=== PATIENT | female | born 1980 | race Caucasian/White ===

== ENCOUNTER 2017-05-07 10:21 | Emergency (ER) | payer MEDICAID ==
[~2017-05-07] VITALS: Ht 160 cm; Wt 81.2 kg
[~2017-05-07 10:21] MED LIST: HYDR50CA PO; TRAZ100T15 PO
[2017-05-07] MEDS ORDERED: DIAZEPAM 5 MG TABLET PO ONE (11:30)
[2017-05-07] MEDS ORDERED: SODIUM CHLORIDE 0.9% 1,000ML IVBOLUS ONE (11:30)
[2017-05-07] MEDS ORDERED: KETOROLAC 30 MG/1 ML IVPush ONE (11:30)
[2017-05-07] MEDS ORDERED: ONDANSETRON 2MG/ML, 2ML IVPush ONE (11:30)
[2017-05-07] MEDS ORDERED: SODIUM CHLORIDE FLUSH 10ML SYR IVF ONE (11:30)
[2017-05-07] MEDS ORDERED: MORPHINE SULFATE 4 MG/ML, 1ML IVPush PRN (11:30)
[2017-05-07] MEDS ORDERED: MORPHINE SULFATE 4 MG/ML, 1ML ONE ×2 (11:31→12:40)
[2017-05-07] MEDS ORDERED: ONDANSETRON 2MG/ML, 2ML ONE (11:31)
[2017-05-07] MEDS ORDERED: DIAZEPAM 5 MG TABLET ONE (11:31)
[2017-05-07] MEDS ORDERED: KETOROLAC 30 MG/1 ML ONE (11:31)
[2017-05-07] MEDS ORDERED: BUSP10TA PO (12:00)
[2017-05-07] MEDS ORDERED: MECLIZINE CHEWABLE 25 MG TAB PO ONE (12:30)
[2017-05-07] MEDS ORDERED: MECLIZINE CHEWABLE 25 MG TAB ONE (12:40)
[2017-05-07] MEDS ORDERED: HYDROmorphone 1 MG/ML, 1ML ONE (12:57)
[2017-05-07] MEDS ORDERED: HYDROmorphone 2 MG/ML, 1ML IVPush ONE (13:00)
[2017-05-07 13:25] VITALS: BP 102/75
== END 2017-05-07 13:27 | disposition home or self-care (01) ==
LOC: ED 12:34
DX: G44.209 Tension-type headache, unspecified, not intractable (principal)
CPT/HCPCS: 70450; 93005; 96361; 96374; 96375; 99285; J1170; J1885; J2405; J7030

== ENCOUNTER 2017-06-12 05:36 | Emergency (ER) | payer MEDICAID ==
[~2017-06-12] VITALS: Ht 160 cm; Wt 81.5 kg
[~2017-06-12 05:36] MED LIST changes: +BUSP10TA PO
[2017-06-12] MEDS ORDERED: BACL-19 PO (05:59)
[2017-06-12] MEDS ORDERED: SODIUM CHLORIDE FLUSH 10ML SYR IVF ONE (06:00)
[2017-06-12] MEDS ORDERED: SODIUM CHLORIDE 0.9% 1,000ML IVBOLUS ONE (06:00)
[2017-06-12] MEDS ORDERED: ONDANSETRON 2MG/ML, 2ML IVPush ONE (06:00)
[2017-06-12] MEDS ORDERED: FAMOTIDINE 20 MG/2 ML IVP ONE (06:00)
[2017-06-12] MEDS ORDERED: ONDANSETRON 2MG/ML, 2ML ONE (06:04)
[2017-06-12] MEDS ORDERED: LORazepam 2 MG/ML, 1ML ONE ×2 (06:08→11:07)
[2017-06-12] MEDS ORDERED: FAMOTIDINE 20 MG/2 ML ONE (06:18)
[2017-06-12 06:26] LABS: HEMATOCRIT 35.8 % (34.6-47.8); HEMOGLOBIN 12.1 g/dL (11.7-16.4); WHITE BLOOD COUNT 9.6 x10^3/uL (3.4-10)
[2017-06-12] MEDS ORDERED: LORazepam 2 MG/ML, 1ML IVPush ONE ×2 (06:30→11:00)
[2017-06-12 06:31] LABS: BLOOD UREA NITROGEN 14 mg/dL (7-18)
[2017-06-12 06:36] LABS: ASPARTATE AMINO TRANSFERASE 26 U/L (15-37)
[2017-06-12] MEDS ORDERED: MORPHINE SULFATE 4 MG/ML, 1ML IVPush ONE (07:00)
[2017-06-12] MEDS ORDERED: MORPHINE SULFATE 4 MG/ML, 1ML ONE (07:09)
[2017-06-12] MEDS ORDERED: PROCHLORPERAZINE 5 MG/ML, 2ML ONE (08:16)
[2017-06-12] MEDS ORDERED: DIPHENHYDRAMINE 50 MG/ML, 1ML ONE (08:16)
[2017-06-12] MEDS ORDERED: PROCHLORPERAZINE 5 MG/ML, 2ML IVPush ONE (08:30)
[2017-06-12] MEDS ORDERED: DIPHENHYDRAMINE 50 MG/ML, 1ML IVPush ONE (08:30)
[2017-06-12] MEDS ORDERED: KETOROLAC 30 MG/1 ML ONE (08:42)
[2017-06-12] MEDS ORDERED: KETOROLAC 30 MG/1 ML IVPush ONE (09:00)
[2017-06-12] MEDS ORDERED: OMNIPAQUE 350 MG/ML, 100ML BOTTLE ONE (10:26)
[2017-06-12 11:00] VITALS: BP 110/70
== END 2017-06-12 11:38 | disposition home or self-care (01) ==
LOC: ED 06:20
DX: K29.20 Alcoholic gastritis without bleeding (principal); F10.10 Alcohol abuse, uncomplicated; F41.9 Anxiety disorder, unspecified
CPT/HCPCS: 36415; 74020; 74177; 80053; 81001; 83690; 84703; 85025; 87086; 96361; 96374; 96375; 96376; 99285; J0780; J1200; J1885; J2060; J2405; J7030; Q9967; S0028

== ENCOUNTER 2017-08-27 11:34 | Inpatient (IN) | payer MEDICAID ==
[~2017-08-27] VITALS: Ht 162.6 cm; Wt 77.6 kg
[~2017-08-27 11:34] MED LIST changes: +BACL-19 PO
[2017-08-27] MEDS ORDERED: SODIUM CHLORIDE 0.9% 1,000 ML IV ONE (12:23)
[2017-08-27] MEDS ORDERED: SODIUM CHLORIDE 0.9% 1,000ML IVBOLUS ONE (12:30)
[2017-08-27] MEDS ORDERED: SODIUM CHLORIDE FLUSH 10ML SYR IVF ONE (12:30)
[2017-08-27] MEDS ORDERED: ONDANSETRON 2MG/ML, 2ML IVPush ONE ×2 (12:30→15:00)
[2017-08-27] MEDS ORDERED: ONDANSETRON 2MG/ML, 2ML ONE ×2 (12:33→15:13)
[2017-08-27] MEDS ORDERED: HYDROmorphone 2 MG/ML, 1ML ONE ×2 (12:33→13:19)
[2017-08-27] MEDS: HYDROmorphone 1 MG/ML, 1ML IVPush PRN ×2 (12:34→13:30)
[2017-08-27 13:04] LABS: BASOPHILS # (AUTO) 0.08 x10^3/uL (0-0.1); BASOPHILS % (AUTO) 1 % (0-1); EOSINOPHILS # (AUTO) 0.02 x10^3/uL (0-0.4); EOSINOPHILS % (AUTO) 0 % (1-7); LYMPHOCYTES # (AUTO) 1.39 x10^3/uL (1-3.4); LYMPHOCYTES % (AUTO) 14 % (22-44); MD NO; MEAN CORPUSCULAR HEMOGLOBIN 27.5 pg (27.0-34.8); MEAN CORPUSCULAR HGB CONC 32.1 g/dL (32.4-35.8); MEAN CORPUSCULAR VOLUME 85.5 fL (80-100); MEAN PLATELET VOLUME 9.7 fL (7.4-10.4); MONOCYTES # (AUTO) 0.79 x10^3/uL (0.2-0.8); MONOCYTES % (AUTO) 8 % (2-9); NEUTROPHILS # (AUTO) 7.64 x10^3/uL (1.8-6.8); NEUTROPHILS % (AUTO) 77 % (42-75); PLATELET COUNT 261 x10^3/uL (130-400); RED CELL DISTRIBUTION WIDTH 18.1 % (9.6-15.2)
[2017-08-27 13:16] LABS: CHLORIDE 106 mmol/L (98-107)
[2017-08-27 13:35] LABS: ALANINE AMINOTRANSFERASE 58 U/L (12-78); ALBUMIN 4.4 g/dL (3.4-5.0); ALKALINE PHOSPHATASE 104 U/L (45-117); ANION GAP 19 mmol/L (5-15); BILIRUBIN,TOTAL 0.5 mg/dL (0.2-1.0); CREATININE 0.78 mg/dL (0.55-1.02); TOTAL PROTEIN 8.9 g/dL (6.4-8.2)
[2017-08-27] MEDS ORDERED: HYDROmorphone 1 MG/ML, 1ML IVPush PRN (15:00)
[2017-08-27] MEDS ORDERED: PROMETHAZINE 25 MG/ML, 1ML ONE (16:27)
[2017-08-27] MEDS ORDERED: PROMETHAZINE 25 MG/ML, 1ML IM ONE (16:30)
[2017-08-27] MEDS ORDERED: LORazepam 1MG TABLET ONE (16:49)
[2017-08-27] MEDS ORDERED: LORazepam 1MG TABLET PO ONE (17:00)
[2017-08-27] MEDS ORDERED: LORazepam 2 MG/ML, 1ML IVPush ONE (19:00)
[2017-08-27] MEDS ORDERED: METOCLOPRAMIDE 5 MG/ML, 2ML ONE (19:00)
[2017-08-27] MEDS ORDERED: LORazepam 2 MG/ML, 1ML ONE (19:00)
[2017-08-27] MEDS ORDERED: METOCLOPRAMIDE 5 MG/ML, 2ML IVPush ONE (19:00)
[2017-08-27] MEDS ORDERED: BISACODYL 10 MG SUPP PR PRN (20:00)
[2017-08-27] MEDS ORDERED: ACETAMINOPHEN 325 MG TABLET PO PRN (20:00)
[2017-08-27] MEDS: HEPARIN 5,000 UNITS/ML, 1ML SQ SCH (20:00)
[2017-08-27] MEDS ORDERED: POLYETHYLENE GLYCOL 17 GM PACKET PO PRN (20:00)
[2017-08-27] MEDS ORDERED: ONDANSETRON 2MG/ML, 2ML IVPush PRN (20:00)
[2017-08-27 20:10] VITALS: BP 155/91
[2017-08-27] MEDS: PROMETHAZINE 25 MG/ML, 1ML IM PRN (20:22)
[2017-08-27] MEDS ORDERED: ENALAPRILAT 1.25 MG/ML, 2ML IV PRN (20:30)
[2017-08-27] MEDS: TRAZODONE 50MG TABLET PO SCH (21:00)
[2017-08-27] MEDS: BUSPIRONE 10 MG TABLET PO SCH (21:00)
[2017-08-27] MEDS: BACLOFEN 10 MG TABLET PO SCH (21:00)
[2017-08-27] MEDS: NICOTINE 14MG/24 HR PATCH.TD24 TD SCH (21:36)
[2017-08-27] MEDS: LORazepam 2 MG/ML, 1ML IVPush PRN (21:36)
[2017-08-27] MEDS: POTASSIUM CHLORIDE 20 MEQ, MAGNESIUM SULFATE 2 GM, THIAMINE 100 MG, MVI ADULT 10 ML, FO... IV SCH (21:37)
[2017-08-28 01:50] VITALS: BP 134/87
[2017-08-28] MEDS: LORazepam 2 MG/ML, 1ML IVPush PRN ×2 (02:00→17:31)
[2017-08-28] MEDS: PROMETHAZINE 25 MG/ML, 1ML IM PRN (02:00)
[2017-08-28] MEDS: HEPARIN 5,000 UNITS/ML, 1ML SQ SCH ×3 (05:00→20:48)
[2017-08-28 06:08] LABS: BASOPHILS # (AUTO) 0.04 x10^3/uL (0-0.1); BASOPHILS % (AUTO) 1 % (0-1); EOSINOPHILS # (AUTO) 0.03 x10^3/uL (0-0.4); EOSINOPHILS % (AUTO) 0 % (1-7); LYMPHOCYTES # (AUTO) 1.76 x10^3/uL (1-3.4); LYMPHOCYTES % (AUTO) 23 % (22-44); MD NO; MEAN CORPUSCULAR HEMOGLOBIN 27.4 pg (27.0-34.8); MEAN CORPUSCULAR VOLUME 85.5 fL (80-100); MONOCYTES # (AUTO) 0.88 x10^3/uL (0.2-0.8); MONOCYTES % (AUTO) 12 % (2-9); NEUTROPHILS # (AUTO) 4.84 x10^3/uL (1.8-6.8); NEUTROPHILS % (AUTO) 64 % (42-75); PLATELET COUNT 214 x10^3/uL (130-400); RED BLOOD COUNT 4.47 x10^6/uL (3.82-5.3); RED CELL DISTRIBUTION WIDTH 17.7 % (9.6-15.2)
[2017-08-28 06:15] LABS: CHLORIDE 115 mmol/L (98-107)
[2017-08-28 06:28] LABS: ALANINE AMINOTRANSFERASE 50 U/L (12-78); ALBUMIN 3.5 g/dL (3.4-5.0); ALKALINE PHOSPHATASE 90 U/L (45-117); ANION GAP 11 mmol/L (5-15); BILIRUBIN,TOTAL 0.8 mg/dL (0.2-1.0); CALCIUM 8.2 mg/dL (8.5-10.1); CREATININE 0.57 mg/dL (0.55-1.02); TOTAL PROTEIN 7.4 g/dL (6.4-8.2)
[2017-08-28 07:54] VITALS: BP 117/79
[2017-08-28] MEDS: BUSPIRONE 10 MG TABLET PO SCH ×2 (07:56→20:48)
[2017-08-28] MEDS: BACLOFEN 10 MG TABLET PO SCH ×2 (07:56→20:49)
[2017-08-28] MEDS: SENNA/DOCUSATE TABLET PO SCH (08:24)
[2017-08-28 13:55] VITALS: BP 128/74
[2017-08-28 19:19] VITALS: BP 125/85
[2017-08-28] MEDS: NICOTINE 14MG/24 HR PATCH.TD24 TD SCH (20:46)
[2017-08-28] MEDS: SODIUM CHLORIDE 0.9% 1,000 ML IV SCH (20:46)
[2017-08-28] MEDS: TRAZODONE 50MG TABLET PO SCH (20:48)
[2017-08-28] MEDS: POTASSIUM CHLORIDE 20 MEQ, MAGNESIUM SULFATE 2 GM, THIAMINE 100 MG, MVI ADULT 10 ML, FO... IV SCH (23:22)
[2017-08-29 02:14] VITALS: BP 99/65
[2017-08-29] MEDS: HEPARIN 5,000 UNITS/ML, 1ML SQ SCH (04:56)
[2017-08-29] MEDS: LORazepam 2 MG/ML, 1ML IVPush PRN ×2 (05:02→09:17)
[2017-08-29 07:59] VITALS: BP 107/74
[2017-08-29] MEDS: SENNA/DOCUSATE TABLET PO SCH (09:00)
[2017-08-29] MEDS: BACLOFEN 10 MG TABLET PO SCH (09:08)
[2017-08-29] MEDS: BUSPIRONE 10 MG TABLET PO SCH (09:08)
[2017-08-29] MEDS: SODIUM CHLORIDE 0.9% 1,000 ML IV SCH (09:17)
[2017-08-29] MEDS ORDERED: NICO-486 TD (10:19)
[2017-08-29] MEDS ORDERED: ONDA4TAB13 SL (10:19)
[2017-08-29] MEDS ORDERED: FOLIC ACID 1 MG TABLET PO SCH (10:30)
[2017-08-29] MEDS ORDERED: THIAMINE 100MG TABLET PO SCH (10:30)
[2017-08-29] MEDS ORDERED: MAGNESIUM OXIDE 400 MG TABLET PO SCH (10:30)
[2017-08-29] MEDS ORDERED: CHLORDIAZEPOXIDE 25 MG CAPSULE PO PRN (10:30)
[2017-08-29] MEDS ORDERED: MULTIVITAMIN 1 TABLET PO SCH (10:30)
[2017-08-29] MEDS ORDERED: THIA100T6 PO (10:42)
[2017-08-29] MEDS ORDERED: MULT1TAB60 PO (10:42)
[2017-08-29] MEDS ORDERED: FOLI-17 PO (10:42)
[2017-08-29] MEDS ORDERED: MAGN400T26 PO (10:42)
[2017-08-29] MEDS ORDERED: CHLO25CA9 PO (10:42)
[2017-08-29] MEDS ORDERED: OMEP-110 PO (10:51)
== END 2017-08-29 12:15 | disposition home or self-care (01) | DRG 897 ==
LOC: ED 12:43 → EDIP 18:41 → 3NE 20:03 → DCLOUNGE 08-29 12:04
PROVIDERS: ADMIT Surgery; ATTEND Internal Medicine
DX: F10.239 Alcohol dependence with withdrawal, unspecified (principal); E86.0 Dehydration; K29.70 Gastritis, unspecified, without bleeding; F17.210 Nicotine dependence, cigarettes, uncomplicated; R73.9 Hyperglycemia, unspecified
CPT/HCPCS: 36415; 70450; 80053; 83690; 83735; 85025; 96361; 96372; 96374; 96375; 96376; J1170; J2405; J2550; J3411; J3475; J3480; J7042; J2060; J2765; J7030

== ENCOUNTER 2017-09-16 18:42 | Emergency (ER) | payer MEDICAID ==
[~2017-09-16] VITALS: Ht 167.6 cm; Wt 75.0 kg
[~2017-09-16 18:42] MED LIST changes: +CHLO25CA9 PO; +FOLI-17 PO; +MAGN400T26 PO; +MULT1TAB60 PO; +NICO-486 TD; +OMEP-110 PO; +ONDA4TAB13 SL; +THIA100T6 PO
[2017-09-16] MEDS ORDERED: ZIPRASIDONE 20 MG INJ IM ONE (18:56)
[2017-09-16] MEDS ORDERED: LORazepam 1MG TABLET PO ONE (19:00)
[2017-09-16] MEDS ORDERED: ZIPRASIDONE 20 MG INJ IM PRN (19:00)
[2017-09-16] MEDS ORDERED: THIAMINE 100MG TABLET PO ONE (19:30)
[2017-09-16] MEDS ORDERED: SODIUM CHLORIDE FLUSH 10ML SYR IVF ONE (19:30)
[2017-09-16] MEDS ORDERED: SODIUM CHLORIDE 0.9% 1,000ML IVBOLUS ONE (19:30)
[2017-09-16] MEDS ORDERED: PLEASE ENTER HEIGHT AND WEIGHT MC SCH (19:30)
[2017-09-16 19:43] LABS: BASOPHILS # (AUTO) 0.11 x10^3/uL (0-0.1); BASOPHILS % (AUTO) 1 % (0-1); EOSINOPHILS # (AUTO) 0.07 x10^3/uL (0-0.4); EOSINOPHILS % (AUTO) 1 % (1-7); LYMPHOCYTES # (AUTO) 3.48 x10^3/uL (1-3.4); LYMPHOCYTES % (AUTO) 39 % (22-44); MD NO; MEAN CORPUSCULAR HEMOGLOBIN 27.2 pg (27.0-34.8); MEAN CORPUSCULAR HGB CONC 32.5 g/dL (32.4-35.8); MEAN CORPUSCULAR VOLUME 83.8 fL (80-100); MEAN PLATELET VOLUME 9.1 fL (7.4-10.4); MONOCYTES # (AUTO) 0.51 x10^3/uL (0.2-0.8); MONOCYTES % (AUTO) 6 % (2-9); NEUTROPHILS # (AUTO) 4.76 x10^3/uL (1.8-6.8); NEUTROPHILS % (AUTO) 53 % (42-75); PLATELET COUNT 318 x10^3/uL (130-400); RED BLOOD COUNT 4.74 x10^6/uL (3.82-5.3); RED CELL DISTRIBUTION WIDTH 18.6 % (9.6-15.2)
[2017-09-16 19:54] LABS: ANION GAP 13 mmol/L (5-15); CALCIUM 8.6 mg/dL (8.5-10.1); CHLORIDE 108 mmol/L (98-107); SALICYLATE LEVEL 2.3 mg/dL (2.8-20.0)
[2017-09-16 20:01] LABS: AMPHETAMINE SCREEN, URINE Negative (Negative); BARBITURATE SCREEN, URINE Negative (Negative); BENZODIAZEPINE SCREEN, URINE Negative (Negative); CANNABINOID SCREEN, URINE Negative (Negative); COCAINE SCREEN, URINE Negative (Negative); METHADONE SCREEN, URINE Negative (Negative); OPIATE SCREEN, URINE Negative (Negative)
[2017-09-16 20:03] LABS: ALANINE AMINOTRANSFERASE 48 U/L (12-78); ALKALINE PHOSPHATASE 101 U/L (45-117); BILIRUBIN,TOTAL 0.2 mg/dL (0.2-1.0); CREATININE 0.66 mg/dL (0.55-1.02); TOTAL PROTEIN 8.2 g/dL (6.4-8.2)
[2017-09-16 20:05] LABS: ACETAMINOPHEN < 2 mcg/mL (10-30)
[2017-09-17] MEDS ORDERED: LORazepam 1MG TABLET ONE (01:44)
[2017-09-17] MEDS ORDERED: LORazepam 1MG TABLET PO ONE (02:00)
[2017-09-17 02:31] VITALS: BP 119/74
== END 2017-09-17 02:32 | disposition home or self-care (01) ==
LOC: ED 19:44
DX: F10.20 Alcohol dependence, uncomplicated (principal); E87.6 Hypokalemia
CPT/HCPCS: 36415; 80053; 80307; 80329; 85025; 93005; 96372; 99285; J3486; G0480

== ENCOUNTER 2017-10-07 18:52 | Inpatient (IN) | payer MEDICAID ==
[~2017-10-07] VITALS: Ht 162.6 cm; Wt 76.8 kg
[2017-10-07] MEDS ORDERED: SODIUM CHLORIDE 0.9% 1,000ML IVBOLUS ONE ×3 (19:30→22:00)
[2017-10-07] MEDS ORDERED: SODIUM CHLORIDE FLUSH 10ML SYR IVF ONE (19:30)
[2017-10-07] MEDS ORDERED: ONDANSETRON 2MG/ML, 2ML IVPush ONE (19:30)
[2017-10-07] MEDS ORDERED: ONDANSETRON 2MG/ML, 2ML ONE ×2 (19:36→22:09)
[2017-10-07] MEDS ORDERED: LORazepam 2 MG/ML, 1ML ONE ×4 (19:36→22:50)
[2017-10-07] MEDS: LORazepam 2 MG/ML, 1ML IVPush PRN ×4 (19:39→20:56)
[2017-10-07 19:59] LABS: MEAN CORPUSCULAR HEMOGLOBIN 26.6 pg (27.0-34.8); MEAN CORPUSCULAR HGB CONC 30.7 g/dL (32.4-35.8); MEAN CORPUSCULAR VOLUME 86.8 fL (80-100); MEAN PLATELET VOLUME 9.1 fL (7.4-10.4); PLATELET COUNT 374 x10^3/uL (130-400); RED BLOOD COUNT 4.99 x10^6/uL (3.82-5.3); RED CELL DISTRIBUTION WIDTH 18.6 % (9.6-15.2)
[2017-10-07 20:09] LABS: ALANINE AMINOTRANSFERASE 169 U/L (12-78); ALBUMIN 4.6 g/dL (3.4-5.0); ANION GAP 23 mmol/L (5-15); CALCIUM 8.9 mg/dL (8.5-10.1); CHLORIDE 102 mmol/L (98-107); CREATININE 0.94 mg/dL (0.55-1.02)
[2017-10-07 20:14] LABS: ALKALINE PHOSPHATASE 155 U/L (45-117); BILIRUBIN,TOTAL 0.9 mg/dL (0.2-1.0); TOTAL PROTEIN 9.6 g/dL (6.4-8.2)
[2017-10-07 20:27] LABS: BASOPHILS # (AUTO) 0.06 x10^3/uL (0-0.1); BASOPHILS % (AUTO) 0 % (0-1); EOSINOPHILS % (AUTO) 0 % (1-7); LYMPHOCYTES # (AUTO) 0.85 x10^3/uL (1-3.4); LYMPHOCYTES % (AUTO) 5 % (22-44); MONOCYTES # (AUTO) 0.48 x10^3/uL (0.2-0.8); MONOCYTES % (AUTO) 3 % (2-9); NEUTROPHILS # (AUTO) 17.04 x10^3/uL (1.8-6.8); NEUTROPHILS % (AUTO) 93 % (42-75)
[2017-10-07 20:29] LABS: MD SCAN
[2017-10-07] MEDS ORDERED: METOCLOPRAMIDE 5 MG/ML, 2ML ONE (20:47)
[2017-10-07] MEDS ORDERED: OMNIPAQUE 350 MG/ML, 100ML BOTTLE ONE (21:00)
[2017-10-07] MEDS ORDERED: METOCLOPRAMIDE 5 MG/ML, 2ML IVPush ONE (21:00)
[2017-10-07 21:07] LABS: CULTURE INDICATED? NO; MICROSCOPIC AUTO
[2017-10-07] MEDS ORDERED: ONDANSETRON 2MG/ML, 2ML IVPush PRN ×2 (22:00→22:30)
[2017-10-07] MEDS ORDERED: POTASSIUM CHLORIDE 20 MEQ, MAGNESIUM SULFATE 2 GM, THIAMINE 100 MG, MVI ADULT 10 ML, FO... IV SCH (22:28)
[2017-10-07] MEDS ORDERED: DIPHENHYDRAMINE 50 MG/ML, 1ML IV PRN (22:30)
[2017-10-07] MEDS ORDERED: LABETALOL 5MG/ML, 20ML IVPush PRN (22:30)
[2017-10-07] MEDS ORDERED: LORazepam 2 MG/ML, 1ML IV PRN ×5 (22:30)
[2017-10-07] MEDS: D5%-0.9% NACL 1,000 ML IV SCH (22:30)
[2017-10-07] MEDS: ENOXAPARIN 40 MG/0.4 ML SQ SCH (22:30)
[2017-10-07] MEDS ORDERED: morphine SULFATE 10 MG/ML, 1ML IVPush PRN (22:30)
[2017-10-07] MEDS: D5%-0.45% NACL 1,000 ML IV SCH (22:43)
[2017-10-07] MEDS ORDERED: HALOPERIDOL 5 MG/ML IV PRN (23:00)
[2017-10-08 01:02] LABS: FIO2 RA %
[2017-10-08] MEDS: ENOXAPARIN 40 MG/0.4 ML SQ SCH ×2 (01:08→22:30)
[2017-10-08] MEDS: FAMOTIDINE 20 MG/2 ML IVPush SCH ×3 (01:08→19:58)
[2017-10-08] MEDS: D5%-0.45% NACL 1,000 ML IV SCH (03:00)
[2017-10-08] MEDS: D5%-0.9% NACL 1,000 ML IV SCH (03:30)
[2017-10-08 05:37] LABS: BASOPHILS # (AUTO) 0.02 x10^3/uL (0-0.1); BASOPHILS % (AUTO) 0 % (0-1); EOSINOPHILS % (AUTO) 0 % (1-7); LYMPHOCYTES # (AUTO) 1.76 x10^3/uL (1-3.4); LYMPHOCYTES % (AUTO) 16 % (22-44); MD NO; MEAN CORPUSCULAR HEMOGLOBIN 27.3 pg (27.0-34.8); MEAN CORPUSCULAR VOLUME 85.2 fL (80-100); MEAN PLATELET VOLUME 8.9 fL (7.4-10.4); MONOCYTES # (AUTO) 0.81 x10^3/uL (0.2-0.8); MONOCYTES % (AUTO) 7 % (2-9); NEUTROPHILS # (AUTO) 8.53 x10^3/uL (1.8-6.8); NEUTROPHILS % (AUTO) 77 % (42-75); PLATELET COUNT 226 x10^3/uL (130-400); RED BLOOD COUNT 3.87 x10^6/uL (3.82-5.3); RED CELL DISTRIBUTION WIDTH 18.8 % (9.6-15.2)
[2017-10-08 05:45] LABS: ALANINE AMINOTRANSFERASE 116 U/L (12-78); ALBUMIN 3.4 g/dL (3.4-5.0); ANION GAP 11 mmol/L (5-15); CALCIUM 7.4 mg/dL (8.5-10.1); CHLORIDE 110 mmol/L (98-107); CREATININE 0.68 mg/dL (0.55-1.02)
[2017-10-08 05:47] LABS: ALKALINE PHOSPHATASE 108 U/L (45-117); BILIRUBIN,TOTAL 0.9 mg/dL (0.2-1.0); TOTAL PROTEIN 7.1 g/dL (6.4-8.2)
[2017-10-08] MEDS ORDERED: SODIUM PHOSPHATE 20 MMOL in SODIUM CHLORIDE 0.9% 500 ML IV ONE ×2 (06:30→07:30)
[2017-10-08 08:58] LABS: O2 FLOW ROOM AIR L/min
[2017-10-08] MEDS: CHLORDIAZEPOXIDE 25 MG CAPSULE PO SCH ×3 (09:25→19:58)
[2017-10-08] MEDS: ACETAMINOPHEN 325 MG TABLET PO PRN (09:25)
[2017-10-08] MEDS: LORazepam 2 MG/ML, 1ML IVPush PRN ×4 (12:55→19:58)
[2017-10-08] MEDS: POTASSIUM CHLORIDE 20 MEQ, MAGNESIUM SULFATE 2 GM, MVI ADULT 10 ML, FOLIC ACID 1 MG in ... IV SCH (20:25)
[2017-10-08 20:27] VITALS: BP 132/87
[2017-10-08] MEDS ORDERED: POTASSIUM CHLORIDE 20 MEQ, MAGNESIUM SULFATE 2 GM, THIAMINE 200 MG, MVI ADULT 10 ML, FO... IV SCH (22:28)
[2017-10-09 00:29] VITALS: BP 126/89
[2017-10-09] MEDS: LORazepam 2 MG/ML, 1ML IVPush PRN ×6 (00:35→23:57)
[2017-10-09 01:03] VITALS: BP 115/27
[2017-10-09 05:52] LABS: CHLORIDE 108 mmol/L (98-107)
[2017-10-09 06:12] LABS: ANION GAP 12 mmol/L (5-15); CALCIUM 8.5 mg/dL (8.5-10.1); CREATININE 0.47 mg/dL (0.55-1.02)
[2017-10-09] MEDS ORDERED: POTASSIUM PHOSPHATE 44 MEQ in SODIUM CHLORIDE 0.9% 500 ML IV ONE (07:30)
[2017-10-09 07:57] VITALS: BP 118/79
[2017-10-09] MEDS: THIAMINE 100MG TABLET PO SCH (08:20)
[2017-10-09] MEDS: CHLORDIAZEPOXIDE 25 MG CAPSULE PO SCH ×3 (08:20→20:47)
[2017-10-09] MEDS: MUPIROCIN OINT 2%, 22GM TP SCH ×3 (08:20→20:48)
[2017-10-09] MEDS: FAMOTIDINE 20 MG/2 ML IVPush SCH ×2 (08:21→20:47)
[2017-10-09 13:22] VITALS: BP 122/72
[2017-10-09] MEDS: ACETAMINOPHEN 325 MG TABLET PO PRN (16:45)
[2017-10-09 19:22] VITALS: BP 128/88
[2017-10-09] MEDS: POTASSIUM CHLORIDE 20 MEQ, MAGNESIUM SULFATE 2 GM, MVI ADULT 10 ML, FOLIC ACID 1 MG in ... IV SCH (20:47)
[2017-10-09] MEDS: ENOXAPARIN 40 MG/0.4 ML SQ SCH (22:30)
[2017-10-10 01:56] VITALS: BP 111/76
[2017-10-10 07:01] VITALS: BP 118/82
[2017-10-10] MEDS: FAMOTIDINE 20 MG/2 ML IVPush SCH (08:25)
[2017-10-10] MEDS: THIAMINE 100MG TABLET PO SCH (08:25)
[2017-10-10] MEDS: CHLORDIAZEPOXIDE 25 MG CAPSULE PO SCH (08:25)
[2017-10-10] MEDS: LORazepam 2 MG/ML, 1ML IVPush PRN (08:25)
[2017-10-10] MEDS: MUPIROCIN OINT 2%, 22GM TP SCH (08:26)
[2017-10-10 13:02] VITALS: BP 103/70
== END 2017-10-10 13:45 | disposition home or self-care (01) | DRG 897 ==
LOC: ED 19:30 → EDIP 22:01 → CCU 23:13 → 3NE 10-08 11:34
PROVIDERS: ADMIT Hospitalist; ATTEND Hospitalist
DX: F10.239 Alcohol dependence with withdrawal, unspecified (principal); E87.2 Acidosis; K70.10 Alcoholic hepatitis without ascites; K76.0 Fatty (change of) liver, not elsewhere classified; R65.10 Systemic inflammatory response syndrome (SIRS) of non-infectious origin without acute organ dysfunction; D72.829 Elevated white blood cell count, unspecified; E86.0 Dehydration; F12.90 Cannabis use, unspecified, uncomplicated; F17.210 Nicotine dependence, cigarettes, uncomplicated; F41.1 Generalized anxiety disorder; K43.9 Ventral hernia without obstruction or gangrene; Z71.41 Alcohol abuse counseling and surveillance of alcoholic
CPT/HCPCS: 36415; 36600; 71045; 74177; 80048; 80053; 80307; 81001; 82803; 83605; 83690; 83735; 84100; 84703; 85025; 87081; 93005; 96374; 96375; 96376; J1650; J2405; J3411; J3475; J3480; J7042; Q9967; J2060; J2765; J7030; J7040; S0028

== ENCOUNTER 2018-01-29 13:47 | Emergency (ER) | payer MEDICAID ==
[~2018-01-29] VITALS: Ht 162.6 cm; Wt 74.3 kg
[2018-01-29 14:40] LABS: MICROSCOPIC NOT IND
[2018-01-29 14:55] LABS: CULTURE INDICATED? NO
[2018-01-29] MEDS ORDERED: SODIUM CHLORIDE 0.9% 1,000ML IVBOLUS ONE (15:00)
[2018-01-29] MEDS ORDERED: KETOROLAC 30 MG/1 ML IVPush ONE (15:00)
[2018-01-29] MEDS ORDERED: SODIUM CHLORIDE FLUSH 10ML SYR IVF ONE (15:00)
[2018-01-29] MEDS ORDERED: KETOROLAC 30 MG/1 ML ONE (15:08)
[2018-01-29 15:11] LABS: BASOPHILS # (AUTO) 0.06 x10^3/uL (0-0.1); BASOPHILS % (AUTO) 1 % (0-1); EOSINOPHILS # (AUTO) 0.09 x10^3/uL (0-0.4); EOSINOPHILS % (AUTO) 1 % (1-7); LYMPHOCYTES % (AUTO) 51 % (22-44); MD NO; MEAN CORPUSCULAR HEMOGLOBIN 27.2 pg (27.0-34.8); MEAN CORPUSCULAR HGB CONC 32.5 g/dL (32.4-35.8); MEAN CORPUSCULAR VOLUME 83.5 fL (80-100); MEAN PLATELET VOLUME 8.8 fL (7.4-10.4); MONOCYTES # (AUTO) 0.47 x10^3/uL (0.2-0.8); MONOCYTES % (AUTO) 7 % (2-9); NEUTROPHILS # (AUTO) 2.85 x10^3/uL (1.8-6.8); NEUTROPHILS % (AUTO) 40 % (42-75); PLATELET COUNT 314 x10^3/uL (130-400); RED BLOOD COUNT 4.21 x10^6/uL (3.82-5.3); RED CELL DISTRIBUTION WIDTH 19.1 % (9.6-15.2)
[2018-01-29 15:22] LABS: ALANINE AMINOTRANSFERASE 72 U/L (12-78); ALBUMIN 3.5 g/dL (3.4-5.0); ANION GAP 12 mmol/L (5-15); CALCIUM 8.4 mg/dL (8.5-10.1); CHLORIDE 113 mmol/L (98-107); CREATININE 0.71 mg/dL (0.55-1.02)
[2018-01-29 15:27] LABS: ALKALINE PHOSPHATASE 96 U/L (45-117); BILIRUBIN,TOTAL 0.2 mg/dL (0.2-1.0); TOTAL PROTEIN 7.2 g/dL (6.4-8.2)
[2018-01-29] MEDS ORDERED: hydrOXYzine 25 MG/ML IM ONE (16:00)
[2018-01-29] MEDS ORDERED: hydrOXYzine 50 MG/ML IM ONE (16:00)
[2018-01-29] MEDS ORDERED: OMNIPAQUE 350 MG/ML, 100ML BOTTLE ONE (16:07)
[2018-01-29 16:13] VITALS: BP 142/97
== END 2018-01-29 16:42 | disposition home or self-care (01) ==
LOC: ED 16:36
DX: K52.89 Other specified noninfective gastroenteritis and colitis (principal)
CPT/HCPCS: 36415; 74177; 80053; 81003; 83690; 84703; 85025; 96361; 96372; 96374; 99285; J1885; J3410; J7030; Q9967

== ENCOUNTER 2018-02-20 19:34 | Inpatient (IN) | payer MEDICAID ==
[~2018-02-20] VITALS: Ht 162.6 cm; Wt 79.4 kg
[2018-02-20] MEDS ORDERED: ONDANSETRON 2MG/ML, 2ML IVPush ONE (20:00)
[2018-02-20] MEDS ORDERED: SODIUM CHLORIDE 0.9% 1,000ML IVBOLUS ONE (20:00)
[2018-02-20] MEDS ORDERED: SODIUM CHLORIDE FLUSH 10ML SYR IVF ONE (20:00)
[2018-02-20] MEDS ORDERED: MORPHINE SULFATE 4 MG/ML, 1ML ONE ×2 (20:33→21:26)
[2018-02-20] MEDS ORDERED: ONDANSETRON ODT 4 MG ONE (20:33)
[2018-02-20 20:36] LABS: ALBUMIN 4.3 g/dL (3.4-5.0); CALCIUM 8.9 mg/dL (8.5-10.1); CHLORIDE 105 mmol/L (98-107)
[2018-02-20 20:38] LABS: ALANINE AMINOTRANSFERASE 94 U/L (12-78); ALKALINE PHOSPHATASE 111 U/L (45-117); BILIRUBIN,TOTAL 1.1 mg/dL (0.2-1.0); CREATININE 0.76 mg/dL (0.55-1.02); TOTAL PROTEIN 8.5 g/dL (6.4-8.2)
[2018-02-20 20:44] LABS: ANION GAP 20 mmol/L (5-15)
[2018-02-20] MEDS: MORPHINE SULFATE 4 MG/ML, 1ML IVPush PRN ×2 (20:44→21:29)
[2018-02-20] MEDS ORDERED: D5%-0.9% NACL 1,000 ML IV SCH (21:00)
[2018-02-20 21:35] LABS: BASOPHILS # (AUTO) 0.05 x10^3/uL (0-0.1); BASOPHILS % (AUTO) 1 % (0-1); EOSINOPHILS # (AUTO) 0.04 x10^3/uL (0-0.4); EOSINOPHILS % (AUTO) 1 % (1-7); LYMPHOCYTES # (AUTO) 1.52 x10^3/uL (1-3.4); LYMPHOCYTES % (AUTO) 20 % (22-44); MD NO; MEAN CORPUSCULAR HEMOGLOBIN 28.1 pg (27.0-34.8); MEAN CORPUSCULAR VOLUME 87.9 fL (80-100); MEAN PLATELET VOLUME 9.5 fL (7.4-10.4); MONOCYTES # (AUTO) 0.68 x10^3/uL (0.2-0.8); MONOCYTES % (AUTO) 9 % (2-9); NEUTROPHILS # (AUTO) 5.46 x10^3/uL (1.8-6.8); NEUTROPHILS % (AUTO) 70 % (42-75); PLATELET COUNT 218 x10^3/uL (130-400); RED BLOOD COUNT 4.18 x10^6/uL (3.82-5.3); RED CELL DISTRIBUTION WIDTH 19.2 % (9.6-15.2)
[2018-02-20 21:54] LABS: PH, VENOUS 7.243 pH (7.320-7.420)
[2018-02-20] MEDS ORDERED: LORazepam 2 MG/ML, 1ML IVPush ONE (22:00)
[2018-02-20 22:08] LABS: ACETONE, SERUM Large (80mg/dL) mg/dL (Negative)
[2018-02-20 22:48] LABS: ANION GAP 17 mmol/L (5-15); CALCIUM 7.6 mg/dL (8.5-10.1); CHLORIDE 110 mmol/L (98-107); CREATININE 0.59 mg/dL (0.55-1.02)
[2018-02-20] MEDS ORDERED: LORazepam 2 MG/ML, 1ML ONE (22:57)
[2018-02-20] MEDS ORDERED: LORazepam 2 MG/ML, 1ML IV PRN ×5 (23:00)
[2018-02-20] MEDS ORDERED: BISACODYL 10 MG SUPP PR PRN (23:00)
[2018-02-20] MEDS ORDERED: ONDANSETRON ODT 4 MG PO PRN (23:00)
[2018-02-20] MEDS ORDERED: hydrALAzine 20 MG/ML, 1ML IVPush PRN (23:00)
[2018-02-20] MEDS ORDERED: LORazepam 0.5MG TABLET PO PRN (23:00)
[2018-02-20] MEDS ORDERED: POLYETHYLENE GLYCOL 17 GM PACKET PO PRN (23:00)
[2018-02-20] MEDS ORDERED: LORazepam 1MG TABLET PO PRN ×4 (23:00)
[2018-02-20] MEDS ORDERED: PROMETHAZINE 25 MG/ML, 1ML IM PRN (23:00)
[2018-02-20] MEDS ORDERED: DOCUSATE 100 MG CAPSULE PO PRN (23:00)
[2018-02-20] MEDS ORDERED: ONDANSETRON 2MG/ML, 2ML IVPush PRN (23:00)
[2018-02-20 23:21] LABS: HEMOGLOBIN A1C 3.9 % (4.2-6.3)
[2018-02-20 23:23] LABS: FREE T4 (FREE THYROXINE) 0.78 ng/dL (0.76-1.46); THYROID STIMULATING HORMONE 3.85 mIU/L (0.358-3.740)
[2018-02-21 00:15] VITALS: BP 126/87
[2018-02-21] MEDS: CHLORDIAZEPOXIDE 25 MG CAPSULE PO SCH ×4 (01:29→20:55)
[2018-02-21] MEDS: POTASSIUM CHLORIDE 20 MEQ, MAGNESIUM SULFATE 2 GM, THIAMINE 100 MG, MVI ADULT 10 ML, FO... IV SCH ×2 (01:29→09:13)
[2018-02-21] MEDS: HEPARIN 5,000 UNITS/ML, 1ML SQ SCH ×3 (01:29→17:14)
[2018-02-21] MEDS: OXYcodone IR 5MG TABLET PO PRN ×5 (01:39→17:54)
[2018-02-21 03:22] VITALS: BP 121/80
[2018-02-21 04:32] LABS: MICROSCOPIC AUTO
[2018-02-21 04:41] LABS: CULTURE INDICATED? NO
[2018-02-21 05:53] LABS: BASOPHILS # (AUTO) 0.07 x10^3/uL (0-0.1); BASOPHILS % (AUTO) 1 % (0-1); EOSINOPHILS # (AUTO) 0.14 x10^3/uL (0-0.4); EOSINOPHILS % (AUTO) 2 % (1-7); LYMPHOCYTES # (AUTO) 2.78 x10^3/uL (1-3.4); LYMPHOCYTES % (AUTO) 41 % (22-44); MD NO; MEAN CORPUSCULAR HEMOGLOBIN 28.3 pg (27.0-34.8); MEAN CORPUSCULAR HGB CONC 32.2 g/dL (32.4-35.8); MEAN CORPUSCULAR VOLUME 87.9 fL (80-100); MEAN PLATELET VOLUME 9.7 fL (7.4-10.4); MONOCYTES # (AUTO) 0.75 x10^3/uL (0.2-0.8); MONOCYTES % (AUTO) 11 % (2-9); NEUTROPHILS # (AUTO) 3.01 x10^3/uL (1.8-6.8); NEUTROPHILS % (AUTO) 45 % (42-75); PLATELET COUNT 150 x10^3/uL (130-400); RED BLOOD COUNT 3.67 x10^6/uL (3.82-5.3); RED CELL DISTRIBUTION WIDTH 19.1 % (9.6-15.2)
[2018-02-21 06:01] LABS: ALBUMIN 3.1 g/dL (3.4-5.0); ANION GAP 8 mmol/L (5-15); CHLORIDE 113 mmol/L (98-107)
[2018-02-21 06:03] LABS: TOTAL PROTEIN 6.2 g/dL (6.4-8.2)
[2018-02-21 06:08] LABS: ALANINE AMINOTRANSFERASE 61 U/L (12-78); CALCIUM 7.8 mg/dL (8.5-10.1); CREATININE 0.56 mg/dL (0.55-1.02)
[2018-02-21 06:11] LABS: BILIRUBIN,TOTAL 0.7 mg/dL (0.2-1.0); CHOLESTEROL, TOTAL 163 mg/dL (140-239); TRIGLYCERIDES 56 mg/dL (50-200); VLDL CHOLESTEROL 11 mg/dL (0-25)
[2018-02-21 06:13] LABS: ALKALINE PHOSPHATASE 79 U/L (45-117); HDL CHOL % 51 % (28-40); HDL CHOLESTEROL (DIRECT) 83 mg/dL (40-60); LDL CHOLESTEROL,CALCULATED 69 mg/dL (54-169); LDL/HDL RATIO 0.8 (0.5-3.0)
[2018-02-21 07:09] VITALS: BP 122/82
[2018-02-21] MEDS: morphine SULFATE 10 MG/ML, 1ML IVPush PRN ×2 (08:53→15:40)
[2018-02-21] MEDS ORDERED: SODIUM PHOSPHATE 10 MMOL in SODIUM CHLORIDE 0.9% 500 ML IV ONE (09:30)
[2018-02-21] MEDS ORDERED: OXYcodone 5 MG/5 ML ORAL.SOL UDC ONE (11:37)
[2018-02-21 13:21] VITALS: BP 128/79
[2018-02-21] MEDS ORDERED: KETOROLAC 30 MG/1 ML IM PRN (13:30)
[2018-02-21] MEDS: NICOTINE 7 MG/24 HR PATCH.TD24 TD SCH (14:11)
[2018-02-21] MEDS ORDERED: KETOROLAC 30 MG/1 ML IV PRN (19:30)
[2018-02-21 20:09] VITALS: BP 115/78
[2018-02-22] MEDS: OXYcodone IR 5MG TABLET PO PRN ×3 (00:03→20:05)
[2018-02-22] MEDS: POTASSIUM CHLORIDE 20 MEQ, MAGNESIUM SULFATE 2 GM, THIAMINE 100 MG, MVI ADULT 10 ML, FO... IV SCH (00:03)
[2018-02-22] MEDS: HEPARIN 5,000 UNITS/ML, 1ML SQ SCH ×3 (00:07→16:22)
[2018-02-22 01:03] VITALS: BP 122/82
[2018-02-22 06:28] LABS: ANION GAP 6 mmol/L (5-15); CALCIUM 7.7 mg/dL (8.5-10.1); CHLORIDE 115 mmol/L (98-107); CREATININE 0.45 mg/dL (0.55-1.02)
[2018-02-22 07:47] VITALS: BP 127/79
[2018-02-22] MEDS: CHLORDIAZEPOXIDE 25 MG CAPSULE PO SCH ×3 (08:16→20:05)
[2018-02-22] MEDS: morphine SULFATE 10 MG/ML, 1ML IVPush PRN ×3 (09:26→16:32)
[2018-02-22] MEDS: NICOTINE 7 MG/24 HR PATCH.TD24 TD SCH (12:53)
[2018-02-22 13:04] VITALS: BP 132/84
[2018-02-22 20:12] VITALS: BP 109/73
[2018-02-23] MEDS: OXYcodone IR 5MG TABLET PO PRN ×2 (00:10→10:52)
[2018-02-23 00:11] VITALS: BP 121/82
[2018-02-23] MEDS: POTASSIUM CHLORIDE 20 MEQ, MAGNESIUM SULFATE 2 GM, THIAMINE 100 MG, MVI ADULT 10 ML, FO... IV SCH (00:11)
[2018-02-23] MEDS: HEPARIN 5,000 UNITS/ML, 1ML SQ SCH ×2 (01:00→08:40)
[2018-02-23 06:38] VITALS: BP 119/82
[2018-02-23] MEDS ORDERED: CHLORDIAZEPOXIDE 10 MG CAPSULE PO PRN (08:30)
[2018-02-23] MEDS ORDERED: OMNIPAQUE 350 MG/ML, 100ML BOTTLE ONE (10:20)
[2018-02-23] MEDS ORDERED: MULT1TAB60 PO (12:12)
[2018-02-23] MEDS ORDERED: IBUP-1484 PO (12:12)
[2018-02-23] MEDS ORDERED: SENN1TAB7 PO (12:12)
[2018-02-23] MEDS ORDERED: MAGNESIUM CITRATE 300ML ORAL SOL PO ONE (12:30)
== END 2018-02-23 13:48 | disposition home or self-care (01) | DRG 433 ==
LOC: ED 20:21 → EDIP 22:48 → 4EST 02-21 00:09
PROVIDERS: ADMIT Internal Medicine; ATTEND Internal Medicine
DX: K70.9 Alcoholic liver disease, unspecified (principal); E87.1 Hypo-osmolality and hyponatremia; E87.2 Acidosis; F10.239 Alcohol dependence with withdrawal, unspecified; K51.90 Ulcerative colitis, unspecified, without complications; E16.2 Hypoglycemia, unspecified; F12.90 Cannabis use, unspecified, uncomplicated; F17.210 Nicotine dependence, cigarettes, uncomplicated; F41.1 Generalized anxiety disorder; G89.29 Other chronic pain; K43.9 Ventral hernia without obstruction or gangrene; K76.0 Fatty (change of) liver, not elsewhere classified; N83.202 Unspecified ovarian cyst, left side; T73.0XXA Starvation, initial encounter
CPT/HCPCS: 36415; 36600; 74177; 76830; 76857; 80048; 80053; 80061; 80307; 81001; 82010; 82803; 82962; 83036; 83690; 83735; 84100; 84439; 84443; 84703; 85025; 93005; 96361; 96374; 96375; 96376; J2405; J3411; J3475; J3480; J7042; Q9967; J2060; J2270; J7030; J7040

== ENCOUNTER 2018-03-09 22:52 | Emergency (ER) | payer MEDICAID ==
[~2018-03-09] VITALS: Ht 162.6 cm; Wt 77.5 kg
[~2018-03-09 22:52] MED LIST changes: +IBUP-1484 PO; +SENN1TAB7 PO
[2018-03-09 22:58] VITALS: BP 124/81
[2018-03-09] MEDS ORDERED: TRAMADOL PO (23:06)
[2018-03-09] MEDS ORDERED: BUSP10TA PO (23:06)
[2018-03-09 23:28] LABS: BASOPHILS # (AUTO) 0.08 x10^3/uL (0-0.1); BASOPHILS % (AUTO) 1 % (0-1); EOSINOPHILS # (AUTO) 0.05 x10^3/uL (0-0.4); EOSINOPHILS % (AUTO) 1 % (1-7); LYMPHOCYTES # (AUTO) 3.01 x10^3/uL (1-3.4); LYMPHOCYTES % (AUTO) 37 % (22-44); MD NO; MEAN CORPUSCULAR HEMOGLOBIN 26.8 pg (27.0-34.8); MEAN CORPUSCULAR VOLUME 83.7 fL (80-100); MEAN PLATELET VOLUME 8.7 fL (7.4-10.4); MONOCYTES # (AUTO) 0.43 x10^3/uL (0.2-0.8); MONOCYTES % (AUTO) 5 % (2-9); NEUTROPHILS # (AUTO) 4.69 x10^3/uL (1.8-6.8); NEUTROPHILS % (AUTO) 57 % (42-75); PLATELET COUNT 421 x10^3/uL (130-400); RED BLOOD COUNT 4.19 x10^6/uL (3.82-5.3); RED CELL DISTRIBUTION WIDTH 19.9 % (9.6-15.2)
[2018-03-09] MEDS ORDERED: SODIUM CHLORIDE 0.9% 1,000ML IVBOLUS ONE (23:30)
[2018-03-09] MEDS ORDERED: THIAMINE 100MG TABLET PO ONE (23:30)
[2018-03-09] MEDS ORDERED: SODIUM CHLORIDE FLUSH 10ML SYR IVF ONE (23:30)
[2018-03-09] MEDS ORDERED: ONDANSETRON 2MG/ML, 2ML IVPush ONE (23:30)
[2018-03-09] MEDS ORDERED: LORazepam 1MG TABLET PO ONE (23:30)
[2018-03-09 23:38] LABS: ALBUMIN 3.9 g/dL (3.4-5.0); ANION GAP 10 mmol/L (5-15); CHLORIDE 113 mmol/L (98-107); CREATININE 0.82 mg/dL (0.55-1.02)
== END 2018-03-10 00:10 | disposition left against medical advice (07) ==
LOC: ED 23:59
DX: F41.1 Generalized anxiety disorder (principal); F10.220 Alcohol dependence with intoxication, uncomplicated; F17.200 Nicotine dependence, unspecified, uncomplicated
CPT/HCPCS: 36415; 80048; 80307; 82040; 84703; 85025; 99284

== ENCOUNTER 2018-03-27 16:10 | Emergency (ER) | payer MEDICAID ==
[~2018-03-27] VITALS: Ht 162.6 cm; Wt 70.9 kg
[~2018-03-27 16:10] MED LIST changes: -THIA100T6 PO; +THIA100T67 PO; +TRAMADOL PO; +TRAZ-137 PO; -TRAZ100T15 PO
[2018-03-27] MEDS ORDERED: SODIUM CHLORIDE 0.9% 1,000 ML IV ONE (16:41)
[2018-03-27] MEDS ORDERED: LORazepam 1MG TABLET PO ONE (17:00)
[2018-03-27] MEDS ORDERED: ONDANSETRON ODT 4 MG PO ONE (17:00)
[2018-03-27] MEDS ORDERED: SODIUM CHLORIDE 0.9% 1,000ML IVBOLUS ONE (17:00)
[2018-03-27] MEDS ORDERED: LORazepam 2 MG/ML, 1ML IVPush PRN (17:00)
[2018-03-27] MEDS ORDERED: ONDANSETRON 2MG/ML, 2ML IVPush ONE (17:00)
[2018-03-27] MEDS ORDERED: SODIUM CHLORIDE FLUSH 10ML SYR IVF ONE (17:00)
[2018-03-27] MEDS ORDERED: THIAMINE 100 MG in SODIUM CHLORIDE 0.9% 50 ML IVPB ONE (17:00)
[2018-03-27] MEDS ORDERED: ONDANSETRON 2MG/ML, 2ML ONE (17:31)
[2018-03-27] MEDS ORDERED: LORazepam 2 MG/ML, 1ML ONE (17:31)
[2018-03-27 17:44] LABS: MEAN CORPUSCULAR HEMOGLOBIN 27.9 pg (27.0-34.8); MEAN CORPUSCULAR HGB CONC 32.5 g/dL (32.4-35.8); MEAN CORPUSCULAR VOLUME 85.9 fL (80-100); MEAN PLATELET VOLUME 8.4 fL (7.4-10.4); PLATELET COUNT 218 x10^3/uL (130-400); RED CELL DISTRIBUTION WIDTH 20.1 % (9.6-15.2)
[2018-03-27 17:52] LABS: CHLORIDE 108 mmol/L (98-107)
[2018-03-27 18:08] LABS: MD SCAN
[2018-03-27 18:10] LABS: ALANINE AMINOTRANSFERASE 142 U/L (12-78); ALBUMIN 4.3 g/dL (3.4-5.0); ANION GAP 23 mmol/L (5-15); BASOPHILS # (AUTO) 0.18 x10^3/uL (0-0.1); BASOPHILS % (AUTO) 3 % (0-1); CALCIUM 8.2 mg/dL (8.5-10.1); EOSINOPHILS % (AUTO) 0 % (1-7); LYMPHOCYTES # (AUTO) 1.33 x10^3/uL (1-3.4); LYMPHOCYTES % (AUTO) 20 % (22-44); MONOCYTES # (AUTO) 0.28 x10^3/uL (0.2-0.8); MONOCYTES % (AUTO) 4 % (2-9); NEUTROPHILS % (AUTO) 74 % (42-75)
[2018-03-27 18:30] LABS: BILIRUBIN,TOTAL 0.5 mg/dL (0.2-1.0)
[2018-03-27 18:31] LABS: ALKALINE PHOSPHATASE 83 U/L (45-117); TOTAL PROTEIN 8.4 g/dL (6.4-8.2)
[2018-03-27] MEDS ORDERED: PROMETHAZINE 25 MG/ML, 1ML ONE (18:52)
[2018-03-27 18:59] VITALS: BP 123/69
[2018-03-27] MEDS ORDERED: PROMETHAZINE 25 MG/ML, 1ML IM ONE (19:00)
== END 2018-03-27 19:25 | disposition home or self-care (01) ==
LOC: ED 17:04
DX: F10.229 Alcohol dependence with intoxication, unspecified (principal); F17.210 Nicotine dependence, cigarettes, uncomplicated; Z79.899 Other long term (current) drug therapy
CPT/HCPCS: 36415; 80053; 80307; 83690; 85025; 96365; 96372; 96375; 99284; J2060; J2405; J2550; J3411; J7030; 99285

== ENCOUNTER 2018-04-21 15:24 | Emergency (ER) | payer MEDICAID ==
[~2018-04-21] VITALS: Ht 162.6 cm; Wt 72.2 kg
[2018-04-21 15:26] VITALS: BP 121/81
[2018-04-21 15:52] LABS: PH, VENOUS 7.512 pH (7.320-7.420)
[2018-04-21 15:54] LABS: BASOPHILS # (AUTO) 0.12 x10^3/uL (0-0.1); BASOPHILS % (AUTO) 2 % (0-1); EOSINOPHILS # (AUTO) 0.16 x10^3/uL (0-0.4); EOSINOPHILS % (AUTO) 2 % (1-7); LYMPHOCYTES # (AUTO) 3.77 x10^3/uL (1-3.4); LYMPHOCYTES % (AUTO) 45 % (22-44); MD NO; MEAN CORPUSCULAR HEMOGLOBIN 26.5 pg (27.0-34.8); MEAN CORPUSCULAR VOLUME 82.9 fL (80-100); MEAN PLATELET VOLUME 8.6 fL (7.4-10.4); MONOCYTES # (AUTO) 0.48 x10^3/uL (0.2-0.8); MONOCYTES % (AUTO) 6 % (2-9); NEUTROPHILS % (AUTO) 46 % (42-75); PLATELET COUNT 308 x10^3/uL (130-400); RED BLOOD COUNT 4.32 x10^6/uL (3.82-5.3); RED CELL DISTRIBUTION WIDTH 19.2 % (9.6-15.2)
[2018-04-21] MEDS ORDERED: ZIPRASIDONE 20MG CAPSULE ONE (15:58)
[2018-04-21] MEDS ORDERED: ZIPRASIDONE 20MG CAPSULE PO ONE (16:00)
[2018-04-21 16:06] LABS: ALBUMIN 3.8 g/dL (3.4-5.0); ANION GAP 11 mmol/L (5-15); CALCIUM 8.9 mg/dL (8.5-10.1); CHLORIDE 116 mmol/L (98-107)
[2018-04-21 16:11] LABS: ALANINE AMINOTRANSFERASE 63 U/L (12-78); ALKALINE PHOSPHATASE 86 U/L (45-117); BILIRUBIN,TOTAL 0.2 mg/dL (0.2-1.0); TOTAL PROTEIN 7.6 g/dL (6.4-8.2)
[2018-04-21 16:14] LABS: SALICYLATE LEVEL < 1.7 mg/dL (2.8-20.0)
[2018-04-21 16:16] LABS: ACETAMINOPHEN < 2 mcg/mL (10-30)
[2018-04-21 16:33] LABS: ACETONE, SERUM Negative (Negative)
== END 2018-04-21 16:52 | disposition left against medical advice (07) ==
LOC: ED 16:46
DX: F10.120 Alcohol abuse with intoxication, uncomplicated (principal); F17.200 Nicotine dependence, unspecified, uncomplicated
CPT/HCPCS: 36415; 80053; 80307; 80329; 82010; 82803; 84703; 85025; 99284; 99406; G0480

== ENCOUNTER 2018-05-09 20:04 | Emergency (ER) | payer MEDICAID ==
[~2018-05-09] VITALS: Ht 162.6 cm; Wt 72.2 kg
[~2018-05-09 20:04] MED LIST changes: -SENN1TAB7 PO; +SENN1TAB8 PO
[2018-05-09] MEDS ORDERED: CHLO10CA6 PO (20:19)
[2018-05-09] MEDS ORDERED: TRAZ-136 PO (20:19)
[2018-05-09 21:20] LABS: BASOPHILS # (AUTO) 0.07 x10^3/uL (0-0.1); BASOPHILS % (AUTO) 1 % (0-1); EOSINOPHILS # (AUTO) 0.32 x10^3/uL (0-0.4); EOSINOPHILS % (AUTO) 4 % (1-7); LYMPHOCYTES # (AUTO) 3.31 x10^3/uL (1-3.4); LYMPHOCYTES % (AUTO) 44 % (22-44); MD NO; MEAN CORPUSCULAR HEMOGLOBIN 26.6 pg (27.0-34.8); MEAN CORPUSCULAR HGB CONC 31.9 g/dL (32.4-35.8); MEAN CORPUSCULAR VOLUME 83.4 fL (80-100); MEAN PLATELET VOLUME 9.7 fL (7.4-10.4); MONOCYTES # (AUTO) 0.71 x10^3/uL (0.2-0.8); MONOCYTES % (AUTO) 9 % (2-9); NEUTROPHILS # (AUTO) 3.19 x10^3/uL (1.8-6.8); NEUTROPHILS % (AUTO) 42 % (42-75); PLATELET COUNT 245 x10^3/uL (130-400); RED BLOOD COUNT 4.96 x10^6/uL (3.82-5.3); RED CELL DISTRIBUTION WIDTH 19.7 % (9.6-15.2)
[2018-05-09 21:24] LABS: ALANINE AMINOTRANSFERASE 170 U/L (12-78); ANION GAP 10 mmol/L (5-15); CALCIUM 9.4 mg/dL (8.5-10.1); CHLORIDE 107 mmol/L (98-107); CREATININE 0.68 mg/dL (0.55-1.02)
[2018-05-09 21:29] LABS: ALKALINE PHOSPHATASE 110 U/L (45-117); BILIRUBIN,TOTAL 0.4 mg/dL (0.2-1.0); TOTAL PROTEIN 8.3 g/dL (6.4-8.2)
[2018-05-09 22:19] VITALS: BP 108/18
[2018-05-09] MEDS ORDERED: ONDANSETRON ODT 4 MG PO ONE (22:30)
[2018-05-09 23:01] LABS: CULTURE INDICATED? NO; MICROSCOPIC NOT IND
== END 2018-05-09 23:21 | disposition home or self-care (01) ==
LOC: ED 22:21
DX: F10.229 Alcohol dependence with intoxication, unspecified (principal); R10.33 Periumbilical pain; R10.30 Lower abdominal pain, unspecified; F17.200 Nicotine dependence, unspecified, uncomplicated
CPT/HCPCS: 36415; 80053; 80307; 81003; 83690; 84703; 85025; 99284

== ENCOUNTER 2018-06-12 12:03 | Emergency (ER) | payer MEDICAID ==
[~2018-06-12] VITALS: Ht 162.6 cm; Wt 71.2 kg
[~2018-06-12 12:03] MED LIST changes: +CHLO10CA6 PO; +TRAZ-136 PO
[2018-06-12] MEDS ORDERED: FAMOTIDINE 20 MG/2 ML ONE (12:52)
[2018-06-12] MEDS ORDERED: PROMETHAZINE 25 MG/ML, 1ML ONE (12:52)
[2018-06-12] MEDS ORDERED: PROMETHAZINE 25 MG/ML, 1ML IM ONE (13:00)
[2018-06-12] MEDS ORDERED: SODIUM CHLORIDE FLUSH 10ML SYR IVF ONE (13:00)
[2018-06-12] MEDS ORDERED: SODIUM CHLORIDE 0.9% 1,000ML IVBOLUS ONE (13:00)
[2018-06-12] MEDS ORDERED: FAMOTIDINE 20 MG/2 ML IVP ONE (13:00)
[2018-06-12] MEDS ORDERED: MAGNESIUM SULFATE 1 GM, THIAMINE 100 MG, FOLIC ACID 1 MG, MVI ADULT 10 ML in SODIUM CHL... IV ONE (13:00)
[2018-06-12 13:10] LABS: HCG UR SG 1.026 (1.003-1.030)
[2018-06-12 13:13] LABS: MICROSCOPIC INDICATED
[2018-06-12 13:19] LABS: CULTURE INDICATED? NO
[2018-06-12 13:32] LABS: INTERNATIONAL NORMALIZED RATIO 0.97 (0.93-1.1)
[2018-06-12 13:39] LABS: ALANINE AMINOTRANSFERASE 112 U/L (12-78); ALBUMIN 3.9 g/dL (3.4-5.0); ANION GAP 17 mmol/L (5-15); CALCIUM 8.7 mg/dL (8.5-10.1); CHLORIDE 107 mmol/L (98-107)
[2018-06-12 13:42] LABS: ALKALINE PHOSPHATASE 91 U/L (45-117); BILIRUBIN,TOTAL 0.5 mg/dL (0.2-1.0); CREATININE 0.61 mg/dL (0.55-1.02); TOTAL PROTEIN 7.7 g/dL (6.4-8.2)
[2018-06-12 13:54] LABS: MEAN CORPUSCULAR HEMOGLOBIN 27.4 pg (27.0-34.8); MEAN CORPUSCULAR HGB CONC 31.9 g/dL (32.4-35.8); MEAN CORPUSCULAR VOLUME 85.9 fL (80-100); MEAN PLATELET VOLUME 8.9 fL (7.4-10.4); PLATELET COUNT 205 x10^3/uL (130-400); RED BLOOD COUNT 4.38 x10^6/uL (3.82-5.3); RED CELL DISTRIBUTION WIDTH 20.3 % (9.6-15.2)
[2018-06-12 14:13] LABS: BASOPHILS # (AUTO) 0.05 x10^3/uL (0-0.1); BASOPHILS % (AUTO) 1 % (0-1); EOSINOPHILS # (AUTO) 0.02 x10^3/uL (0-0.4); EOSINOPHILS % (AUTO) 1 % (1-7); LYMPHOCYTES # (AUTO) 0.86 x10^3/uL (1-3.4); LYMPHOCYTES % (AUTO) 19 % (22-44); MONOCYTES # (AUTO) 0.17 x10^3/uL (0.2-0.8); MONOCYTES % (AUTO) 4 % (2-9); NEUTROPHILS # (AUTO) 3.33 x10^3/uL (1.8-6.8); NEUTROPHILS % (AUTO) 75 % (42-75)
[2018-06-12 14:14] LABS: MD SCAN
[2018-06-12 15:36] VITALS: BP 123/78
== END 2018-06-12 16:03 | disposition home or self-care (01) ==
LOC: ED 12:50
DX: R10.11 Right upper quadrant pain (principal); R10.33 Periumbilical pain; R10.31 Right lower quadrant pain; F10.20 Alcohol dependence, uncomplicated; F41.1 Generalized anxiety disorder
CPT/HCPCS: 36415; 76700; 80053; 81001; 81025; 83690; 85025; 85610; 85730; 96365; 96366; 96372; 96375; 99285; J2550; J3411; J3475; J7030; S0028

== ENCOUNTER 2018-07-04 12:15 | Inpatient (IN) | payer MEDICAID ==
[~2018-07-04] VITALS: Ht 162.6 cm; Wt 73.9 kg
[2018-07-04] MEDS ORDERED: SODIUM CHLORIDE 0.9% 1,000 ML IV ONE ×2 (13:06→14:08)
[2018-07-04] MEDS ORDERED: PROMETHAZINE 25 MG/ML, 1ML IM ONE (13:30)
[2018-07-04] MEDS ORDERED: SODIUM CHLORIDE 0.9% 1,000ML IVBOLUS ONE ×2 (13:30→14:30)
[2018-07-04] MEDS ORDERED: SODIUM CHLORIDE FLUSH 10ML SYR IVF ONE (13:30)
[2018-07-04] MEDS ORDERED: THIAMINE 100 MG/ML, 2ML ONE (13:32)
[2018-07-04] MEDS ORDERED: PROMETHAZINE 25 MG/ML, 1ML ONE (13:32)
[2018-07-04 13:39] LABS: BASOPHILS # (AUTO) 0.01 x10^3/uL (0-0.1); BASOPHILS % (AUTO) 0 % (0-1); EOSINOPHILS % (AUTO) 0 % (1-7); LYMPHOCYTES # (AUTO) 0.95 x10^3/uL (1-3.4); LYMPHOCYTES % (AUTO) 23 % (22-44); MD NO; MEAN CORPUSCULAR HEMOGLOBIN 28.5 pg (27.0-34.8); MEAN CORPUSCULAR HGB CONC 31.7 g/dL (32.4-35.8); MEAN CORPUSCULAR VOLUME 89.7 fL (80-100); MEAN PLATELET VOLUME 8.8 fL (7.4-10.4); MONOCYTES # (AUTO) 0.23 x10^3/uL (0.2-0.8); MONOCYTES % (AUTO) 6 % (2-9); NEUTROPHILS # (AUTO) 2.96 x10^3/uL (1.8-6.8); NEUTROPHILS % (AUTO) 71 % (42-75); PLATELET COUNT 139 x10^3/uL (130-400); RED BLOOD COUNT 3.87 x10^6/uL (3.82-5.3)
[2018-07-04 13:51] LABS: ALANINE AMINOTRANSFERASE 127 U/L (12-78); ALBUMIN 3.6 g/dL (3.4-5.0); CALCIUM 7.5 mg/dL (8.5-10.1); CREATININE 0.62 mg/dL (0.55-1.02)
[2018-07-04 13:57] LABS: ALKALINE PHOSPHATASE 85 U/L (45-117); BILIRUBIN,TOTAL 0.5 mg/dL (0.2-1.0); TOTAL PROTEIN 7.2 g/dL (6.4-8.2)
[2018-07-04 14:02] LABS: ANION GAP 26 mmol/L (5-15); CHLORIDE 108 mmol/L (98-107)
[2018-07-04] MEDS ORDERED: DEXTROSE 50%, 50ML SYRINGE ONE (14:06)
[2018-07-04] MEDS ORDERED: DEXTROSE 50%, 50ML SYRINGE IVPush ONE (14:30)
[2018-07-04 15:19] LABS: ACETONE, SERUM Large (80mg/dL) mg/dL (Negative)
[2018-07-04 16:12] LABS: FIO2 ROOM AIR %; PH, VENOUS 7.149 pH (7.320-7.420)
[2018-07-04] MEDS ORDERED: KETOROLAC 30 MG/1 ML ONE (17:28)
[2018-07-04] MEDS ORDERED: KETOROLAC 30 MG/1 ML IVPush ONE (17:30)
[2018-07-04] MEDS ORDERED: DEXTROSE 50%, 50ML SYRINGE IVPush PRN (18:00)
[2018-07-04] MEDS ORDERED: THIAMINE 200 MG in SODIUM CHLORIDE 0.9% 50 ML IV ONE (18:00)
[2018-07-04] MEDS ORDERED: GLUCAGON 1 MG IM PRN (18:00)
[2018-07-04] MEDS ORDERED: DEXTROSE 4 GM TAB.CHEW PO PRN (18:00)
[2018-07-04] MEDS ORDERED: LORazepam 2 MG/ML, 1ML IV PRN ×3 (18:30)
[2018-07-04] MEDS ORDERED: PROMETHAZINE 25 MG/ML, 1ML IM PRN (18:30)
[2018-07-04] MEDS ORDERED: LORazepam 0.5MG TABLET PO PRN (18:30)
[2018-07-04] MEDS ORDERED: LORazepam 1MG TABLET PO PRN ×2 (18:30)
[2018-07-04] MEDS ORDERED: FOLIC ACID 5 MG/ML IM ONE (18:30)
[2018-07-04 20:08] VITALS: BP 125/80
[2018-07-04] MEDS: ENOXAPARIN 40 MG/0.4 ML SQ SCH (20:33)
[2018-07-04] MEDS: SODIUM CHLORIDE FLUSH 10ML SYR IVF SCH (20:37)
[2018-07-04] MEDS: SODIUM BICARBONATE 8.4% 150 MEQ in DEXTROSE 5% 1,000 ML IV SCH (21:43)
[2018-07-04 23:48] LABS: ANION GAP 14 mmol/L (5-15); CALCIUM 6.3 mg/dL (8.5-10.1); CHLORIDE 109 mmol/L (98-107); CREATININE 0.45 mg/dL (0.55-1.02)
[2018-07-05 00:38] VITALS: BP 109/66
[2018-07-05 02:12] VITALS: BP 107/64
[2018-07-05] MEDS: LORazepam 1MG TABLET PO PRN (04:07)
[2018-07-05] MEDS ORDERED: POTASSIUM CHLORIDE 20 MEQ, MAGNESIUM SULFATE 1 GM, FOLIC ACID 1 MG, THIAMINE 200 MG, MV... IV SCH (06:00)
[2018-07-05] MEDS: SODIUM BICARBONATE 8.4% 150 MEQ in DEXTROSE 5% 1,000 ML IV SCH (06:38)
[2018-07-05 07:10] VITALS: BP 104/61
[2018-07-05] MEDS ORDERED: THIAMINE 100 MG/ML, 2ML IM SCH (09:00)
[2018-07-05] MEDS: SODIUM CHLORIDE FLUSH 10ML SYR IVF SCH ×2 (10:16→19:42)
[2018-07-05] MEDS: KETOROLAC 30 MG/1 ML IV PRN ×2 (10:16→18:06)
[2018-07-05] MEDS: LORazepam 2 MG/ML, 1ML IV PRN (11:10)
[2018-07-05] MEDS: HYDROcodone/APAP 5/325 TABLET PO PRN ×2 (12:33→19:42)
[2018-07-05 13:27] VITALS: BP 121/82
[2018-07-05] MEDS ORDERED: NICOTINE 14MG/24 HR PATCH.TD24 ONE (13:46)
[2018-07-05] MEDS: NICOTINE 14MG/24 HR PATCH.TD24 TD SCH (14:01)
[2018-07-05] MEDS ORDERED: MAGNESIUM SULFATE PMX 2GM/50ML 50 ML IV ONE (14:30)
[2018-07-05] MEDS: NS + 20MEQ KCL 1,000 ML IV SCH (17:21)
[2018-07-05] MEDS: ENOXAPARIN 40 MG/0.4 ML SQ SCH (18:00)
[2018-07-05 19:00] VITALS: BP 125/77
[2018-07-06] MEDS: NS + 20MEQ KCL 1,000 ML IV SCH (01:31)
[2018-07-06 02:07] VITALS: BP 118/68
[2018-07-06] MEDS: LORazepam 2 MG/ML, 1ML IV PRN (04:27)
[2018-07-06] MEDS: HYDROcodone/APAP 5/325 TABLET PO PRN ×2 (04:27→10:25)
[2018-07-06 06:06] LABS: ANION GAP 9 mmol/L (5-15); CALCIUM 7.1 mg/dL (8.5-10.1); CHLORIDE 106 mmol/L (98-107); CREATININE 0.43 mg/dL (0.55-1.02)
[2018-07-06 07:35] VITALS: BP 117/82
[2018-07-06] MEDS: LORazepam 1MG TABLET PO PRN (08:06)
[2018-07-06] MEDS: SODIUM CHLORIDE FLUSH 10ML SYR IVF SCH (08:07)
[2018-07-06] MEDS: NICOTINE 14MG/24 HR PATCH.TD24 TD SCH (08:08)
[2018-07-06] MEDS ORDERED: POTASSIUM PHOS 4.4 MEQ/ML IV ONE (08:30)
[2018-07-06] MEDS ORDERED: MULTIVITAMIN 1 TABLET PO SCH (09:00)
[2018-07-06] MEDS ORDERED: FOLIC ACID 1 MG TABLET PO SCH (09:00)
[2018-07-06] MEDS ORDERED: THIAMINE 100MG TABLET PO SCH (09:00)
[2018-07-06] MEDS ORDERED: POTASSIUM PHOSPHATE 22 MEQ in SODIUM CHLORIDE 0.9% 500 ML IV ONE (09:30)
[2018-07-06] MEDS ORDERED: POTASSIUM PHOSPHATE 44 MEQ in SODIUM CHLORIDE 0.9% 500 ML IV ONE (09:30)
[2018-07-06] MEDS ORDERED: MULT1TAB60 PO (10:28)
[2018-07-06] MEDS ORDERED: FOLI-17 PO (10:28)
[2018-07-06] MEDS ORDERED: THIA100T67 PO (10:28)
== END 2018-07-06 11:48 | disposition home or self-care (01) | DRG 432 ==
LOC: ED 14:33 → EDIP 17:33 → 4WST 18:28
PROVIDERS: ADMIT Hospitalist; ATTEND Family Medicine
DX: K70.10 Alcoholic hepatitis without ascites (principal); R65.11 Systemic inflammatory response syndrome (SIRS) of non-infectious origin with acute organ dysfunction; E87.2 Acidosis; F10.239 Alcohol dependence with withdrawal, unspecified; E16.2 Hypoglycemia, unspecified; E86.0 Dehydration; R11.2 Nausea with vomiting, unspecified; R00.0 Tachycardia, unspecified; F10.229 Alcohol dependence with intoxication, unspecified; F12.90 Cannabis use, unspecified, uncomplicated; F17.210 Nicotine dependence, cigarettes, uncomplicated; G44.209 Tension-type headache, unspecified, not intractable; F41.9 Anxiety disorder, unspecified; E86.9 Volume depletion, unspecified; T73.0XXA Starvation, initial encounter; X58.XXXA Exposure to other specified factors, initial encounter
CPT/HCPCS: 36415; 36600; 99291; J7042; 70450; 80048; 80053; 82010; 82800; 82803; 82962; 83605; 83690; 83735; 84100; 84702; 85025; 93005; 96361; 96372; 96374; 96375; G0378; J1885; J2550; J3411; J3475; J3480; J7070; J2060; J7030

== ENCOUNTER 2018-07-28 05:13 | Inpatient (IN) | payer MEDICAID ==
[~2018-07-28] VITALS: Ht 162.6 cm; Wt 74.1 kg
[~2018-07-28 05:13] MED LIST changes: -TRAZ-136 PO; +TRAZ50TA66 PO
[2018-07-28] MEDS ORDERED: LORazepam 2 MG/ML, 1ML ONE (05:39)
[2018-07-28] MEDS ORDERED: ALBUTEROL/IPRATROPIUM 2.5MG/0.5MG, 3 ML ONE (05:45)
[2018-07-28 05:58] LABS: MEAN CORPUSCULAR HEMOGLOBIN 27.8 pg (27.0-34.8); MEAN CORPUSCULAR HGB CONC 32.2 g/dL (32.4-35.8); MEAN CORPUSCULAR VOLUME 86.4 fL (80-100); MEAN PLATELET VOLUME 9.8 fL (7.4-10.4); PLATELET COUNT 100 x10^3/uL (130-400); RED BLOOD COUNT 3.68 x10^6/uL (3.82-5.3); RED CELL DISTRIBUTION WIDTH 19.5 % (9.6-15.2)
[2018-07-28] MEDS ORDERED: ALBUTEROL/IPRATROPIUM 2.5MG/0.5MG, 3 ML NPPB ONE (06:00)
[2018-07-28] MEDS ORDERED: LORazepam 2 MG/ML, 1ML IVPush ONE (06:00)
[2018-07-28 06:05] LABS: RAPID INFLUENZA A POSITIVE (Negative); RAPID INFLUENZA B Negative (Negative)
[2018-07-28 06:08] LABS: ALANINE AMINOTRANSFERASE 162 U/L (12-78); ALBUMIN 3.4 g/dL (3.4-5.0); ANION GAP 17 mmol/L (5-15); CALCIUM 7.9 mg/dL (8.5-10.1); CHLORIDE 105 mmol/L (98-107); CREATININE 0.64 mg/dL (0.55-1.02)
[2018-07-28 06:13] LABS: ALKALINE PHOSPHATASE 101 U/L (45-117); BILIRUBIN,TOTAL 0.3 mg/dL (0.2-1.0); TOTAL PROTEIN 6.7 g/dL (6.4-8.2); TROPONIN I < 0.015 ng/mL (0.000-0.045)
[2018-07-28 06:25] LABS: BASOPHILS # (AUTO) 0.05 x10^3/uL (0-0.1); BASOPHILS % (AUTO) 2 % (0-1); EOSINOPHILS # (AUTO) 0.01 x10^3/uL (0-0.4); EOSINOPHILS % (AUTO) 0 % (1-7); LYMPHOCYTES # (AUTO) 0.74 x10^3/uL (1-3.4); LYMPHOCYTES % (AUTO) 33 % (22-44); MD SCAN; MONOCYTES # (AUTO) 0.33 x10^3/uL (0.2-0.8); MONOCYTES % (AUTO) 15 % (2-9); NEUTROPHILS # (AUTO) 1.11 x10^3/uL (1.8-6.8); NEUTROPHILS % (AUTO) 49 % (42-75)
[2018-07-28] MEDS ORDERED: POTASSIUM CHLORIDE 20 MEQ TAB.ER.PRT ONE (06:26)
[2018-07-28] MEDS ORDERED: NS + 40MEQ KCL 1,000 ML IV ONE ×2 (06:26→06:30)
[2018-07-28] MEDS ORDERED: KETOROLAC 30 MG/1 ML ONE (06:28)
[2018-07-28] MEDS ORDERED: KETOROLAC 30 MG/1 ML IVPush ONE (06:30)
[2018-07-28] MEDS ORDERED: POTASSIUM CHLORIDE 20 MEQ TAB.ER.PRT PO ONE (06:30)
[2018-07-28] MEDS ORDERED: NS + 20MEQ KCL 1,000 ML IV ONE (07:18)
[2018-07-28] MEDS ORDERED: SODIUM CHLORIDE FLUSH 10ML SYR IVF PRN (07:30)
[2018-07-28] MEDS ORDERED: POTASSIUM CHLORIDE 40 MEQ in SODIUM CHLORIDE 0.9% 1,000 ML IV SCH (07:47)
[2018-07-28] MEDS: POTASSIUM CHLORIDE 20 MEQ, MAGNESIUM SULFATE 2 GM, THIAMINE 200 MG, MVI ADULT 10 ML, FO... IV SCH ×2 (07:47→22:10)
[2018-07-28] MEDS ORDERED: IBUPROFEN 600 MG TABLET PO PRN (08:00)
[2018-07-28] MEDS: HEPARIN 5,000 UNITS/ML, 1ML SQ SCH ×2 (08:00→14:52)
[2018-07-28] MEDS ORDERED: hydrALAzine 20 MG/ML, 1ML IVPush PRN (08:00)
[2018-07-28] MEDS ORDERED: ACETAMINOPHEN 325 MG TABLET PO PRN (08:00)
[2018-07-28] MEDS ORDERED: CHLORDIAZEPOXIDE 25 MG CAPSULE PO PRN (08:00)
[2018-07-28] MEDS ORDERED: KETOROLAC 30 MG/1 ML IV PRN (08:00)
[2018-07-28] MEDS ORDERED: ASA/APAP/ CAFFEINE TABLET PO PRN (08:00)
[2018-07-28] MEDS ORDERED: LABETALOL 5MG/ML, 20ML IVPush PRN (08:00)
[2018-07-28] MEDS ORDERED: BUTALB/APAP/CAFFEINE 50MG/325MG/40MG PO PRN (08:00)
[2018-07-28] MEDS ORDERED: ONDANSETRON ODT 4 MG PO PRN (08:00)
[2018-07-28] MEDS ORDERED: D5%-0.45NACL+KCL 40MEQ 1,000 ML IV SCH (08:30)
[2018-07-28] MEDS: OSELTAMIVIR 75 MG CAPSULE PO SCH ×2 (09:00→22:11)
[2018-07-28] MEDS ORDERED: POTASSIUM PHOSPHATE 44 MEQ in SODIUM CHLORIDE 0.9% 500 ML IV ONE (09:30)
[2018-07-28] MEDS ORDERED: MAGNESIUM SULFATE 4 GM in SODIUM CHLORIDE 0.9% 100 ML IV ONE (09:30)
[2018-07-28] MEDS: NICOTINE 14MG/24 HR PATCH.TD24 TD SCH (10:02)
[2018-07-28] MEDS: GUAIFENESIN ER 600 MG TABLET PO SCH ×2 (10:04→22:11)
[2018-07-28] MEDS: POTASSIUM CHLORIDE 20 MEQ TAB.ER.PRT PO SCH ×2 (10:05→16:57)
[2018-07-28 12:25] LABS: ANION GAP 16 mmol/L (5-15); CALCIUM 7.3 mg/dL (8.5-10.1); CHLORIDE 108 mmol/L (98-107)
[2018-07-28 12:28] LABS: CREATININE 0.59 mg/dL (0.55-1.02)
[2018-07-28 14:04] VITALS: BP 105/68
[2018-07-28] MEDS: LORazepam 2 MG/ML, 1ML IVPush PRN ×3 (15:34→22:19)
[2018-07-28] MEDS: ONDANSETRON 2MG/ML, 2ML IVPush PRN (17:46)
[2018-07-28 19:40] VITALS: BP 124/84
[2018-07-29 01:23] VITALS: BP 115/78
[2018-07-29 05:48] LABS: ANION GAP 9 mmol/L (5-15); CALCIUM 7.2 mg/dL (8.5-10.1); CHLORIDE 111 mmol/L (98-107); CREATININE 0.43 mg/dL (0.55-1.02)
[2018-07-29 05:50] LABS: MEAN CORPUSCULAR HEMOGLOBIN 29.2 pg (27.0-34.8); MEAN CORPUSCULAR VOLUME 88.4 fL (80-100); RED BLOOD COUNT 3.72 x10^6/uL (3.82-5.3); RED CELL DISTRIBUTION WIDTH 19.1 % (9.6-15.2)
[2018-07-29 06:44] LABS: BASOPHILS # (AUTO) 0.04 x10^3/uL (0-0.1); BASOPHILS % (AUTO) 2 % (0-1); EOSINOPHILS # (AUTO) 0.04 x10^3/uL (0-0.4); EOSINOPHILS % (AUTO) 2 % (1-7); LYMPHOCYTES % (AUTO) 49 % (22-44); MD SCAN; MONOCYTES # (AUTO) 0.27 x10^3/uL (0.2-0.8); MONOCYTES % (AUTO) 12 % (2-9); NEUTROPHILS % (AUTO) 36 % (42-75); PLATELET COUNT 86 x10^3/uL (130-400)
[2018-07-29 07:02] VITALS: BP 117/83
[2018-07-29] MEDS: HEPARIN 5,000 UNITS/ML, 1ML SQ SCH ×3 (08:00→16:00)
[2018-07-29] MEDS: SODIUM CHLORIDE 0.9% 1,000 ML IV SCH (08:00)
[2018-07-29] MEDS ORDERED: ACETAMINOPHEN 325 MG TABLET PO PRN (08:30)
[2018-07-29] MEDS: NICOTINE 14MG/24 HR PATCH.TD24 TD SCH (08:51)
[2018-07-29] MEDS: GUAIFENESIN ER 600 MG TABLET PO SCH ×2 (08:51→21:46)
[2018-07-29] MEDS: OSELTAMIVIR 75 MG CAPSULE PO SCH ×2 (08:51→21:46)
[2018-07-29] MEDS: ONDANSETRON 2MG/ML, 2ML IVPush PRN (09:40)
[2018-07-29] MEDS: LORazepam 2 MG/ML, 1ML IVPush PRN ×3 (09:40→21:46)
[2018-07-29 12:28] VITALS: BP 128/89
[2018-07-29] MEDS ORDERED: MAGNESIUM SULFATE 3 GM in SODIUM CHLORIDE 0.9% 100 ML IV ONE (13:30)
[2018-07-29 20:56] VITALS: BP 133/105
[2018-07-29 21:45] VITALS: BP 140/100
[2018-07-30] MEDS: SODIUM CHLORIDE 0.9% 1,000 ML IV SCH ×2 (00:59→13:42)
[2018-07-30] MEDS: LORazepam 2 MG/ML, 1ML IVPush PRN ×2 (01:11→08:56)
[2018-07-30 03:43] VITALS: BP 124/83
[2018-07-30 05:47] LABS: CHLORIDE 109 mmol/L (98-107)
[2018-07-30 06:20] LABS: % IRON SATURATION 24 % (20-55); ANION GAP 10 mmol/L (5-15); CALCIUM 7.5 mg/dL (8.5-10.1); CREATININE 0.46 mg/dL (0.55-1.02); IRON LEVEL 72 mcg/dL (50-170); TOTAL IRON BINDING CAPACITY 299 mcg/dL (250-450)
[2018-07-30 06:52] VITALS: BP 131/92
[2018-07-30] MEDS: HEPARIN 5,000 UNITS/ML, 1ML SQ SCH ×3 (07:07→15:50)
[2018-07-30] MEDS: NICOTINE 14MG/24 HR PATCH.TD24 TD SCH (08:55)
[2018-07-30] MEDS: GUAIFENESIN ER 600 MG TABLET PO SCH ×2 (08:56→21:49)
[2018-07-30] MEDS: OSELTAMIVIR 75 MG CAPSULE PO SCH ×2 (08:56→21:49)
[2018-07-30 12:32] VITALS: BP 134/96
[2018-07-30 19:55] VITALS: BP 122/82
[2018-07-30] MEDS ORDERED: DIPHENHYDRAMINE 12.5MG/5ML, 10ML UDC PO ONE (21:00)
[2018-07-30] MEDS ORDERED: DIPHENHYDRAMINE 50 MG CAPSULE PO ONE (22:00)
[2018-07-31 02:00] VITALS: BP 112/74
[2018-07-31] MEDS: SODIUM CHLORIDE 0.9% 1,000 ML IV SCH (04:36)
[2018-07-31 07:24] VITALS: BP 114/77
[2018-07-31] MEDS: GUAIFENESIN ER 600 MG TABLET PO SCH (08:47)
[2018-07-31] MEDS: HEPARIN 5,000 UNITS/ML, 1ML SQ SCH ×2 (08:47)
[2018-07-31] MEDS: OSELTAMIVIR 75 MG CAPSULE PO SCH (08:47)
[2018-07-31] MEDS: NICOTINE 14MG/24 HR PATCH.TD24 TD SCH (08:48)
[2018-07-31] MEDS ORDERED: OSEL75CA PO (09:54)
[2018-07-31] MEDS ORDERED: FLU VAC QS18-19(4YR UP)CEL/PF 0.5ML IM-VACC ONE (11:00)
== END 2018-07-31 10:58 | disposition home or self-care (01) | DRG 194 ==
LOC: ED 05:48 → EDIP 07:18 → 4WST 09:02
PROVIDERS: ADMIT Internal Medicine; ATTEND Internal Medicine
DX: J10.1 Influenza due to other identified influenza virus with other respiratory manifestations (principal); D61.818 Other pancytopenia; F10.239 Alcohol dependence with withdrawal, unspecified; E16.2 Hypoglycemia, unspecified; E83.42 Hypomagnesemia; E87.6 Hypokalemia; F10.220 Alcohol dependence with intoxication, uncomplicated; F12.10 Cannabis abuse, uncomplicated; F41.1 Generalized anxiety disorder; G47.00 Insomnia, unspecified; K70.10 Alcoholic hepatitis without ascites; R00.0 Tachycardia, unspecified
CPT/HCPCS: 36415; 87400; 99285; J7042; J7620; 71045; 80048; 80053; 80307; 82607; 82746; 82962; 83540; 83550; 83735; 83880; 84100; 84443; 84484; 84702; 85025; 85379; 90674; 93005; 94640; 96361; 96365; 96368; 96375; G0378; J1644; J1885; J2405; J3411; J3475; J3480; J2060; J7030; J7040

== ENCOUNTER 2018-08-18 02:16 | Inpatient (IN) | payer MEDICAID ==
[~2018-08-18] VITALS: Ht 162.6 cm; Wt 64.8 kg
[~2018-08-18 02:16] MED LIST changes: +OSEL75CA PO
[2018-08-18 02:53] LABS: BASOPHILS # (AUTO) 0.07 x10^3/uL (0-0.1); BASOPHILS % (AUTO) 1 % (0-1); EOSINOPHILS # (AUTO) 0.03 x10^3/uL (0-0.4); EOSINOPHILS % (AUTO) 1 % (1-7); LYMPHOCYTES # (AUTO) 0.98 x10^3/uL (1-3.4); LYMPHOCYTES % (AUTO) 19 % (22-44); MD NO; MEAN CORPUSCULAR HEMOGLOBIN 28.5 pg (27.0-34.8); MEAN CORPUSCULAR VOLUME 89.1 fL (80-100); MONOCYTES # (AUTO) 0.21 x10^3/uL (0.2-0.8); MONOCYTES % (AUTO) 4 % (2-9); NEUTROPHILS # (AUTO) 4.03 x10^3/uL (1.8-6.8); NEUTROPHILS % (AUTO) 76 % (42-75); PLATELET COUNT 213 x10^3/uL (130-400); RED BLOOD COUNT 4.22 x10^6/uL (3.82-5.3); RED CELL DISTRIBUTION WIDTH 18.6 % (9.6-15.2)
[2018-08-18 03:00] LABS: ALANINE AMINOTRANSFERASE 181 U/L (12-78); ALBUMIN 4.2 g/dL (3.4-5.0); ANION GAP 27 mmol/L (5-15); CALCIUM 8.4 mg/dL (8.5-10.1); CHLORIDE 103 mmol/L (98-107); CREATININE 0.85 mg/dL (0.55-1.02)
[2018-08-18 03:02] LABS: ALKALINE PHOSPHATASE 116 U/L (45-117); BILIRUBIN,TOTAL 0.5 mg/dL (0.2-1.0); TOTAL PROTEIN 7.9 g/dL (6.4-8.2)
[2018-08-18] MEDS ORDERED: D5%-0.9% NACL 1,000 ML IV ONE (03:19)
[2018-08-18] MEDS ORDERED: ONDANSETRON 2MG/ML, 2ML IVPush ONE (03:30)
[2018-08-18] MEDS ORDERED: ONDANSETRON 2MG/ML, 2ML ONE (03:33)
[2018-08-18] MEDS ORDERED: SODIUM CHLORIDE 0.9% 1,000 ML IV ONE (03:53)
[2018-08-18] MEDS ORDERED: PROMETHAZINE 25 MG/ML, 1ML IM PRN (04:00)
[2018-08-18] MEDS ORDERED: ONDANSETRON 2MG/ML, 2ML IVPush PRN ×2 (04:00→05:30)
[2018-08-18 04:35] VITALS: BP 119/77
[2018-08-18] MEDS ORDERED: MORPHINE SULFATE 4 MG/ML, 1ML ONE (05:08)
[2018-08-18] MEDS ORDERED: LORazepam 2 MG/ML, 1ML ONE (05:08)
[2018-08-18] MEDS ORDERED: MORPHINE SULFATE 4 MG/ML, 1ML IVPush ONE (05:30)
[2018-08-18] MEDS ORDERED: LORazepam 2 MG/ML, 1ML IVPush ONE (05:30)
[2018-08-18] MEDS ORDERED: hydrALAzine 20 MG/ML, 1ML IVPush PRN (05:30)
[2018-08-18] MEDS ORDERED: GABAPENTIN 300 MG CAPSULE PO PRN (05:30)
[2018-08-18] MEDS ORDERED: POTASSIUM CHLORIDE 20 MEQ, MAGNESIUM SULFATE 1 GM, FOLIC ACID 1 MG, THIAMINE 200 MG, MV... IV SCH (05:30)
[2018-08-18] MEDS: ENOXAPARIN 40 MG/0.4 ML SQ SCH (05:30)
[2018-08-18 07:38] VITALS: BP 134/82
[2018-08-18] MEDS ORDERED: FAMOTIDINE 20 MG TABLET ONE (08:59)
[2018-08-18] MEDS ORDERED: FAMOTIDINE 20 MG/2 ML IVPush SCH (09:00)
[2018-08-18] MEDS: FAMOTIDINE 20 MG TABLET PO SCH ×2 (09:08→21:35)
[2018-08-18] MEDS: CHLORDIAZEPOXIDE 10 MG CAPSULE PO SCH ×3 (09:09→21:35)
[2018-08-18] MEDS: LORazepam 2 MG/ML, 1ML IVPush PRN ×2 (09:21→16:48)
[2018-08-18] MEDS: morphine SULFATE 10 MG/ML, 1ML IVPush PRN ×4 (09:22→21:36)
[2018-08-18 14:00] VITALS: BP 138/76
[2018-08-18 18:42] VITALS: BP 130/87
[2018-08-18 21:28] VITALS: BP 118/76
[2018-08-19 00:21] VITALS: BP 117/81
[2018-08-19] MEDS: LORazepam 2 MG/ML, 1ML IVPush PRN (00:25)
[2018-08-19] MEDS: ACETAMINOPHEN 325 MG TABLET PO PRN ×2 (00:25→10:29)
[2018-08-19] MEDS ORDERED: NICOTINE 14MG/24 HR PATCH.TD24 TD SCH (01:00)
[2018-08-19] MEDS ORDERED: IBUPROFEN 200 MG TABLET PO ONE ×2 (01:00→09:00)
[2018-08-19 05:58] LABS: ALBUMIN 3.3 g/dL (3.4-5.0); ANION GAP 9 mmol/L (5-15); CALCIUM 7.5 mg/dL (8.5-10.1); CHLORIDE 104 mmol/L (98-107)
[2018-08-19 06:03] LABS: ALANINE AMINOTRANSFERASE 112 U/L (12-78); ALKALINE PHOSPHATASE 97 U/L (45-117); CREATININE 0.46 mg/dL (0.55-1.02); TOTAL PROTEIN 6.3 g/dL (6.4-8.2)
[2018-08-19] MEDS: ENOXAPARIN 40 MG/0.4 ML SQ SCH (06:08)
[2018-08-19 06:17] LABS: MEAN CORPUSCULAR HEMOGLOBIN 28.9 pg (27.0-34.8); MEAN CORPUSCULAR HGB CONC 32.5 g/dL (32.4-35.8); MEAN CORPUSCULAR VOLUME 88.8 fL (80-100); RED BLOOD COUNT 3.62 x10^6/uL (3.82-5.3); RED CELL DISTRIBUTION WIDTH 17.7 % (9.6-15.2)
[2018-08-19 06:53] LABS: BASOPHILS # (AUTO) 0.02 x10^3/uL (0-0.1); BASOPHILS % (AUTO) 1 % (0-1); EOSINOPHILS # (AUTO) 0.17 x10^3/uL (0-0.4); EOSINOPHILS % (AUTO) 4 % (1-7); LYMPHOCYTES # (AUTO) 1.45 x10^3/uL (1-3.4); LYMPHOCYTES % (AUTO) 37 % (22-44); MD SCAN; MEAN PLATELET VOLUME 9.1 fL (7.4-10.4); MONOCYTES # (AUTO) 0.39 x10^3/uL (0.2-0.8); MONOCYTES % (AUTO) 10 % (2-9); NEUTROPHILS # (AUTO) 1.93 x10^3/uL (1.8-6.8); NEUTROPHILS % (AUTO) 49 % (42-75); PLATELET COUNT 102 x10^3/uL (130-400)
[2018-08-19] MEDS ORDERED: FAMO20TA7 PO (07:24)
[2018-08-19 07:46] VITALS: BP 122/83
[2018-08-19] MEDS: CHLORDIAZEPOXIDE 10 MG CAPSULE PO SCH (08:20)
[2018-08-19] MEDS: FAMOTIDINE 20 MG TABLET PO SCH (08:21)
[2018-08-19] MEDS ORDERED: IBUPROFEN 200 MG TABLET ONE (08:43)
== END 2018-08-19 11:32 | disposition home or self-care (01) | DRG 433 ==
LOC: ED 02:41 → EDIP 03:53 → 5SO 04:28
PROVIDERS: ADMIT Internal Medicine; ATTEND Internal Medicine
DX: K70.10 Alcoholic hepatitis without ascites (principal); F10.239 Alcohol dependence with withdrawal, unspecified; K51.90 Ulcerative colitis, unspecified, without complications; E87.2 Acidosis; E86.0 Dehydration; F10.220 Alcohol dependence with intoxication, uncomplicated; F41.1 Generalized anxiety disorder; Y90.6 Blood alcohol level of 120-199 mg/100 ml; E16.2 Hypoglycemia, unspecified; R00.0 Tachycardia, unspecified; R11.2 Nausea with vomiting, unspecified
CPT/HCPCS: 36415; 99291; J7042; 80053; 80307; 82962; 83690; 85025; 93005; 96374; 96375; G0378; J2405; J3411; J3475; J3480; J2060; J2270

== ENCOUNTER 2018-08-24 14:38 | Inpatient (IN) | payer MEDICAID ==
[~2018-08-24] VITALS: Ht 162.6 cm; Wt 66.5 kg
[~2018-08-24 14:38] MED LIST changes: +FAMO20TA7 PO
[2018-08-24] MEDS ORDERED: DEXTROSE 50%, 50ML SYRINGE IVPush ONE (15:00)
[2018-08-24] MEDS ORDERED: SODIUM CHLORIDE 0.9% 1,000ML IVBOLUS ONE (15:00)
[2018-08-24] MEDS ORDERED: LORazepam 2 MG/ML, 1ML IVPush ONE (15:00)
[2018-08-24] MEDS ORDERED: ONDANSETRON 2MG/ML, 2ML IVPush ONE (15:00)
--- NOTE | 2018-08-24 15:09 | NUR ---
PT BIB P/V WITH N/V, FRIAS SINCE YESTERDAY WITH RECENT ADMITS FOR ALCOHOLIC KETOACIDOSIS. PT REPORTS NOT BEING ABLE TO FILL HER LIBRIUM RX DUE TO BEING "TOO BUSY WITH THE HOLIDAYS." PT REPORTS DRINKING ALCOHOL SINCE BEING DISCHARGED FROM THE HOSPTIAL FOR HER MOST RECENT ADMISSION.
[2018-08-24] MEDS ORDERED: ONDANSETRON ODT 4 MG ONE (15:12)
[2018-08-24 15:21] LABS: BASOPHILS # (AUTO) 0.03 x10^3/uL (0-0.1); BASOPHILS % (AUTO) 0 % (0-1); EOSINOPHILS # (AUTO) 0.02 x10^3/uL (0-0.4); EOSINOPHILS % (AUTO) 0 % (1-7); LYMPHOCYTES # (AUTO) 1.28 x10^3/uL (1-3.4); LYMPHOCYTES % (AUTO) 15 % (22-44); MD NO; MEAN CORPUSCULAR HEMOGLOBIN 28.9 pg (27.0-34.8); MEAN CORPUSCULAR HGB CONC 31.4 g/dL (32.4-35.8); MEAN CORPUSCULAR VOLUME 91.8 fL (80-100); MEAN PLATELET VOLUME 10.2 fL (7.4-10.4); MONOCYTES # (AUTO) 0.74 x10^3/uL (0.2-0.8); MONOCYTES % (AUTO) 9 % (2-9); NEUTROPHILS # (AUTO) 6.35 x10^3/uL (1.8-6.8); NEUTROPHILS % (AUTO) 75 % (42-75); PLATELET COUNT 160 x10^3/uL (130-400); RED CELL DISTRIBUTION WIDTH 18.8 % (9.6-15.2)
[2018-08-24] MEDS ORDERED: ONDANSETRON 2MG/ML, 2ML ONE (15:23)
[2018-08-24] MEDS ORDERED: DEXTROSE 50%, 50ML SYRINGE ONE (15:23)
[2018-08-24] MEDS ORDERED: LORazepam 2 MG/ML, 1ML ONE (15:24)
[2018-08-24 15:27] LABS: ALANINE AMINOTRANSFERASE 123 U/L (12-78); ALBUMIN 4.6 g/dL (3.4-5.0); ANION GAP 25 mmol/L (5-15); CALCIUM 9.1 mg/dL (8.5-10.1); CHLORIDE 101 mmol/L (98-107); CREATININE 0.72 mg/dL (0.55-1.02)
[2018-08-24 15:29] LABS: ALKALINE PHOSPHATASE 136 U/L (45-117); BILIRUBIN,TOTAL 1.1 mg/dL (0.2-1.0); TOTAL PROTEIN 9.5 g/dL (6.4-8.2)
[2018-08-24] MEDS ORDERED: ONDANSETRON ODT 4 MG PO ONE (15:30)
[2018-08-24] MEDS ORDERED: KETOROLAC 30 MG/1 ML ONE (15:56)
[2018-08-24] MEDS ORDERED: KETOROLAC 30 MG/1 ML IVPush ONE (16:00)
[2018-08-24] MEDS ORDERED: SODIUM CHLORIDE FLUSH 10ML SYR IVF PRN (16:30)
[2018-08-24] MEDS ORDERED: SODIUM BICARBONATE 8.4% 100 MEQ in DEXTROSE 5% 1,000 ML IV SCH (16:30)
--- NOTE | 2018-08-24 16:34 | NUR ---
PT SLEEPING IN NAD. VSS. BICARB DRIP STARTED PER MD ORDER.
[2018-08-24] MEDS ORDERED: CHLORDIAZEPOXIDE 25 MG CAPSULE PO PRN (17:00)
[2018-08-24] MEDS ORDERED: cloniDINE 0.1MG PATCH TD SCH (17:00)
[2018-08-24] MEDS ORDERED: ONDANSETRON 2MG/ML, 2ML IVPush PRN (17:00)
[2018-08-24] MEDS ORDERED: LORazepam 1MG TABLET PO PRN ×4 (17:00)
[2018-08-24] MEDS: ENOXAPARIN 40 MG/0.4 ML SQ SCH (17:00)
[2018-08-24] MEDS ORDERED: ONDANSETRON ODT 4 MG PO PRN (17:00)
[2018-08-24] MEDS ORDERED: LORazepam 2 MG/ML, 1ML IV PRN ×5 (17:00)
[2018-08-24] MEDS ORDERED: LORazepam 0.5MG TABLET PO PRN (17:00)
[2018-08-24] MEDS ORDERED: POLYETHYLENE GLYCOL 17 GM PACKET PO PRN (17:00)
[2018-08-24] MEDS ORDERED: LABETALOL 5MG/ML, 20ML IVPush PRN (17:00)
[2018-08-24 17:20] LABS: ACETONE, SERUM Moderate(40mg/dL) mg/dL (Negative)
--- NOTE | 2018-08-24 17:29 | NUR ---
break coverage: assumed care of pt on behalf of primary RN for lunch break only. pt to be admitted and report has been called by Israel MONTERO. awaiting transport to floor. FSBS completed. nausea bag given per request
--- NOTE | 2018-08-24 17:33 | NUR ---
break coverage: pt to floor with transport. IV infusing on admit
[2018-08-24 17:46] LABS: FREE T4 (FREE THYROXINE) 1.02 ng/dL (0.76-1.46)
[2018-08-24 17:56] VITALS: BP 124/66
[2018-08-24] MEDS: PANTOPRAZOLE 40 MG IV IVPush SCH ×2 (18:42→21:52)
[2018-08-24] MEDS: GABAPENTIN 100 MG CAPSULE PO SCH ×2 (18:42→21:52)
[2018-08-24 19:43] VITALS: BP 116/66
[2018-08-24] MEDS: POTASSIUM CHLORIDE 20 MEQ, MAGNESIUM SULFATE 1 GM, FOLIC ACID 1 MG, THIAMINE 200 MG, MV... IV SCH (21:36)
[2018-08-24 22:14] LABS: ANION GAP 11 mmol/L (5-15); CALCIUM 7.8 mg/dL (8.5-10.1); CHLORIDE 103 mmol/L (98-107); CREATININE 0.65 mg/dL (0.55-1.02)
[2018-08-25 01:48] VITALS: BP 129/68
[2018-08-25 06:02] LABS: BASOPHILS # (AUTO) 0.03 x10^3/uL (0-0.1); BASOPHILS % (AUTO) 0 % (0-1); EOSINOPHILS # (AUTO) 0.15 x10^3/uL (0-0.4); EOSINOPHILS % (AUTO) 3 % (1-7); LYMPHOCYTES # (AUTO) 1.46 x10^3/uL (1-3.4); LYMPHOCYTES % (AUTO) 26 % (22-44); MEAN CORPUSCULAR HEMOGLOBIN 29.3 pg (27.0-34.8); MEAN CORPUSCULAR HGB CONC 32.7 g/dL (32.4-35.8); MEAN CORPUSCULAR VOLUME 89.5 fL (80-100); MEAN PLATELET VOLUME 9.5 fL (7.4-10.4); MONOCYTES # (AUTO) 0.71 x10^3/uL (0.2-0.8); MONOCYTES % (AUTO) 12 % (2-9); NEUTROPHILS # (AUTO) 3.37 x10^3/uL (1.8-6.8); NEUTROPHILS % (AUTO) 59 % (42-75); PLATELET COUNT 122 x10^3/uL (130-400); RED BLOOD COUNT 3.32 x10^6/uL (3.82-5.3); RED CELL DISTRIBUTION WIDTH 18.4 % (9.6-15.2)
[2018-08-25 06:08] LABS: CHLORIDE 106 mmol/L (98-107)
[2018-08-25 06:32] LABS: ALANINE AMINOTRANSFERASE 71 U/L (12-78); ALBUMIN 2.8 g/dL (3.4-5.0); ALKALINE PHOSPHATASE 83 U/L (45-117); ANION GAP 9 mmol/L (5-15); BILIRUBIN,TOTAL 0.6 mg/dL (0.2-1.0); CALCIUM 7.6 mg/dL (8.5-10.1); CREATININE 0.48 mg/dL (0.55-1.02); TOTAL PROTEIN 6.2 g/dL (6.4-8.2)
[2018-08-25 06:35] LABS: MD SCAN
[2018-08-25] MEDS ORDERED: MAGNESIUM SULFATE PMX 2GM/50ML 50 ML IV ONE (08:00)
[2018-08-25] MEDS ORDERED: SODIUM CHLORIDE 0.45% 1,000 ML IV SCH (08:30)
[2018-08-25] MEDS ORDERED: POTASSIUM CHLORIDE 20 MEQ TAB.ER.PRT PO ONE ×2 (08:30→11:30)
[2018-08-25] MEDS: SENNA/DOCUSATE TABLET PO SCH (08:52)
[2018-08-25] MEDS: GABAPENTIN 100 MG CAPSULE PO SCH ×3 (08:52→20:10)
[2018-08-25] MEDS: PANTOPRAZOLE 40 MG IV IVPush SCH ×2 (08:52→20:10)
[2018-08-25] MEDS: D5%-0.45% NACL 1,000 ML IV SCH ×2 (08:53→17:36)
[2018-08-25 09:09] LABS: MICROSCOPIC INDICATED
[2018-08-25 09:19] LABS: CULTURE INDICATED? YES
[2018-08-25 09:50] VITALS: BP 109/73
[2018-08-25] MEDS ORDERED: ACETAMINOPHEN 500 MG TABLET PO PRN (11:00)
[2018-08-25 12:50] VITALS: BP 116/79
[2018-08-25] MEDS ORDERED: NICOTINE 7 MG/24 HR PATCH.TD24 ONE (16:18)
[2018-08-25] MEDS: NICOTINE 7 MG/24 HR PATCH.TD24 TD SCH (16:20)
[2018-08-25] MEDS: ENOXAPARIN 40 MG/0.4 ML SQ SCH (17:00)
[2018-08-25 18:45] VITALS: BP 114/71
[2018-08-25] MEDS: CHLORDIAZEPOXIDE 25 MG CAPSULE PO PRN (20:57)
[2018-08-25] MEDS: POTASSIUM CHLORIDE 20 MEQ, MAGNESIUM SULFATE 1 GM, FOLIC ACID 1 MG, THIAMINE 200 MG, MV... IV SCH (22:48)
[2018-08-26] MEDS: D5%-0.45% NACL 1,000 ML IV SCH (00:30)
[2018-08-26 02:00] VITALS: BP 107/72
[2018-08-26 06:16] LABS: BASOPHILS # (AUTO) 0.03 x10^3/uL (0-0.1); BASOPHILS % (AUTO) 1 % (0-1); EOSINOPHILS # (AUTO) 0.18 x10^3/uL (0-0.4); EOSINOPHILS % (AUTO) 4 % (1-7); LYMPHOCYTES # (AUTO) 1.16 x10^3/uL (1-3.4); LYMPHOCYTES % (AUTO) 29 % (22-44); MD NO; MEAN CORPUSCULAR HEMOGLOBIN 29.2 pg (27.0-34.8); MEAN CORPUSCULAR HGB CONC 32.5 g/dL (32.4-35.8); MEAN CORPUSCULAR VOLUME 89.9 fL (80-100); MEAN PLATELET VOLUME 9.5 fL (7.4-10.4); MONOCYTES # (AUTO) 0.34 x10^3/uL (0.2-0.8); MONOCYTES % (AUTO) 8 % (2-9); NEUTROPHILS # (AUTO) 2.33 x10^3/uL (1.8-6.8); NEUTROPHILS % (AUTO) 58 % (42-75); PLATELET COUNT 114 x10^3/uL (130-400); RED BLOOD COUNT 3.08 x10^6/uL (3.82-5.3); RED CELL DISTRIBUTION WIDTH 18.2 % (9.6-15.2)
[2018-08-26 06:22] LABS: ALBUMIN 2.6 g/dL (3.4-5.0); ANION GAP 7 mmol/L (5-15); CALCIUM 7.7 mg/dL (8.5-10.1); CHLORIDE 114 mmol/L (98-107)
[2018-08-26 06:26] LABS: ALANINE AMINOTRANSFERASE 84 U/L (12-78); ALKALINE PHOSPHATASE 88 U/L (45-117); BILIRUBIN,TOTAL 0.4 mg/dL (0.2-1.0); CREATININE 0.45 mg/dL (0.55-1.02); TOTAL PROTEIN 5.5 g/dL (6.4-8.2)
[2018-08-26 07:24] VITALS: BP 114/77
[2018-08-26] MEDS ORDERED: POTASSIUM PHOSPHATE 44 MEQ in SODIUM CHLORIDE 0.9% 500 ML IV ONE (07:30)
[2018-08-26] MEDS: PANTOPRAZOLE 40 MG IV IVPush SCH (09:31)
[2018-08-26] MEDS: GABAPENTIN 100 MG CAPSULE PO SCH ×2 (09:32→16:46)
[2018-08-26] MEDS: SENNA/DOCUSATE TABLET PO SCH (09:32)
[2018-08-26] MEDS: CHLORDIAZEPOXIDE 25 MG CAPSULE PO PRN (10:56)
[2018-08-26 12:34] VITALS: BP 107/75
[2018-08-26] MEDS: NICOTINE 7 MG/24 HR PATCH.TD24 TD SCH (16:46)
[2018-08-26] MEDS ORDERED: NEUTRA PHOS K 250 MG TABLET PO SCH (21:00)
== END 2018-08-26 18:14 | disposition home or self-care (01) | DRG 433 ==
LOC: ED 16:17 → EDIP 16:18 → ED 16:42 → 4EST 17:36
PROVIDERS: ADMIT Internal Medicine; ATTEND Internal Medicine
DX: K70.10 Alcoholic hepatitis without ascites (principal); E87.2 Acidosis; F10.239 Alcohol dependence with withdrawal, unspecified; E83.39 Other disorders of phosphorus metabolism; E16.2 Hypoglycemia, unspecified; F17.210 Nicotine dependence, cigarettes, uncomplicated; F41.1 Generalized anxiety disorder; F12.90 Cannabis use, unspecified, uncomplicated; Z91.14 Patient's other noncompliance with medication regimen; Z71.41 Alcohol abuse counseling and surveillance of alcoholic
CPT/HCPCS: 36415; 99291; J7042; 80048; 80053; 81001; 82010; 82800; 82962; 83690; 83735; 84100; 84439; 84443; 85025; 87086; 93005; 96361; 96374; 96375; G0378; J1885; J2405; J3411; J3475; J3480; J7070; Q0162; C9113; J2060; J7030; J7040

== ENCOUNTER 2018-09-08 23:32 | Inpatient (IN) | payer MEDICAID ==
[~2018-09-08] VITALS: Ht 162.6 cm; Wt 71.0 kg
[2018-09-09] MEDS ORDERED: ONDANSETRON ODT 4 MG PO ONE
[2018-09-09] MEDS ORDERED: ONDANSETRON ODT 4 MG ONE (00:04)
[2018-09-09 00:05] LABS: BASOPHILS # (AUTO) 0.13 x10^3/uL (0-0.1); BASOPHILS % (AUTO) 1 % (0-1); EOSINOPHILS # (AUTO) 0.08 x10^3/uL (0-0.4); EOSINOPHILS % (AUTO) 1 % (1-7); LYMPHOCYTES # (AUTO) 2.76 x10^3/uL (1-3.4); LYMPHOCYTES % (AUTO) 18 % (22-44); MD NO; MEAN CORPUSCULAR HEMOGLOBIN 28.4 pg (27.0-34.8); MEAN CORPUSCULAR HGB CONC 31.9 g/dL (32.4-35.8); MONOCYTES # (AUTO) 0.66 x10^3/uL (0.2-0.8); MONOCYTES % (AUTO) 4 % (2-9); NEUTROPHILS # (AUTO) 11.85 x10^3/uL (1.8-6.8); NEUTROPHILS % (AUTO) 77 % (42-75); PLATELET COUNT 572 x10^3/uL (130-400); RED BLOOD COUNT 4.39 x10^6/uL (3.82-5.3); RED CELL DISTRIBUTION WIDTH 18.3 % (9.6-15.2)
--- NOTE | 2018-09-09 00:07 | NUR ---
pt presented with c/o vomiting non stop since this morning. Hx of etoh. last drink this morning. monitors applied, siderails up x2, call light within reach. pt medicated per oct
[2018-09-09 00:11] LABS: ALANINE AMINOTRANSFERASE 92 U/L (12-78); ALBUMIN 4.4 g/dL (3.4-5.0); ANION GAP 25 mmol/L (5-15); CALCIUM 9.3 mg/dL (8.5-10.1); CHLORIDE 103 mmol/L (98-107); CREATININE 0.74 mg/dL (0.55-1.02)
[2018-09-09] MEDS ORDERED: LORazepam 2 MG/ML, 1ML ONE ×3 (00:12→01:18)
[2018-09-09 00:13] LABS: ALKALINE PHOSPHATASE 120 U/L (45-117); BILIRUBIN,TOTAL 0.7 mg/dL (0.2-1.0)
[2018-09-09] MEDS: LORazepam 2 MG/ML, 1ML IVPush PRN ×3 (00:20→01:25)
[2018-09-09] MEDS ORDERED: SODIUM CHLORIDE FLUSH 10ML SYR IVF ONE (00:30)
[2018-09-09] MEDS ORDERED: ONDANSETRON 2MG/ML, 2ML IVPush ONE (00:30)
[2018-09-09] MEDS ORDERED: THIAMINE 100 MG in SODIUM CHLORIDE 0.9% 50 ML IVPB ONE (00:30)
[2018-09-09] MEDS ORDERED: SODIUM CHLORIDE 0.9% 1,000ML IVBOLUS ONE ×2 (00:30→02:00)
[2018-09-09] MEDS ORDERED: ONDANSETRON 2MG/ML, 2ML ONE (00:34)
[2018-09-09 00:52] LABS: PH, VENOUS 7.109 pH (7.320-7.420)
--- NOTE | 2018-09-09 00:58 | NUR ---
haris from lab called with critical results hco3-7.1, tco2-7.8, erp updated on critical results.
--- NOTE | 2018-09-09 00:59 | NUR ---
late entry 0014- estefania from lab called with critical result co2-6, erp md apryl to place orders.
[2018-09-09 01:15] LABS: ACETONE, SERUM Large (80mg/dL) mg/dL (Negative)
[2018-09-09] MEDS ORDERED: LORazepam 2 MG/ML, 1ML IVPush ONE (03:00)
[2018-09-09 03:04] VITALS: BP 133/78
[2018-09-09 03:23] LABS: HCG UR SG 1.019 (1.003-1.030); MICROSCOPIC AUTO
[2018-09-09 03:24] LABS: CULTURE INDICATED? YES
[2018-09-09] MEDS ORDERED: LORazepam 2 MG/ML, 1ML IV PRN ×5 (04:30)
[2018-09-09] MEDS ORDERED: LORazepam 1MG TABLET PO PRN ×3 (04:30)
[2018-09-09] MEDS ORDERED: HEPARIN 5,000 UNITS/ML, 1ML SQ SCH (04:30)
[2018-09-09] MEDS ORDERED: SODIUM BICARB 8.4%, 50ML SYRINGE IVPush ONE (04:30)
[2018-09-09] MEDS: ENOXAPARIN 40 MG/0.4 ML SQ SCH ×2 (04:30→05:08)
[2018-09-09] MEDS ORDERED: ACETAMINOPHEN 650 MG SUPP PR PRN (04:30)
[2018-09-09] MEDS ORDERED: DIAZEPAM 5 MG/ML, 2ML IV ONE (04:30)
[2018-09-09] MEDS: KETOROLAC 30 MG/1 ML IVPush PRN ×3 (05:01→20:36)
[2018-09-09] MEDS: CEFTRIAXONE PMX 1GM/50ML 50 ML IV SCH (05:07)
[2018-09-09] MEDS: POTASSIUM CHLORIDE 20 MEQ, MAGNESIUM SULFATE 2 GM, THIAMINE 200 MG, MVI ADULT 10 ML, FO... IV SCH (05:07)
[2018-09-09] MEDS: D5%-0.9% NACL 1,000 ML IV SCH ×3 (05:08→17:19)
[2018-09-09] MEDS: ACETAMINOPHEN 325 MG TABLET PO PRN ×3 (05:28→20:34)
[2018-09-09 05:54] LABS: BASOPHILS # (AUTO) 0.09 x10^3/uL (0-0.1); BASOPHILS % (AUTO) 1 % (0-1); EOSINOPHILS # (AUTO) 0.09 x10^3/uL (0-0.4); EOSINOPHILS % (AUTO) 1 % (1-7); LYMPHOCYTES # (AUTO) 0.91 x10^3/uL (1-3.4); LYMPHOCYTES % (AUTO) 7 % (22-44); MD NO; MEAN CORPUSCULAR HEMOGLOBIN 28.8 pg (27.0-34.8); MEAN CORPUSCULAR HGB CONC 32.3 g/dL (32.4-35.8); MEAN CORPUSCULAR VOLUME 89.2 fL (80-100); MEAN PLATELET VOLUME 9.2 fL (7.4-10.4); MONOCYTES # (AUTO) 0.46 x10^3/uL (0.2-0.8); MONOCYTES % (AUTO) 3 % (2-9); NEUTROPHILS # (AUTO) 11.75 x10^3/uL (1.8-6.8); NEUTROPHILS % (AUTO) 88 % (42-75); PLATELET COUNT 449 x10^3/uL (130-400); RED BLOOD COUNT 3.98 x10^6/uL (3.82-5.3); RED CELL DISTRIBUTION WIDTH 18.4 % (9.6-15.2)
[2018-09-09 06:02] LABS: ALANINE AMINOTRANSFERASE 80 U/L (12-78); ALBUMIN 4.2 g/dL (3.4-5.0); ANION GAP 23 mmol/L (5-15); CHLORIDE 106 mmol/L (98-107)
[2018-09-09 06:05] LABS: ALKALINE PHOSPHATASE 113 U/L (45-117); BILIRUBIN,TOTAL 0.7 mg/dL (0.2-1.0); CREATININE 0.61 mg/dL (0.55-1.02); TOTAL PROTEIN 8.3 g/dL (6.4-8.2)
[2018-09-09 07:05] VITALS: BP 122/79
[2018-09-09] MEDS ORDERED: FAMOTIDINE 20 MG/2 ML IVPush SCH (09:00)
[2018-09-09] MEDS: LORazepam 1MG TABLET PO PRN ×2 (09:21→12:39)
[2018-09-09 13:35] VITALS: BP 106/66
[2018-09-09] MEDS: LORazepam 0.5MG TABLET PO PRN (17:19)
[2018-09-09 19:22] LABS: ALANINE AMINOTRANSFERASE 52 U/L (12-78); ANION GAP 6 mmol/L (5-15); CHLORIDE 111 mmol/L (98-107); CREATININE 0.55 mg/dL (0.55-1.02)
[2018-09-09 19:24] LABS: ALKALINE PHOSPHATASE 82 U/L (45-117); BILIRUBIN,TOTAL 0.4 mg/dL (0.2-1.0); TOTAL PROTEIN 6.1 g/dL (6.4-8.2)
[2018-09-09] MEDS ORDERED: SODIUM PHOSPHATE 20 MMOL in SODIUM CHLORIDE 0.9% 500 ML IV ONE (19:30)
[2018-09-09 19:57] LABS: MICROSCOPIC NOT IND
[2018-09-09 20:00] LABS: CULTURE INDICATED? NO
[2018-09-09 20:32] VITALS: BP 110/82
[2018-09-09] MEDS: FAMOTIDINE 20 MG TABLET PO SCH (20:34)
[2018-09-09] MEDS: SODIUM BICARBONATE 8.4% 100 MEQ in DEXTROSE 5% 1,000 ML IV SCH (23:20)
[2018-09-10 01:35] VITALS: BP 109/74
[2018-09-10] MEDS: POTASSIUM CHLORIDE 20 MEQ, MAGNESIUM SULFATE 2 GM, THIAMINE 200 MG, MVI ADULT 10 ML, FO... IV SCH (04:10)
[2018-09-10] MEDS: CEFTRIAXONE PMX 1GM/50ML 50 ML IV SCH (04:13)
[2018-09-10] MEDS: ENOXAPARIN 40 MG/0.4 ML SQ SCH (04:16)
[2018-09-10 06:23] LABS: ALANINE AMINOTRANSFERASE 45 U/L (12-78); ALBUMIN 2.7 g/dL (3.4-5.0); ANION GAP 7 mmol/L (5-15); CALCIUM 7.4 mg/dL (8.5-10.1); CHLORIDE 110 mmol/L (98-107)
[2018-09-10 06:25] LABS: ALKALINE PHOSPHATASE 72 U/L (45-117); BILIRUBIN,TOTAL 0.4 mg/dL (0.2-1.0); CREATININE 0.46 mg/dL (0.55-1.02); TOTAL PROTEIN 5.6 g/dL (6.4-8.2)
[2018-09-10 06:27] VITALS: BP 104/69
[2018-09-10 06:33] LABS: BASOPHILS # (AUTO) 0.07 x10^3/uL (0-0.1); BASOPHILS % (AUTO) 2 % (0-1); EOSINOPHILS # (AUTO) 0.18 x10^3/uL (0-0.4); EOSINOPHILS % (AUTO) 4 % (1-7); LYMPHOCYTES # (AUTO) 1.83 x10^3/uL (1-3.4); LYMPHOCYTES % (AUTO) 45 % (22-44); MD NO; MEAN CORPUSCULAR HEMOGLOBIN 27.7 pg (27.0-34.8); MEAN CORPUSCULAR HGB CONC 31.3 g/dL (32.4-35.8); MEAN CORPUSCULAR VOLUME 88.5 fL (80-100); MONOCYTES # (AUTO) 0.25 x10^3/uL (0.2-0.8); MONOCYTES % (AUTO) 6 % (2-9); NEUTROPHILS # (AUTO) 1.78 x10^3/uL (1.8-6.8); NEUTROPHILS % (AUTO) 43 % (42-75); PLATELET COUNT 259 x10^3/uL (130-400); RED CELL DISTRIBUTION WIDTH 18.1 % (9.6-15.2)
[2018-09-10] MEDS: SODIUM BICARBONATE 8.4% 100 MEQ in DEXTROSE 5% 1,000 ML IV SCH (06:49)
[2018-09-10] MEDS: LORazepam 0.5MG TABLET PO PRN (08:58)
[2018-09-10] MEDS: KETOROLAC 30 MG/1 ML IVPush PRN (08:58)
[2018-09-10] MEDS: FAMOTIDINE 20 MG TABLET PO SCH (08:58)
[2018-09-10] MEDS ORDERED: POTASSIUM CHLORIDE 20 MEQ TAB.ER.PRT PO ONE (11:30)
== END 2018-09-10 13:04 | disposition home or self-care (01) | DRG 433 ==
LOC: ED 09-09 00:05 → EDIP 09-09 01:33 → 4WST 09-09 02:22 → DCLOUNGE 09-10 12:50
PROVIDERS: ADMIT Hospitalist; ATTEND Hospitalist
DX: K70.10 Alcoholic hepatitis without ascites (principal); E87.2 Acidosis; F10.239 Alcohol dependence with withdrawal, unspecified; F17.210 Nicotine dependence, cigarettes, uncomplicated; F41.1 Generalized anxiety disorder; D64.9 Anemia, unspecified; E86.9 Volume depletion, unspecified; D72.829 Elevated white blood cell count, unspecified; Z79.899 Other long term (current) drug therapy; Z79.1 Long term (current) use of non-steroidal anti-inflammatories (NSAID); Z79.2 Long term (current) use of antibiotics
CPT/HCPCS: 36415; 99291; J3490; J7042; 80053; 81001; 81003; 81025; 82010; 82330; 82803; 82962; 83690; 83735; 84100; 85025; 87086; 93005; 96365; 96375; G0378; J0696; J1650; J1885; J2405; J3411; J3475; J3480; J7070; Q0162; J2060; J7030; J7040

== ENCOUNTER 2018-09-20 15:18 | Inpatient (IN) | payer MEDICAID ==
[~2018-09-20] VITALS: Ht 165.1 cm; Wt 66.2 kg
--- NOTE | 2018-09-20 15:45 | NUR ---
PT STATED THAT SHE IS AN ALCOHOLIC AND HAS BEEN VOMITING, HAS LEFT SIDE PAIN, AND FRIAS THAT STARTED TODAY. PT REPORTS LAST DRINK AT 2 AM. STATED THAT SHE DRANK 3 5THS YESTERDAY. PT IS ALERT, ORIENTED, WITH NAD. PT IS CONNECTED TO THE MONITOR. CALL LIGHT WITHIN REACH.
[2018-09-20 16:00] LABS: ALANINE AMINOTRANSFERASE 96 U/L (12-78); ALBUMIN 4.2 g/dL (3.4-5.0); ANION GAP 21 mmol/L (5-15); CHLORIDE 104 mmol/L (98-107); CREATININE 0.61 mg/dL (0.55-1.02)
[2018-09-20] MEDS ORDERED: SODIUM CHLORIDE FLUSH 10ML SYR IVF ONE (16:00)
[2018-09-20] MEDS ORDERED: ONDANSETRON 2MG/ML, 2ML IVPush ONE (16:00)
[2018-09-20] MEDS ORDERED: LORazepam 2 MG/ML, 1ML IVPush ONE (16:00)
[2018-09-20] MEDS ORDERED: SODIUM CHLORIDE 0.9% 1,000ML IVBOLUS ONE (16:00)
[2018-09-20 16:02] LABS: ALKALINE PHOSPHATASE 117 U/L (45-117); BILIRUBIN,TOTAL 0.5 mg/dL (0.2-1.0); TOTAL PROTEIN 8.5 g/dL (6.4-8.2)
[2018-09-20 16:07] LABS: HCG UR SG 1.022 (1.003-1.030); MICROSCOPIC AUTO
[2018-09-20] MEDS ORDERED: DEXTROSE 5% 500 ML IV ONE (16:12)
[2018-09-20 16:17] LABS: CULTURE INDICATED? NO
[2018-09-20 16:20] LABS: BASOPHILS # (AUTO) 0.07 x10^3/uL (0-0.1); BASOPHILS % (AUTO) 1 % (0-1); EOSINOPHILS % (AUTO) 0 % (1-7); LYMPHOCYTES # (AUTO) 2.13 x10^3/uL (1-3.4); LYMPHOCYTES % (AUTO) 29 % (22-44); MD NO; MEAN CORPUSCULAR HEMOGLOBIN 27.2 pg (27.0-34.8); MEAN CORPUSCULAR HGB CONC 30.8 g/dL (32.4-35.8); MEAN CORPUSCULAR VOLUME 88.1 fL (80-100); MEAN PLATELET VOLUME 9.1 fL (7.4-10.4); MONOCYTES # (AUTO) 0.32 x10^3/uL (0.2-0.8); MONOCYTES % (AUTO) 4 % (2-9); NEUTROPHILS # (AUTO) 4.85 x10^3/uL (1.8-6.8); NEUTROPHILS % (AUTO) 66 % (42-75); PLATELET COUNT 339 x10^3/uL (130-400); RED BLOOD COUNT 4.57 x10^6/uL (3.82-5.3); RED CELL DISTRIBUTION WIDTH 18.2 % (9.6-15.2)
--- NOTE | 2018-09-20 16:20 | NUR ---
2 ATTEMPTS AT IV. UNABLE TO GET IV ESTABLISHED. CHARGE NURSE INFORMED. INFORMED MD OF PTS GLUCOSE AT 47. ADVISED PT DRINK JUICE AND EAT CRACKER. PT DRANK 1 APPLE JUICE.
[2018-09-20 16:23] LABS: ACETONE, SERUM Moderate(40mg/dL) mg/dL (Negative)
[2018-09-20] MEDS ORDERED: ONDANSETRON 2MG/ML, 2ML ONE (16:25)
[2018-09-20] MEDS ORDERED: LORazepam 2 MG/ML, 1ML ONE (16:26)
[2018-09-20 16:45] LABS: PH, VENOUS 7.273 pH (7.320-7.420)
--- NOTE | 2018-09-20 16:45 | NUR ---
PT MEDICATED PER ORDER. PT DRANK ANOTHER APPLE JUICE.
[2018-09-20 16:46] LABS: O2 FLOW ROOM AIR L/min
--- NOTE | 2018-09-20 17:02 | NUR ---
PT IS RESTING IN BED, EATING CRACKERS AND DRINKING JUICE. PT IS ALERT, ORIENTED, WITH NAD. PT IS CONNECTED TO THE MONITOR. CALL LIGHT WITHIN REACH.
--- NOTE | 2018-09-20 17:28 | NUR ---
PT ASKED FOR SOMETHING FOR HER FRIAS. INFORMED.
[2018-09-20] MEDS ORDERED: THIAMINE 100 MG in SODIUM CHLORIDE 0.9% 50 ML IVPB ONE (17:30)
[2018-09-20] MEDS ORDERED: MAGNESIUM SULFATE PMX 2GM/50ML 50 ML IV ONE (17:30)
--- NOTE | 2018-09-20 17:54 | NUR ---
CALLED PHARMACY FOR COMPATABILITY QUESTIONS AND TO REQUEST THEY SEND PTS MEDS.
[2018-09-20] MEDS ORDERED: BISACODYL 10 MG SUPP PR PRN (18:00)
[2018-09-20] MEDS ORDERED: POLYETHYLENE GLYCOL 17 GM PACKET PO PRN (18:00)
[2018-09-20] MEDS ORDERED: ONDANSETRON 2MG/ML, 2ML IVPush PRN (18:00)
[2018-09-20] MEDS ORDERED: ACETAMINOPHEN 325 MG TABLET ONE (18:26)
[2018-09-20] MEDS: ACETAMINOPHEN 325 MG TABLET PO PRN (18:28)
--- NOTE | 2018-09-20 18:55 | NUR ---
REPORT RECEIVED FROM WINSTON HOPE. ASSUMED CARE OF PT.
--- NOTE | 2018-09-20 18:55 | NUR ---
REPORT TO ZHANE MONTERO.
[2018-09-20] MEDS ORDERED: NICOTINE 14MG/24 HR PATCH.TD24 ONE (19:02)
[2018-09-20] MEDS ORDERED: HEPARIN 5,000 UNITS/ML, 1ML ONE (19:02)
--- NOTE | 2018-09-20 19:04 | NUR ---
MEDS REQUESTED FROM PHARMACY
--- NOTE | 2018-09-20 19:18 | NUR ---
REPORT TO OLGA MONTERO
[2018-09-20] MEDS: NICOTINE 14MG/24 HR PATCH.TD24 TD SCH (19:25)
[2018-09-20] MEDS: HEPARIN 5,000 UNITS/ML, 1ML SQ SCH (19:30)
--- NOTE | 2018-09-20 19:30 | NUR ---
PT MEDICATED PER EMAR. 5 RIGHTS ADDRESSED. PT REFUSED HEPARIN STATING "I DONT WANT THAT". SHE WAS ADVISED OF RISKS OF REFUSING AND STILL REFUSED, STATING "I KNOW"
[2018-09-20 19:50] VITALS: BP 106/72
[2018-09-20] MEDS: FAMOTIDINE 20 MG/2 ML IVPush SCH (20:20)
[2018-09-20] MEDS: LORazepam 2 MG/ML, 1ML IVPush PRN (20:20)
[2018-09-20] MEDS: THIAMINE 100MG TABLET PO SCH (20:21)
[2018-09-20] MEDS: SODIUM BICARB 8.4%,50ML SYR. 100 MEQ in DEXTROSE 5% 1,000 ML IV SCH (20:22)
[2018-09-21] MEDS: LORazepam 2 MG/ML, 1ML IVPush PRN ×4 (00:35→17:47)
[2018-09-21 01:04] LABS: ANION GAP 10 mmol/L (5-15); CALCIUM 7.9 mg/dL (8.5-10.1); CHLORIDE 104 mmol/L (98-107); CREATININE 0.49 mg/dL (0.55-1.02)
[2018-09-21 02:20] VITALS: BP 120/82
[2018-09-21] MEDS: ACETAMINOPHEN 325 MG TABLET PO PRN (04:32)
[2018-09-21] MEDS: SODIUM BICARB 8.4%,50ML SYR. 100 MEQ in DEXTROSE 5% 1,000 ML IV SCH (04:32)
[2018-09-21 05:13] LABS: ALBUMIN 3.2 g/dL (3.4-5.0); ANION GAP 9 mmol/L (5-15); CALCIUM 8.4 mg/dL (8.5-10.1); CHLORIDE 101 mmol/L (98-107)
[2018-09-21 05:14] LABS: BASOPHILS # (AUTO) 0.04 x10^3/uL (0-0.1); BASOPHILS % (AUTO) 1 % (0-1); EOSINOPHILS # (AUTO) 0.09 x10^3/uL (0-0.4); EOSINOPHILS % (AUTO) 2 % (1-7); LYMPHOCYTES # (AUTO) 2.07 x10^3/uL (1-3.4); LYMPHOCYTES % (AUTO) 40 % (22-44); MD NO; MEAN CORPUSCULAR HEMOGLOBIN 27.6 pg (27.0-34.8); MEAN CORPUSCULAR HGB CONC 32.2 g/dL (32.4-35.8); MEAN CORPUSCULAR VOLUME 85.7 fL (80-100); MEAN PLATELET VOLUME 8.7 fL (7.4-10.4); MONOCYTES # (AUTO) 0.58 x10^3/uL (0.2-0.8); MONOCYTES % (AUTO) 11 % (2-9); NEUTROPHILS # (AUTO) 2.38 x10^3/uL (1.8-6.8); NEUTROPHILS % (AUTO) 46 % (42-75); PLATELET COUNT 255 x10^3/uL (130-400); RED BLOOD COUNT 3.61 x10^6/uL (3.82-5.3); RED CELL DISTRIBUTION WIDTH 18.3 % (9.6-15.2)
[2018-09-21] MEDS: HEPARIN 5,000 UNITS/ML, 1ML SQ SCH ×3 (05:14→21:17)
[2018-09-21 05:17] LABS: ALANINE AMINOTRANSFERASE 63 U/L (12-78); ALKALINE PHOSPHATASE 88 U/L (45-117); BILIRUBIN,TOTAL 0.7 mg/dL (0.2-1.0); CREATININE 0.49 mg/dL (0.55-1.02); TOTAL PROTEIN 6.6 g/dL (6.4-8.2)
[2018-09-21] MEDS: MULTIVITAMIN 1 TABLET PO SCH (08:57)
[2018-09-21] MEDS: FAMOTIDINE 20 MG/2 ML IVPush SCH ×2 (08:57→21:17)
[2018-09-21] MEDS: FOLIC ACID 1 MG TABLET PO SCH (08:57)
[2018-09-21] MEDS: THIAMINE 100MG TABLET PO SCH ×2 (08:57→21:17)
[2018-09-21] MEDS: SENNA/DOCUSATE TABLET PO SCH (08:58)
[2018-09-21 09:01] VITALS: BP 125/83
[2018-09-21] MEDS ORDERED: MAGNESIUM SULFATE PMX 2GM/50ML 50 ML IV ONE (09:30)
[2018-09-21] MEDS ORDERED: POTASSIUM CHLORIDE 20 MEQ TAB.ER.PRT PO ONE (09:30)
[2018-09-21] MEDS: BUTALB/APAP/CAFFEINE 50MG/325MG/40MG PO PRN ×2 (10:00→17:47)
[2018-09-21 13:50] VITALS: BP 135/90
[2018-09-21] MEDS: CHLORDIAZEPOXIDE 25 MG CAPSULE PO SCH ×2 (15:13→21:17)
[2018-09-21] MEDS: NICOTINE 14MG/24 HR PATCH.TD24 TD SCH (17:47)
[2018-09-21 21:30] VITALS: BP 110/73
[2018-09-22 00:59] VITALS: BP 130/92
[2018-09-22 05:19] LABS: BASOPHILS # (AUTO) 0.05 x10^3/uL (0-0.1); BASOPHILS % (AUTO) 1 % (0-1); EOSINOPHILS # (AUTO) 0.27 x10^3/uL (0-0.4); EOSINOPHILS % (AUTO) 6 % (1-7); LYMPHOCYTES # (AUTO) 1.57 x10^3/uL (1-3.4); LYMPHOCYTES % (AUTO) 37 % (22-44); MD NO; MEAN CORPUSCULAR HEMOGLOBIN 28.4 pg (27.0-34.8); MEAN CORPUSCULAR HGB CONC 32.8 g/dL (32.4-35.8); MEAN CORPUSCULAR VOLUME 86.6 fL (80-100); MEAN PLATELET VOLUME 8.9 fL (7.4-10.4); MONOCYTES # (AUTO) 0.38 x10^3/uL (0.2-0.8); MONOCYTES % (AUTO) 9 % (2-9); NEUTROPHILS # (AUTO) 2.01 x10^3/uL (1.8-6.8); NEUTROPHILS % (AUTO) 47 % (42-75); PLATELET COUNT 221 x10^3/uL (130-400); RED BLOOD COUNT 3.55 x10^6/uL (3.82-5.3); RED CELL DISTRIBUTION WIDTH 17.8 % (9.6-15.2)
[2018-09-22] MEDS: HEPARIN 5,000 UNITS/ML, 1ML SQ SCH (05:27)
[2018-09-22 05:28] LABS: ANION GAP 9 mmol/L (5-15); CALCIUM 8.5 mg/dL (8.5-10.1); CHLORIDE 106 mmol/L (98-107); CREATININE 0.47 mg/dL (0.55-1.02)
[2018-09-22 08:17] VITALS: BP 119/80
[2018-09-22] MEDS: SENNA/DOCUSATE TABLET PO SCH (09:00)
[2018-09-22] MEDS: THIAMINE 100MG TABLET PO SCH (09:00)
[2018-09-22] MEDS: BUTALB/APAP/CAFFEINE 50MG/325MG/40MG PO PRN (09:45)
[2018-09-22] MEDS: MULTIVITAMIN 1 TABLET PO SCH (09:45)
[2018-09-22] MEDS: FAMOTIDINE 20 MG/2 ML IVPush SCH (09:45)
[2018-09-22] MEDS: FOLIC ACID 1 MG TABLET PO SCH (09:45)
[2018-09-22] MEDS: CHLORDIAZEPOXIDE 25 MG CAPSULE PO SCH (09:45)
[2018-09-22] MEDS ORDERED: CHLO25CA9 PO (10:11)
== END 2018-09-22 11:33 | disposition home or self-care (01) | DRG 392 ==
LOC: ED 17:00 → EDIP 17:03 → 4WST 19:40
PROVIDERS: ADMIT Hospitalist; ATTEND Hospitalist
DX: K29.20 Alcoholic gastritis without bleeding (principal); E87.2 Acidosis; F10.239 Alcohol dependence with withdrawal, unspecified; K51.90 Ulcerative colitis, unspecified, without complications; Z99.11 Dependence on respirator [ventilator] status; E16.2 Hypoglycemia, unspecified; K70.30 Alcoholic cirrhosis of liver without ascites; E86.0 Dehydration; F10.220 Alcohol dependence with intoxication, uncomplicated; F12.10 Cannabis abuse, uncomplicated; F17.210 Nicotine dependence, cigarettes, uncomplicated; Y90.7 Blood alcohol level of 200-239 mg/100 ml; Z89.619 Acquired absence of unspecified leg above knee; Z91.19 Patient's noncompliance with other medical treatment and regimen
CPT/HCPCS: 36415; 99291; J3490; 80048; 80053; 80307; 81001; 81025; 82010; 82803; 82962; 83690; 83735; 85025; 96374; 96375; G0378; J1644; J2405; J3411; J7070; J2060; J3475; J7030; J7060

== ENCOUNTER 2018-09-29 18:32 | Inpatient (IN) | payer MEDICAID ==
[~2018-09-29] VITALS: Ht 162.6 cm; Wt 69.5 kg
[2018-09-29] MEDS ORDERED: ONDANSETRON 2MG/ML, 2ML IVPush ONE (19:30)
--- NOTE | 2018-09-29 19:45 | NUR ---
PT BACK TO ROOM FROM XRAY.
--- NOTE | 2018-09-29 19:45 | NUR ---
PRECEPTOR NOTE: VERBAL ORDER RECEIVED FROM KOBE KRAMER FOR ZOFRAN ODT 4 MG INSTEAD OF ZOFRAN 4 MG IV PUSH.
[2018-09-29 19:52] LABS: BASOPHILS # (AUTO) 0.06 x10^3/uL (0-0.1); BASOPHILS % (AUTO) 1 % (0-1); EOSINOPHILS % (AUTO) 0 % (1-7); LYMPHOCYTES % (AUTO) 16 % (22-44); MD NO; MEAN CORPUSCULAR HEMOGLOBIN 27.5 pg (27.0-34.8); MEAN CORPUSCULAR HGB CONC 31.2 g/dL (32.4-35.8); MEAN CORPUSCULAR VOLUME 87.9 fL (80-100); MEAN PLATELET VOLUME 8.8 fL (7.4-10.4); MONOCYTES # (AUTO) 0.29 x10^3/uL (0.2-0.8); MONOCYTES % (AUTO) 4 % (2-9); NEUTROPHILS # (AUTO) 5.38 x10^3/uL (1.8-6.8); NEUTROPHILS % (AUTO) 79 % (42-75); PLATELET COUNT 274 x10^3/uL (130-400); RED BLOOD COUNT 4.37 x10^6/uL (3.82-5.3); RED CELL DISTRIBUTION WIDTH 18.8 % (9.6-15.2)
[2018-09-29 19:55] LABS: ALBUMIN 4.5 g/dL (3.4-5.0); ANION GAP 24 mmol/L (5-15); CALCIUM 9.4 mg/dL (8.5-10.1); CHLORIDE 106 mmol/L (98-107)
[2018-09-29] MEDS ORDERED: ONDANSETRON ODT 4 MG ONE (19:57)
[2018-09-29 20:00] LABS: ALANINE AMINOTRANSFERASE 107 U/L (12-78); ALKALINE PHOSPHATASE 129 U/L (45-117); BILIRUBIN,TOTAL 0.5 mg/dL (0.2-1.0); CREATININE 0.68 mg/dL (0.55-1.02); TOTAL PROTEIN 8.6 g/dL (6.4-8.2)
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
--- NOTE | 2018-09-29 20:11 | NUR ---
PT PROVIDED BEDSIDE COMMODE FOR UA. UA SENT.
[2018-09-29] MEDS ORDERED: ONDANSETRON ODT 4 MG PO ONE (20:15)
[2018-09-29 20:16] LABS: MICROSCOPIC AUTO
[2018-09-29 20:17] LABS: CULTURE INDICATED? YES
[2018-09-29] MEDS ORDERED: DEXTROSE 50%, 50ML SYRINGE ONE (20:25)
--- NOTE | 2018-09-29 20:25 | NUR ---
PT'S BG IS 49, EDMD BLOSSOM AND EDPA WILLIAMS AWARE. PT GIVEN JUICE WITH EDMD OK. ORDER RECEIVED FOR DEXTROSE IV PUSH. PIV ATTEMPTED X 1 BY THIS RN WITHOUT SUCCESS, WINSTON KHANNA AT BEDSIDE TO ATTEMPT PIV.
--- NOTE | 2018-09-29 20:31 | NUR ---
PT PROVIDED APPLE JUICE AND WATER AT THIS TIME.
--- NOTE | 2018-09-29 20:32 | NUR ---
LATE ENTRY D/T PATIENT CARE: KOBE KRAMER NOTIFIED CRITICAL HCO3 LEVEL 9.2.
[2018-09-29 20:39] LABS: PH, VENOUS 7.153 pH (7.320-7.420)
--- NOTE | 2018-09-29 20:42 | NUR ---
PT VOMITTED CLEAR MIDIUM AMOUT X2 AT THIS TIME. PT C/O N/V. EDMD NOTIFIED.
[2018-09-29] MEDS ORDERED: PROMETHAZINE 25 MG/ML, 1ML ONE (20:46)
--- NOTE | 2018-09-29 20:48 | NUR ---
WINSTON KHANNA UNSUCCESSFUL WITH PIV START. PT NOT TOLERATING PO JUICE. EDMD BLOSSOM AWARE. WINSTON ESTEBAN AT BEDSIDE TO START PIV.
[2018-09-29] MEDS: DEXTROSE 50%, 50ML SYRINGE IVPush ONE ×2 (20:50→20:55)
--- NOTE | 2018-09-29 20:51 | NUR ---
PT MEDICATED PER EMAR FOR NAUSEA. PT TOLERATED WELL. PT AOX4. RESPSP EVEN AND UNLABORED.
[2018-09-29] MEDS ORDERED: POTASSIUM CHLORIDE 20 MEQ, MAGNESIUM SULFATE 1 GM, MVI ADULT 10 ML, THIAMINE 200 MG, FO... IV SCH (21:00)
[2018-09-29] MEDS ORDERED: PROMETHAZINE 25 MG/ML, 1ML IM ONE (21:00)
--- NOTE | 2018-09-29 21:22 | NUR ---
PT BG 231 AT THIS TIME. PT AOX4. RESPSP EVEN AND UNLABORED. PT PROVIDED WATER.
--- NOTE | 2018-09-29 21:24 | NUR ---
PT REQUESTING PAIN MED AT THIS TIME. EDMD NOTIFIED.
--- NOTE | 2018-09-29 21:47 | NUR ---
ERPA WILLIAMS NOTIFIED HR 120-130, SINUS TACH. VERBAL ORDER RECEIVED FOR 1L NS IV BOLUS.
[2018-09-29] MEDS ORDERED: LIDODERM 5% PATCH TD PRN (22:00)
[2018-09-29] MEDS ORDERED: ALUMINUM/MAG/SIMETHICONE 30 ML UDC PO PRN (22:00)
[2018-09-29] MEDS ORDERED: GLUCAGON 1 MG IM PRN (22:00)
[2018-09-29] MEDS ORDERED: DEXTROSE 4 GM TAB.CHEW PO PRN (22:00)
[2018-09-29] MEDS ORDERED: SODIUM CHLORIDE 0.9% 1,000ML IVBOLUS ONE (22:00)
[2018-09-29] MEDS ORDERED: DEXTROSE 50%, 50ML SYRINGE IVPush PRN (22:00)
[2018-09-29] MEDS ORDERED: DOCUSATE 100 MG CAPSULE PO PRN (22:00)
[2018-09-29] MEDS ORDERED: LORazepam 2 MG/ML, 1ML IV PRN ×3 (22:00)
[2018-09-29] MEDS ORDERED: ONDANSETRON 2MG/ML, 2ML IV PRN (22:00)
--- NOTE | 2018-09-29 22:01 | NUR ---
PT ASSISTED TO BSC, VOIDED APPROX 500ML. PT BACK TO BED, ALL MONITORS REPLACED. PT A&O, RESPS EVEN AND UNLABORED. SINUS TACH RATE 110'S WITH NO ECTOPY ON MONITOR. CALL LIGHT IN REACH. REPEAT BG 231. AND EDPA AWARE. AWAITING ADMIT ORDERS AT THIS TIME.
--- NOTE | 2018-09-29 22:22 | NUR ---
REPORT GIVEN TO JOSÉ MIGUEL SELLING MANAGER. ALL QUESTIONS ANSWERED.
[2018-09-29 22:42] VITALS: BP 135/86
[2018-09-29] MEDS: SODIUM BICARBONATE 8.4% 100 MEQ in DEXTROSE 5% 1,000 ML IV SCH (23:08)
[2018-09-29] MEDS: FAMOTIDINE 20 MG/2 ML IVPush SCH (23:09)
[2018-09-29] MEDS: LORazepam 2 MG/ML, 1ML IV PRN (23:09)
[2018-09-29] MEDS: SODIUM CHLORIDE FLUSH 10ML SYR IVF SCH (23:09)
[2018-09-30] MEDS ORDERED: CEFTRIAXONE PMX 1GM/50ML 50 ML IV SCH (01:00)
[2018-09-30] MEDS: LORazepam 2 MG/ML, 1ML IV PRN ×6 (01:07→22:47)
[2018-09-30 01:34] LABS: ALANINE AMINOTRANSFERASE 95 U/L (12-78); ALBUMIN 3.7 g/dL (3.4-5.0); ANION GAP 17 mmol/L (5-15); CALCIUM 7.9 mg/dL (8.5-10.1); CHLORIDE 108 mmol/L (98-107); CREATININE 0.48 mg/dL (0.55-1.02)
[2018-09-30 01:36] LABS: ALKALINE PHOSPHATASE 105 U/L (45-117); BILIRUBIN,TOTAL 0.4 mg/dL (0.2-1.0); TOTAL PROTEIN 7.4 g/dL (6.4-8.2)
[2018-09-30 03:30] VITALS: BP 106/68
[2018-09-30 04:49] LABS: BASOPHILS # (AUTO) 0.04 x10^3/uL (0-0.1); BASOPHILS % (AUTO) 1 % (0-1); EOSINOPHILS # (AUTO) 0.01 x10^3/uL (0-0.4); EOSINOPHILS % (AUTO) 0 % (1-7); LYMPHOCYTES # (AUTO) 1.89 x10^3/uL (1-3.4); LYMPHOCYTES % (AUTO) 28 % (22-44); MD NO; MEAN CORPUSCULAR HEMOGLOBIN 27.1 pg (27.0-34.8); MEAN CORPUSCULAR HGB CONC 31.5 g/dL (32.4-35.8); MEAN CORPUSCULAR VOLUME 85.9 fL (80-100); MEAN PLATELET VOLUME 8.9 fL (7.4-10.4); MONOCYTES # (AUTO) 0.75 x10^3/uL (0.2-0.8); MONOCYTES % (AUTO) 11 % (2-9); NEUTROPHILS # (AUTO) 4.13 x10^3/uL (1.8-6.8); NEUTROPHILS % (AUTO) 61 % (42-75); PLATELET COUNT 252 x10^3/uL (130-400); RED BLOOD COUNT 3.62 x10^6/uL (3.82-5.3); RED CELL DISTRIBUTION WIDTH 18.2 % (9.6-15.2)
[2018-09-30] MEDS: SODIUM BICARBONATE 8.4% 100 MEQ in DEXTROSE 5% 1,000 ML IV SCH (06:43)
[2018-09-30] MEDS: ENOXAPARIN 40 MG/0.4 ML SQ SCH ×2 (08:00→08:25)
[2018-09-30 08:23] VITALS: BP 126/81
[2018-09-30] MEDS: FAMOTIDINE 20 MG/2 ML IVPush SCH ×2 (08:25→21:13)
[2018-09-30] MEDS: LACTOBACILLUS CHEW TABLET PO SCH ×3 (08:25→21:13)
[2018-09-30] MEDS: SODIUM CHLORIDE FLUSH 10ML SYR IVF SCH ×2 (08:26→21:14)
[2018-09-30] MEDS: ACETAMINOPHEN 325 MG TABLET PO PRN ×3 (09:52→22:37)
[2018-09-30 09:57] LABS: ALBUMIN 3.4 g/dL (3.4-5.0); ANION GAP 9 mmol/L (5-15); CALCIUM 8.4 mg/dL (8.5-10.1); CHLORIDE 102 mmol/L (98-107)
[2018-09-30 10:00] LABS: ALANINE AMINOTRANSFERASE 75 U/L (12-78); ALKALINE PHOSPHATASE 98 U/L (45-117); BILIRUBIN,TOTAL 0.9 mg/dL (0.2-1.0); CREATININE 0.59 mg/dL (0.55-1.02); TOTAL PROTEIN 6.7 g/dL (6.4-8.2)
[2018-09-30 14:14] VITALS: BP 114/78
[2018-09-30 19:02] VITALS: BP 125/87
[2018-09-30] MEDS ORDERED: POTASSIUM CHLORIDE 20 MEQ, MAGNESIUM SULFATE 1 GM, MVI ADULT 10 ML, THIAMINE 200 MG, FO... IV SCH (22:30)
[2018-10-01 00:49] VITALS: BP 118/82
[2018-10-01] MEDS: ACETAMINOPHEN 325 MG TABLET PO PRN (04:56)
[2018-10-01 06:31] LABS: BASOPHILS # (AUTO) 0.05 x10^3/uL (0-0.1); BASOPHILS % (AUTO) 1 % (0-1); EOSINOPHILS # (AUTO) 0.24 x10^3/uL (0-0.4); EOSINOPHILS % (AUTO) 6 % (1-7); LYMPHOCYTES # (AUTO) 1.55 x10^3/uL (1-3.4); LYMPHOCYTES % (AUTO) 38 % (22-44); MD NO; MEAN CORPUSCULAR VOLUME 84.7 fL (80-100); MONOCYTES # (AUTO) 0.36 x10^3/uL (0.2-0.8); MONOCYTES % (AUTO) 9 % (2-9); NEUTROPHILS # (AUTO) 1.92 x10^3/uL (1.8-6.8); NEUTROPHILS % (AUTO) 47 % (42-75); PLATELET COUNT 182 x10^3/uL (130-400); RED CELL DISTRIBUTION WIDTH 18.6 % (9.6-15.2)
[2018-10-01 06:40] LABS: CHLORIDE 105 mmol/L (98-107)
[2018-10-01 06:50] LABS: % IRON SATURATION 20 % (20-55); ALANINE AMINOTRANSFERASE 60 U/L (12-78); ALBUMIN 3.2 g/dL (3.4-5.0); ALKALINE PHOSPHATASE 90 U/L (45-117); ANION GAP 9 mmol/L (5-15); BILIRUBIN,TOTAL 0.4 mg/dL (0.2-1.0); CALCIUM 8.6 mg/dL (8.5-10.1); CREATININE 0.46 mg/dL (0.55-1.02); IRON LEVEL 66 mcg/dL (50-170); TOTAL IRON BINDING CAPACITY 323 mcg/dL (250-450); TOTAL PROTEIN 6.4 g/dL (6.4-8.2)
[2018-10-01 07:43] VITALS: BP 127/88
[2018-10-01] MEDS: ENOXAPARIN 40 MG/0.4 ML SQ SCH (08:00)
[2018-10-01] MEDS ORDERED: SODIUM CHLORIDE 0.9% 1,000 ML IV SCH (08:00)
[2018-10-01] MEDS: LACTOBACILLUS CHEW TABLET PO SCH ×2 (08:59→16:11)
[2018-10-01] MEDS: SODIUM CHLORIDE FLUSH 10ML SYR IVF SCH (08:59)
[2018-10-01] MEDS: FAMOTIDINE 20 MG/2 ML IVPush SCH (08:59)
[2018-10-01] MEDS ORDERED: ACID1TAB7 PO (14:21)
== END 2018-10-01 18:50 | disposition home or self-care (01) | DRG 392 ==
LOC: ED 19:09 → EDIP 22:05 → 4WST 22:37
PROVIDERS: ADMIT Internal Medicine; ATTEND Internal Medicine
DX: K29.20 Alcoholic gastritis without bleeding (principal); F10.239 Alcohol dependence with withdrawal, unspecified; E87.2 Acidosis; D63.8 Anemia in other chronic diseases classified elsewhere; E16.2 Hypoglycemia, unspecified; Z71.6 Tobacco abuse counseling; G47.00 Insomnia, unspecified; F17.210 Nicotine dependence, cigarettes, uncomplicated; F12.10 Cannabis abuse, uncomplicated; Z71.51 Drug abuse counseling and surveillance of drug abuser; Z91.14 Patient's other noncompliance with medication regimen; K70.9 Alcoholic liver disease, unspecified
CPT/HCPCS: 36415; 71101; 99285; J3490; 80053; 81001; 82803; 82962; 83540; 83550; 83690; 84703; 85025; 87086; 96372; 96374; G0378; J0696; J1650; J2405; J2550; J3411; J3475; J3480; J7070; Q0162; J2060; J7030

== ENCOUNTER 2018-11-03 14:18 | Emergency (ER) | payer MEDICAID ==
[~2018-11-03] VITALS: Ht 162.6 cm; Wt 82.0 kg
[~2018-11-03 14:18] MED LIST changes: +ACID1TAB7 PO; +SENN-177 PO; -SENN1TAB8 PO
--- NOTE | 2018-11-03 14:28 | NUR ---
BIB [facility] W CO DIZZINESS AND N/V. FSBS ON SCENE 45, GIVEN 15G ORAL GLUCOSE W/ LITTLE IMPROVEMENT IN BG. 150 ML D10 IV GIVEN ENROUTE. FSBS 101 UPON ARRIVAL. PT REPORTS RUQ PAIN, TENDER TO PALPATION AND NAUSEA. PT REPORTS DIZZINESS RESOLVED WITH GLUCOSE. PT ARRIVES A&O X4. SPEECH CLEAR, +STRENGTH X4. PWD; NON-TREMULOUS, INTERMITTENT DRY HEAVES. HX OF HEAVY ETOH AND ALCOHOLIC KETOACIDOSIS. LAST ETOH 0300 TODAY BP/SPO2/ECG MONITORING IN PLACE. SINUS TACH ON MONITOR.
[2018-11-03] MEDS ORDERED: SODIUM CHLORIDE 0.9% 1,000ML IVBOLUS ONE (14:30)
[2018-11-03] MEDS ORDERED: ONDANSETRON 2MG/ML, 2ML IVPush ONE (14:30)
[2018-11-03] MEDS ORDERED: ONDANSETRON 2MG/ML, 2ML ONE (14:41)
--- NOTE | 2018-11-03 14:50 | NUR ---
PT MEDICATED PER EMAR FOR NAUSEA. UA COLLECTED AND SENT TO LAB.
--- NOTE | 2018-11-03 14:58 | NUR ---
DISCUSSED IVF WITH ERP AND CONCERN FOR INCREASED HYPOGLYCEMIA. PO INTAKE OKAY PER ERP AT THIS TIME. HOLD IVF. Addendum: 11/03/18 at 1501 by JAIMIE PT PROVIDED JUICE/CRACKERS/CHEESE
[2018-11-03 15:00] LABS: MICROSCOPIC AUTO
[2018-11-03 15:02] LABS: CULTURE INDICATED? NO
[2018-11-03 15:10] LABS: AMPHETAMINE SCREEN, URINE Positive (Negative); BARBITURATE SCREEN, URINE Negative (Negative); BENZODIAZEPINE SCREEN, URINE Negative (Negative); CANNABINOID SCREEN, URINE Positive (Negative); COCAINE SCREEN, URINE Negative (Negative); METHADONE SCREEN, URINE Negative (Negative); OPIATE SCREEN, URINE Negative (Negative)
[2018-11-03 15:22] LABS: BASOPHILS # (AUTO) 0.07 x10^3/uL (0-0.1); BASOPHILS % (AUTO) 1 % (0-1); EOSINOPHILS # (AUTO) 0.01 x10^3/uL (0-0.4); EOSINOPHILS % (AUTO) 0 % (1-7); LYMPHOCYTES # (AUTO) 1.04 x10^3/uL (1-3.4); LYMPHOCYTES % (AUTO) 9 % (22-44); MD NO; MEAN CORPUSCULAR HEMOGLOBIN 25.5 pg (27.0-34.8); MEAN CORPUSCULAR HGB CONC 30.9 g/dL (32.4-35.8); MEAN CORPUSCULAR VOLUME 82.7 fL (80-100); MEAN PLATELET VOLUME 8.2 fL (7.4-10.4); MONOCYTES # (AUTO) 0.51 x10^3/uL (0.2-0.8); MONOCYTES % (AUTO) 4 % (2-9); NEUTROPHILS # (AUTO) 10.09 x10^3/uL (1.8-6.8); NEUTROPHILS % (AUTO) 86 % (42-75); PLATELET COUNT 338 x10^3/uL (130-400); RED BLOOD COUNT 4.22 x10^6/uL (3.82-5.3)
[2018-11-03 15:29] LABS: ALANINE AMINOTRANSFERASE 46 U/L (12-78); ALBUMIN 3.9 g/dL (3.4-5.0); ANION GAP 17 mmol/L (5-15); CALCIUM 8.3 mg/dL (8.5-10.1); CHLORIDE 110 mmol/L (98-107); CREATININE 0.66 mg/dL (0.55-1.02)
[2018-11-03 15:32] LABS: ALKALINE PHOSPHATASE 117 U/L (45-117); BILIRUBIN,TOTAL 0.3 mg/dL (0.2-1.0); TOTAL PROTEIN 7.8 g/dL (6.4-8.2)
[2018-11-03 15:46] LABS: HCG UR SG 1.021 (1.003-1.030)
--- NOTE | 2018-11-03 15:48 | NUR ---
PT TOLERATING PO FLUIDS.
[2018-11-03 16:14] LABS: ACETONE, SERUM Large (80mg/dL) mg/dL (Negative)
[2018-11-03] MEDS ORDERED: ACETAMINOPHEN 500 MG TABLET ONE (16:22)
[2018-11-03] MEDS ORDERED: ACETAMINOPHEN 500 MG TABLET PO ONE (16:30)
--- NOTE | 2018-11-03 16:35 | NUR ---
FSBS RECHECKED. PT MEDICATED PER EMAR FOR FRIAS. AWAITING DISPO
--- NOTE | 2018-11-03 16:45 | NUR ---
PT MAINTAINING BG AND TOLERATING PO FLUIDS. PT REMAINS TACHYCARDIC, 110-120. ERP AWARE. PER ERP, GIVE 1L BOLUS AT THIS TIME.
--- NOTE | 2018-11-03 17:20 | NUR ---
PT AMBULATED STEADILY TO BATHROOM WITH EULALIA MONTERO
[2018-11-03 17:32] VITALS: BP 116/80
--- NOTE | 2018-11-03 17:33 | NUR ---
PT REPORTS SIGNIFICANT IMPROVEMENT IN PAIN. PT CONTINUES TO TAKE PO FOOD/FLUIDS WO DIFFICULTY.
--- NOTE | 2018-11-03 17:55 | NUR ---
DC EDUCATION PROVIDED, PT DEMONSTRATES UNDERSTANDING. PT CONTINUES TO DENY N/V/DIZZINESS. IV DC'D. PT UP TO DRESS SELF.
== END 2018-11-03 17:58 | disposition home or self-care (01) ==
LOC: ED 16:02
DX: F10.229 Alcohol dependence with intoxication, unspecified (principal); F15.229 Other stimulant dependence with intoxication, unspecified; E16.2 Hypoglycemia, unspecified; F17.200 Nicotine dependence, unspecified, uncomplicated; Z72.9 Problem related to lifestyle, unspecified
CPT/HCPCS: 36415; 80053; 80307; 81001; 81025; 82010; 82962; 83690; 83735; 85025; 93005; 96374; 99284; J2405; J7030

== ENCOUNTER 2018-11-14 12:25 | Emergency (ER) | payer MEDICAID ==
[~2018-11-14] VITALS: Ht 162.6 cm; Wt 63.0 kg
[2018-11-14] MEDS ORDERED: PROMETHAZINE 25 MG/ML, 1ML IM ONE ×2 (13:00→13:30)
[2018-11-14] MEDS ORDERED: LORazepam 2 MG/ML, 1ML IVPush PRN (13:00)
[2018-11-14] MEDS ORDERED: SODIUM CHLORIDE 0.9% 1,000ML IVBOLUS ONE (13:00)
[2018-11-14] MEDS ORDERED: THIAMINE 100 MG in SODIUM CHLORIDE 0.9% 50 ML IVPB ONE (13:00)
[2018-11-14 13:16] LABS: MEAN CORPUSCULAR HEMOGLOBIN 26.2 pg (27.0-34.8); MEAN CORPUSCULAR HGB CONC 31.4 g/dL (32.4-35.8); MEAN CORPUSCULAR VOLUME 83.5 fL (80-100); MEAN PLATELET VOLUME 9.3 fL (7.4-10.4); PLATELET COUNT 200 x10^3/uL (130-400); RED BLOOD COUNT 4.33 x10^6/uL (3.82-5.3); RED CELL DISTRIBUTION WIDTH 22.4 % (9.6-15.2)
[2018-11-14 13:20] LABS: ALANINE AMINOTRANSFERASE 74 U/L (12-78); ALBUMIN 4.3 g/dL (3.4-5.0); CALCIUM 8.9 mg/dL (8.5-10.1); CHLORIDE 103 mmol/L (98-107); CREATININE 0.77 mg/dL (0.55-1.02)
[2018-11-14 13:23] LABS: ALKALINE PHOSPHATASE 117 U/L (45-117); BILIRUBIN,TOTAL 0.8 mg/dL (0.2-1.0); TOTAL PROTEIN 8.7 g/dL (6.4-8.2)
[2018-11-14] MEDS ORDERED: PROMETHAZINE 25 MG/ML, 1ML ONE (13:29)
[2018-11-14] MEDS ORDERED: LORazepam 2 MG/ML, 1ML ONE ×2 (13:29→15:43)
[2018-11-14 13:32] LABS: BASOPHILS % (AUTO) 0 % (0-1); EOSINOPHILS % (AUTO) 0 % (1-7); LYMPHOCYTES # (AUTO) 0.89 x10^3/uL (1-3.4); LYMPHOCYTES % (AUTO) 11 % (22-44); MD SCAN; MONOCYTES # (AUTO) 0.27 x10^3/uL (0.2-0.8); MONOCYTES % (AUTO) 3 % (2-9); NEUTROPHILS # (AUTO) 7.27 x10^3/uL (1.8-6.8); NEUTROPHILS % (AUTO) 86 % (42-75)
[2018-11-14 13:35] LABS: ANION GAP 23 mmol/L (5-15)
[2018-11-14] MEDS ORDERED: MAGNESIUM SULFATE 1 GM, THIAMINE 100 MG, FOLIC ACID 1 MG, MVI ADULT 10 ML in SODIUM CHL... IV ONE (14:00)
[2018-11-14] MEDS ORDERED: ONDANSETRON 2MG/ML, 2ML IVPush ONE (14:00)
[2018-11-14] MEDS ORDERED: DEXTROSE 50%, 50ML SYRINGE IVPush ONE (14:00)
[2018-11-14] MEDS: LORazepam 2 MG/ML, 1ML IVPush PRN ×2 (14:04→15:46)
[2018-11-14] MEDS ORDERED: ONDANSETRON 2MG/ML, 2ML ONE (14:09)
[2018-11-14] MEDS ORDERED: DEXTROSE 50%, 50ML SYRINGE ONE (14:09)
--- NOTE | 2018-11-14 14:55 | NUR ---
PIV fluids and medications infusing per EMAR. SHIELDS. Pt sleeping on gurralali. Pt states, "I am hungry and thirsty. Can I get crackers?"
[2018-11-14 15:49] VITALS: BP 116/79
--- NOTE | 2018-11-14 15:53 | NUR ---
Provided PIV medications per EMAR. Pt appreciative. NADN. Pt connected to NIBP, continous pulse ox, and media monitor. No needs expressed. Call light within reach.
--- NOTE | 2018-11-14 16:02 | NUR ---
PAGED UROLOGY AT THE REQUEST OF DR. SUH TO NOTIFY UROLOGY THAT PATIENT KARSTEN A HYDRONEPHROSIS. UROLOGY UNIVERSITY LIBRARIAN WILL LET PATTI BALDERAS FOR DR. SHINE THAT PATIENT HAS A HYDRONEPHROSIS.
--- NOTE | 2018-11-14 16:25 | NUR ---
Pt sleeping on juan. CORNELIUS. Pt connected to all monitors. No needs expressed at this time. All safety measures in place. Call light within reach. PIV fluids infusing per EMAR.
--- NOTE | 2018-11-14 17:07 | NUR ---
Pt ambulated with tech. Per traffic engineering technician, "Pt states nausea and dizziness, pt unsteady on feet." ED MD notified.
--- NOTE | 2018-11-14 17:50 | NUR ---
Pt resting on gurney sleeping. NADN. No needs expressed. Pt connected to all monitors. All safety measures in place.
--- NOTE | 2018-11-14 18:06 | NUR ---
BOB SAWYER STATES HE WILL CONTACT FOR CONSULT.
--- NOTE | 2018-11-14 18:31 | NUR ---
Called JUAN. Spoke to JUAN Marc. Per JUAN Marc, "Pt has insurance, she just may need a taxi voucher. There is not a reason she shouldn't be able to get her medications."
== END 2018-11-14 19:04 | disposition home or self-care (01) ==
LOC: ED 16:00
DX: F10.239 Alcohol dependence with withdrawal, unspecified (principal); Z72.9 Problem related to lifestyle, unspecified
CPT/HCPCS: 36415; 80053; 80307; 83690; 85025; 96361; 96365; 96366; 96372; 96375; 96376; 99283; J2060; J2550; J3411; J3475; J7030

== ENCOUNTER 2018-12-20 20:23 | Emergency (ER) | payer MEDICAID ==
[~2018-12-20] VITALS: Ht 162.6 cm; Wt 65.9 kg
--- NOTE | 2018-12-20 21:08 | NUR ---
ORI RN: PT AMBULATORY TO RESTROOM WITH A STEADY GAIT. URINE SAMPLE PROVIDED, SENT TO LAB.
[2018-12-20 21:25] LABS: MICROSCOPIC NOT IND
[2018-12-20 21:31] LABS: CULTURE INDICATED? NO
[2018-12-20 21:32] LABS: ALBUMIN 3.8 g/dL (3.4-5.0); ANION GAP 13 mmol/L (5-15); CALCIUM 8.8 mg/dL (8.5-10.1); CHLORIDE 115 mmol/L (98-107); CREATININE 0.66 mg/dL (0.55-1.02)
[2018-12-20 21:40] LABS: MEAN CORPUSCULAR HEMOGLOBIN 26.6 pg (27.0-34.8); MEAN CORPUSCULAR HGB CONC 32.5 g/dL (32.4-35.8); MEAN CORPUSCULAR VOLUME 81.7 fL (80-100); MEAN PLATELET VOLUME 8.9 fL (7.4-10.4); PLATELET COUNT 209 x10^3/uL (130-400); RED BLOOD COUNT 3.85 x10^6/uL (3.82-5.3); RED CELL DISTRIBUTION WIDTH 23.6 % (9.6-15.2)
[2018-12-20 22:16] LABS: BASOPHILS # (AUTO) 0.26 x10^3/uL (0-0.1); BASOPHILS % (AUTO) 4 % (0-1); EOSINOPHILS # (AUTO) 0.15 x10^3/uL (0-0.4); EOSINOPHILS % (AUTO) 3 % (1-7); LYMPHOCYTES # (AUTO) 2.91 x10^3/uL (1-3.4); LYMPHOCYTES % (AUTO) 48 % (22-44); MD SCAN; MONOCYTES # (AUTO) 0.26 x10^3/uL (0.2-0.8); MONOCYTES % (AUTO) 4 % (2-9); NEUTROPHILS # (AUTO) 2.44 x10^3/uL (1.8-6.8); NEUTROPHILS % (AUTO) 41 % (42-75)
[2018-12-20] MEDS ORDERED: KETOROLAC 30 MG/1 ML ONE (22:24)
[2018-12-20] MEDS ORDERED: KETOROLAC 30 MG/1 ML IM ONE (22:30)
[2018-12-20] MEDS ORDERED: OMNIPAQUE 350 MG/ML, 100ML BOTTLE ONE (23:25)
[2018-12-21] MEDS ORDERED: ONDANSETRON ODT 8 MG PO ONE (00:30)
[2018-12-21 00:43] VITALS: BP 138/92
== END 2018-12-21 00:47 | disposition home or self-care (01) ==
LOC: ED 22:08
DX: N83.12 Corpus luteum cyst of left ovary (principal); N83.11 Corpus luteum cyst of right ovary
CPT/HCPCS: 36415; 74177; 76830; 80048; 80307; 81003; 82040; 84703; 85025; 96372; 99284; J1885; Q9967

== ENCOUNTER 2018-12-30 06:15 | Inpatient (IN) | payer MEDICAID ==
[~2018-12-30] VITALS: Ht 162.6 cm; Wt 66.7 kg
--- NOTE | 2018-12-30 06:28 | NUR ---
CHARLES. REPORT RECEIVED FROM EMS. PT C/O N/V/RIGHT SIDED ABD PAIN SINCE 8PM LAST NIGHT. +ETOH. PT'S AOX4. RESPS EVEN AND UNLABORED. ALL MONITORS IN PLACE. SINUS TACHY ON CUSTOMER SALES DISTRIBUTOR WITHOUT ECTOPY RATE 110'S AT THIS TIME. EDMD AT BEDSIDE TO ASSESS. CALL LIGHT WITHIN REACH.
[2018-12-30] MEDS ORDERED: FAMOTIDINE 20 MG/2 ML IVP ONE (06:30)
[2018-12-30] MEDS ORDERED: METOCLOPRAMIDE 5 MG/ML, 2ML IVPush ONE (06:30)
[2018-12-30] MEDS ORDERED: KETOROLAC 30 MG/1 ML IVPush ONE (06:30)
[2018-12-30] MEDS ORDERED: SODIUM CHLORIDE 0.9% 1,000ML IVBOLUS ONE (06:30)
[2018-12-30] MEDS ORDERED: THIAMINE 100MG TABLET PO ONE (06:30)
[2018-12-30] MEDS ORDERED: CEPH125S PO (06:30)
[2018-12-30] MEDS ORDERED: HYDR-3237 PO (06:31)
[2018-12-30] MEDS ORDERED: ONDA4TAB7 PO (06:31)
[2018-12-30] MEDS ORDERED: THIAMINE 100MG TABLET ONE (06:34)
[2018-12-30] MEDS ORDERED: FAMOTIDINE 20 MG/2 ML ONE (06:34)
[2018-12-30] MEDS ORDERED: METOCLOPRAMIDE 5 MG/ML, 2ML ONE (06:34)
[2018-12-30] MEDS ORDERED: KETOROLAC 30 MG/1 ML ONE (06:34)
--- NOTE | 2018-12-30 06:52 | NUR ---
REPORT GIVEN TO RED MONTERO.
--- NOTE | 2018-12-30 07:03 | NUR ---
Recieved bedside report from WINSTON Nieves. All questions answered. Assuming care of pt. Pt has had two episodes of emesis of moderate amounts of yellow bile. Pt is tachycardic between 120-130's, and tachypenic with RR in 20-30's. Pt denies seizures when discontinuing ETOH consumption. Pt connected to athletic monitor, NIBP, and continous pulse ox. PIV via ultrasound to be established at bedside. Bedrails up for safety measures, call light within reach.
[2018-12-30 07:05] LABS: ALANINE AMINOTRANSFERASE 136 U/L (12-78); ALBUMIN 4.4 g/dL (3.4-5.0); ANION GAP 23 mmol/L (5-15); CALCIUM 9.1 mg/dL (8.5-10.1); CHLORIDE 102 mmol/L (98-107); CREATININE 0.66 mg/dL (0.55-1.02)
[2018-12-30 07:08] LABS: BILIRUBIN,TOTAL 0.8 mg/dL (0.2-1.0)
[2018-12-30 07:09] LABS: ALKALINE PHOSPHATASE 107 U/L (45-117); TOTAL PROTEIN 8.4 g/dL (6.4-8.2)
--- NOTE | 2018-12-30 07:19 | NUR ---
Pt aware of need or UA.
[2018-12-30] MEDS ORDERED: LORazepam 2 MG/ML, 1ML ONE (07:23)
[2018-12-30] MEDS ORDERED: DEXTROSE 50%, 50ML SYRINGE IVPush ONE (07:30)
[2018-12-30] MEDS ORDERED: D5%-0.45% NACL 1,000 ML IV SCH (07:30)
[2018-12-30] MEDS ORDERED: LORazepam 2 MG/ML, 1ML IVPush ONE (07:30)
--- NOTE | 2018-12-30 07:30 | NUR ---
Sent yellow pharmacy slip requesting meds to pharmacy.
--- NOTE | 2018-12-30 07:31 | NUR ---
Provided medicaiton per EMAR.
[2018-12-30 07:37] LABS: BASOPHILS # (AUTO) 0.07 x10^3/uL (0-0.1); BASOPHILS % (AUTO) 1 % (0-1); EOSINOPHILS # (AUTO) 0.01 x10^3/uL (0-0.4); EOSINOPHILS % (AUTO) 0 % (1-7); LYMPHOCYTES # (AUTO) 1.14 x10^3/uL (1-3.4); LYMPHOCYTES % (AUTO) 15 % (22-44); MEAN CORPUSCULAR HEMOGLOBIN 26.2 pg (27.0-34.8); MEAN CORPUSCULAR HGB CONC 31.1 g/dL (32.4-35.8); MEAN CORPUSCULAR VOLUME 84.3 fL (80-100); MEAN PLATELET VOLUME 9.4 fL (7.4-10.4); MONOCYTES # (AUTO) 0.53 x10^3/uL (0.2-0.8); MONOCYTES % (AUTO) 7 % (2-9); NEUTROPHILS % (AUTO) 78 % (42-75); PLATELET COUNT 172 x10^3/uL (130-400); RED BLOOD COUNT 4.54 x10^6/uL (3.82-5.3)
[2018-12-30 07:38] LABS: MD SCAN
--- NOTE | 2018-12-30 07:48 | NUR ---
PIV fluids infusing per EMAR. Provided medicaitons per EMAR. Pt resting on gurney with both bedrails up for safety measures. Pt has surveillance monitor, NIBP, and continous pulse ox. Lab at bedside. Call light within reach. NADN. No needs expressed. Pt no longer having episodes of emesis at this time.
--- NOTE | 2018-12-30 08:32 | NUR ---
In pt room for hourly rounding. PIV fluids infusing per EMAR. Pt remains tachycardic in 120-130 bpm range, ED MD aware. NADN. No needs requested. Pt states, "I feel a little better after getting some rest". Call light within reach. Bedrails up for safety measures.
[2018-12-30 08:45] LABS: O2 FLOW RA L/min
--- NOTE | 2018-12-30 08:48 | NUR ---
Assisted pt with bedpan. Pt provided urine sample. UA sent to lab. Pt appreciative. Provided report to WINSTON Marquez. All questions answered. WINSTON Marquez to assume care of pt.
--- NOTE | 2018-12-30 08:59 | NUR ---
PT MOVED TO T3 REC REPORT ASSUMED CARE AT THIS TIME PT A04 CONTINUING TO MONITOR
[2018-12-30] MEDS ORDERED: SODIUM CHLORIDE FLUSH 10ML SYR IVF PRN (09:00)
[2018-12-30] MEDS ORDERED: SODIUM BICARBONATE 8.4% 100 MEQ in DEXTROSE 5% 1,000 ML IV SCH (09:00)
[2018-12-30 09:09] LABS: MICROSCOPIC AUTO
[2018-12-30 09:19] LABS: CULTURE INDICATED? YES
[2018-12-30] MEDS: SODIUM BICARBONATE 8.4% 100 MEQ in DEXTROSE 5% 1,000 ML IV SCH ×2 (10:00→20:42)
[2018-12-30] MEDS ORDERED: ONDANSETRON 2MG/ML, 2ML IVPush PRN (10:00)
[2018-12-30] MEDS ORDERED: hydrALAzine 20 MG/ML, 1ML IVPush PRN (10:00)
[2018-12-30] MEDS ORDERED: POTASSIUM CHLORIDE 20 MEQ, MAGNESIUM SULFATE 1 GM, MVI ADULT 10 ML, THIAMINE 200 MG, FO... IV SCH (10:00)
[2018-12-30] MEDS: morphine SULFATE 10 MG/ML, 1ML IVPush PRN ×4 (10:21→20:43)
[2018-12-30] MEDS: NICOTINE 14MG/24 HR PATCH.TD24 TD SCH (11:27)
[2018-12-30] MEDS: PANTOPRAZOLE 40 MG IV IVPush SCH ×2 (11:27→20:42)
[2018-12-30 12:57] LABS: AMPHETAMINE SCREEN, URINE Positive (Negative); BARBITURATE SCREEN, URINE Negative (Negative); BENZODIAZEPINE SCREEN, URINE Negative (Negative); CANNABINOID SCREEN, URINE Negative (Negative); COCAINE SCREEN, URINE Negative (Negative); METHADONE SCREEN, URINE Negative (Negative); OPIATE SCREEN, URINE Positive (Negative)
[2018-12-30 13:11] VITALS: BP 121/81
[2018-12-30] MEDS: LORazepam 2 MG/ML, 1ML IVPush PRN (19:15)
[2018-12-30 19:44] VITALS: BP 122/77
[2018-12-31 01:58] VITALS: BP 119/81
[2018-12-31] MEDS: SODIUM BICARBONATE 8.4% 100 MEQ in DEXTROSE 5% 1,000 ML IV SCH (05:40)
[2018-12-31 05:50] VITALS: BP 121/78
[2018-12-31] MEDS: LORazepam 2 MG/ML, 1ML IVPush PRN ×3 (05:51→16:34)
[2018-12-31] MEDS: morphine SULFATE 10 MG/ML, 1ML IVPush PRN ×2 (05:51→10:40)
[2018-12-31 07:26] LABS: ALBUMIN 3.2 g/dL (3.4-5.0); CHLORIDE 102 mmol/L (98-107)
[2018-12-31 07:31] LABS: ALKALINE PHOSPHATASE 82 U/L (45-117); BILIRUBIN,TOTAL 0.8 mg/dL (0.2-1.0); CREATININE 0.46 mg/dL (0.55-1.02)
[2018-12-31 07:49] LABS: ALANINE AMINOTRANSFERASE 72 U/L (12-78); ANION GAP 9 mmol/L (5-15)
[2018-12-31 08:08] LABS: CALCIUM 8.3 mg/dL (8.5-10.1)
[2018-12-31 08:09] LABS: TOTAL PROTEIN 5.9 g/dL (6.4-8.2)
[2018-12-31] MEDS ORDERED: MAGNESIUM SULFATE PMX 2GM/50ML 50 ML IV ONE (08:30)
[2018-12-31 08:35] VITALS: BP 122/90
[2018-12-31] MEDS: POTASSIUM PHOSPHATE 44 MEQ in SODIUM CHLORIDE 0.9% 500 ML IV SCH ×2 (09:10→17:28)
[2018-12-31] MEDS: POTASSIUM CHLORIDE 20 MEQ TAB.ER.PRT PO SCH ×2 (09:11→10:40)
[2018-12-31] MEDS: NICOTINE 14MG/24 HR PATCH.TD24 TD SCH (10:40)
[2018-12-31 15:28] VITALS: BP 98/70
[2018-12-31] MEDS ORDERED: ACETAMINOPHEN 500 MG TABLET PO PRN (15:30)
[2018-12-31] MEDS: PANTOPRAZOLE 20MG TABLET PO SCH (15:40)
[2018-12-31 18:44] VITALS: BP 106/71
[2018-12-31] MEDS: MAGNESIUM OXIDE 400 MG TABLET PO SCH (20:01)
[2019-01-01 00:29] VITALS: BP 117/79
[2019-01-01] MEDS: PANTOPRAZOLE 20MG TABLET PO SCH (05:06)
[2019-01-01 05:58] LABS: CHLORIDE 110 mmol/L (98-107)
[2019-01-01] MEDS: LORazepam 2 MG/ML, 1ML IVPush PRN (05:59)
[2019-01-01 06:07] LABS: ALANINE AMINOTRANSFERASE 88 U/L (12-78); ALBUMIN 3.1 g/dL (3.4-5.0); ALKALINE PHOSPHATASE 95 U/L (45-117); ANION GAP 8 mmol/L (5-15); BILIRUBIN,TOTAL 0.5 mg/dL (0.2-1.0); CALCIUM 8.9 mg/dL (8.5-10.1); TOTAL PROTEIN 6.2 g/dL (6.4-8.2)
[2019-01-01 08:22] VITALS: BP 108/74
[2019-01-01] MEDS: MAGNESIUM OXIDE 400 MG TABLET PO SCH (08:39)
[2019-01-01] MEDS: NICOTINE 14MG/24 HR PATCH.TD24 TD SCH (08:40)
[2019-01-01] MEDS ORDERED: FOLIC ACID 1 MG TABLET PO SCH (09:00)
[2019-01-01] MEDS ORDERED: THIAMINE 100MG TABLET PO SCH (09:00)
[2019-01-01] MEDS ORDERED: MULTIVITAMIN 1 TABLET PO SCH (09:00)
[2019-01-01] MEDS ORDERED: FOLI-17 PO (09:36)
[2019-01-01] MEDS ORDERED: MAGN400T50 PO (09:36)
[2019-01-01] MEDS ORDERED: PANT20TA3 PO (09:36)
[2019-01-01] MEDS ORDERED: MULT1TAB60 PO (09:36)
[2019-01-01] MEDS ORDERED: NICO-486 TD (09:36)
[2019-01-01] MEDS ORDERED: THIA100T67 PO (09:36)
[2019-01-01] MEDS ORDERED: POLY17PO5 PO (09:52)
== END 2019-01-01 13:48 | disposition home or self-care (01) | DRG 433 ==
LOC: ED 06:49 → SUATTDRO 09:07 → 4EST 09:55
PROVIDERS: ADMIT Internal Medicine; ATTEND Internal Medicine
DX: K70.10 Alcoholic hepatitis without ascites (principal); E87.2 Acidosis; F10.239 Alcohol dependence with withdrawal, unspecified; R65.10 Systemic inflammatory response syndrome (SIRS) of non-infectious origin without acute organ dysfunction; E16.2 Hypoglycemia, unspecified; E83.39 Other disorders of phosphorus metabolism; E86.0 Dehydration; E87.6 Hypokalemia; F12.90 Cannabis use, unspecified, uncomplicated; F17.210 Nicotine dependence, cigarettes, uncomplicated; K29.20 Alcoholic gastritis without bleeding; Z91.14 Patient's other noncompliance with medication regimen
CPT/HCPCS: 36415; 99291; J3490; 80053; 80074; 80307; 81001; 82803; 82962; 83690; 83735; 84100; 84703; 85025; 87086; 96374; 96375; G0378; J1885; J3411; J3475; J3480; J7070; C9113; J2060; J2270; J2765; J7030; J7040

== ENCOUNTER 2019-02-18 16:59 | Emergency (ER) | payer MEDICAID ==
[~2019-02-18] VITALS: Ht 157.5 cm; Wt 80.0 kg
[~2019-02-18 16:59] MED LIST changes: +CEPH125S PO; +HYDR-3237 PO; +MAGN400T50 PO; +ONDA4TAB7 PO; -OSEL75CA PO; +OSEL75CA26 PO; +PANT20TA3 PO; +POLY17PO5 PO
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
--- NOTE | 2019-02-18 17:26 | NUR ---
PT MOVED TO ROOM 38 FOR SITTER. PT TRYING TO CRAWL OUT OF BED. PT IS [place] RISK WITH HEAVY ETOH. PT NOT STAYING IN BED. REPORT GIVEN TO STELLA MONTERO.
--- NOTE | 2019-02-18 17:47 | NUR ---
ASSUMED CARE. PT SITTING IN CHAIR DRY HEAVING. PT WANTS TO KNOW WHY SHE IS HERE. DISCUSSED HOW SHE CALLED 911 BECAUSE SHE WAS CONCERNED ABOUT HER BLOOD SUGAR. PT STATES SINCE IT IS FINE SHE WANTS TO LEAVE. PER TECH PT WAS ABLE TO AMBULATE WITHOUT ASSISTANCE
[2019-02-18 18:08] VITALS: BP 118/73
[2019-02-18] MEDS ORDERED: ONDANSETRON ODT 4 MG ONE (18:12)
--- NOTE | 2019-02-18 18:23 | NUR ---
PT STATED SHE WANTS TO GO HOME BUT WHEN GOING TO GIVE DISCHARGE, PT STATES SHE WANTS TO BE CHECKED OUT BECAUSE SOMETIMES HER LEVELS CAN GET REAL LOW. MD AT BEDSIDE AND LABS TO BE ORDERED
[2019-02-18] MEDS ORDERED: ONDANSETRON ODT 4 MG PO ONE (18:30)
[2019-02-18 18:46] LABS: BASOPHILS # (AUTO) 0.04 x10^3/uL (0-0.1); BASOPHILS % (AUTO) 1 % (0-1); EOSINOPHILS # (AUTO) 0.03 x10^3/uL (0-0.4); EOSINOPHILS % (AUTO) 1 % (1-7); LYMPHOCYTES # (AUTO) 1.46 x10^3/uL (1-3.4); LYMPHOCYTES % (AUTO) 31 % (22-44); MD NO; MEAN CORPUSCULAR HEMOGLOBIN 27.4 pg (27.0-34.8); MEAN CORPUSCULAR HGB CONC 31.6 g/dL (32.4-35.8); MEAN CORPUSCULAR VOLUME 86.7 fL (80-100); MEAN PLATELET VOLUME 8.7 fL (7.4-10.4); MONOCYTES # (AUTO) 0.21 x10^3/uL (0.2-0.8); MONOCYTES % (AUTO) 5 % (2-9); NEUTROPHILS # (AUTO) 2.93 x10^3/uL (1.8-6.8); NEUTROPHILS % (AUTO) 63 % (42-75); PLATELET COUNT 195 x10^3/uL (130-400); RED BLOOD COUNT 4.14 x10^6/uL (3.82-5.3); RED CELL DISTRIBUTION WIDTH 19.3 % (9.6-15.2)
[2019-02-18 18:51] LABS: ALANINE AMINOTRANSFERASE 107 U/L (12-78); ALBUMIN 4.3 g/dL (3.4-5.0); ANION GAP 17 mmol/L (5-15); CALCIUM 8.7 mg/dL (8.5-10.1); CHLORIDE 105 mmol/L (98-107); CREATININE 0.67 mg/dL (0.55-1.02)
[2019-02-18 18:53] LABS: ALKALINE PHOSPHATASE 94 U/L (45-117); BILIRUBIN,TOTAL 0.3 mg/dL (0.2-1.0); TOTAL PROTEIN 8.3 g/dL (6.4-8.2)
--- NOTE | 2019-02-18 19:26 | NUR ---
AFTER LABS RESULTED, DISCHARGE PAPERS GIVEN TO PT. PT AMBULATED TO WINDOW STEADY GAIT AND WITHOUT ASSISTANCE. PT GIVEN TAXI VOUCHER
== END 2019-02-18 19:29 | disposition home or self-care (01) ==
LOC: ED 19:05
DX: F10.10 Alcohol abuse, uncomplicated (principal); R10.30 Lower abdominal pain, unspecified; F17.200 Nicotine dependence, unspecified, uncomplicated; Z72.9 Problem related to lifestyle, unspecified
CPT/HCPCS: 36415; 80053; 83690; 85025; 99283; Q0162

== ENCOUNTER 2019-03-26 14:41 | Inpatient (IN) | payer MEDICAID ==
[~2019-03-26] VITALS: Ht 152.4 cm; Wt 66.9 kg
[~2019-03-26 14:41] MED LIST changes: -IBUP-1484 PO; +IBUP-1902 PO; +METO25TA35 PO
--- NOTE | 2019-03-26 14:55 | NUR ---
LATE NOTE ENTRY FOR 1441: Pt presents to ED by EMS with c/o n/v and headache beginning approximately at 0400 today after "drinking all day at [facility]." Pt has history of ETOH withdrawl, alcoholic hepatitis, alcoholic ketoacidosis, and pancreatitis related to alcohol. Pt FSBG with EMS initially was 50, 4-5 minutes later was 45, re-check at bedside is 43. Pt provided 15 g oral glucose gel by EMS, but vomitted one time with EMS. Pt recieved 12.5 mg IM phenergen and 100g Thiamine by EMS. Pt requesting juice. Pt provided orange juice. PIV to be established at bedside. Provided bedside report to WINSTON Bailey. All questions answered. WINSTON Bailey to assume care of pt at this time. Bedrails up x 2, call light within reach. Pt connected to NIBP cuff and continous pulse ox and alarm security or surveillance monitor.
[2019-03-26] MEDS ORDERED: ONDANSETRON 2MG/ML, 2ML ONE (15:25)
--- NOTE | 2019-03-26 15:31 | NUR ---
MD AWARE OF BLOOD SUGAR. VERBAL ORDER FOR ZOFRAN. PT NAUSEATED BUT SLOWLY SIPPING APPLE JUICE, EATING GLUCOSE GEL FROM EMS.
[2019-03-26] MEDS ORDERED: FAMOTIDINE 20 MG/2 ML ONE (15:45)
[2019-03-26] MEDS ORDERED: ONDANSETRON 2MG/ML, 2ML IVPush ONE (16:00)
[2019-03-26] MEDS ORDERED: MAGNESIUM SULFATE 1 GM, THIAMINE 100 MG, FOLIC ACID 1 MG, MVI ADULT 10 ML in SODIUM CHL... IV ONE (16:00)
[2019-03-26] MEDS ORDERED: DEXTROSE 50%, 50ML SYRINGE IVPush ONE (16:00)
[2019-03-26] MEDS ORDERED: FAMOTIDINE 20 MG/2 ML IVP ONE (16:00)
[2019-03-26] MEDS ORDERED: SODIUM CHLORIDE FLUSH 10ML SYR IVF ONE (16:00)
--- NOTE | 2019-03-26 16:00 | NUR ---
PT ASKING FOR PAIN MEDS FOR FRIAS. WILL NOTIFY
[2019-03-26 16:24] LABS: PH, VENOUS 7.066 pH (7.320-7.420)
[2019-03-26 16:57] LABS: ALANINE AMINOTRANSFERASE 118 U/L (12-78); ALKALINE PHOSPHATASE 122 U/L (45-117); BILIRUBIN,TOTAL 0.4 mg/dL (0.2-1.0); CREATININE 0.54 mg/dL (0.55-1.02); TOTAL PROTEIN 7.6 g/dL (6.4-8.2)
[2019-03-26 17:09] LABS: MEAN CORPUSCULAR HEMOGLOBIN 25.7 pg (27.0-34.8); MEAN CORPUSCULAR VOLUME 88.5 fL (80-100); MEAN PLATELET VOLUME 9.4 fL (7.4-10.4); PLATELET COUNT 233 x10^3/uL (130-400); RED BLOOD COUNT 4.11 x10^6/uL (3.82-5.3); RED CELL DISTRIBUTION WIDTH 19.9 % (9.6-15.2)
[2019-03-26 17:11] LABS: MEAN CORPUSCULAR HGB CONC 29.7 g/dL (32.4-35.8)
[2019-03-26 17:12] LABS: BASOPHILS # (AUTO) 0.01 x10^3/uL (0-0.1); BASOPHILS % (AUTO) 0 % (0-1); EOSINOPHILS % (AUTO) 0 % (1-7); LYMPHOCYTES # (AUTO) 0.55 x10^3/uL (1-3.4); LYMPHOCYTES % (AUTO) 7 % (22-44); MD SCAN; MONOCYTES # (AUTO) 0.51 x10^3/uL (0.2-0.8); MONOCYTES % (AUTO) 6 % (2-9); NEUTROPHILS # (AUTO) 7.31 x10^3/uL (1.8-6.8); NEUTROPHILS % (AUTO) 87 % (42-75)
[2019-03-26 17:22] LABS: ANION GAP 26 mmol/L (5-15); CHLORIDE 109 mmol/L (98-107)
[2019-03-26 17:23] LABS: ALBUMIN 3.8 g/dL (3.4-5.0); CALCIUM 8.3 mg/dL (8.5-10.1)
[2019-03-26] MEDS ORDERED: SODIUM CHLORIDE 0.9% 1,000ML IVBOLUS ONE (18:00)
[2019-03-26] MEDS ORDERED: SODIUM CHLORIDE 0.9% 1,000 ML IV ONE (18:22)
[2019-03-26] MEDS ORDERED: SODIUM CHLORIDE FLUSH 10ML SYR IVF PRN (18:30)
[2019-03-26] MEDS ORDERED: MORPHINE SULFATE 4 MG/ML, 1ML ONE (19:21)
[2019-03-26] MEDS ORDERED: LACTATED RINGERS 500 ML IVBOLUS ONE (19:30)
[2019-03-26] MEDS ORDERED: morphine SULFATE 10 MG/ML, 1ML IVPush PRN (19:30)
[2019-03-26] MEDS: HEPARIN 5,000 UNITS/ML, 1ML SQ SCH (19:30)
[2019-03-26] MEDS ORDERED: LORazepam 0.5MG TABLET PO PRN (19:30)
[2019-03-26] MEDS ORDERED: hydrALAzine 20 MG/ML, 1ML IVPush PRN (19:30)
[2019-03-26] MEDS ORDERED: LORazepam 2 MG/ML, 1ML IV PRN ×5 (19:30)
[2019-03-26] MEDS ORDERED: ONDANSETRON 2MG/ML, 2ML IVPush PRN (19:30)
[2019-03-26] MEDS ORDERED: PROMETHAZINE 25 MG/ML, 1ML IM PRN (19:30)
[2019-03-26] MEDS ORDERED: POLYETHYLENE GLYCOL 17 GM PACKET PO PRN (19:30)
[2019-03-26] MEDS ORDERED: BISACODYL 10 MG SUPP PR PRN (19:30)
[2019-03-26] MEDS ORDERED: ONDANSETRON ODT 4 MG PO PRN (19:30)
[2019-03-26] MEDS ORDERED: LORazepam 1MG TABLET PO PRN (19:30)
[2019-03-26] MEDS ORDERED: DOCUSATE 100 MG CAPSULE PO PRN (19:30)
[2019-03-26] MEDS ORDERED: LABETALOL 5MG/ML, 20ML IVPush PRN (19:30)
[2019-03-26] MEDS ORDERED: OXYcodone IR 5MG TABLET PO PRN (19:30)
[2019-03-26 20:10] LABS: FREE T4 (FREE THYROXINE) 0.59 ng/dL (0.76-1.46)
[2019-03-26 20:14] LABS: HEMOGLOBIN A1C 4.2 % (4.2-6.3)
[2019-03-26 20:15] VITALS: BP 110/69
[2019-03-26 20:30] VITALS: BP 110/64
[2019-03-26] MEDS: PANTOPRAZOLE 40 MG IV IVPush SCH (20:51)
[2019-03-26] MEDS: LACTATED RINGERS 1,000 ML IV SCH (23:27)
[2019-03-26] MEDS: LORazepam 1MG TABLET PO PRN (23:29)
[2019-03-26 23:41] LABS: ANION GAP 17 mmol/L (5-15); CALCIUM 7.2 mg/dL (8.5-10.1); CHLORIDE 113 mmol/L (98-107); CREATININE 0.51 mg/dL (0.55-1.02)
[2019-03-26 23:43] LABS: MICROSCOPIC AUTO
[2019-03-26 23:47] LABS: CULTURE INDICATED? NO
[2019-03-27 03:18] VITALS: BP 116/68
[2019-03-27] MEDS: HEPARIN 5,000 UNITS/ML, 1ML SQ SCH ×3 (03:30→19:30)
[2019-03-27] MEDS: LORazepam 1MG TABLET PO PRN ×5 (04:40→20:15)
[2019-03-27] MEDS: LACTATED RINGERS 1,000 ML IV SCH ×3 (04:40→12:07)
[2019-03-27 04:53] LABS: BASOPHILS # (AUTO) 0.01 x10^3/uL (0-0.1); BASOPHILS % (AUTO) 0 % (0-1); EOSINOPHILS # (AUTO) 0.01 x10^3/uL (0-0.4); EOSINOPHILS % (AUTO) 0 % (1-7); LYMPHOCYTES % (AUTO) 21 % (22-44); MD NO; MEAN CORPUSCULAR HEMOGLOBIN 26.7 pg (27.0-34.8); MEAN CORPUSCULAR HGB CONC 30.5 g/dL (32.4-35.8); MEAN CORPUSCULAR VOLUME 87.6 fL (80-100); MONOCYTES # (AUTO) 0.87 x10^3/uL (0.2-0.8); MONOCYTES % (AUTO) 13 % (2-9); NEUTROPHILS # (AUTO) 4.35 x10^3/uL (1.8-6.8); NEUTROPHILS % (AUTO) 66 % (42-75); PLATELET COUNT 207 x10^3/uL (130-400); RED BLOOD COUNT 3.38 x10^6/uL (3.82-5.3); RED CELL DISTRIBUTION WIDTH 19.8 % (9.6-15.2)
[2019-03-27 04:56] LABS: CHLORIDE 111 mmol/L (98-107)
[2019-03-27 05:06] LABS: ALANINE AMINOTRANSFERASE 83 U/L (12-78); ALBUMIN 3.2 g/dL (3.4-5.0); ALKALINE PHOSPHATASE 92 U/L (45-117); ANION GAP 16 mmol/L (5-15); BILIRUBIN,TOTAL 0.5 mg/dL (0.2-1.0); CALCIUM 7.2 mg/dL (8.5-10.1); CHOL/HDL RATIO 1.9; CHOLESTEROL, TOTAL 167 mg/dL (140-239); CREATININE 0.46 mg/dL (0.55-1.02); HDL CHOL % 53 % (28-40); HDL CHOLESTEROL (DIRECT) 89 mg/dL (40-60); LDL CHOLESTEROL,CALCULATED 60 mg/dL (54-169); LDL/HDL RATIO 0.7 (0.5-3.0); TOTAL PROTEIN 6.5 g/dL (6.4-8.2); TRIGLYCERIDES 89 mg/dL (50-200); VLDL CHOLESTEROL 18 mg/dL (0-25)
[2019-03-27] MEDS ORDERED: POTASSIUM CHLORIDE 20 MEQ, MAGNESIUM SULFATE 1 GM, FOLIC ACID 1 MG, THIAMINE 200 MG, MV... IV SCH (06:00)
[2019-03-27] MEDS ORDERED: DEXTROSE 4 GM TAB.CHEW PO PRN (06:30)
[2019-03-27] MEDS ORDERED: GLUCAGON 1 MG IM PRN (06:30)
[2019-03-27] MEDS ORDERED: DEXTROSE 50%, 50ML SYRINGE IVPush PRN (06:30)
[2019-03-27] MEDS: PANTOPRAZOLE 40 MG IV IVPush SCH (07:23)
[2019-03-27] MEDS: SODIUM CHLORIDE FLUSH 10ML SYR IVF SCH ×2 (07:23→20:15)
[2019-03-27 07:27] VITALS: BP 117/80
[2019-03-27] MEDS: ACETAMINOPHEN 325 MG TABLET PO PRN ×2 (08:47→20:15)
[2019-03-27] MEDS: LACTOBACILLUS CHEW TABLET PO SCH ×3 (08:47→20:14)
[2019-03-27 13:42] VITALS: BP 124/85
[2019-03-27] MEDS: OMEPRAZOLE 20 MG CAPSULE.DR PO SCH (15:20)
[2019-03-27] MEDS ORDERED: THIAMINE 200 MG, MVI ADULT 10 ML, FOLIC ACID 1 MG in D5%-0.9% NACL 1,000 ML IV SCH (17:00)
[2019-03-27] MEDS: SODIUM CHLORIDE 0.9% 1,000 ML IV SCH (17:32)
[2019-03-27 19:35] VITALS: BP 126/86
[2019-03-28 02:53] VITALS: BP 107/69
[2019-03-28] MEDS: LORazepam 1MG TABLET PO PRN ×2 (03:07→08:39)
[2019-03-28] MEDS: HEPARIN 5,000 UNITS/ML, 1ML SQ SCH ×2 (03:30→11:16)
[2019-03-28 05:26] LABS: MEAN CORPUSCULAR HGB CONC 30.6 g/dL (32.4-35.8); MEAN CORPUSCULAR VOLUME 85.1 fL (80-100); MEAN PLATELET VOLUME 9.1 fL (7.4-10.4); PLATELET COUNT 183 x10^3/uL (130-400); RED BLOOD COUNT 3.57 x10^6/uL (3.82-5.3); RED CELL DISTRIBUTION WIDTH 19.2 % (9.6-15.2)
[2019-03-28 05:55] LABS: MD YES
[2019-03-28 05:57] LABS: EOS#(MANUAL) 0.18 x10^3/uL (0.0-0.4); EOS% (MANUAL) 5 % (1-7); LYMPHS% (MANUAL) 37 % (22-44); MONOS#(MANUAL) 0.35 x10^3/uL (0.3-2.7); MONOS% (MANUAL) 10 % (2-9); SEG#(MANUAL) 1.68 x10^3/uL (1.8-6.8); SEGS% (MANUAL) 48 % (42-75)
[2019-03-28 05:58] LABS: ANISOCYTOSIS 1+; HYPOCHROMIA 1+
[2019-03-28 05:59] LABS: <PLATELET ESTIMATE> ADEQUATE; <PLT MORPHOLOGY> NORMAL PLT MORPH; POLYCHROMASIA 1+
[2019-03-28] MEDS: OMEPRAZOLE 20 MG CAPSULE.DR PO SCH (06:02)
[2019-03-28 07:26] VITALS: BP 121/82
[2019-03-28 08:21] LABS: ALANINE AMINOTRANSFERASE 66 U/L (12-78); ALBUMIN 3.1 g/dL (3.4-5.0); ANION GAP 11 mmol/L (5-15); CALCIUM 7.8 mg/dL (8.5-10.1); CHLORIDE 108 mmol/L (98-107); CREATININE 0.39 mg/dL (0.55-1.02)
[2019-03-28 08:23] LABS: ALKALINE PHOSPHATASE 89 U/L (45-117); BILIRUBIN,TOTAL 0.5 mg/dL (0.2-1.0); TOTAL PROTEIN 6.2 g/dL (6.4-8.2)
[2019-03-28] MEDS: LACTOBACILLUS CHEW TABLET PO SCH (08:39)
[2019-03-28] MEDS: SODIUM CHLORIDE 0.9% 1,000 ML IV SCH (08:40)
[2019-03-28] MEDS: SODIUM CHLORIDE FLUSH 10ML SYR IVF SCH (08:43)
[2019-03-28] MEDS: ACETAMINOPHEN 325 MG TABLET PO PRN (08:56)
[2019-03-28] MEDS ORDERED: NICOTINE 14MG/24 HR PATCH.TD24 TD SCH (09:00)
[2019-03-28] MEDS ORDERED: POTASSIUM CHLORIDE 20 MEQ in SODIUM CHLORIDE 0.9% 250 ML IV ONE (11:00)
[2019-03-28] MEDS ORDERED: POTASSIUM CHLORIDE 20 MEQ TAB.ER.PRT ONE (11:52)
[2019-03-28] MEDS ORDERED: POTASSIUM CHLORIDE 20 MEQ TAB.ER.PRT PO ONE (12:00)
[2019-04-12] MEDS ORDERED: THIA100T67 PO (08:40)
[2019-04-12] MEDS ORDERED: FOLI-17 PO (08:40)
[2019-05-10] MEDS ORDERED: FOLI-17 PO (15:47)
[2019-05-10] MEDS ORDERED: THIA100T67 PO (15:47)
[2019-06-04] MEDS ORDERED: PHOS250T3 PO (15:09)
== END 2019-03-28 12:36 | disposition home or self-care (01) | DRG 424 ==
LOC: ED 19:01 → EDIP 19:10 → 4WST 20:00
PROVIDERS: ADMIT Internal Medicine; ATTEND Internal Medicine
DX: E16.2 Hypoglycemia, unspecified (principal); E87.2 Acidosis; K70.10 Alcoholic hepatitis without ascites; E87.6 Hypokalemia; D64.9 Anemia, unspecified; J02.9 Acute pharyngitis, unspecified; F10.20 Alcohol dependence, uncomplicated; F12.10 Cannabis abuse, uncomplicated; F17.210 Nicotine dependence, cigarettes, uncomplicated; K29.70 Gastritis, unspecified, without bleeding; Y90.6 Blood alcohol level of 120-199 mg/100 ml; Z76.5 Malingerer [conscious simulation]; Z91.19 Patient's noncompliance with other medical treatment and regimen
CPT/HCPCS: 36415; 99291; J3490; 70450; 80048; 80053; 80061; 80307; 81001; 82803; 82962; 83036; 83690; 83735; 84100; 84439; 84443; 85025; 93005; 96365; 96366; 96375; G0378; J2405; J3411; J3475; J3480; J7070; J7120; Q0162; C9113; J2060; J2270; J7030; J7050

== ENCOUNTER 2019-04-08 10:54 | Inpatient (IN) | payer MEDICAID ==
[~2019-04-08] VITALS: Ht 162.6 cm; Wt 64.7 kg
[2019-04-12 07:10] VITALS: BP 110/74
== END 2019-04-12 11:17 | disposition home or self-care (01) | DRG 641 ==
LOC: ED 11:57 → EDIP 12:25 → 4WST 14:18
PROVIDERS: ADMIT Hospitalist; ATTEND Hospitalist
DX: E83.42 Hypomagnesemia (principal); F10.239 Alcohol dependence with withdrawal, unspecified; E87.2 Acidosis; K86.1 Other chronic pancreatitis; F17.210 Nicotine dependence, cigarettes, uncomplicated; D64.9 Anemia, unspecified; F41.1 Generalized anxiety disorder; F12.10 Cannabis abuse, uncomplicated
CPT/HCPCS: 36415; 96372; 99285; J7121; 80048; 80053; 80307; 82040; 83690; 83735; 84100; 84439; 84443; 84702; 85025; 93005; G0378; J2405; J2550; J3411; J3475; J3480; J2060; J7030; J7040

== ENCOUNTER 2019-07-10 12:13 | Inpatient (IN) | payer MEDICAID ==
[~2019-07-10] VITALS: Ht 162.6 cm; Wt 63.4 kg
[~2019-07-10 12:13] MED LIST changes: +PHOS250T3 PO
--- NOTE | 2019-07-10 12:20 | NUR ---
PT BIB EMS FROM HOME. PT REPORTS ETOH WITHDRAWL LAST DRINK WAS VODKA AT 0300. PT NORMALLY DRINKS A 5TH A DAY. PER EMS FSBS WAS 50. HR 120'S, PT ACTIVELY VOMITING BILE UPON ARIVAL. EMS GAVE ODT ZOFRAN BUT WERE UNABLE TO GET A LINE. PT CONNECTED TO ALL MONITORING. CALL LIGHT IN REACH
[2019-07-10] MEDS ORDERED: SODIUM CHLORIDE 0.9% 1,000ML IVBOLUS ONE (12:30)
[2019-07-10] MEDS ORDERED: LORazepam 2 MG/ML, 1ML IVPush ONE ×2 (12:30→15:30)
[2019-07-10] MEDS ORDERED: SODIUM CHLORIDE FLUSH 10ML SYR IVF ONE (12:30)
[2019-07-10] MEDS ORDERED: ONDANSETRON ODT 4 MG ONE (12:47)
[2019-07-10] MEDS ORDERED: LORazepam 2 MG/ML, 1ML ONE ×2 (13:22→15:11)
[2019-07-10 13:30] LABS: ALBUMIN 4.8 g/dL (3.4-5.0); CALCIUM 8.5 mg/dL (8.5-10.1)
[2019-07-10] MEDS ORDERED: ONDANSETRON ODT 4 MG PO ONE (13:30)
--- NOTE | 2019-07-10 13:30 | NUR ---
UPDATED ON CRITICAL VALUE CO2 4. AWAITING FURTHER ORDERS AT THIS TIME
[2019-07-10 13:33] LABS: ALANINE AMINOTRANSFERASE 123 U/L (12-78); ALKALINE PHOSPHATASE 104 U/L (45-117); BILIRUBIN,TOTAL 0.4 mg/dL (0.2-1.0); CREATININE 0.75 mg/dL (0.55-1.02); TOTAL PROTEIN 9.5 g/dL (6.4-8.2)
[2019-07-10 13:41] LABS: ANION GAP 25 mmol/L (5-15); CHLORIDE 107 mmol/L (98-107)
--- NOTE | 2019-07-10 13:50 | NUR ---
AT BEDSIDE TO REASSESS PT
--- NOTE | 2019-07-10 14:10 | NUR ---
PHARMACY REQUEST SENT FOR MEDS. PT ASSISTED TO ROSE, UNABLE TO GET A URINE SAMPLE DUE TO CONTAMINATION.
--- NOTE | 2019-07-10 14:14 | NUR ---
LAB AT BEDSIDE FOR REDRAW
[2019-07-10] MEDS ORDERED: D5%-0.45% NACL 1,000 ML IV SCH (14:30)
[2019-07-10] MEDS ORDERED: THIAMINE 100 MG in SODIUM CHLORIDE 0.9% 50 ML IV SCH (14:30)
[2019-07-10 14:33] LABS: O2 FLOW ROOM AIR L/min
[2019-07-10 14:36] LABS: PH, VENOUS 6.974 pH (7.320-7.420)
--- NOTE | 2019-07-10 14:47 | NUR ---
PHARMACY CALLED TO FOLLOW UP ON THIAMINE
[2019-07-10 14:50] LABS: ACETONE, SERUM Large (80mg/dL) mg/dL (Negative)
[2019-07-10 14:58] LABS: MEAN CORPUSCULAR HEMOGLOBIN 24.4 pg (27.0-34.8); MEAN CORPUSCULAR VOLUME 83.8 fL (80-100); MEAN PLATELET VOLUME 8.9 fL (7.4-10.4); PLATELET COUNT 292 x10^3/uL (130-400); RED BLOOD COUNT 4.67 x10^6/uL (3.82-5.3); RED CELL DISTRIBUTION WIDTH 22.8 % (9.6-15.2)
[2019-07-10 15:00] LABS: MD YES
[2019-07-10 15:02] LABS: ANISOCYTOSIS 1+; BAND#(MANUAL) 1.68 x10^3/uL; BANDS%(MANUAL) 9 % (0-7); LYMPH#(MANUAL) 0.94 x10^3/uL (1-3.4); LYMPHS% (MANUAL) 5 % (22-44); MONOS#(MANUAL) 0.56 x10^3/uL (0.3-2.7); MONOS% (MANUAL) 3 % (2-9); SEG#(MANUAL) 15.52 x10^3/uL (1.8-6.8); SEGS% (MANUAL) 83 % (42-75)
[2019-07-10 15:03] LABS: <PLATELET ESTIMATE> ADEQUATE; <PLT MORPHOLOGY> NORMAL PLT MORPH; HYPOCHROMIA 1+; MEAN CORPUSCULAR HGB CONC 29.2 g/dL (32.4-35.8); POLYCHROMASIA 1+; TEAR DROPS 1+
--- NOTE | 2019-07-10 15:17 | NUR ---
PT HR STILL IN 120'S-130'S AFTER 1ST BOLUS GIVEN, PT REPORTING FEELING "WORSE" AND TERRIBLE, PT REQUESTING SOMETHING TO MAKE HER FEEL ANY BETTER. UPDATED ADDITIONAL ORDERS RECEIVED.
--- NOTE | 2019-07-10 15:19 | NUR ---
PT MEDICATED PER OCT. PT RESTING ON [facility]. CALL LIGHT WITHIN REACH
[2019-07-10] MEDS ORDERED: LACTATED RINGERS 1,000 ML IVBOLUS ONE (15:30)
--- NOTE | 2019-07-10 15:48 | NUR ---
HOSPITALIST AT BEDSIDE TO ADMIT PT
--- NOTE | 2019-07-10 15:51 | NUR ---
XRAY AT BEDSIDE
[2019-07-10] MEDS ORDERED: hydrALAzine 20 MG/ML, 1ML IVPush PRN (16:00)
[2019-07-10] MEDS ORDERED: LORazepam 1MG TABLET PO PRN ×3 (16:00)
[2019-07-10] MEDS ORDERED: LORazepam 2 MG/ML, 1ML IV PRN ×4 (16:00)
[2019-07-10] MEDS ORDERED: PROMETHAZINE 25 MG/ML, 1ML IM PRN (16:00)
[2019-07-10] MEDS ORDERED: BACLOFEN 10 MG TABLET PO PRN (16:00)
[2019-07-10] MEDS ORDERED: FOLIC ACID 5 MG/ML IM ONE (16:00)
[2019-07-10] MEDS ORDERED: ONDANSETRON 2MG/ML, 2ML IVPush PRN (16:00)
[2019-07-10] MEDS ORDERED: ONDANSETRON ODT 4 MG PO PRN (16:00)
[2019-07-10] MEDS ORDERED: SODIUM BICARBONATE 8.4% 100 MEQ in DEXTROSE 5% 1,000 ML IV SCH (16:00)
--- NOTE | 2019-07-10 16:13 | NUR ---
REPORT CALLED TO HI MONTERO ALL QUESTIONS ADDRESSED
[2019-07-10] MEDS: SODIUM BICARBONATE 8.4% 100 MEQ in DEXTROSE 5% 1,000 ML IV SCH (17:22)
[2019-07-10] MEDS: morphine SULFATE 10 MG/ML, 1ML IVPush PRN ×2 (18:01→21:20)
[2019-07-10 18:19] LABS: CULTURE INDICATED? NO; MICROSCOPIC AUTO
[2019-07-10 18:37] LABS: AMPHETAMINE SCREEN, URINE Negative (Negative); BARBITURATE SCREEN, URINE Negative (Negative); BENZODIAZEPINE SCREEN, URINE Negative (Negative); CANNABINOID SCREEN, URINE Negative (Negative); METHADONE SCREEN, URINE Negative (Negative); OPIATE SCREEN, URINE Negative (Negative)
[2019-07-10 18:40] LABS: COCAINE SCREEN, URINE Negative (Negative)
[2019-07-10 19:38] LABS: ANION GAP 16 mmol/L (5-15); CALCIUM 7.8 mg/dL (8.5-10.1); CHLORIDE 108 mmol/L (98-107)
[2019-07-10 19:49] VITALS: BP 123/85
[2019-07-10 20:03] LABS: O2 FLOW ROOM AIR L/min
[2019-07-10] MEDS ORDERED: OMNIPAQUE 350 MG/ML, 100ML BOTTLE ONE (22:02)
[2019-07-11 00:34] VITALS: BP 130/81
[2019-07-11] MEDS: SODIUM BICARBONATE 8.4% 100 MEQ in DEXTROSE 5% 1,000 ML IV SCH (00:54)
[2019-07-11] MEDS: LORazepam 2 MG/ML, 1ML IV PRN ×2 (00:54→10:26)
[2019-07-11] MEDS: morphine SULFATE 10 MG/ML, 1ML IVPush PRN ×4 (02:21→22:16)
[2019-07-11 06:16] LABS: PROTHROMBIN TIME 10.5 Seconds (9.6-11.5)
[2019-07-11 06:23] LABS: CHLORIDE 101 mmol/L (98-107)
[2019-07-11 06:31] LABS: ALANINE AMINOTRANSFERASE 65 U/L (12-78); ALBUMIN 3.5 g/dL (3.4-5.0); ALKALINE PHOSPHATASE 69 U/L (45-117); ANION GAP 7 mmol/L (5-15); BILIRUBIN,TOTAL 0.6 mg/dL (0.2-1.0); CALCIUM 7.8 mg/dL (8.5-10.1); CREATININE 0.53 mg/dL (0.55-1.02); TOTAL PROTEIN 6.7 g/dL (6.4-8.2)
[2019-07-11 06:41] LABS: MEAN CORPUSCULAR HEMOGLOBIN 23.8 pg (27.0-34.8); MEAN CORPUSCULAR HGB CONC 30.3 g/dL (32.4-35.8); MEAN CORPUSCULAR VOLUME 78.5 fL (80-100); MEAN PLATELET VOLUME 9.3 fL (7.4-10.4); PLATELET COUNT 142 x10^3/uL (130-400); RED BLOOD COUNT 3.67 x10^6/uL (3.82-5.3); RED CELL DISTRIBUTION WIDTH 22.9 % (9.6-15.2)
[2019-07-11 06:42] LABS: MD YES
[2019-07-11 06:45] LABS: ANISOCYTOSIS 1+; BANDS%(MANUAL) 3 % (0-7); BASOS#(MANUAL) 0.07 x10^3/uL (0-0.1); BASOS% (MANUAL) 1 % (0-1); HYPOCHROMIA 2+; LYMPH#(MANUAL) 0.99 x10^3/uL (1-3.4); LYMPHS% (MANUAL) 15 % (22-44); MONOS#(MANUAL) 0.53 x10^3/uL (0.3-2.7); MONOS% (MANUAL) 8 % (2-9); SEG#(MANUAL) 4.82 x10^3/uL (1.8-6.8); SEGS% (MANUAL) 73 % (42-75); STOMATOCYTES 1+
[2019-07-11 06:46] LABS: <PLATELET ESTIMATE> ADEQUATE; <PLT MORPHOLOGY> NORMAL PLT MORPH; MICROCYTOSIS 1+
[2019-07-11 07:15] VITALS: BP 103/61
[2019-07-11] MEDS ORDERED: MAGNESIUM SULFATE PMX 2GM/50ML 50 ML IV ONE (08:30)
[2019-07-11] MEDS ORDERED: POTASSIUM PHOSPHATE 44 MEQ in SODIUM CHLORIDE 0.9% 500 ML IV ONE (08:30)
[2019-07-11] MEDS: NICOTINE 14MG/24 HR PATCH.TD24 TD SCH (09:54)
[2019-07-11] MEDS: MULTIVITAMINS/MINERALS TABLET PO SCH (09:54)
[2019-07-11] MEDS: LACTATED RINGERS 1,000 ML IV SCH ×2 (09:55→19:29)
[2019-07-11] MEDS: THIAMINE 100MG TABLET PO SCH (10:25)
[2019-07-11 12:53] VITALS: BP 88/51
[2019-07-11 13:02] VITALS: BP 88/51
[2019-07-11 13:40] VITALS: BP 101/67
[2019-07-11 19:36] VITALS: BP 130/92
[2019-07-11] MEDS: LORazepam 0.5MG TABLET PO PRN (23:57)
[2019-07-12 01:02] VITALS: BP 130/92
[2019-07-12] MEDS: LACTATED RINGERS 1,000 ML IV SCH ×3 (02:20→20:05)
[2019-07-12] MEDS: LORazepam 0.5MG TABLET PO PRN ×2 (02:20→21:59)
[2019-07-12 06:28] LABS: MEAN CORPUSCULAR HEMOGLOBIN 23.9 pg (27.0-34.8); MEAN CORPUSCULAR HGB CONC 30.7 g/dL (32.4-35.8); MEAN CORPUSCULAR VOLUME 77.8 fL (80-100); MEAN PLATELET VOLUME 9.3 fL (7.4-10.4); PLATELET COUNT 102 x10^3/uL (130-400); RED BLOOD COUNT 3.44 x10^6/uL (3.82-5.3); RED CELL DISTRIBUTION WIDTH 22.7 % (9.6-15.2)
[2019-07-12 06:29] LABS: ALBUMIN 3.1 g/dL (3.4-5.0); CHLORIDE 103 mmol/L (98-107)
[2019-07-12 06:35] LABS: ALANINE AMINOTRANSFERASE 53 U/L (12-78); ALKALINE PHOSPHATASE 67 U/L (45-117); ANION GAP 8 mmol/L (5-15); BILIRUBIN,TOTAL 0.6 mg/dL (0.2-1.0); CREATININE 0.29 mg/dL (0.55-1.02); TOTAL PROTEIN 6.3 g/dL (6.4-8.2)
[2019-07-12 07:01] LABS: MD YES
[2019-07-12 07:03] LABS: ANISOCYTOSIS 1+; BASOS#(MANUAL) 0.04 x10^3/uL (0-0.1); BASOS% (MANUAL) 1 % (0-1); EOS#(MANUAL) 0.11 x10^3/uL (0.0-0.4); EOS% (MANUAL) 3 % (1-7); LYMPH#(MANUAL) 1.41 x10^3/uL (1-3.4); LYMPHS% (MANUAL) 38 % (22-44); MICROCYTOSIS 1+; MONOS#(MANUAL) 0.22 x10^3/uL (0.3-2.7); MONOS% (MANUAL) 6 % (2-9); SEG#(MANUAL) 1.92 x10^3/uL (1.8-6.8); SEGS% (MANUAL) 52 % (42-75)
[2019-07-12 07:04] LABS: <PLATELET ESTIMATE> DECREASED; <PLT MORPHOLOGY> NORMAL PLT MORPH; HYPOCHROMIA 2+
[2019-07-12] MEDS ORDERED: POTASSIUM PHOSPHATE 44 MEQ in SODIUM CHLORIDE 0.9% 500 ML IV ONE (07:30)
[2019-07-12] MEDS ORDERED: POTASSIUM CHLORIDE 20 MEQ TAB.ER.PRT PO ONE ×2 (07:30→11:30)
[2019-07-12 08:20] VITALS: BP 116/81
[2019-07-12] MEDS ORDERED: THIAMINE 100 MG in DEXTROSE 5% 50 ML IVPB SCH (09:00)
[2019-07-12] MEDS: MULTIVITAMINS/MINERALS TABLET PO SCH (09:06)
[2019-07-12] MEDS: NICOTINE 14MG/24 HR PATCH.TD24 TD SCH (09:06)
[2019-07-12] MEDS: THIAMINE 100MG TABLET PO SCH (09:06)
[2019-07-12] MEDS: morphine SULFATE 10 MG/ML, 1ML IVPush PRN ×2 (10:01→20:05)
[2019-07-12] MEDS: LORazepam 1MG TABLET PO PRN ×2 (12:17→18:18)
[2019-07-12 13:40] VITALS: BP 125/95
[2019-07-12 19:47] VITALS: BP 120/84
[2019-07-13 02:10] VITALS: BP 112/77
[2019-07-13] MEDS: LACTATED RINGERS 1,000 ML IV SCH ×2 (04:49→12:42)
[2019-07-13 05:40] LABS: ALBUMIN 3.3 g/dL (3.4-5.0); ANION GAP 5 mmol/L (5-15); CALCIUM 8.9 mg/dL (8.5-10.1); CHLORIDE 104 mmol/L (98-107)
[2019-07-13 05:44] LABS: ALANINE AMINOTRANSFERASE 57 U/L (12-78); ALKALINE PHOSPHATASE 80 U/L (45-117); BILIRUBIN,TOTAL 0.4 mg/dL (0.2-1.0); CREATININE 0.39 mg/dL (0.55-1.02); TOTAL PROTEIN 6.8 g/dL (6.4-8.2)
[2019-07-13] MEDS ORDERED: IRON SUCROSE COMPLEX 100MG/5ML IV ONE (07:30)
[2019-07-13 07:50] VITALS: BP 116/83
[2019-07-13] MEDS: MULTIVITAMINS/MINERALS TABLET PO SCH (09:12)
[2019-07-13] MEDS: THIAMINE 100MG TABLET PO SCH (09:12)
[2019-07-13] MEDS: NICOTINE 14MG/24 HR PATCH.TD24 TD SCH (09:12)
[2019-07-13 13:25] VITALS: BP 129/88
[2019-07-13] MEDS: OMEPRAZOLE 20 MG CAPSULE.DR PO SCH (15:33)
[2019-07-13 18:49] VITALS: BP 103/72
[2019-07-14 00:44] VITALS: BP 104/71
[2019-07-14] MEDS: OMEPRAZOLE 20 MG CAPSULE.DR PO SCH (05:54)
[2019-07-14 06:22] LABS: ANION GAP 7 mmol/L (5-15); CALCIUM 9.3 mg/dL (8.5-10.1); CHLORIDE 103 mmol/L (98-107)
[2019-07-14 07:05] VITALS: BP 110/77
[2019-07-14] MEDS ORDERED: IRON SUCROSE COMPLEX 100MG/5ML IV SCH (09:00)
[2019-07-14] MEDS: NICOTINE 14MG/24 HR PATCH.TD24 TD SCH (09:49)
[2019-07-14] MEDS: THIAMINE 100MG TABLET PO SCH (09:49)
[2019-07-14] MEDS: MULTIVITAMINS/MINERALS TABLET PO SCH (09:49)
[2019-07-14 12:24] VITALS: BP 127/81
[2019-07-14] MEDS ORDERED: MULT-484 PO (14:14)
[2019-07-14] MEDS ORDERED: FERR324T18 PO (14:14)
[2019-07-14] MEDS ORDERED: OMEP-110 PO (14:14)
[2019-07-14] MEDS ORDERED: THIA100T67 PO (14:14)
== END 2019-07-14 15:51 | disposition home or self-care (01) | DRG 439 ==
LOC: ED 12:59 → EDIP 15:39 → 4EST 16:42
PROVIDERS: ADMIT Hospitalist; ATTEND Internal Medicine
DX: K85.90 Acute pancreatitis without necrosis or infection, unspecified (principal); R65.10 Systemic inflammatory response syndrome (SIRS) of non-infectious origin without acute organ dysfunction; K51.90 Ulcerative colitis, unspecified, without complications; E87.1 Hypo-osmolality and hyponatremia; E87.2 Acidosis; F10.239 Alcohol dependence with withdrawal, unspecified; D50.9 Iron deficiency anemia, unspecified; E83.39 Other disorders of phosphorus metabolism; E83.42 Hypomagnesemia; E86.0 Dehydration; Y90.9 Presence of alcohol in blood, level not specified; F17.210 Nicotine dependence, cigarettes, uncomplicated; F41.1 Generalized anxiety disorder; K29.20 Alcoholic gastritis without bleeding; K43.9 Ventral hernia without obstruction or gangrene; K70.10 Alcoholic hepatitis without ascites; K76.0 Fatty (change of) liver, not elsewhere classified; Z82.49 Family history of ischemic heart disease and other diseases of the circulatory system; E87.5 Hyperkalemia; E87.6 Hypokalemia
CPT/HCPCS: 36415; 36600; 71045; 74177; 80048; 80053; 80307; 81001; 82010; 82728; 82803; 82962; 83540; 83550; 83690; 83735; 84100; 84703; 85025; 85610; 87040; 93005; 96365; 96375; G0378; J1756; J2405; J3411; J7070; Q0162; Q9967; J2060; J2270; J3475; J7030; J7040; J7120

== ENCOUNTER 2019-09-15 19:11 | Inpatient (IN) | payer MEDICAID ==
[~2019-09-15] VITALS: Ht 162.6 cm; Wt 58.9 kg
[~2019-09-15 19:11] MED LIST changes: +FERR324T18 PO; +MULT-484 PO
--- NOTE | 2019-09-15 19:20 | NUR ---
THIS IS A 39 YO FEMALE BIB [facility] FOR WEAKNESS, DIZZINESS, LETHARGY. HX OF LOW BLOOD SUGAR. PER [facility], ON SCENE BGL WAS 44. [facility] GAVE PT 15MG PO DEXTROSE, 4MG PO ZOFRAN. BGL UP TO 70. PT VOMITING WITH [facility]. PT HAS HX OF CHRONIC ETOH ABUSE, LAST DRINK TODAY AT 230PM. PT HAS HX OF GOING THROUGH ETOH WITHDRAWLS AND DT'S. PT INGESTED METH YESTERDAY. AT [facility] BGL 52. VSS, PT NAUSEAOUS BUT NO VOMIT AT THIS TIME. ALL MONITORING IN PLACE, CALL LIGHT IN REACH, WILL CONTINUE TO MONITOR
--- NOTE | 2019-09-15 19:59 | NUR ---
BGL 43. MD MARISOL NOTIFIED. CALL TO PHARMACY PLACE FOR D50
[2019-09-15] MEDS ORDERED: DEXTROSE 50%, 50ML SYRINGE IVPush ONE ×2 (20:00→23:00)
[2019-09-15 20:14] LABS: BASOPHILS # (AUTO) 0.04 x10^3/uL (0-0.1); BASOPHILS % (AUTO) 1 % (0-1); EOSINOPHILS # (AUTO) 0.09 x10^3/uL (0-0.4); EOSINOPHILS % (AUTO) 1 % (1-7); LYMPHOCYTES # (AUTO) 1.37 x10^3/uL (1-3.4); LYMPHOCYTES % (AUTO) 19 % (22-44); MD NO; MEAN CORPUSCULAR HEMOGLOBIN 28.4 pg (27.0-34.8); MEAN CORPUSCULAR VOLUME 91.7 fL (80-100); MEAN PLATELET VOLUME 8.6 fL (7.4-10.4); MONOCYTES # (AUTO) 0.35 x10^3/uL (0.2-0.8); MONOCYTES % (AUTO) 5 % (2-9); NEUTROPHILS % (AUTO) 75 % (42-75); PLATELET COUNT 310 x10^3/uL (130-400); RED BLOOD COUNT 4.61 x10^6/uL (3.82-5.3); RED CELL DISTRIBUTION WIDTH 19.8 % (9.6-15.2)
--- NOTE | 2019-09-15 20:21 | NUR ---
PT GIVEN MULTIPLE CANS OF JUICE AND SODA, PIV PLACED AND GIVEN IV DEXTROSE PER MD ORDERS
--- NOTE | 2019-09-15 20:22 | NUR ---
BGL NOW 196
[2019-09-15] MEDS ORDERED: TRAM50TA2 PO (20:23)
[2019-09-15 20:27] LABS: ALANINE AMINOTRANSFERASE 123 U/L (12-78); ALBUMIN 4.4 g/dL (3.4-5.0); ANION GAP 22 mmol/L (5-15); CALCIUM 9.5 mg/dL (8.5-10.1); CHLORIDE 107 mmol/L (98-107); CREATININE 0.57 mg/dL (0.55-1.02)
[2019-09-15 20:29] LABS: ALKALINE PHOSPHATASE 137 U/L (45-117); BILIRUBIN,TOTAL 0.7 mg/dL (0.2-1.0); TOTAL PROTEIN 8.7 g/dL (6.4-8.2)
[2019-09-15] MEDS ORDERED: LORazepam 2 MG/ML, 1ML ONE ×2 (20:55→22:02)
[2019-09-15] MEDS ORDERED: LORazepam 2 MG/ML, 1ML IVPush ONE ×2 (21:00→22:00)
--- NOTE | 2019-09-15 21:00 | NUR ---
BGL 168
[2019-09-15] MEDS ORDERED: PROMETHAZINE 25 MG/ML, 1ML ONE (21:03)
--- NOTE | 2019-09-15 21:13 | NUR ---
PATIENT MEDICATED PER EMAR, TOLERATED WELL. EKG DONE
[2019-09-15] MEDS ORDERED: PROMETHAZINE 25 MG/ML, 1ML IM ONE (21:30)
--- NOTE | 2019-09-15 21:49 | NUR ---
CT DELAY, PT NEED TO USE RESTROOM.
[2019-09-15] MEDS ORDERED: MORPHINE SULFATE 4 MG/ML, 1ML IVPush ONE (22:00)
[2019-09-15] MEDS ORDERED: POTASSIUM CHLORIDE 10 MEQ in LACTATED RINGERS 1,000 ML IV SCH (22:00)
[2019-09-15] MEDS ORDERED: MORPHINE SULFATE 4 MG/ML, 1ML ONE (22:02)
[2019-09-15 22:12] LABS: FIO2 RA %
[2019-09-15 22:12] LABS: CULTURE INDICATED? YES; HCG UR SG 1.021 (1.003-1.030); MICROSCOPIC AUTO
--- NOTE | 2019-09-15 22:13 | NUR ---
PATIENT MEDICATED PER EMAR, TOLERATED WELL. PT TO CT AT THIS TIME
--- NOTE | 2019-09-15 22:24 | NUR ---
REPORT GIVEN TO WINSTON RODRIGUEZ. PLAN OF CARE DISCUSSED. PT TO GO UP AFTER BACK FROM CT
[2019-09-15] MEDS ORDERED: SODIUM BICARBONATE 8.4% 150 MEQ in DEXTROSE 5% 1,000 ML IV SCH (22:30)
--- NOTE | 2019-09-15 22:57 | NUR ---
PT VOMITED AND BACAME PALE. FSBS 67. DEXTROSE GIVEN PER PATTI LANG (HOSPITALIST) VS STABLE.
[2019-09-15] MEDS ORDERED: THIAMINE 200 MG in DEXTROSE 5% 50 ML IVPB ONE (23:00)
[2019-09-15] MEDS ORDERED: PROMETHAZINE 25 MG/ML, 1ML IM PRN (23:00)
[2019-09-15] MEDS ORDERED: ALUMINUM/MAG/SIMETHICONE 30 ML UDC PO PRN (23:00)
[2019-09-15] MEDS ORDERED: DEXTROSE 10% 1,000 ML IV SCH (23:00)
[2019-09-15] MEDS: NICOTINE 7 MG/24 HR PATCH.TD24 TD SCH (23:00)
[2019-09-15] MEDS ORDERED: POTASSIUM CHLORIDE 20 MEQ in LACTATED RINGERS 1,000 ML IV SCH (23:00)
[2019-09-15] MEDS ORDERED: LORazepam 2 MG/ML, 1ML IV PRN ×3 (23:00)
[2019-09-15] MEDS ORDERED: FOLIC ACID 1 MG TABLET PO ONE (23:00)
[2019-09-15] MEDS ORDERED: LABETALOL 5MG/ML, 20ML IV PRN (23:00)
--- NOTE | 2019-09-15 23:24 | NUR ---
D10 IVF DRIP STARTED ON PUMP. WINSTON ESTRADA TO ROOM TO START ULTRASOUND PIV PLACEMENT
--- NOTE | 2019-09-15 23:33 | NUR ---
REPORT GIVEN TO WINSTON DUMONT. PLAN OF CARE DISCUSSED. Addendum: 09/15/19 at 2333 by KALINA WINSTON DUMONT AWARE D10 RUNNING ON PUMP AT TIME OF TRANSFER
[2019-09-16] MEDS: ENOXAPARIN 40 MG/0.4 ML SQ SCH ×3 (00:14→20:44)
[2019-09-16 01:16] LABS: AMPHETAMINE SCREEN, URINE Positive (Negative); BARBITURATE SCREEN, URINE Negative (Negative); BENZODIAZEPINE SCREEN, URINE Positive (Negative); CANNABINOID SCREEN, URINE Positive (Negative); COCAINE SCREEN, URINE Negative (Negative); METHADONE SCREEN, URINE Negative (Negative); OPIATE SCREEN, URINE Negative (Negative)
[2019-09-16 01:25] LABS: ANION GAP 17 mmol/L (5-15); CALCIUM 8.8 mg/dL (8.5-10.1); CHLORIDE 104 mmol/L (98-107)
[2019-09-16 01:53] LABS: ACETONE, SERUM Moderate(40mg/dL) mg/dL (Negative)
[2019-09-16] MEDS: LORazepam 2 MG/ML, 1ML IV PRN ×6 (02:01→20:44)
[2019-09-16] MEDS: D5%-0.9% NACL 1,000 ML IV SCH ×3 (03:21→20:18)
[2019-09-16 04:00] VITALS: BP 118/74
[2019-09-16 04:46] LABS: MD NO; MEAN PLATELET VOLUME 8.7 fL (7.4-10.4); MONOCYTES # (AUTO) 0.56 x10^3/uL (0.2-0.8)
[2019-09-16 04:54] LABS: BASOPHILS # (AUTO) 0.06 x10^3/uL (0-0.1); BASOPHILS % (AUTO) 1 % (0-1); EOSINOPHILS # (AUTO) 0.04 x10^3/uL (0-0.4); EOSINOPHILS % (AUTO) 1 % (1-7); LYMPHOCYTES # (AUTO) 1.96 x10^3/uL (1-3.4); LYMPHOCYTES % (AUTO) 26 % (22-44); MEAN CORPUSCULAR HEMOGLOBIN 28.1 pg (27.0-34.8); MEAN CORPUSCULAR HGB CONC 31.5 g/dL (32.4-35.8); MEAN CORPUSCULAR VOLUME 89.3 fL (80-100); MONOCYTES % (AUTO) 8 % (2-9); NEUTROPHILS # (AUTO) 4.81 x10^3/uL (1.8-6.8); NEUTROPHILS % (AUTO) 65 % (42-75); PLATELET COUNT 279 x10^3/uL (130-400); RED BLOOD COUNT 3.88 x10^6/uL (3.82-5.3); RED CELL DISTRIBUTION WIDTH 19.4 % (9.6-15.2)
[2019-09-16 04:57] LABS: ALBUMIN 3.9 g/dL (3.4-5.0); CALCIUM 8.9 mg/dL (8.5-10.1); CHLORIDE 104 mmol/L (98-107)
[2019-09-16 05:02] LABS: ALANINE AMINOTRANSFERASE 101 U/L (12-78); ALKALINE PHOSPHATASE 114 U/L (45-117); ANION GAP 10 mmol/L (5-15); BILIRUBIN, DIRECT 0.1 mg/dL (0.1-0.2); BILIRUBIN,INDIRECT 0.5 mg/dL (0.0-2.0); BILIRUBIN,TOTAL 0.6 mg/dL (0.2-1.0); CREATININE 0.61 mg/dL (0.55-1.02); TOTAL PROTEIN 7.7 g/dL (6.4-8.2)
[2019-09-16] MEDS: morphine SULFATE 10 MG/ML, 1ML IVPush PRN ×3 (09:14→16:59)
[2019-09-16] MEDS ORDERED: MAGNESIUM SULFATE PMX 4GM/100M 100 ML IV ONE (10:00)
[2019-09-16] MEDS ORDERED: MAGNESIUM SULFATE PMX 4GM/100M 100 ML ONE (10:20)
[2019-09-16] MEDS: THIAMINE 100MG TABLET PO SCH (10:28)
[2019-09-16] MEDS: MULTIVITAMIN 1 TABLET PO SCH (10:28)
[2019-09-16] MEDS: FOLIC ACID 1 MG TABLET PO SCH (10:28)
[2019-09-16 20:00] VITALS: BP 129/87
[2019-09-16] MEDS: NICOTINE 7 MG/24 HR PATCH.TD24 TD SCH (20:44)
[2019-09-16] MEDS: OXYcodone IR 5MG TABLET PO PRN (20:45)
[2019-09-16 21:16] VITALS: BP 124/88
[2019-09-16] MEDS: CHLORDIAZEPOXIDE 25 MG CAPSULE PO SCH (21:22)
[2019-09-17 00:40] VITALS: BP 122/82
[2019-09-17] MEDS: OXYcodone IR 5MG TABLET PO PRN ×4 (03:47→21:28)
[2019-09-17] MEDS: D5%-0.9% NACL 1,000 ML IV SCH (05:00)
[2019-09-17 05:49] LABS: BASOPHILS # (AUTO) 0.03 x10^3/uL (0-0.1); BASOPHILS % (AUTO) 1 % (0-1); EOSINOPHILS % (AUTO) 5 % (1-7); LYMPHOCYTES # (AUTO) 1.45 x10^3/uL (1-3.4); LYMPHOCYTES % (AUTO) 32 % (22-44); MD NO; MEAN CORPUSCULAR HEMOGLOBIN 28.9 pg (27.0-34.8); MEAN CORPUSCULAR HGB CONC 31.6 g/dL (32.4-35.8); MEAN CORPUSCULAR VOLUME 91.4 fL (80-100); MEAN PLATELET VOLUME 8.8 fL (7.4-10.4); MONOCYTES # (AUTO) 0.34 x10^3/uL (0.2-0.8); MONOCYTES % (AUTO) 8 % (2-9); NEUTROPHILS # (AUTO) 2.46 x10^3/uL (1.8-6.8); NEUTROPHILS % (AUTO) 55 % (42-75); PLATELET COUNT 169 x10^3/uL (130-400); RED BLOOD COUNT 3.35 x10^6/uL (3.82-5.3); RED CELL DISTRIBUTION WIDTH 18.4 % (9.6-15.2)
[2019-09-17 05:58] LABS: ALBUMIN 3.1 g/dL (3.4-5.0); ANION GAP 7 mmol/L (5-15); CALCIUM 8.2 mg/dL (8.5-10.1); CHLORIDE 111 mmol/L (98-107)
[2019-09-17 06:03] LABS: ALANINE AMINOTRANSFERASE 60 U/L (12-78); ALKALINE PHOSPHATASE 91 U/L (45-117); BILIRUBIN,TOTAL 0.6 mg/dL (0.2-1.0); CREATININE 0.41 mg/dL (0.55-1.02); TOTAL PROTEIN 6.2 g/dL (6.4-8.2)
[2019-09-17 06:41] VITALS: BP 107/77
[2019-09-17] MEDS: LIDODERM 5% PATCH TD PRN (10:27)
[2019-09-17] MEDS: CHLORDIAZEPOXIDE 25 MG CAPSULE PO SCH ×2 (10:28→14:49)
[2019-09-17] MEDS: THIAMINE 100MG TABLET PO SCH (10:28)
[2019-09-17] MEDS: FOLIC ACID 1 MG TABLET PO SCH (10:29)
[2019-09-17] MEDS: MULTIVITAMIN 1 TABLET PO SCH (10:29)
[2019-09-17] MEDS: NICOTINE 7 MG/24 HR PATCH.TD24 TD SCH (10:52)
[2019-09-17] MEDS ORDERED: CEFTRIAXONE PMX 1GM/50ML 50 ML IV SCH (12:00)
[2019-09-17 14:19] VITALS: BP 117/79
[2019-09-17] MEDS: LORazepam 2 MG/ML, 1ML IV PRN ×2 (14:49→23:36)
[2019-09-17 19:27] VITALS: BP 127/89
[2019-09-17] MEDS: ENOXAPARIN 40 MG/0.4 ML SQ SCH (21:00)
[2019-09-18 01:20] VITALS: BP 122/84
[2019-09-18 05:57] LABS: BASOPHILS # (AUTO) 0.05 x10^3/uL (0-0.1); BASOPHILS % (AUTO) 1 % (0-1); EOSINOPHILS # (AUTO) 0.28 x10^3/uL (0-0.4); EOSINOPHILS % (AUTO) 5 % (1-7); LYMPHOCYTES # (AUTO) 1.62 x10^3/uL (1-3.4); LYMPHOCYTES % (AUTO) 30 % (22-44); MD NO; MEAN CORPUSCULAR HEMOGLOBIN 28.7 pg (27.0-34.8); MEAN CORPUSCULAR HGB CONC 31.7 g/dL (32.4-35.8); MEAN CORPUSCULAR VOLUME 90.6 fL (80-100); MEAN PLATELET VOLUME 9.2 fL (7.4-10.4); MONOCYTES # (AUTO) 0.37 x10^3/uL (0.2-0.8); MONOCYTES % (AUTO) 7 % (2-9); NEUTROPHILS # (AUTO) 3.03 x10^3/uL (1.8-6.8); NEUTROPHILS % (AUTO) 57 % (42-75); PLATELET COUNT 167 x10^3/uL (130-400); RED CELL DISTRIBUTION WIDTH 18.2 % (9.6-15.2)
[2019-09-18 05:59] LABS: ALBUMIN 3.2 g/dL (3.4-5.0); ANION GAP 9 mmol/L (5-15); CALCIUM 8.8 mg/dL (8.5-10.1); CHLORIDE 109 mmol/L (98-107)
[2019-09-18 06:03] LABS: ALANINE AMINOTRANSFERASE 65 U/L (12-78); ALKALINE PHOSPHATASE 104 U/L (45-117); BILIRUBIN,TOTAL 0.3 mg/dL (0.2-1.0); CREATININE 0.45 mg/dL (0.55-1.02); TOTAL PROTEIN 6.7 g/dL (6.4-8.2)
[2019-09-18 06:16] VITALS: BP 105/73
[2019-09-18] MEDS ORDERED: FOLI-17 PO (08:34)
[2019-09-18] MEDS ORDERED: CEPH-368 PO (08:34)
[2019-09-18] MEDS ORDERED: THIA100T67 PO (08:34)
[2019-09-18] MEDS: NICOTINE 7 MG/24 HR PATCH.TD24 TD SCH ×2 (09:00→10:23)
[2019-09-18] MEDS: MULTIVITAMIN 1 TABLET PO SCH (10:12)
[2019-09-18] MEDS: THIAMINE 100MG TABLET PO SCH (10:12)
[2019-09-18] MEDS: FOLIC ACID 1 MG TABLET PO SCH (10:12)
[2019-09-18] MEDS: OXYcodone IR 5MG TABLET PO PRN (10:23)
[2019-09-18] MEDS: LIDODERM 5% PATCH TD PRN (11:13)
== END 2019-09-18 13:00 | disposition home or self-care (01) | DRG 92 ==
LOC: ED 21:19 → EDIP 21:46 → CCU 23:43 → 4EST 09-16 21:19
PROVIDERS: ADMIT Family Medicine; ATTEND Family Medicine
DX: G92 Toxic encephalopathy (principal); E87.2 Acidosis; F10.239 Alcohol dependence with withdrawal, unspecified; N39.0 Urinary tract infection, site not specified; K70.10 Alcoholic hepatitis without ascites; B96.20 Unspecified Escherichia coli [E. coli] as the cause of diseases classified elsewhere; B96.89 Other specified bacterial agents as the cause of diseases classified elsewhere; E16.2 Hypoglycemia, unspecified; E83.42 Hypomagnesemia; E86.0 Dehydration; E87.6 Hypokalemia; F15.10 Other stimulant abuse, uncomplicated; F17.210 Nicotine dependence, cigarettes, uncomplicated; Z80.0 Family history of malignant neoplasm of digestive organs; Z82.49 Family history of ischemic heart disease and other diseases of the circulatory system
CPT/HCPCS: 36600; 96372; 96374; 96375; 96376; 99285; J7042; 70450; 80048; 80053; 80074; 80076; 80307; 81001; 81025; 82010; 82140; 82803; 82962; 83605; 83690; 83735; 84100; 85025; 87077; 87081; 87086; 87186; 93005; G0378; J0696; J1650; J2550; J3411; J3480; J2060; J2270; J3475; J7120

== ENCOUNTER 2019-10-01 22:59 | Inpatient (IN) | payer MEDICAID ==
[~2019-10-01] VITALS: Ht 162.6 cm; Wt 65.0 kg
[~2019-10-01 22:59] MED LIST changes: +CEPH-368 PO; +TRAM50TA2 PO; -TRAZ-137 PO; +TRAZ-175 PO
[2019-10-01] MEDS ORDERED: PROMETHAZINE 25 MG/ML, 1ML IM ONE (23:30)
[2019-10-01] MEDS ORDERED: SODIUM CHLORIDE 0.9% 1,000ML IVBOLUS ONE (23:30)
[2019-10-01] MEDS ORDERED: LORazepam 2 MG/ML, 1ML IVPush PRN (23:30)
[2019-10-01 23:37] LABS: PH, VENOUS 7.157 pH (7.320-7.420)
[2019-10-01 23:38] LABS: O2 FLOW ROOM AIR L/min
[2019-10-01 23:41] LABS: BASOPHILS # (AUTO) 0.12 x10^3/uL (0-0.1); BASOPHILS % (AUTO) 2 % (0-1); EOSINOPHILS # (AUTO) 0.01 x10^3/uL (0-0.4); EOSINOPHILS % (AUTO) 0 % (1-7); LYMPHOCYTES # (AUTO) 1.39 x10^3/uL (1-3.4); LYMPHOCYTES % (AUTO) 18 % (22-44); MD NO; MEAN CORPUSCULAR HEMOGLOBIN 28.6 pg (27.0-34.8); MEAN CORPUSCULAR HGB CONC 31.1 g/dL (32.4-35.8); MEAN CORPUSCULAR VOLUME 91.9 fL (80-100); MEAN PLATELET VOLUME 8.9 fL (7.4-10.4); MONOCYTES # (AUTO) 0.29 x10^3/uL (0.2-0.8); MONOCYTES % (AUTO) 4 % (2-9); NEUTROPHILS # (AUTO) 5.99 x10^3/uL (1.8-6.8); NEUTROPHILS % (AUTO) 77 % (42-75); PLATELET COUNT 368 x10^3/uL (130-400); RED BLOOD COUNT 4.38 x10^6/uL (3.82-5.3); RED CELL DISTRIBUTION WIDTH 17.8 % (9.6-15.2)
[2019-10-01] MEDS ORDERED: LORazepam 2 MG/ML, 1ML ONE (23:45)
[2019-10-01 23:49] LABS: ACETONE, SERUM Moderate(40mg/dL) mg/dL (Negative)
[2019-10-01 23:52] LABS: ALANINE AMINOTRANSFERASE 167 U/L (12-78); ALBUMIN 4.8 g/dL (3.4-5.0); ANION GAP 26 mmol/L (5-15); CHLORIDE 102 mmol/L (98-107); CREATININE 0.73 mg/dL (0.55-1.02)
[2019-10-01 23:54] LABS: ALKALINE PHOSPHATASE 123 U/L (45-117); BILIRUBIN,TOTAL 0.4 mg/dL (0.2-1.0); TOTAL PROTEIN 9.5 g/dL (6.4-8.2)
[2019-10-02] MEDS ORDERED: D5%-0.45% NACL 1,000 ML IV SCH
[2019-10-02] MEDS ORDERED: THIAMINE 100 MG/ML, 2ML IM ONE
--- NOTE | 2019-10-02 00:02 | NUR ---
PT. REMOVED ALL MONITORS AND GOT A URINAL OUT OF THE CUPBOARD, FILLED IT WITH WATER AND ATTEMPTED TO START CHUGGING THE WATER. PT. EDUCATED ON IMPORTANCE OF KEEPING MONITORS IN PLACE AND NPO STATUS UNTIL CLEARED FOR PO INTAKE BE ERMD. PT. UPSET WITH RN'S OVER THIS. IVF ARE INFUSING PER ORDER. MONITORS REPLACED. CALL LIGHT IN REACH.
--- NOTE | 2019-10-02 00:17 | NUR ---
MED REQUEST SENT TO PHARMACY.
[2019-10-02] MEDS ORDERED: DEXTROSE 50%, 50ML SYRINGE IVPush ONE (00:30)
[2019-10-02] MEDS ORDERED: PROMETHAZINE 25 MG/ML, 1ML ONE (00:32)
[2019-10-02] MEDS ORDERED: THIAMINE 100 MG/ML, 2ML ONE (00:32)
[2019-10-02] MEDS ORDERED: ONDANSETRON 2MG/ML, 2ML IVPush PRN (01:00)
[2019-10-02] MEDS ORDERED: BISACODYL 10 MG SUPP PR PRN (01:00)
[2019-10-02] MEDS ORDERED: SODIUM BICARB 8.4%,50ML SYR. 150 MEQ in DEXTROSE 5% 1,000 ML IV SCH (01:00)
[2019-10-02] MEDS ORDERED: POLYETHYLENE GLYCOL 17 GM PACKET PO PRN (01:00)
--- NOTE | 2019-10-02 01:01 | NUR ---
Report called to Renita MONTERO.
[2019-10-02 01:06] LABS: AMPHETAMINE SCREEN, URINE Positive (Negative); BARBITURATE SCREEN, URINE Negative (Negative); BENZODIAZEPINE SCREEN, URINE Positive (Negative); CANNABINOID SCREEN, URINE Positive (Negative); COCAINE SCREEN, URINE Negative (Negative); METHADONE SCREEN, URINE Negative (Negative); OPIATE SCREEN, URINE Negative (Negative)
[2019-10-02 01:48] VITALS: BP 143/101
[2019-10-02] MEDS: LORazepam 2 MG/ML, 1ML IVPush PRN ×4 (02:32→16:34)
[2019-10-02] MEDS: SODIUM BICARB 8.4%,50ML SYR. 150 MEQ in D5%-0.45% NACL 1,000 ML IV SCH ×4 (03:43→23:03)
[2019-10-02] MEDS: HEPARIN 5,000 UNITS/ML, 1ML SQ SCH ×4 (03:44→17:00)
[2019-10-02 03:55] VITALS: BP 122/85
[2019-10-02 05:58] LABS: ALBUMIN 3.9 g/dL (3.4-5.0); ANION GAP 18 mmol/L (5-15); CALCIUM 7.7 mg/dL (8.5-10.1); CHLORIDE 107 mmol/L (98-107)
[2019-10-02 05:59] LABS: BASOPHILS # (AUTO) 0.01 x10^3/uL (0-0.1); BASOPHILS % (AUTO) 0 % (0-1); EOSINOPHILS % (AUTO) 0 % (1-7); LYMPHOCYTES # (AUTO) 0.85 x10^3/uL (1-3.4); LYMPHOCYTES % (AUTO) 15 % (22-44); MD NO; MEAN CORPUSCULAR HEMOGLOBIN 28.7 pg (27.0-34.8); MEAN CORPUSCULAR HGB CONC 31.5 g/dL (32.4-35.8); MEAN CORPUSCULAR VOLUME 91.2 fL (80-100); MEAN PLATELET VOLUME 8.7 fL (7.4-10.4); MONOCYTES % (AUTO) 5 % (2-9); NEUTROPHILS # (AUTO) 4.57 x10^3/uL (1.8-6.8); NEUTROPHILS % (AUTO) 80 % (42-75); PLATELET COUNT 279 x10^3/uL (130-400); RED BLOOD COUNT 3.74 x10^6/uL (3.82-5.3); RED CELL DISTRIBUTION WIDTH 17.7 % (9.6-15.2)
[2019-10-02 06:01] LABS: ALANINE AMINOTRANSFERASE 125 U/L (12-78); ALKALINE PHOSPHATASE 98 U/L (45-117); BILIRUBIN,TOTAL 0.4 mg/dL (0.2-1.0); CREATININE 0.64 mg/dL (0.55-1.02); TOTAL PROTEIN 7.6 g/dL (6.4-8.2)
[2019-10-02 08:34] VITALS: BP 106/72
[2019-10-02] MEDS: SENNA/DOCUSATE TABLET PO SCH (09:00)
[2019-10-02] MEDS: MULTIVITAMINS/MINERALS TABLET PO SCH (09:51)
[2019-10-02] MEDS: THIAMINE 100MG TABLET PO SCH (09:51)
[2019-10-02] MEDS: FOLIC ACID 1 MG TABLET PO SCH (09:51)
[2019-10-02] MEDS: NICOTINE 7 MG/24 HR PATCH.TD24 TD SCH (09:51)
[2019-10-02] MEDS: CHLORDIAZEPOXIDE 25 MG CAPSULE PO PRN ×2 (11:09→20:07)
[2019-10-02 13:28] VITALS: BP 119/77
[2019-10-02 18:59] VITALS: BP 118/79
[2019-10-02] MEDS: MAGNESIUM OXIDE 400 MG TABLET PO SCH (20:07)
[2019-10-03] MEDS: HEPARIN 5,000 UNITS/ML, 1ML SQ SCH ×3 (01:23→17:21)
[2019-10-03 02:09] VITALS: BP 114/78
[2019-10-03] MEDS: LORazepam 2 MG/ML, 1ML IVPush PRN ×5 (03:30→17:20)
[2019-10-03] MEDS: SODIUM BICARB 8.4%,50ML SYR. 150 MEQ in D5%-0.45% NACL 1,000 ML IV SCH (04:58)
[2019-10-03 05:05] LABS: CHLORIDE 103 mmol/L (98-107)
[2019-10-03 05:12] LABS: ALANINE AMINOTRANSFERASE 68 U/L (12-78); ALBUMIN 2.8 g/dL (3.4-5.0); ALKALINE PHOSPHATASE 68 U/L (45-117); ANION GAP 6 mmol/L (5-15); BILIRUBIN,TOTAL 0.4 mg/dL (0.2-1.0); CALCIUM 7.5 mg/dL (8.5-10.1); CREATININE 0.44 mg/dL (0.55-1.02); TOTAL PROTEIN 5.3 g/dL (6.4-8.2)
[2019-10-03 08:49] VITALS: BP 106/74
[2019-10-03] MEDS: MAGNESIUM OXIDE 400 MG TABLET PO SCH ×2 (09:18→20:07)
[2019-10-03] MEDS: POTASSIUM CHLORIDE 20 MEQ TAB.ER.PRT PO SCH ×3 (09:18→14:22)
[2019-10-03] MEDS: FOLIC ACID 1 MG TABLET PO SCH (09:18)
[2019-10-03] MEDS: THIAMINE 100MG TABLET PO SCH (09:18)
[2019-10-03] MEDS: MULTIVITAMINS/MINERALS TABLET PO SCH (09:18)
[2019-10-03] MEDS: NICOTINE 7 MG/24 HR PATCH.TD24 TD SCH (09:19)
[2019-10-03] MEDS: SENNA/DOCUSATE TABLET PO SCH (09:19)
[2019-10-03] MEDS ORDERED: MAGNESIUM SULFATE PMX 2GM/50ML 50 ML IV ONE (10:00)
[2019-10-03] MEDS: POTASSIUM PHOSPHATE 44 MEQ in SODIUM CHLORIDE 0.9% 500 ML IV SCH ×3 (10:05→20:08)
[2019-10-03] MEDS: CHLORDIAZEPOXIDE 25 MG CAPSULE PO PRN (14:22)
[2019-10-03 14:34] VITALS: BP 116/82
[2019-10-03 20:06] VITALS: BP 114/81
[2019-10-04 01:16] VITALS: BP 106/75
[2019-10-04] MEDS: HEPARIN 5,000 UNITS/ML, 1ML SQ SCH ×2 (01:17→08:01)
[2019-10-04] MEDS: LORazepam 2 MG/ML, 1ML IVPush PRN ×2 (03:31→08:01)
[2019-10-04 06:55] VITALS: BP 94/63
[2019-10-04] MEDS: CHLORDIAZEPOXIDE 25 MG CAPSULE PO PRN (08:01)
[2019-10-04] MEDS: SENNA/DOCUSATE TABLET PO SCH (08:01)
[2019-10-04] MEDS: MAGNESIUM OXIDE 400 MG TABLET PO SCH (08:01)
[2019-10-04] MEDS: NICOTINE 7 MG/24 HR PATCH.TD24 TD SCH (08:01)
[2019-10-04] MEDS: MULTIVITAMINS/MINERALS TABLET PO SCH (08:01)
[2019-10-04] MEDS: FOLIC ACID 1 MG TABLET PO SCH (08:01)
[2019-10-04] MEDS: THIAMINE 100MG TABLET PO SCH (08:02)
[2019-10-04 08:12] LABS: ALANINE AMINOTRANSFERASE 76 U/L (12-78); ALBUMIN 3.2 g/dL (3.4-5.0); ANION GAP 7 mmol/L (5-15); CALCIUM 8.5 mg/dL (8.5-10.1); CHLORIDE 108 mmol/L (98-107); CREATININE 0.49 mg/dL (0.55-1.02)
[2019-10-04 08:15] LABS: ALKALINE PHOSPHATASE 85 U/L (45-117); BILIRUBIN,TOTAL 0.4 mg/dL (0.2-1.0); TOTAL PROTEIN 6.5 g/dL (6.4-8.2)
[2019-10-04] MEDS ORDERED: MAGN400T50 PO (10:56)
[2019-10-04] MEDS ORDERED: CHLO25CA9 PO (10:56)
[2019-10-04] MEDS ORDERED: NICO-485 TD (10:56)
== END 2019-10-04 12:22 | disposition home or self-care (01) | DRG 432 ==
LOC: ED 10-02 00:18 → EDIP 10-02 00:49 → 4WST 10-02 01:40
PROVIDERS: ADMIT Family Medicine; ATTEND Internal Medicine
DX: K70.10 Alcoholic hepatitis without ascites (principal); G93.41 Metabolic encephalopathy; E87.2 Acidosis; E87.6 Hypokalemia; F10.229 Alcohol dependence with intoxication, unspecified; Y90.9 Presence of alcohol in blood, level not specified; F12.90 Cannabis use, unspecified, uncomplicated; F15.90 Other stimulant use, unspecified, uncomplicated; F17.210 Nicotine dependence, cigarettes, uncomplicated; R00.0 Tachycardia, unspecified
CPT/HCPCS: 36415; 71045; 80053; 80307; 82010; 82803; 82962; 83690; 83735; 83930; 84100; 85025; 96361; 96365; 96372; 96375; 99291; G0378; J1644; J2550; J3411; J2060; J3475; J7030; J7040

== ENCOUNTER 2019-12-07 10:24 | Inpatient (IN) | payer MEDICAID, OTHER ==
[~2019-12-07] VITALS: Ht 162.6 cm; Wt 59.7 kg
[~2019-12-07 10:24] MED LIST changes: +NICO-485 TD
[2019-12-07] MEDS ORDERED: D5%-0.45% NACL 1,000 ML IV SCH (10:33)
[2019-12-07] MEDS ORDERED: DEXTROSE 50%, 50ML SYRINGE ONE (10:58)
[2019-12-07] MEDS ORDERED: IBUPROFEN 600 MG TABLET ONE (10:58)
[2019-12-07] MEDS ORDERED: SODIUM CHLORIDE 0.9% 1,000ML IVBOLUS ONE (11:00)
[2019-12-07] MEDS ORDERED: IBUPROFEN 600 MG TABLET PO ONE (11:00)
[2019-12-07] MEDS ORDERED: DEXTROSE 50%, 50ML SYRINGE IVPush ONE (11:00)
[2019-12-07] MEDS ORDERED: PLEASE ENTER HEIGHT AND WEIGHT MC SCH (11:00)
[2019-12-07] MEDS ORDERED: SODIUM CHLORIDE FLUSH 10ML SYR IVF ONE (11:00)
[2019-12-07 11:15] LABS: FIO2 ROOM AIR %; PH, VENOUS 7.099 pH (7.320-7.420)
[2019-12-07 11:31] LABS: ALANINE AMINOTRANSFERASE 88 U/L (12-78); ALKALINE PHOSPHATASE 147 U/L (45-117); BILIRUBIN,TOTAL 0.4 mg/dL (0.2-1.0); CREATININE 0.78 mg/dL (0.55-1.02); MEAN CORPUSCULAR HEMOGLOBIN 26.6 pg (27.0-34.8); MEAN CORPUSCULAR HGB CONC 30.5 g/dL (32.4-35.8); MEAN CORPUSCULAR VOLUME 87.2 fL (80-100); MEAN PLATELET VOLUME 9.2 fL (7.4-10.4); PLATELET COUNT 391 x10^3/uL (130-400); RED BLOOD COUNT 4.61 x10^6/uL (3.82-5.3); RED CELL DISTRIBUTION WIDTH 19.6 % (9.6-15.2); TOTAL PROTEIN 9.5 g/dL (6.4-8.2)
[2019-12-07 11:32] LABS: ALBUMIN 4.4 g/dL (3.4-5.0); ANION GAP 26 mmol/L (5-15); CALCIUM 8.9 mg/dL (8.5-10.1); CHLORIDE 103 mmol/L (98-107)
[2019-12-07 11:43] LABS: BASOPHILS % (AUTO) 0 % (0-1); EOSINOPHILS # (AUTO) 0.04 x10^3/uL (0-0.4); EOSINOPHILS % (AUTO) 0 % (1-7); LYMPHOCYTES # (AUTO) 0.96 x10^3/uL (1-3.4); LYMPHOCYTES % (AUTO) 7 % (22-44); MD SCAN; MONOCYTES # (AUTO) 0.14 x10^3/uL (0.2-0.8); MONOCYTES % (AUTO) 1 % (2-9); NEUTROPHILS # (AUTO) 13.14 x10^3/uL (1.8-6.8); NEUTROPHILS % (AUTO) 92 % (42-75)
--- NOTE | 2019-12-07 11:47 | NUR ---
mireille aware of labs. plan for admit. report to lucina batista. pt contineus to c/o nausea and coronado. aware of vomiting, no nauea meds d/t acidosis. st on monitor 130s. fluids per oct. call jalloh in reach. as
--- NOTE | 2019-12-07 11:55 | NUR ---
REPORT FROM JILLIAN MONTERO
[2019-12-07] MEDS ORDERED: SODIUM CHLORIDE FLUSH 10ML SYR IVF PRN (12:00)
[2019-12-07] MEDS ORDERED: SODIUM BICARB 8.4%, 50ML SYRINGE IVPush ONE (12:00)
[2019-12-07] MEDS ORDERED: NACL IV ONE (12:15)
[2019-12-07] MEDS ORDERED: SODIUM BICARBONATE IV ONE (12:15)
[2019-12-07] MEDS ORDERED: D5 IV ONE (12:15)
[2019-12-07 12:19] LABS: ACETONE, SERUM Moderate(40mg/dL) (Negative)
--- NOTE | 2019-12-07 12:22 | NUR ---
AMP OF BICARB ADMIN PER VERBAL ORDER OF MD PUENTE.
[2019-12-07] MEDS ORDERED: ONDANSETRON ODT 4 MG PO PRN (12:30)
[2019-12-07] MEDS ORDERED: LORazepam 1MG TABLET PO PRN ×3 (12:30)
[2019-12-07] MEDS ORDERED: OXYcodone IR 5MG TABLET PO PRN (12:30)
[2019-12-07] MEDS ORDERED: LORazepam 2 MG/ML, 1ML IV PRN ×4 (12:30)
[2019-12-07] MEDS ORDERED: ONDANSETRON 2MG/ML, 2ML IVPush PRN (12:30)
[2019-12-07] MEDS ORDERED: LORazepam 0.5MG TABLET PO PRN (12:30)
[2019-12-07] MEDS ORDERED: hydrALAzine 20 MG/ML, 1ML IVPush PRN (12:30)
[2019-12-07] MEDS ORDERED: morphine SULFATE 10 MG/ML, 1ML IVPush PRN (12:30)
[2019-12-07] MEDS ORDERED: SODIUM BICARBONATE 8.4% 150 MEQ in DEXTROSE 5% 1,000 ML IV SCH ×2 (12:30→17:30)
[2019-12-07 12:53] LABS: INTERNATIONAL NORMALIZED RATIO 0.86 (0.93-1.1); PROTHROMBIN TIME 9.1 Seconds (9.6-11.5)
[2019-12-07 13:14] LABS: CULTURE INDICATED? NO; HCG UR SG 1.021 (1.003-1.030); MICROSCOPIC AUTO
--- NOTE | 2019-12-07 13:20 | NUR ---
LATE NOTE 1230. PT ADVISED BY THAT ONLY ICE CHIPS ARE ALLOWED. PT AGREES TO THIS PLAN.
--- NOTE | 2019-12-07 13:21 | NUR ---
PT VISUALIZED WALKING TO THE SINK TO DRINK WATER MULTIPLE TIMES. EACH TIME PT WAS EDUCATED ON NE FOR NO MORE WATER. THIS RN ANSWERED CALL LIGHT TO HAVE PT INFORM THIS RN THAT SHE VOMITED ALL THE WATER SHE HAD DRANK. PT EDUCATED ON THE NEED TO REFRAIN FROM DRINKING WATER AND ICE CHIPS WERE PROVIDED.
[2019-12-07 13:37] VITALS: BP 142/91
--- NOTE | 2019-12-07 13:51 | NUR ---
[facility] WHILE [facility]ING TO NEW BED. PT STATED SHE HAD "A TICKLE IN HER THROAT"
[2019-12-07 13:55] VITALS: BP 142/91
[2019-12-07 15:53] LABS: O2 FLOW ROOM AIR L/min
[2019-12-07] MEDS ORDERED: OMNIPAQUE 350 MG/ML, 100ML BOTTLE ONE (16:19)
[2019-12-07] MEDS: D5 IV SCH (19:30)
[2019-12-07] MEDS: NACL IV SCH (19:30)
[2019-12-07] MEDS: SODIUM BICARBONATE IV SCH (19:30)
[2019-12-07] MEDS: LORazepam 2 MG/ML, 1ML IV PRN (19:53)
[2019-12-07 20:07] VITALS: BP 135/90
[2019-12-08 00:50] VITALS: BP 124/89
[2019-12-08] MEDS: KETOROLAC 30 MG/1 ML IV PRN ×3 (01:59→21:10)
[2019-12-08] MEDS: LORazepam 2 MG/ML, 1ML IV PRN ×5 (01:59→20:26)
[2019-12-08 05:20] LABS: O2 FLOW ROOM AIR L/min
[2019-12-08 05:36] LABS: ALANINE AMINOTRANSFERASE 53 U/L (12-78); ALBUMIN 3.4 g/dL (3.4-5.0); ANION GAP 16 mmol/L (5-15); CHLORIDE 104 mmol/L (98-107); CREATININE 0.64 mg/dL (0.55-1.02)
[2019-12-08 05:48] LABS: MEAN CORPUSCULAR HEMOGLOBIN 26.7 pg (27.0-34.8); MEAN CORPUSCULAR HGB CONC 31.1 g/dL (32.4-35.8); MEAN CORPUSCULAR VOLUME 85.6 fL (80-100); MEAN PLATELET VOLUME 8.4 fL (7.4-10.4); PLATELET COUNT 204 x10^3/uL (130-400); RED BLOOD COUNT 3.56 x10^6/uL (3.82-5.3); RED CELL DISTRIBUTION WIDTH 19.9 % (9.6-15.2)
[2019-12-08 06:02] LABS: ALKALINE PHOSPHATASE 102 U/L (45-117); BILIRUBIN,TOTAL 0.7 mg/dL (0.2-1.0); TOTAL PROTEIN 7.4 g/dL (6.4-8.2)
[2019-12-08] MEDS: SODIUM BICARBONATE IV SCH ×2 (06:13→18:40)
[2019-12-08] MEDS: D5 IV SCH ×2 (06:13→18:40)
[2019-12-08] MEDS: NACL IV SCH ×2 (06:13→18:40)
[2019-12-08] MEDS: LORazepam 1MG TABLET PO PRN (06:22)
[2019-12-08 06:34] LABS: BASOPHILS # (AUTO) 0.07 x10^3/uL (0-0.1); BASOPHILS % (AUTO) 1 % (0-1); EOSINOPHILS # (AUTO) 0.01 x10^3/uL (0-0.4); EOSINOPHILS % (AUTO) 0 % (1-7); LYMPHOCYTES # (AUTO) 0.91 x10^3/uL (1-3.4); LYMPHOCYTES % (AUTO) 7 % (22-44); MD SCAN; MONOCYTES # (AUTO) 0.59 x10^3/uL (0.2-0.8); MONOCYTES % (AUTO) 4 % (2-9); NEUTROPHILS # (AUTO) 12.13 x10^3/uL (1.8-6.8); NEUTROPHILS % (AUTO) 89 % (42-75)
[2019-12-08 07:18] VITALS: BP 106/71
[2019-12-08 11:08] LABS: RAPID INFLUENZA A Negative (Negative); RAPID INFLUENZA B Negative (Negative)
[2019-12-08] MEDS ORDERED: SODIUM BICARBONATE 8.4% 150 MEQ in DEXTROSE 5% 1,000 ML IV SCH (12:30)
[2019-12-08 17:02] VITALS: BP 104/68
[2019-12-08 19:42] VITALS: BP 110/67
[2019-12-09 01:46] VITALS: BP 111/73
[2019-12-09] MEDS: LORazepam 2 MG/ML, 1ML IV PRN (03:38)
[2019-12-09] MEDS: KETOROLAC 30 MG/1 ML IV PRN ×3 (03:39→21:00)
[2019-12-09 05:30] LABS: O2 FLOW ROOM AIR L/min
[2019-12-09] MEDS: NACL IV SCH (06:02)
[2019-12-09] MEDS: D5 IV SCH (06:02)
[2019-12-09] MEDS: SODIUM BICARBONATE IV SCH (06:02)
[2019-12-09 06:37] VITALS: BP 116/82
[2019-12-09] MEDS ORDERED: MICONAZOLE CRM 2%, 15GM TP PRN (08:00)
[2019-12-09 08:04] LABS: ALANINE AMINOTRANSFERASE 38 U/L (12-78); ALBUMIN 2.7 g/dL (3.4-5.0); ANION GAP 6 mmol/L (5-15); CALCIUM 8.3 mg/dL (8.5-10.1); CHLORIDE 101 mmol/L (98-107)
[2019-12-09 08:07] LABS: ALKALINE PHOSPHATASE 91 U/L (45-117); BILIRUBIN,TOTAL 0.4 mg/dL (0.2-1.0); CREATININE 0.37 mg/dL (0.55-1.02); TOTAL PROTEIN 6.1 g/dL (6.4-8.2)
[2019-12-09 08:32] LABS: MEAN CORPUSCULAR HEMOGLOBIN 27.2 pg (27.0-34.8); MEAN CORPUSCULAR HGB CONC 31.9 g/dL (32.4-35.8); MEAN CORPUSCULAR VOLUME 85.2 fL (80-100); RED BLOOD COUNT 3.38 x10^6/uL (3.82-5.3); RED CELL DISTRIBUTION WIDTH 19.8 % (9.6-15.2)
[2019-12-09 08:34] LABS: MEAN PLATELET VOLUME 9.3 fL (7.4-10.4); PLATELET COUNT 129 x10^3/uL (130-400)
[2019-12-09 08:43] LABS: BASOPHILS # (AUTO) 0.05 x10^3/uL (0-0.1); BASOPHILS % (AUTO) 1 % (0-1); EOSINOPHILS # (AUTO) 0.14 x10^3/uL (0-0.4); EOSINOPHILS % (AUTO) 3 % (1-7); LYMPHOCYTES # (AUTO) 0.69 x10^3/uL (1-3.4); LYMPHOCYTES % (AUTO) 17 % (22-44); MD MORPH REVIEW ONLY; MONOCYTES # (AUTO) 0.28 x10^3/uL (0.2-0.8); MONOCYTES % (AUTO) 7 % (2-9); NEUTROPHILS # (AUTO) 2.97 x10^3/uL (1.8-6.8); NEUTROPHILS % (AUTO) 72 % (42-75); STOMATOCYTES 1+
[2019-12-09 08:44] LABS: <PLATELET ESTIMATE> DECREASED; ANISOCYTOSIS 1+; LARGE PLATELETS 1+
[2019-12-09 08:47] LABS: HYPOCHROMIA 1+
[2019-12-09] MEDS: POTASSIUM CHLORIDE 20 MEQ TAB.ER.PRT PO SCH ×2 (09:43→17:15)
[2019-12-09] MEDS: LORazepam 1MG TABLET PO PRN ×2 (10:20→19:48)
[2019-12-09] MEDS: AMOXICILLIN/CLAV 875-125MG TABLET PO SCH (13:29)
[2019-12-09 13:32] VITALS: BP 115/77
[2019-12-09 14:40] VITALS: BP 121/85
[2019-12-09] MEDS ORDERED: POTASSIUM CHLORIDE 20 MEQ TAB.ER.PRT PO SCH (17:00)
[2019-12-09 19:48] VITALS: BP 119/83
[2019-12-10] MEDS: AMOXICILLIN/CLAV 875-125MG TABLET PO SCH ×2 (01:18→13:37)
[2019-12-10 01:51] VITALS: BP 99/68
[2019-12-10] MEDS: KETOROLAC 30 MG/1 ML IV PRN ×2 (04:22→10:03)
[2019-12-10 07:05] VITALS: BP 107/72
[2019-12-10] MEDS: POTASSIUM CHLORIDE 20 MEQ TAB.ER.PRT PO SCH (07:40)
[2019-12-10 08:34] LABS: ALANINE AMINOTRANSFERASE 51 U/L (12-78); ALBUMIN 3.2 g/dL (3.4-5.0); ANION GAP 6 mmol/L (5-15); CALCIUM 9.4 mg/dL (8.5-10.1); CHLORIDE 106 mmol/L (98-107); CREATININE 0.49 mg/dL (0.55-1.02)
[2019-12-10 08:36] LABS: ALKALINE PHOSPHATASE 111 U/L (45-117); BILIRUBIN,TOTAL 0.3 mg/dL (0.2-1.0); TOTAL PROTEIN 7.6 g/dL (6.4-8.2)
[2019-12-10 08:59] LABS: MEAN CORPUSCULAR HEMOGLOBIN 26.8 pg (27.0-34.8); MEAN CORPUSCULAR VOLUME 86.4 fL (80-100); MEAN PLATELET VOLUME 9.4 fL (7.4-10.4); PLATELET COUNT 128 x10^3/uL (130-400); RED BLOOD COUNT 4.12 x10^6/uL (3.82-5.3); RED CELL DISTRIBUTION WIDTH 19.6 % (9.6-15.2)
[2019-12-10 09:01] LABS: BASOPHILS # (AUTO) 0.05 x10^3/uL (0-0.1); BASOPHILS % (AUTO) 1 % (0-1); EOSINOPHILS # (AUTO) 0.35 x10^3/uL (0-0.4); EOSINOPHILS % (AUTO) 6 % (1-7); LYMPHOCYTES # (AUTO) 1.65 x10^3/uL (1-3.4); LYMPHOCYTES % (AUTO) 27 % (22-44); MD SCAN; MONOCYTES # (AUTO) 0.53 x10^3/uL (0.2-0.8); MONOCYTES % (AUTO) 9 % (2-9); NEUTROPHILS # (AUTO) 3.48 x10^3/uL (1.8-6.8); NEUTROPHILS % (AUTO) 57 % (42-75)
[2019-12-10 12:49] VITALS: BP 114/80
[2019-12-10] MEDS ORDERED: AMOX1TAB12 PO (13:58)
[2019-12-10] MEDS ORDERED: MICO14CR TP (13:58)
[2019-12-10] MEDS ORDERED: ONDA4TAB13 PO (13:58)
== END 2019-12-10 16:00 | disposition home or self-care (01) | DRG 153 ==
LOC: ED 11:14 → SUATTDRO 11:51 → EDIP 12:16 → 4EST 13:37 → 4WST 12-08 08:09 → 4EST 12-09 11:38
PROVIDERS: ADMIT Hospitalist; ATTEND Hospitalist
DX: J02.0 Streptococcal pharyngitis (principal); R65.10 Systemic inflammatory response syndrome (SIRS) of non-infectious origin without acute organ dysfunction; E87.6 Hypokalemia; K70.10 Alcoholic hepatitis without ascites; F17.210 Nicotine dependence, cigarettes, uncomplicated; F15.90 Other stimulant use, unspecified, uncomplicated; E83.42 Hypomagnesemia; N76.0 Acute vaginitis; Z79.899 Other long term (current) drug therapy
CPT/HCPCS: 36415; 36600; 74177; 80053; 81001; 81025; 82010; 82607; 82803; 82962; 83605; 83690; 83735; 85025; 85610; 87040; 87081; 87147; 87400; 87880; 93005; 96365; 96366; 96375; G0378; J1885; J2405; J7070; Q9967; J2060; J7030

== ENCOUNTER 2020-01-13 10:08 | Emergency (ER) | payer MEDICAID ==
[~2020-01-13] VITALS: Ht 162.6 cm; Wt 68.0 kg
[~2020-01-13 10:08] MED LIST changes: +AMOX1TAB12 PO; +MICO14CR TP; +ONDA4TAB13 PO
[2020-01-13] MEDS ORDERED: SODIUM CHLORIDE 0.9% 1,000ML IVBOLUS ONE (10:30)
[2020-01-13] MEDS ORDERED: LORazepam 2 MG/ML, 1ML IVPush ONE (10:30)
[2020-01-13] MEDS ORDERED: FAMOTIDINE 20 MG/2 ML IV ONE (10:30)
[2020-01-13] MEDS ORDERED: ONDANSETRON 2MG/ML, 2ML IVPush ONE (10:30)
--- NOTE | 2020-01-13 10:30 | NUR ---
PATIENT STATES SHE STOPPED DRINKING YESTERDAY. NORMALLY DRINKS ABOU A /5. N/V WITH RIGHT SIDED ABD PAIN STARTING THIS MORNING. GIVEN 8MG OF ZOFRAN BY [facility]. MILD DISTRESS WITH MILD DISCOMFORT NOTED.
--- NOTE | 2020-01-13 10:53 | NUR ---
ATTEMPTED IV. UNABLE TO GAIN ACCESS AT THIS TIME.
[2020-01-13 10:58] LABS: BASOPHILS % (AUTO) 0 % (0-1); EOSINOPHILS # (AUTO) 0.05 x10^3/uL (0-0.4); EOSINOPHILS % (AUTO) 1 % (1-7); LYMPHOCYTES # (AUTO) 0.68 x10^3/uL (1-3.4); LYMPHOCYTES % (AUTO) 13 % (22-44); MD NO; MEAN CORPUSCULAR HEMOGLOBIN 25.6 pg (27.0-34.8); MEAN CORPUSCULAR HGB CONC 30.9 g/dL (32.4-35.8); MEAN CORPUSCULAR VOLUME 82.7 fL (80-100); MONOCYTES # (AUTO) 0.31 x10^3/uL (0.2-0.8); MONOCYTES % (AUTO) 6 % (2-9); NEUTROPHILS # (AUTO) 4.42 x10^3/uL (1.8-6.8); NEUTROPHILS % (AUTO) 81 % (42-75); PLATELET COUNT 181 x10^3/uL (130-400); RED BLOOD COUNT 3.79 x10^6/uL (3.82-5.3)
[2020-01-13] MEDS ORDERED: THIAMINE 100MG TABLET PO ONE (11:00)
[2020-01-13] MEDS ORDERED: ONDANSETRON 2MG/ML, 2ML ONE (11:05)
[2020-01-13] MEDS ORDERED: LORazepam 2 MG/ML, 1ML ONE (11:06)
[2020-01-13] MEDS ORDERED: FAMOTIDINE 20 MG/2 ML ONE (11:06)
[2020-01-13 11:08] LABS: ALANINE AMINOTRANSFERASE 45 U/L (12-78); ALBUMIN 3.6 g/dL (3.4-5.0); ANION GAP 15 mmol/L (5-15); CALCIUM 8.8 mg/dL (8.5-10.1); CHLORIDE 104 mmol/L (98-107); CREATININE 0.51 mg/dL (0.55-1.02)
[2020-01-13 11:12] LABS: ALKALINE PHOSPHATASE 71 U/L (45-117); BILIRUBIN,TOTAL 0.8 mg/dL (0.2-1.0); TOTAL PROTEIN 7.6 g/dL (6.4-8.2)
--- NOTE | 2020-01-13 11:15 | NUR ---
BREAK RN: MEDS PER OCT. US ABD IN PROG. CALL CURRAN IN REACH.
[2020-01-13] MEDS ORDERED: THIAMINE 100MG TABLET ONE (11:19)
[2020-01-13] MEDS ORDERED: KETOROLAC 30 MG/1 ML ONE (11:54)
[2020-01-13] MEDS ORDERED: KETOROLAC 30 MG/1 ML IVPush ONE (12:00)
[2020-01-13 12:38] VITALS: BP 135/88
== END 2020-01-13 12:54 | disposition home or self-care (01) ==
LOC: ED 11:50
DX: F10.239 Alcohol dependence with withdrawal, unspecified (principal); R11.2 Nausea with vomiting, unspecified; R10.10 Upper abdominal pain, unspecified; Y90.0 Blood alcohol level of less than 20 mg/100 ml
CPT/HCPCS: 36415; 76700; 80053; 80307; 83690; 84703; 85025; 96361; 96374; 96375; 99284; J1885; J2060; J2405; J3490; J7030

== ENCOUNTER 2020-02-05 11:28 | Inpatient (IN) | payer MEDICAID ==
[~2020-02-05] VITALS: Ht 162.6 cm; Wt 72.4 kg
[2020-02-05] MEDS ORDERED: D5%-0.45% NACL 1,000 ML IV STA (11:38)
[2020-02-05] MEDS ORDERED: ONDANSETRON 2MG/ML, 2ML ONE (11:48)
[2020-02-05] MEDS ORDERED: FAMOTIDINE 20 MG/2 ML ONE (11:48)
--- NOTE | 2020-02-05 11:49 | NUR ---
PT ARRIVES VOMITTING MULTIPLE TIMES, FILLING EMESIS BAGS. PER EMS REPORT PT WITH BG OF 39 GLOVE MACHINE OPERATOR, ORAL GLUCOSE TUBE PROVIDED, PT CONTINUES TO VOMIT. PT FSBG 50 IN RM. PT TO BP, CONT PULSE OX, CARD MONITOR. ERPROVIDER IN TO EVAL PT, ORDERS RECIEVED. TWO ATTEMPTS AT IV ACCESS UNSUCCESSFUL. ANOTHERRT TO TRY. Addendum: 02/05/20 at 1152 by [facility] WITH EXTENSIVE ETOH ABUSE/DRUG ABUSE, PT LAST DRINK THIS AM 0900. PT REPORTS VOMITTING FOR THE PAST EIGHT HOURS. PER PT SHE HAS HAD MULTIPLE HOSPITALIZATIONS IN THE PAST FOR ETOH WITHDRAWL/DEHYDRATION.
[2020-02-05] MEDS ORDERED: ONDANSETRON 2MG/ML, 2ML IVPush ONE (12:00)
[2020-02-05] MEDS ORDERED: FAMOTIDINE 20 MG/2 ML IV ONE (12:00)
[2020-02-05 12:18] LABS: PH, VENOUS 7.138 pH (7.320-7.420)
[2020-02-05] MEDS ORDERED: D5%-0.45% NACL 1,000 ML IV ONE (12:30)
[2020-02-05 12:33] LABS: ALBUMIN 4.6 g/dL (3.4-5.0); CALCIUM 9.3 mg/dL (8.5-10.1); CHLORIDE 106 mmol/L (98-107)
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
[2020-02-05 12:36] LABS: ALANINE AMINOTRANSFERASE 63 U/L (12-78); ALKALINE PHOSPHATASE 98 U/L (45-117); BILIRUBIN,TOTAL 0.4 mg/dL (0.2-1.0); TOTAL PROTEIN 9.2 g/dL (6.4-8.2)
[2020-02-05 12:45] LABS: ANION GAP 24 mmol/L (5-15)
[2020-02-05 12:56] LABS: ACETONE, SERUM Large (80mg/dL) (Negative)
[2020-02-05] MEDS ORDERED: SODIUM CHLORIDE 0.9% 1,000ML IVBOLUS ONE (13:00)
--- NOTE | 2020-02-05 13:35 | NUR ---
PER BREAK RN, PT AMBULATED TO BR WITH STEADY GAIT, NO UA OBTAINED BREAK RN UNAWARE ONE WAS ORDERED, WILL ATTEMPT AT LATER TIME, VSS AT THIS TIME, FLUIDS INFUSING
--- NOTE | 2020-02-05 13:59 | NUR ---
TWO ATTEMPTS TO SECOND IV ACCESS UNSUCCESSFUL, BOLUS PLACED ON PRESSURE BAG. WILL NOTIFY MD UNABLE TO OBTAIN ADDITIONAL ACCESS
[2020-02-05] MEDS ORDERED: THIAMINE 200 MG in SODIUM CHLORIDE 0.9% 50 ML IVPB ONE (14:00)
[2020-02-05 14:05] LABS: MEAN CORPUSCULAR HEMOGLOBIN 25.8 pg (27.0-34.8); MEAN CORPUSCULAR VOLUME 83.2 fL (80-100); MEAN PLATELET VOLUME 8.9 fL (7.4-10.4); PLATELET COUNT 384 x10^3/uL (130-400); RED BLOOD COUNT 4.57 x10^6/uL (3.82-5.3); RED CELL DISTRIBUTION WIDTH 22.4 % (9.6-15.2)
[2020-02-05 14:29] LABS: BASOPHILS % (AUTO) 0 % (0-1); EOSINOPHILS % (AUTO) 0 % (1-7); LYMPHOCYTES # (AUTO) 0.96 x10^3/uL (1-3.4); LYMPHOCYTES % (AUTO) 10 % (22-44); MD SCAN; MONOCYTES # (AUTO) 0.28 x10^3/uL (0.2-0.8); MONOCYTES % (AUTO) 3 % (2-9); NEUTROPHILS # (AUTO) 8.77 x10^3/uL (1.8-6.8); NEUTROPHILS % (AUTO) 88 % (42-75)
[2020-02-05 14:55] LABS: MICROSCOPIC AUTO
[2020-02-05 15:43] LABS: ANION GAP 20 mmol/L (5-15); CALCIUM 8.4 mg/dL (8.5-10.1); CHLORIDE 109 mmol/L (98-107); CREATININE 0.57 mg/dL (0.55-1.02)
[2020-02-05] MEDS ORDERED: SODIUM CHLORIDE 0.9% 1,000 ML IV ONE (15:53)
[2020-02-05] MEDS ORDERED: SODIUM CHLORIDE FLUSH 10ML SYR IVF PRN (16:00)
--- NOTE | 2020-02-05 16:13 | NUR ---
ADMITTING MD IN TO EVAL PT, BMP RESULTS RESULTED. PROVIDER MADE AWARE. ADMIT ORDERS RECIEVED FOR MED/TELE, AWAITING BED
[2020-02-05 16:37] LABS: HCG UR SG 1.015 (1.003-1.030)
[2020-02-05 16:50] LABS: AMPHETAMINE SCREEN, URINE Positive (Negative); BARBITURATE SCREEN, URINE Negative (Negative); BENZODIAZEPINE SCREEN, URINE Negative (Negative); CANNABINOID SCREEN, URINE Negative (Negative); COCAINE SCREEN, URINE Negative (Negative); METHADONE SCREEN, URINE Negative (Negative); OPIATE SCREEN, URINE Negative (Negative)
[2020-02-05] MEDS ORDERED: LORazepam 2 MG/ML, 1ML ONE (17:14)
--- NOTE | 2020-02-05 17:19 | NUR ---
REQUEST SENT TO PHARM FOR BICARB GTT
[2020-02-05] MEDS: LORazepam 2 MG/ML, 1ML IVPush PRN (17:35)
[2020-02-05] MEDS: SODIUM BICARBONATE 8.4% 150 MEQ in DEXTROSE 5% 1,000 ML IV SCH (17:58)
[2020-02-05 18:16] LABS: ANION GAP 15 mmol/L (5-15); CALCIUM 8.1 mg/dL (8.5-10.1); CHLORIDE 107 mmol/L (98-107); CREATININE 0.66 mg/dL (0.55-1.02)
[2020-02-05] MEDS: NICOTINE 21 MG/24 HR PATCH.TD24 TD ONE (19:49)
[2020-02-05] MEDS: ONDANSETRON 2MG/ML, 2ML IVPush PRN (19:56)
[2020-02-05 19:58] VITALS: BP 108/64
[2020-02-05] MEDS ORDERED: SERT25TA3 PO (20:09)
[2020-02-05] MEDS ORDERED: OMEP20CA20 PO (20:11)
[2020-02-06] MEDS: LORazepam 2 MG/ML, 1ML IVPush PRN ×6 (00:12→22:39)
[2020-02-06 00:15] VITALS: BP 126/85
[2020-02-06] MEDS: SODIUM BICARBONATE 8.4% 150 MEQ in DEXTROSE 5% 1,000 ML IV SCH ×2 (03:45→10:40)
[2020-02-06 07:48] VITALS: BP 127/89
[2020-02-06 07:56] LABS: ALANINE AMINOTRANSFERASE 49 U/L (12-78); ALBUMIN 3.1 g/dL (3.4-5.0); ANION GAP 6 mmol/L (5-15); CALCIUM 7.6 mg/dL (8.5-10.1); CHLORIDE 103 mmol/L (98-107); CREATININE 0.49 mg/dL (0.55-1.02)
[2020-02-06 07:58] LABS: ALKALINE PHOSPHATASE 66 U/L (45-117); BILIRUBIN,TOTAL 0.8 mg/dL (0.2-1.0); TOTAL PROTEIN 6.4 g/dL (6.4-8.2)
[2020-02-06 08:03] LABS: MEAN CORPUSCULAR HEMOGLOBIN 25.3 pg (27.0-34.8); MEAN CORPUSCULAR HGB CONC 31.1 g/dL (32.4-35.8); MEAN CORPUSCULAR VOLUME 81.4 fL (80-100); PLATELET COUNT 277 x10^3/uL (130-400); RED BLOOD COUNT 3.51 x10^6/uL (3.82-5.3); RED CELL DISTRIBUTION WIDTH 22.1 % (9.6-15.2)
[2020-02-06 08:35] LABS: BASOPHILS % (AUTO) 0 % (0-1); EOSINOPHILS % (AUTO) 2 % (1-7); LYMPHOCYTES # (AUTO) 1.12 x10^3/uL (1-3.4); LYMPHOCYTES % (AUTO) 20 % (22-44); MD SCAN; MONOCYTES # (AUTO) 0.41 x10^3/uL (0.2-0.8); MONOCYTES % (AUTO) 7 % (2-9); NEUTROPHILS # (AUTO) 3.88 x10^3/uL (1.8-6.8); NEUTROPHILS % (AUTO) 71 % (42-75)
[2020-02-06] MEDS: ONDANSETRON 2MG/ML, 2ML IVPush PRN (10:04)
[2020-02-06] MEDS ORDERED: NICOTINE 21 MG/24 HR PATCH.TD24 ONE (10:07)
[2020-02-06] MEDS: NICOTINE 21 MG/24 HR PATCH.TD24 TD ONE (10:12)
[2020-02-06] MEDS ORDERED: CHLORDIAZEPOXIDE 25 MG CAPSULE ONE (10:55)
[2020-02-06] MEDS ORDERED: BUTALB/APAP/CAFFEINE 50MG/325MG/40MG ONE (10:55)
[2020-02-06] MEDS: BUTALB/APAP/CAFFEINE 50MG/325MG/40MG PO PRN ×2 (10:57→20:19)
[2020-02-06] MEDS: CHLORDIAZEPOXIDE 25 MG CAPSULE PO PRN ×2 (10:57→20:19)
[2020-02-06] MEDS ORDERED: POTASSIUM CHLORIDE 20 MEQ TAB.ER.PRT PO ONE (11:00)
[2020-02-06] MEDS ORDERED: SODIUM PHOSPHATE 30 MMOL in SODIUM CHLORIDE 0.9% 500 ML IV ONE (11:00)
[2020-02-06 12:55] VITALS: BP 112/75
[2020-02-06] MEDS ORDERED: THIAMINE 100 MG in SODIUM CHLORIDE 0.9% 50 ML IV SCH (16:30)
[2020-02-06] MEDS: POTASSIUM CHLORIDE 20 MEQ, MAGNESIUM SULFATE 1 GM, THIAMINE 200 MG, FOLIC ACID 1 MG, MV... IV SCH (17:56)
[2020-02-06 21:01] VITALS: BP 122/84
[2020-02-07 01:33] VITALS: BP 102/66
[2020-02-07 05:08] LABS: ANION GAP 8 mmol/L (5-15); CALCIUM 7.9 mg/dL (8.5-10.1); CHLORIDE 108 mmol/L (98-107); CREATININE 0.47 mg/dL (0.55-1.02)
[2020-02-07 05:25] LABS: MEAN CORPUSCULAR HEMOGLOBIN 25.2 pg (27.0-34.8); MEAN CORPUSCULAR HGB CONC 30.7 g/dL (32.4-35.8); MEAN PLATELET VOLUME 8.7 fL (7.4-10.4); PLATELET COUNT 250 x10^3/uL (130-400); RED BLOOD COUNT 3.53 x10^6/uL (3.82-5.3); RED CELL DISTRIBUTION WIDTH 22.1 % (9.6-15.2)
[2020-02-07] MEDS: LORazepam 2 MG/ML, 1ML IVPush PRN ×3 (05:40→21:26)
[2020-02-07] MEDS: BUTALB/APAP/CAFFEINE 50MG/325MG/40MG PO PRN (05:42)
[2020-02-07 06:17] LABS: BASOPHILS # (AUTO) 0.07 x10^3/uL (0-0.1); BASOPHILS % (AUTO) 2 % (0-1); EOSINOPHILS # (AUTO) 0.28 x10^3/uL (0-0.4); EOSINOPHILS % (AUTO) 6 % (1-7); LYMPHOCYTES # (AUTO) 1.69 x10^3/uL (1-3.4); LYMPHOCYTES % (AUTO) 38 % (22-44); MD SCAN; MONOCYTES # (AUTO) 0.35 x10^3/uL (0.2-0.8); MONOCYTES % (AUTO) 8 % (2-9); NEUTROPHILS # (AUTO) 2.07 x10^3/uL (1.8-6.8); NEUTROPHILS % (AUTO) 46 % (42-75)
[2020-02-07 07:47] VITALS: BP 125/86
[2020-02-07] MEDS: NICOTINE 21 MG/24 HR PATCH.TD24 TD SCH (10:33)
[2020-02-07 13:00] VITALS: BP 118/81
[2020-02-07] MEDS: CHLORDIAZEPOXIDE 25 MG CAPSULE PO PRN ×2 (18:19→21:54)
[2020-02-07] MEDS ORDERED: ACETAMINOPHEN 325 MG TABLET PO PRN (18:30)
[2020-02-07] MEDS: POTASSIUM CHLORIDE 20 MEQ, MAGNESIUM SULFATE 1 GM, THIAMINE 200 MG, FOLIC ACID 1 MG, MV... IV SCH (18:38)
[2020-02-07 20:21] VITALS: BP 122/88
[2020-02-08 02:22] VITALS: BP 129/90
[2020-02-08 07:07] VITALS: BP 126/83
[2020-02-08] MEDS: NICOTINE 21 MG/24 HR PATCH.TD24 TD SCH (08:24)
[2020-02-08 09:33] LABS: ANION GAP 9 mmol/L (5-15); CALCIUM 8.7 mg/dL (8.5-10.1); CHLORIDE 109 mmol/L (98-107); CREATININE 0.49 mg/dL (0.55-1.02)
[2020-02-08 09:46] LABS: BASOPHILS # (AUTO) 0.03 x10^3/uL (0-0.1); BASOPHILS % (AUTO) 1 % (0-1); EOSINOPHILS # (AUTO) 0.31 x10^3/uL (0-0.4); EOSINOPHILS % (AUTO) 7 % (1-7); LYMPHOCYTES % (AUTO) 28 % (22-44); MEAN CORPUSCULAR HEMOGLOBIN 25.1 pg (27.0-34.8); MEAN CORPUSCULAR HGB CONC 30.7 g/dL (32.4-35.8); MEAN CORPUSCULAR VOLUME 81.7 fL (80-100); MEAN PLATELET VOLUME 9.1 fL (7.4-10.4); MONOCYTES % (AUTO) 7 % (2-9); NEUTROPHILS # (AUTO) 2.71 x10^3/uL (1.8-6.8); NEUTROPHILS % (AUTO) 58 % (42-75); PLATELET COUNT 257 x10^3/uL (130-400); RED BLOOD COUNT 3.77 x10^6/uL (3.82-5.3); RED CELL DISTRIBUTION WIDTH 21.8 % (9.6-15.2)
[2020-02-08 09:47] LABS: MD NO
[2020-02-08] MEDS: BUTALB/APAP/CAFFEINE 50MG/325MG/40MG PO PRN (11:13)
[2020-02-08 12:31] VITALS: BP 121/86
[2020-02-08] MEDS ORDERED: FOLI-17 PO (13:04)
[2020-02-08] MEDS ORDERED: THIA100T67 PO (13:04)
[2020-02-08] MEDS ORDERED: MULT-658 PO (13:04)
== END 2020-02-08 15:13 | disposition home or self-care (01) | DRG 439 ==
LOC: SUATTDRO 12:51 → ED 13:18 → EDIP 15:53 → 4EST 19:09
PROVIDERS: ADMIT Internal Medicine; ATTEND Hospitalist
DX: K85.90 Acute pancreatitis without necrosis or infection, unspecified (principal); E87.2 Acidosis; F10.239 Alcohol dependence with withdrawal, unspecified; E11.649 Type 2 diabetes mellitus with hypoglycemia without coma; F15.90 Other stimulant use, unspecified, uncomplicated; F12.90 Cannabis use, unspecified, uncomplicated; F17.210 Nicotine dependence, cigarettes, uncomplicated; E83.42 Hypomagnesemia; E87.6 Hypokalemia; R00.0 Tachycardia, unspecified; Z80.0 Family history of malignant neoplasm of digestive organs; Z82.49 Family history of ischemic heart disease and other diseases of the circulatory system
CPT/HCPCS: 36415; 96361; 96365; 96375; 99291; J3490; 80048; 80053; 80307; 81001; 81025; 82010; 82803; 82962; 83690; 83735; 84100; 85025; 93005; G0378; J2405; J3411; J3475; J3480; J7070; J2060; J7030; J7040

== ENCOUNTER 2020-04-23 11:27 | Emergency (ER) | payer MEDICAID ==
[~2020-04-23] VITALS: Ht 162.6 cm; Wt 67.0 kg
[~2020-04-23 11:27] MED LIST changes: +MULT-449 PO; +MULT-658 PO; -MULT1TAB60 PO; +OMEP20CA20 PO; +SERT25TA3 PO
--- NOTE | 2020-04-23 11:49 | NUR ---
FIRST CONTACT WITH PT. PT C/O NECK TO TAIL BONE PAIN. PT STATED"MOSTLY MY MIDDLE BACK." PT DENIES ANY OTHER SX. PT'S AOX4. RESPS EVEN AND UNLABORED. BP/SPO2 MONITORS IN PLACE. CALL LIGHT WITHIN REACH.
[2020-04-23] MEDS ORDERED: KETOROLAC 30 MG/1 ML ONE (12:19)
[2020-04-23] MEDS ORDERED: METHOCARBAMOL 750 MG TABLET ONE (12:19)
[2020-04-23] MEDS ORDERED: METHOCARBAMOL 750 MG TABLET PO ONE (12:30)
[2020-04-23] MEDS ORDERED: KETOROLAC 30 MG/1 ML IM ONE (12:30)
[2020-04-23 12:49] VITALS: BP 108/69
--- NOTE | 2020-04-23 12:50 | NUR ---
BREAK RN: PT RESTING ON [place]. CORNELIUS. MEDICATED PER OCT. PACO. KOBE SAMAYOA AT BEDSIDE FOR RE-EVAL.
--- NOTE | 2020-04-23 13:22 | NUR ---
Patient given discharge instructions and they have confirmed that they understand the instructions. Patient ambulatory with steady gait.
== END 2020-04-23 13:23 | disposition home or self-care (01) ==
LOC: ED 12:55
DX: S39.012A Strain of muscle, fascia and tendon of lower back, initial encounter (principal); M51.36 Other intervertebral disc degeneration, lumbar region; R07.89 Other chest pain; E11.9 Type 2 diabetes mellitus without complications; F17.210 Nicotine dependence, cigarettes, uncomplicated; X58.XXXA Exposure to other specified factors, initial encounter; Y93.89 Activity, other specified; Y92.89 Other specified places as the place of occurrence of the external cause; Y99.8 Other external cause status
CPT/HCPCS: 72050; 72072; 96372; 99284; J1885

== ENCOUNTER 2020-06-05 06:33 | Emergency (ER) | payer MEDICAID ==
[~2020-06-05] VITALS: Ht 162.6 cm; Wt 73.1 kg
[~2020-06-05 06:33] MED LIST changes: -PANT20TA3 PO; +PANT20TA4 PO
[2020-06-05] MEDS ORDERED: SODIUM CHLORIDE 0.9% 1,000ML IVBOLUS ONE (07:00)
[2020-06-05] MEDS ORDERED: DIPHENHYDRAMINE 50 MG/ML, 1ML IVPush ONE (07:00)
[2020-06-05] MEDS ORDERED: PROCHLORPERAZINE 5 MG/ML, 2ML IVPush ONE (07:00)
[2020-06-05] MEDS ORDERED: DIPHENHYDRAMINE 50 MG/ML, 1ML ONE (07:01)
[2020-06-05] MEDS ORDERED: PROCHLORPERAZINE 5 MG/ML, 2ML ONE (07:01)
--- NOTE | 2020-06-05 08:12 | NUR ---
PT MEDICATED PER OCT. PT REPORTS PAIN IS STILL AT 8/10.
[2020-06-05 08:24] VITALS: BP 108/49
== END 2020-06-05 08:59 | disposition home or self-care (01) ==
LOC: ED 08:00
DX: H66.011 Acute suppurative otitis media with spontaneous rupture of ear drum, right ear (principal); R51.9 Headache, unspecified; E11.9 Type 2 diabetes mellitus without complications; F17.200 Nicotine dependence, unspecified, uncomplicated
CPT/HCPCS: 96361; 96374; 96375; 99284; J0780; J1200; J7030

== ENCOUNTER 2020-08-17 18:25 | Emergency (ER) | payer MEDICAID ==
[~2020-08-17] VITALS: Ht 162.6 cm; Wt 68.5 kg
[2020-08-17] MEDS ORDERED: SODIUM CHLORIDE 0.9% 1,000ML IVBOLUS ONE (19:00)
[2020-08-17] MEDS ORDERED: ONDANSETRON 2MG/ML, 2ML IVPush ONE (19:00)
--- NOTE | 2020-08-17 19:44 | NUR ---
ATT AT PIV 3 TIMES ON ARMS, AND ATTEMPT AT EJ. ALL UNSUCCESSFUL. ULTASOUND IV TO BE ATTEMPTED, CHARGE NURSE AWARE, AND ERP AWARE
[2020-08-17] MEDS ORDERED: DEXTROSE 50%, 50ML SYRINGE IVPush ONE (20:00)
[2020-08-17] MEDS ORDERED: DEXTROSE 4 GM TAB.CHEW PO ONE (20:00)
[2020-08-17] MEDS ORDERED: DEXTROSE 50%, 50ML SYRINGE ONE (20:02)
[2020-08-17] MEDS ORDERED: ONDANSETRON 2MG/ML, 2ML ONE (20:02)
[2020-08-17 20:16] LABS: BASOPHILS % (AUTO) 2 % (0-1); EOSINOPHILS % (AUTO) 1 % (1-7); LYMPHOCYTES % (AUTO) 23 % (22-44); MD NO; MEAN CORPUSCULAR HEMOGLOBIN 23.7 pg (27.0-34.8); MEAN CORPUSCULAR HGB CONC 30.7 g/dL (32.4-35.8); MEAN PLATELET VOLUME 8.3 fL (7.4-10.4); MONOCYTES % (AUTO) 5 % (2-9); NEUTROPHILS % (AUTO) 70 % (42-75); PLATELET COUNT 237 x10^3/uL (130-400); RED CELL DISTRIBUTION WIDTH 19.9 % (9.6-15.2)
[2020-08-17 20:20] LABS: FIO2 ROOM AIR %
[2020-08-17 20:21] LABS: INTERNATIONAL NORMALIZED RATIO 0.96 (0.93-1.1); PROTHROMBIN TIME 10.2 Seconds (9.6-11.5)
[2020-08-17 20:23] LABS: ALANINE AMINOTRANSFERASE 55 U/L (12-78); ALBUMIN 4.2 g/dL (3.4-5.0); ANION GAP 16 mmol/L (5-15); CALCIUM 8.6 mg/dL (8.5-10.1); CHLORIDE 104 mmol/L (98-107); CREATININE 0.68 mg/dL (0.55-1.02)
[2020-08-17 20:26] LABS: ALKALINE PHOSPHATASE 84 U/L (45-117); BILIRUBIN,TOTAL 0.6 mg/dL (0.2-1.0); TOTAL PROTEIN 8.5 g/dL (6.4-8.2)
[2020-08-17] MEDS ORDERED: KETOROLAC 30 MG/1 ML ONE (21:18)
[2020-08-17 21:19] LABS: HCG UR SG 1.024 (1.003-1.030); MICROSCOPIC AUTO
[2020-08-17] MEDS ORDERED: PROMETHAZINE 25 MG/ML, 1ML ONE (21:19)
--- NOTE | 2020-08-17 21:29 | NUR ---
PT STILL HAS COMPLAINTS OF NAUSEA, AND A HEADACHE. PT MEDICATED PER EMAR, PT STATES FEELING BETTER SINCE COMING IN. PT RESTING IN [place], IVF RUNNING, MONITORS IN PLACE, S/O AT BEDSIDE
[2020-08-17] MEDS ORDERED: KETOROLAC 30 MG/1 ML IVPush ONE (21:30)
[2020-08-17] MEDS ORDERED: PROMETHAZINE 25 MG/ML, 1ML IM ONE (21:30)
--- NOTE | 2020-08-17 22:11 | NUR ---
PT PROVIDED WATER AND CRACKERS FOR PO CHALLENGE
--- NOTE | 2020-08-17 22:15 | NUR ---
PT STATES FEELING MUCH BETTER, ATE CRACKERS AND IS REQUESTING [place], NO NAUSEA AT THIS TIME
--- NOTE | 2020-08-17 22:29 | NUR ---
ERP SPOKE WITH PT, PT STATES NO NAUSEA AFTER PO CHALLENGE. PT STATES READY TO GO HOME
[2020-08-17 22:35] VITALS: BP 137/74
== END 2020-08-17 23:20 | disposition home or self-care (01) ==
LOC: ED 18:58
DX: R11.2 Nausea with vomiting, unspecified (principal); F10.220 Alcohol dependence with intoxication, uncomplicated; E11.65 Type 2 diabetes mellitus with hyperglycemia; R10.31 Right lower quadrant pain; F17.210 Nicotine dependence, cigarettes, uncomplicated
CPT/HCPCS: 36415; 80053; 80320; 81001; 81025; 82803; 82962; 83690; 85025; 85610; 87086; 96361; 96372; 96374; 96375; 99285; 99406; J1885; J2405; J2550; J7030; G0480

== ENCOUNTER 2020-08-24 12:24 | Inpatient (IN) | payer MEDICAID ==
[~2020-08-24] VITALS: Ht 162.6 cm; Wt 69.4 kg
[2020-08-24] MEDS ORDERED: FAMOTIDINE 20 MG/2 ML IVPush ONE (12:30)
[2020-08-24] MEDS ORDERED: SODIUM CHLORIDE 0.9% 1,000ML IVBOLUS ONE (12:30)
[2020-08-24] MEDS ORDERED: ONDANSETRON 2MG/ML, 2ML IVPush ONE (12:30)
[2020-08-24] MEDS ORDERED: LORazepam 2 MG/ML, 1ML IVPush ONE (12:30)
--- NOTE | 2020-08-24 12:30 | NUR ---
TASK RN. ASSISTING PRIMARY RN YASH. BIB AMBULANCE FROM HOME FOR N/V SINCE THIS AM & ABD PAIN. HX ETOH ABUSE, LAST DRANK VODKA AT 6AM TODAY. PT REPORTS "I FEEL TERRIBLE, MY STOMACH HURTS, I'VE THROWN UP SO MANY TIMES, I'M HAVING BLACK TARRY STOOLS, MY BLOOD SUGAR GETS LOW FROM MY ALCOHOL USE, THIS MORNING IT WAS 31, I DRANK 2 OF THOSE LIQUID GLUCOSE DRINKS AND IT WAS BETTER." FSBS 102 PER EMS. EMS GAVE 4MG ZOFRAN ODT GALLEY COOK TO ER, PT WITH CLEAR EMESIS X1 S/P ZOFRAN. CONT PULSE OX, BP, CARDIAC MONITORS APPLIED. VSS. SINUS TACH ON MONITOR. ASSESSMENT COMPLETED. FLAKITA REEVES AT BEDSIDE FOR EVALUATION, AWAITING ORDERS. A&OX4. FALL PRECAUTIONS IN PLACE. SIDE RAILS UPX2.
--- NOTE | 2020-08-24 12:42 | NUR ---
BEDSIDE REPORT AND TRANSFER OF CARE TO YASH MONTERO AT THIS TIME. LAB AT BEDSIDE
[2020-08-24] MEDS ORDERED: LORazepam 2 MG/ML, 1ML ONE ×2 (12:53→19:53)
[2020-08-24] MEDS ORDERED: ONDANSETRON 2MG/ML, 2ML ONE (12:53)
[2020-08-24] MEDS ORDERED: FAMOTIDINE 20 MG/2 ML ONE (12:53)
[2020-08-24 13:03] LABS: ALANINE AMINOTRANSFERASE 93 U/L (12-78); ALBUMIN 3.9 g/dL (3.4-5.0); ANION GAP 21 mmol/L (5-15); CALCIUM 8.3 mg/dL (8.5-10.1); CHLORIDE 106 mmol/L (98-107); CREATININE 0.57 mg/dL (0.55-1.02)
[2020-08-24 13:05] LABS: ALKALINE PHOSPHATASE 83 U/L (45-117); BILIRUBIN,TOTAL 0.3 mg/dL (0.2-1.0); TOTAL PROTEIN 7.7 g/dL (6.4-8.2)
--- NOTE | 2020-08-24 13:12 | NUR ---
US AT BEDSIDE. PT MEDICATED PER EMAR. PT AWARE OF NEED FOR UA. PT INSTRUCTED TO NOT GET OUT OF BED WITHOUT HELP FROM STAFF.
[2020-08-24] MEDS ORDERED: DEXTROSE 50%, 50ML SYRINGE ONE (13:17)
[2020-08-24] MEDS ORDERED: DEXTROSE 50%, 50ML SYRINGE IVPush ONE (13:30)
--- NOTE | 2020-08-24 13:54 | NUR ---
YELLOW SLIP SENT TO PHARMACY FOR FLUIDS.
[2020-08-24] MEDS ORDERED: MAGNESIUM SULFATE 1 GM, THIAMINE 100 MG, FOLIC ACID 1 MG, MVI ADULT 10 ML in SODIUM CHL... IV ONE (14:00)
[2020-08-24 14:01] LABS: FIO2 ROOM AIR %; PH, VENOUS 7.041 pH (7.320-7.420)
--- NOTE | 2020-08-24 14:10 | NUR ---
PT UP TO BEDSIDE COMMODE FOR UA SPECIMEN WITH RN ASSIST. BACK IN BED, REPLACED ON MONITORS. PT TACHY FOLLOWING ACTIVITY. ABOUT 120 HR. ERMD AWARE OF CRITICAL LABS.
[2020-08-24 14:14] LABS: BASOPHILS % (AUTO) 1 % (0-1); EOSINOPHILS % (AUTO) 0 % (1-7); LYMPHOCYTES % (AUTO) 9 % (22-44); MEAN CORPUSCULAR HEMOGLOBIN 23.9 pg (27.0-34.8); MEAN PLATELET VOLUME 8.4 fL (7.4-10.4); MONOCYTES % (AUTO) 3 % (2-9); NEUTROPHILS % (AUTO) 87 % (42-75); PLATELET COUNT 149 x10^3/uL (130-400); RED CELL DISTRIBUTION WIDTH 20.5 % (9.6-15.2)
[2020-08-24 14:15] LABS: MEAN CORPUSCULAR HGB CONC 29.5 g/dL (32.4-35.8)
[2020-08-24 14:16] LABS: MD NO
--- NOTE | 2020-08-24 14:33 | NUR ---
BREAK RN FOR PRIMARY RN YASH. FSBS CHECKED PER DR. JARAMILLO REQUEST, RESULT 165, MD AWARE. NO NEW ORDERS RECEIVED. PT PROVIDED WARM BLANKET. REQUESTING ICE CHIPS, OKAY PER DR. JARAMILLO. VSS. ST ON MONITOR. PHARMACY CALLED FOR IVF, TO SEND. CALL LIGHT IN REACH. FALL PRECUATIONS IN PLACE. SIDE RAILS UPX2. DENIES NEED TO USE RESTROOM
[2020-08-24 14:36] LABS: ACETONE, SERUM Large (80mg/dL) (Negative)
--- NOTE | 2020-08-24 15:04 | NUR ---
REPORT AND TRANSFER OF CARE BACK TO PRIMARY WINSTON BERRIOS AT THIS TIME
[2020-08-24 15:06] LABS: MICROSCOPIC INDICATED
--- NOTE | 2020-08-24 15:18 | NUR ---
PT SITTING UP TALKING ON CELL PHONE. NAD NOTED AT THIS TIME. JOAQUIN RN WAS AT BEDSIDE FOR SECOND IV INSERTION WITH NO SUCCESS.
--- NOTE | 2020-08-24 15:25 | NUR ---
PER WINSTON ARORA. NO AVAILABILITY FROM PHARMACY OR CENTRAL SUPPLY FOR 500ML BAG OF D5 1/2NS. CALL TO PHARMACY FOR COMPATIBILITY OF BANANA BAG AND D5W IN 1/2 NS, PER KULWANT RN MAY HANG THESE TWO FLUIDS IN SAME LINE.
[2020-08-24] MEDS: D5%-0.45% NACL 500 ML IV SCH ×3 (15:30→23:46)
[2020-08-24] MEDS ORDERED: MAGNESIUM SULFATE PMX 2GM/50ML 50 ML IV ONE (16:30)
[2020-08-24] MEDS ORDERED: LORazepam 2 MG/ML, 1ML IV PRN ×2 (16:30)
[2020-08-24] MEDS ORDERED: SODIUM BICARBONATE 1 MEQ/ML, 50ML VIAL IVPush ONE (16:30)
[2020-08-24] MEDS ORDERED: LORazepam 1MG TABLET PO PRN ×2 (16:30)
[2020-08-24] MEDS ORDERED: LORazepam 0.5MG TABLET PO PRN (16:30)
[2020-08-24] MEDS ORDERED: SODIUM BICARB 8.4%, 50ML SYRINGE ONE (16:40)
--- NOTE | 2020-08-24 16:40 | NUR ---
DISCUSSION WITH HOSPITALIST REGARDING ORDERS. PT TO RECIEVE BICARB PUSH AND GTT FIRST, FOLLOWED BY MAGNESIUM. BANANA BAGS WILL RESUME TOMORROW PER HOSPITALIST. REQUEST FOR BICARB GTT SENT TO PHARM AND PHARMACY CALLED BY RN.
[2020-08-24 16:43] LABS: FIO2 ROOM AIR %
[2020-08-24] MEDS ORDERED: SODIUM BICARBONATE 1 MEQ/ML, 50ML VIAL ONE (16:45)
[2020-08-24] MEDS ORDERED: ONDANSETRON 2MG/ML, 2ML IVPush PRN (17:00)
[2020-08-24] MEDS ORDERED: BUTALB/APAP/CAFFEINE 50MG/325MG/40MG PO PRN (17:00)
[2020-08-24] MEDS ORDERED: THIAMINE 100MG TABLET PO ONE (17:00)
[2020-08-24] MEDS ORDERED: ONDANSETRON ODT 4 MG PO PRN (17:00)
[2020-08-24] MEDS: SODIUM BICARBONATE 8.4% 150 MEQ in DEXTROSE 5% 1,000 ML IV SCH (17:09)
[2020-08-24] MEDS ORDERED: THIAMINE 100MG TABLET ONE (17:14)
--- NOTE | 2020-08-24 17:39 | NUR ---
MEDICATION REQUEST SENT TO PHARMACY. PT UP TO BEDSIDE COMMODE WITH MINIMAL ASSISTANCE. C/O HEADACHE, WHICH IS WHAT MED IS FOR. CALL TO PHARMACY FOR COMPATIBILITY.
--- NOTE | 2020-08-24 17:41 | NUR ---
PER PHARMACY SODIUM BICARB GTT AND MAGNESIUM SULFATE INFUSION ARE COMPATIBLE.
[2020-08-24] MEDS ORDERED: MAGNESIUM SULFATE PMX 2GM/50ML 50 ML ONE (17:43)
--- NOTE | 2020-08-24 18:30 | NUR ---
CALL TO PHARMACY REGARDING MEDICATION REQUESTED FOR PT'S FRIAS. PER LESLIE "I'LL HAVE SOMEONE CHECK IT AND SEND IT DOWN TO YOU."
--- NOTE | 2020-08-24 18:54 | NUR ---
REPORT FROM WES MONTERO.
--- NOTE | 2020-08-24 19:01 | NUR ---
REPORT TO WINSTON TAI.
[2020-08-24] MEDS ORDERED: KETOROLAC 30 MG/1 ML ONE (19:04)
[2020-08-24] MEDS: KETOROLAC 30 MG/1 ML IV PRN (19:06)
[2020-08-24 19:25] LABS: AMPHETAMINE SCREEN, URINE Positive (Negative); BARBITURATE SCREEN, URINE Negative (Negative); BENZODIAZEPINE SCREEN, URINE Negative (Negative); CANNABINOID SCREEN, URINE Negative (Negative); COCAINE SCREEN, URINE Negative (Negative); METHADONE SCREEN, URINE Negative (Negative); OPIATE SCREEN, URINE Negative (Negative)
[2020-08-24] MEDS: LORazepam 2 MG/ML, 1ML IV PRN ×2 (19:56→22:47)
[2020-08-24 21:37] LABS: ANION GAP 11 mmol/L (5-15); CALCIUM 7.5 mg/dL (8.5-10.1); CHLORIDE 103 mmol/L (98-107); CREATININE 0.56 mg/dL (0.55-1.02)
--- NOTE | 2020-08-24 23:02 | NUR ---
REPORT FROM ZAIRE MONTERO. PT RSTING WITH NEEDS AT THIS TIME. CALL LIGHT IN REACH
--- NOTE | 2020-08-25 00:14 | NUR ---
pt given ice water and chicken broth per request. Pt resting with no ther needs at this time. call light in reach
--- NOTE | 2020-08-25 01:46 | NUR ---
PT SLEEPING. VSS. EVEN RISE AND FALL OF CHEST OBSERVED. CALL LIGHT IN REACH
[2020-08-25] MEDS ORDERED: LORazepam 2 MG/ML, 1ML ONE ×4 (02:45→12:20)
[2020-08-25] MEDS: D5%-0.45% NACL 500 ML IV SCH ×2 (02:51→06:22)
[2020-08-25] MEDS: LORazepam 2 MG/ML, 1ML IV PRN ×4 (02:51→12:30)
--- NOTE | 2020-08-25 02:55 | NUR ---
PT MEDICATED PER CIWA. PT RESTING WITH NO NEEDS AT THIS TIME. CALL HANANE IN REACH
--- NOTE | 2020-08-25 03:07 | NUR ---
PIV INFITRATED. RN AT BEDSIDE TO PLACE NEW PIV
[2020-08-25] MEDS ORDERED: KETOROLAC 30 MG/1 ML ONE ×2 (03:19→12:20)
[2020-08-25] MEDS: KETOROLAC 30 MG/1 ML IV PRN ×2 (03:21→12:31)
--- NOTE | 2020-08-25 03:28 | NUR ---
PIV PLACED AND PT MEDICATED FOR PAIN. VSS. PT HAS NO OTHER NEEDS AT THIS TIME. CALL LIGHT IN REACH
--- NOTE | 2020-08-25 04:32 | NUR ---
PT SLEEPING. SODIUM BICARB ORDERED FROM PHARMACY. VSS PT HAS NO NEEDS AT THIS TIME.
[2020-08-25] MEDS: SODIUM BICARBONATE 8.4% 150 MEQ in DEXTROSE 5% 1,000 ML IV SCH (05:07)
--- NOTE | 2020-08-25 05:15 | NUR ---
BREAK RN: NEW BAG OF SODIUM BICARB HUNG PER OCT.
[2020-08-25 06:08] LABS: BASOPHILS % (AUTO) 1 % (0-1); EOSINOPHILS % (AUTO) 3 % (1-7); LYMPHOCYTES % (AUTO) 30 % (22-44); MEAN CORPUSCULAR HEMOGLOBIN 23.8 pg (27.0-34.8); MEAN CORPUSCULAR HGB CONC 31.2 g/dL (32.4-35.8); MEAN PLATELET VOLUME 8.6 fL (7.4-10.4); MONOCYTES % (AUTO) 9 % (2-9); NEUTROPHILS % (AUTO) 57 % (42-75); PLATELET COUNT 100 x10^3/uL (130-400); RED BLOOD COUNT 3.83 x10^6/uL (3.82-5.3); RED CELL DISTRIBUTION WIDTH 19.9 % (9.6-15.2)
[2020-08-25 06:12] LABS: MD NO
[2020-08-25 06:22] LABS: ALBUMIN 2.9 g/dL (3.4-5.0); ANION GAP 7 mmol/L (5-15); CALCIUM 7.6 mg/dL (8.5-10.1); CHLORIDE 101 mmol/L (98-107)
[2020-08-25 06:27] LABS: ALANINE AMINOTRANSFERASE 61 U/L (12-78); ALKALINE PHOSPHATASE 61 U/L (45-117); BILIRUBIN,TOTAL 0.6 mg/dL (0.2-1.0); CREATININE 0.61 mg/dL (0.55-1.02); TOTAL PROTEIN 5.6 g/dL (6.4-8.2)
--- NOTE | 2020-08-25 06:34 | NUR ---
CIWA DONE AND PT MEDICATED. VSS. PT ASSISTED TO BEDSIDE COMMODE. PT BACK IN BED AND HAS NO OTHER NEEDS. CALL LIGHT IN REACH
--- NOTE | 2020-08-25 06:50 | NUR ---
REPORT TO MARYAM MONTERO.
--- NOTE | 2020-08-25 07:44 | NUR ---
REPORT RECIVED, VSS, PT RESTING IN BED,
[2020-08-25] MEDS ORDERED: ONDANSETRON 2MG/ML, 2ML ONE (09:42)
[2020-08-25] MEDS: POTASSIUM CHLORIDE 20 MEQ in SODIUM CHLORIDE 0.9% 1,000 ML IV SCH ×2 (09:51→14:35)
[2020-08-25] MEDS: K-PHOS NEUTRAL 250MG TAB PO SCH ×3 (09:51→19:40)
--- NOTE | 2020-08-25 10:26 | NUR ---
PT HAD LARGE BOWEL MOVEMENT IN COMMODE. STOOL WAS LOOSE IN CONSISTENCY. COMMODE CLEANED AND RETURNED TO BEDSIDE. MEAL TRAY PROVIDED TO PT
--- NOTE | 2020-08-25 10:58 | NUR ---
PT RESTING IN BED NO DISTRESS
--- NOTE | 2020-08-25 12:33 | NUR ---
PT IN BED ADMIN MEDS PER CWIA
--- NOTE | 2020-08-25 14:09 | NUR ---
PT TRANSFERED TO TELE REPORT GIVEN TO PAULIE MONTERO, STARTED 18 IN ARM
[2020-08-25] MEDS ORDERED: POTASSIUM CHLORIDE 20 MEQ, MAGNESIUM SULFATE 1 GM, THIAMINE 200 MG, FOLIC ACID 1 MG, MV... IV SCH (15:00)
[2020-08-25 15:21] VITALS: BP 124/87
[2020-08-25] MEDS: METHOCARBAMOL 500 MG TABLET PO PRN (15:42)
[2020-08-25] MEDS: LORazepam 1MG TABLET PO PRN ×2 (15:43→19:41)
[2020-08-25] MEDS: OXYcodone IR 5MG TABLET PO PRN (19:41)
[2020-08-25 21:00] VITALS: BP 124/80
[2020-08-26] MEDS: OXYcodone IR 5MG TABLET PO PRN ×5 (00:07→18:24)
[2020-08-26] MEDS: LORazepam 1MG TABLET PO PRN ×6 (00:08→18:24)
[2020-08-26] MEDS: POTASSIUM CHLORIDE 20 MEQ in SODIUM CHLORIDE 0.9% 1,000 ML IV SCH ×3 (01:24→22:38)
[2020-08-26 01:45] VITALS: BP 108/74
[2020-08-26] MEDS: METHOCARBAMOL 500 MG TABLET PO PRN (04:09)
[2020-08-26 05:37] LABS: BASOPHILS % (AUTO) 1 % (0-1); EOSINOPHILS % (AUTO) 6 % (1-7); LYMPHOCYTES % (AUTO) 42 % (22-44); MEAN CORPUSCULAR HEMOGLOBIN 24.2 pg (27.0-34.8); MEAN PLATELET VOLUME 8.8 fL (7.4-10.4); MONOCYTES % (AUTO) 12 % (2-9); NEUTROPHILS % (AUTO) 40 % (42-75); PLATELET COUNT 84 x10^3/uL (130-400); RED BLOOD COUNT 3.68 x10^6/uL (3.82-5.3); RED CELL DISTRIBUTION WIDTH 19.9 % (9.6-15.2)
[2020-08-26 05:45] LABS: CHLORIDE 109 mmol/L (98-107)
[2020-08-26 05:48] LABS: MD NO
[2020-08-26 06:06] LABS: ALANINE AMINOTRANSFERASE 48 U/L (12-78); ALBUMIN 2.7 g/dL (3.4-5.0); ALKALINE PHOSPHATASE 57 U/L (45-117); ANION GAP 7 mmol/L (5-15); BILIRUBIN,TOTAL 0.4 mg/dL (0.2-1.0); CALCIUM 7.6 mg/dL (8.5-10.1); CREATININE 0.36 mg/dL (0.55-1.02); TOTAL PROTEIN 5.5 g/dL (6.4-8.2)
[2020-08-26 07:28] VITALS: BP 123/86
[2020-08-26 12:34] VITALS: BP 108/75
[2020-08-26] MEDS ORDERED: POTASSIUM CHLORIDE 20 MEQ, MAGNESIUM SULFATE 1 GM, THIAMINE 200 MG, FOLIC ACID 1 MG in ... IV SCH (14:00)
[2020-08-26] MEDS: PANTOPRAZOLE 20MG TABLET PO SCH (15:12)
[2020-08-26 16:12] VITALS: BP 120/82
[2020-08-26 18:44] VITALS: BP 126/89
[2020-08-26] MEDS: LORazepam 2 MG/ML, 1ML IV PRN (20:22)
[2020-08-27 02:25] VITALS: BP 130/89
[2020-08-27] MEDS: PANTOPRAZOLE 20MG TABLET PO SCH (05:43)
[2020-08-27 05:51] LABS: BASOPHILS % (AUTO) 1 % (0-1); EOSINOPHILS % (AUTO) 6 % (1-7); LYMPHOCYTES % (AUTO) 42 % (22-44); MEAN CORPUSCULAR HEMOGLOBIN 23.9 pg (27.0-34.8); MEAN CORPUSCULAR HGB CONC 30.7 g/dL (32.4-35.8); MONOCYTES % (AUTO) 11 % (2-9); NEUTROPHILS % (AUTO) 40 % (42-75); PLATELET COUNT 98 x10^3/uL (130-400); RED BLOOD COUNT 4.27 x10^6/uL (3.82-5.3); RED CELL DISTRIBUTION WIDTH 19.9 % (9.6-15.2)
[2020-08-27] MEDS: OXYcodone IR 5MG TABLET PO PRN (05:55)
[2020-08-27 06:02] LABS: ANION GAP 5 mmol/L (5-15); CALCIUM 8.8 mg/dL (8.5-10.1); CHLORIDE 110 mmol/L (98-107)
[2020-08-27 06:03] LABS: MD NO
[2020-08-27 06:05] LABS: ALANINE AMINOTRANSFERASE 58 U/L (12-78); ALKALINE PHOSPHATASE 69 U/L (45-117); BILIRUBIN,TOTAL 0.3 mg/dL (0.2-1.0); CREATININE 0.43 mg/dL (0.55-1.02); TOTAL PROTEIN 6.2 g/dL (6.4-8.2)
[2020-08-27] MEDS: POTASSIUM CHLORIDE 20 MEQ in SODIUM CHLORIDE 0.9% 1,000 ML IV SCH (06:27)
[2020-08-27 07:17] VITALS: BP 117/78
[2020-08-27] MEDS ORDERED: OMEP20CA20 PO (08:41)
[2020-08-27] MEDS ORDERED: ONDA4TAB13 PO (08:41)
[2020-08-27] MEDS ORDERED: FOLI-17 PO (08:41)
[2020-08-27] MEDS ORDERED: THIA100T67 PO (08:41)
[2020-08-27] MEDS ORDERED: MULT-658 PO (08:41)
== END 2020-08-27 17:37 | disposition home or self-care (01) | DRG 638 ==
LOC: ED 16:07 → EDIP 16:33 → 5SO 08-25 14:32 → 3N 08-26 16:07
PROVIDERS: ADMIT Hospitalist; ATTEND Hospitalist
DX: E11.65 Type 2 diabetes mellitus with hyperglycemia (principal); F10.139 Alcohol abuse with withdrawal, unspecified; E87.2 Acidosis; D50.9 Iron deficiency anemia, unspecified; D69.6 Thrombocytopenia, unspecified; E83.42 Hypomagnesemia; F12.90 Cannabis use, unspecified, uncomplicated; F17.210 Nicotine dependence, cigarettes, uncomplicated; F41.1 Generalized anxiety disorder; K76.0 Fatty (change of) liver, not elsewhere classified; R00.0 Tachycardia, unspecified; Z80.0 Family history of malignant neoplasm of digestive organs; Z82.49 Family history of ischemic heart disease and other diseases of the circulatory system
CPT/HCPCS: 36415; 36600; 76700; 80048; 80053; 80307; 80320; 81001; 82010; 82803; 82962; 83605; 83690; 83735; 83930; 84100; 85014; 85018; 85025; 87086; 99291; G0378; J1885; J2405; J3411; J3475; J3480; J7070; G0480; J2060; J7030

== ENCOUNTER 2020-09-07 03:45 | Inpatient (IN) | payer MEDICAID ==
[~2020-09-07] VITALS: Ht 162.6 cm; Wt 70.7 kg
[2020-09-07] MEDS ORDERED: SODIUM CHLORIDE 0.9% 1,000ML IVBOLUS ONE (04:00)
[2020-09-07] MEDS ORDERED: THIAMINE 100MG TABLET PO ONE (04:00)
[2020-09-07] MEDS ORDERED: ONDANSETRON ODT 4 MG PO ONE (04:00)
[2020-09-07] MEDS ORDERED: SODIUM CHLORIDE FLUSH 10ML SYR IVF ONE (04:00)
[2020-09-07] MEDS ORDERED: ONDANSETRON 2MG/ML, 2ML IVPush ONE (04:00)
[2020-09-07] MEDS ORDERED: ONDANSETRON 2MG/ML, 2ML ONE (04:23)
[2020-09-07 05:02] LABS: BASOPHILS % (AUTO) 3 % (0-1); EOSINOPHILS % (AUTO) 0 % (1-7); LYMPHOCYTES % (AUTO) 23 % (22-44); MEAN CORPUSCULAR HGB CONC 30.1 g/dL (32.4-35.8); MEAN PLATELET VOLUME 8.6 fL (7.4-10.4); MONOCYTES % (AUTO) 7 % (2-9); NEUTROPHILS % (AUTO) 67 % (42-75); PLATELET COUNT 291 x10^3/uL (130-400); RED BLOOD COUNT 4.26 x10^6/uL (3.82-5.3); RED CELL DISTRIBUTION WIDTH 19.9 % (9.6-15.2)
[2020-09-07 05:14] LABS: ALANINE AMINOTRANSFERASE 90 U/L (12-78); ALBUMIN 3.9 g/dL (3.4-5.0); ANION GAP 20 mmol/L (5-15); CALCIUM 8.3 mg/dL (8.5-10.1); CHLORIDE 107 mmol/L (98-107); CREATININE 0.45 mg/dL (0.55-1.02)
[2020-09-07 05:19] LABS: ALKALINE PHOSPHATASE 78 U/L (45-117); BILIRUBIN,TOTAL 0.5 mg/dL (0.2-1.0); TOTAL PROTEIN 7.5 g/dL (6.4-8.2)
[2020-09-07] MEDS ORDERED: LORazepam 2 MG/ML, 1ML IVPush ONE (05:30)
[2020-09-07] MEDS ORDERED: LORazepam 2 MG/ML, 1ML ONE (05:34)
[2020-09-07] MEDS ORDERED: PROMETHAZINE 25 MG/ML, 1ML ONE (05:39)
--- NOTE | 2020-09-07 05:40 | NUR ---
Assisted patient to BR. Patient ambulated with a steady gait.
--- NOTE | 2020-09-07 05:45 | NUR ---
Patient c/o nausea. Medicated patient per mar.
[2020-09-07 05:50] LABS: MD SCAN
[2020-09-07] MEDS ORDERED: MORPHINE SULFATE 4 MG/ML, 1ML IVPush PRN (06:00)
[2020-09-07] MEDS ORDERED: SODIUM CHLORIDE 0.9% 1,000 ML IV ONE (06:00)
[2020-09-07] MEDS ORDERED: PROMETHAZINE 25 MG/ML, 1ML IM ONE (06:00)
[2020-09-07] MEDS ORDERED: ONDANSETRON 2MG/ML, 2ML IVPush PRN (06:00)
[2020-09-07] MEDS ORDERED: DEXTROSE 5% 1,000 ML IV ONE (06:00)
[2020-09-07 06:26] LABS: MICROSCOPIC AUTO
--- NOTE | 2020-09-07 06:57 | NUR ---
Report to WINSTON Gage. Patient care transferred.
--- NOTE | 2020-09-07 07:05 | NUR ---
RECEIVED REPORT FROM CHERELLE MONTERO. PT AMBULATED TO WITH 1-ASSIST, BACK TO [facility] WITH C/O INCR NV FOLLOWING MOVEMENT, BETTER AFTER RETURNING TO [facility], RESPONDS APPROP TO STAFF, COMFORT MEASURES PROVIDED, CALL LIGHT WITHIN REACH.
--- NOTE | 2020-09-07 07:17 | NUR ---
Pt to be admitted to [facility], room 5007. Report called to Beryl. Addendum: 09/07/20 at 0717 by TENISHA Pt to be admitted to [facility], room 507. Report called to Beryl.
[2020-09-07] MEDS ORDERED: LORazepam 1MG TABLET PO PRN ×2 (07:30)
[2020-09-07] MEDS ORDERED: ONDANSETRON ODT 4 MG PO PRN (07:30)
[2020-09-07] MEDS ORDERED: METHOCARBAMOL 500 MG TABLET PO PRN (07:30)
[2020-09-07] MEDS ORDERED: LORazepam 2 MG/ML, 1ML IV PRN ×4 (07:30)
[2020-09-07] MEDS ORDERED: ENALAPRILAT 1.25 MG/ML, 2ML IVPush PRN (07:30)
[2020-09-07 07:51] VITALS: BP 139/88
[2020-09-07] MEDS: ONDANSETRON 2MG/ML, 2ML IVPush PRN ×2 (08:14→11:24)
[2020-09-07] MEDS: LORazepam 2 MG/ML, 1ML IV PRN ×4 (09:08→14:35)
[2020-09-07] MEDS: MAGNESIUM SULFATE IV SCH ×2 (09:25→18:45)
[2020-09-07] MEDS: FOLIC ACID IV SCH ×2 (09:25→18:45)
[2020-09-07] MEDS: [UNRECOGNIZED DRUG - OTHER] IV SCH ×2 (09:25→18:45)
[2020-09-07] MEDS: POTASSIUM CHLORIDE IV SCH ×2 (09:25→18:45)
[2020-09-07 11:10] VITALS: BP 139/88
[2020-09-07] MEDS: ACETAMINOPHEN 325 MG TABLET PO PRN ×2 (11:24→18:10)
[2020-09-07 13:09] VITALS: BP 120/81
[2020-09-07] MEDS: MULTIVITAMINS/MINERALS TABLET PO SCH (17:44)
[2020-09-07] MEDS: LORazepam 0.5MG TABLET PO PRN (17:44)
[2020-09-07 19:15] VITALS: BP 112/72
[2020-09-07] MEDS: LORazepam 1MG TABLET PO PRN (20:26)
[2020-09-08 01:01] VITALS: BP 103/67
[2020-09-08] MEDS: TEMAZEPAM 15 MG CAPSULE PO PRN ×2 (02:50→20:07)
[2020-09-08 05:11] LABS: BASOPHILS % (AUTO) 1 % (0-1); EOSINOPHILS % (AUTO) 6 % (1-7); LYMPHOCYTES % (AUTO) 30 % (22-44); MEAN CORPUSCULAR HEMOGLOBIN 24.4 pg (27.0-34.8); MEAN CORPUSCULAR HGB CONC 31.4 g/dL (32.4-35.8); MEAN PLATELET VOLUME 8.5 fL (7.4-10.4); MONOCYTES % (AUTO) 10 % (2-9); NEUTROPHILS % (AUTO) 54 % (42-75); PLATELET COUNT 212 x10^3/uL (130-400); RED BLOOD COUNT 3.76 x10^6/uL (3.82-5.3); RED CELL DISTRIBUTION WIDTH 19.6 % (9.6-15.2)
[2020-09-08 05:20] LABS: ALBUMIN 3.1 g/dL (3.4-5.0); ANION GAP 7 mmol/L (5-15); CALCIUM 8.2 mg/dL (8.5-10.1); CHLORIDE 109 mmol/L (98-107)
[2020-09-08 05:21] LABS: MD NO
[2020-09-08 05:25] LABS: ALANINE AMINOTRANSFERASE 67 U/L (12-78); ALKALINE PHOSPHATASE 63 U/L (45-117); BILIRUBIN,TOTAL 0.6 mg/dL (0.2-1.0); CREATININE 0.55 mg/dL (0.55-1.02); TOTAL PROTEIN 5.9 g/dL (6.4-8.2)
[2020-09-08 07:32] VITALS: BP 119/78
[2020-09-08] MEDS ORDERED: THIAMINE 100 MG in DEXTROSE 5% 50 ML IVPB SCH (09:00)
[2020-09-08] MEDS: LORazepam 1MG TABLET PO PRN ×4 (09:04→18:03)
[2020-09-08] MEDS: OMEPRAZOLE 20 MG CAPSULE.DR PO SCH ×2 (09:04→16:48)
[2020-09-08] MEDS: THIAMINE 100MG TABLET PO SCH (09:04)
[2020-09-08] MEDS: MULTIVITAMINS/MINERALS TABLET PO SCH (09:04)
[2020-09-08] MEDS: NICOTINE 21 MG/24 HR PATCH.TD24 TD SCH (10:58)
[2020-09-08] MEDS: [UNRECOGNIZED DRUG - OTHER] IV SCH ×2 (10:58→17:55)
[2020-09-08] MEDS: FOLIC ACID IV SCH ×2 (10:58→17:55)
[2020-09-08] MEDS: POTASSIUM CHLORIDE IV SCH ×2 (10:58→17:55)
[2020-09-08] MEDS: MAGNESIUM SULFATE IV SCH ×2 (10:58→17:55)
[2020-09-08 13:05] VITALS: BP 122/84
[2020-09-08 19:41] VITALS: BP 111/77
[2020-09-08] MEDS: ACETAMINOPHEN 325 MG TABLET PO PRN (20:07)
[2020-09-08] MEDS: LORazepam 0.5MG TABLET PO PRN (20:07)
[2020-09-09 00:58] VITALS: BP 118/81
[2020-09-09] MEDS: MAGNESIUM SULFATE IV SCH ×2 (02:07→11:14)
[2020-09-09] MEDS: [UNRECOGNIZED DRUG - OTHER] IV SCH ×2 (02:07→11:14)
[2020-09-09] MEDS: FOLIC ACID IV SCH ×2 (02:07→11:14)
[2020-09-09] MEDS: POTASSIUM CHLORIDE IV SCH ×2 (02:07→11:14)
[2020-09-09 05:25] LABS: BASOPHILS % (AUTO) 2 % (0-1); EOSINOPHILS % (AUTO) 9 % (1-7); LYMPHOCYTES % (AUTO) 30 % (22-44); MEAN CORPUSCULAR HEMOGLOBIN 24.4 pg (27.0-34.8); MEAN CORPUSCULAR HGB CONC 30.8 g/dL (32.4-35.8); MEAN PLATELET VOLUME 8.6 fL (7.4-10.4); MONOCYTES % (AUTO) 8 % (2-9); NEUTROPHILS % (AUTO) 52 % (42-75); PLATELET COUNT 188 x10^3/uL (130-400); RED BLOOD COUNT 3.84 x10^6/uL (3.82-5.3); RED CELL DISTRIBUTION WIDTH 19.9 % (9.6-15.2)
[2020-09-09 05:26] LABS: MD NO
[2020-09-09 05:38] LABS: ALANINE AMINOTRANSFERASE 47 U/L (12-78); ALBUMIN 2.9 g/dL (3.4-5.0); ANION GAP 7 mmol/L (5-15); CALCIUM 8.2 mg/dL (8.5-10.1); CHLORIDE 112 mmol/L (98-107); CREATININE 0.46 mg/dL (0.55-1.02); IRON LEVEL 17 mcg/dL (50-170)
[2020-09-09 05:42] LABS: % IRON SATURATION 6 % (20-55); ALKALINE PHOSPHATASE 64 U/L (45-117); BILIRUBIN,TOTAL 0.2 mg/dL (0.2-1.0); TOTAL IRON BINDING CAPACITY 293 mcg/dL (250-450); TOTAL PROTEIN 5.7 g/dL (6.4-8.2)
[2020-09-09] MEDS: ACETAMINOPHEN 325 MG TABLET PO PRN (06:22)
[2020-09-09] MEDS: LORazepam 1MG TABLET PO PRN (06:22)
[2020-09-09] MEDS: OMEPRAZOLE 20 MG CAPSULE.DR PO SCH (06:22)
[2020-09-09 07:20] VITALS: BP 121/82
[2020-09-09] MEDS ORDERED: OMEP20CA20 PO (09:06)
[2020-09-09] MEDS: NICOTINE 21 MG/24 HR PATCH.TD24 TD SCH (09:26)
[2020-09-09] MEDS: THIAMINE 100MG TABLET PO SCH (09:26)
[2020-09-09] MEDS: MULTIVITAMINS/MINERALS TABLET PO SCH (09:26)
[2020-09-09 13:20] VITALS: BP 133/80
== END 2020-09-09 13:50 | disposition home or self-care (01) | DRG 897 ==
LOC: ED 06:15 → EDIP 06:17 → 5SO 07:33 → DCLOUNGE 09-09 13:43
PROVIDERS: ADMIT Hospitalist; ATTEND Hospitalist
DX: F10.239 Alcohol dependence with withdrawal, unspecified (principal); E87.2 Acidosis; D50.9 Iron deficiency anemia, unspecified; D69.6 Thrombocytopenia, unspecified; E16.2 Hypoglycemia, unspecified; E83.42 Hypomagnesemia; E86.0 Dehydration; F17.210 Nicotine dependence, cigarettes, uncomplicated; G47.9 Sleep disorder, unspecified; F15.10 Other stimulant abuse, uncomplicated; Y90.9 Presence of alcohol in blood, level not specified
CPT/HCPCS: 36415; J7042; 80053; 80320; 81001; 82962; 83540; 83550; 83690; 83735; 84703; 85025; 87086; 93005; G0378; J2405; J2550; J3411; J3475; J3480; J7070; G0480; J2060; J7030

== ENCOUNTER 2020-11-14 16:59 | Inpatient (IN) | payer MEDICAID ==
[~2020-11-14] VITALS: Ht 162.6 cm; Wt 74.5 kg
[~2020-11-14 16:59] MED LIST changes: -FOLI-17 PO; +FOLI1TAB32 PO; +SERT-331 PO; -SERT25TA3 PO
--- NOTE | 2020-11-14 17:30 | NUR ---
PATIENT BIB EMS WITH CHIEF C/O N/V AND WEAKNESS. PER EMS PATIENT NORMALLY DRINKS 1/5 OF ALCOHOL PER DAY, TODAY DRANK A PINT AROUND 0200 AM. PATIENT HAS HISTORY OF DKA. BLOOD GLUCOSE AT SCENE WAS 89, CO2 WAS 25, OTHER VSS. A&O X4, GCS 15. NO OTHER INTERVENTIONS, EMS TRIED STARTING AN IV X2, UNSUCCESSFUL. UPON ASSESSMENT PATIENT'S BLOOD GLUCOSE IS 60, 2 EPISODES OF EMESIS, C/O RIGHT SIDE PAIN, CONNECTED TO MONITOR, VSS, SIDE RAILS UP X2, CALL LIGHT WITHIN REACH.
--- NOTE | 2020-11-14 17:42 | NUR ---
SPOKE WITH PHARMACY ABOUT SENDING D10, NOT IN OMNICELL IN ED. PHARMACY WILL SEND NOW.
--- NOTE | 2020-11-14 17:51 | NUR ---
ERMD AT BEDSIDE FOR EVALUATION.
--- NOTE | 2020-11-14 17:56 | NUR ---
THIAMINE AND NS HUNG, PATIENT PROVIDED APPLE JUICE, HR 122 SINUS TACH, OTHER VSS, NADN, SIDE RAILS UP X2, SEIZURE PRECAUTIONS IN PLACE.
[2020-11-14 18:00] LABS: ALANINE AMINOTRANSFERASE 64 U/L (12-78); ALBUMIN 4.1 g/dL (3.4-5.0); ANION GAP 15 mmol/L (5-15); CALCIUM 8.4 mg/dL (8.5-10.1); CHLORIDE 108 mmol/L (98-107); CREATININE 0.56 mg/dL (0.55-1.02)
[2020-11-14] MEDS ORDERED: DEXTROSE 10%, 250ML IV ONE (18:00)
[2020-11-14] MEDS ORDERED: DEXTROSE 10%, 1,000ML IV ONE (18:00)
[2020-11-14 18:02] LABS: ALKALINE PHOSPHATASE 82 U/L (45-117); BILIRUBIN,TOTAL 0.3 mg/dL (0.2-1.0); TOTAL PROTEIN 8.2 g/dL (6.4-8.2)
[2020-11-14 18:04] LABS: BASOPHILS % (AUTO) 2 % (0-1); EOSINOPHILS % (AUTO) 0 % (1-7); LYMPHOCYTES % (AUTO) 33 % (22-44); MEAN CORPUSCULAR HGB CONC 30.4 g/dL (32.4-35.8); MEAN PLATELET VOLUME 7.9 fL (7.4-10.4); MONOCYTES % (AUTO) 6 % (2-9); NEUTROPHILS % (AUTO) 58 % (42-75); PLATELET COUNT 279 x10^3/uL (130-400); RED BLOOD COUNT 4.41 x10^6/uL (3.82-5.3); RED CELL DISTRIBUTION WIDTH 21.6 % (9.6-15.2)
[2020-11-14 18:06] LABS: ACETONE, SERUM Large (80mg/dL) (Negative)
--- NOTE | 2020-11-14 18:12 | NUR ---
D10 HUNG, PATIENT LAYING IN GURNEY TALKING ON PHONE, VSS, BSC PLACED IN ROOM, CALL LIGHT WITHIN REACH.
[2020-11-14] MEDS ORDERED: SODIUM CHLORIDE 0.9% 1,000ML IVBOLUS ONE ×2 (18:30→19:00)
[2020-11-14 18:37] LABS: MD SCAN
--- NOTE | 2020-11-14 18:46 | NUR ---
REPORT GIVEN TO WINSTON FITZGERALD FOR TRANSFER OF PATIENT CARE.
--- NOTE | 2020-11-14 19:18 | NUR ---
ASSISTED PATIENT UP TO BSC. PATIENT DID BECOME NAUSEA WITH SOME DRY HEAVING UPON ACTIVITY. UA COLLECTED AND WALKED TO LAB BY THIS RN. VS REMAIN STABLE. PATIENT REQUESTING NAUSEA MEDICATIONS. STEADY STAND PIVOT TO BSC. WILL CONTINUE TO MONITOR.
[2020-11-14] MEDS ORDERED: ONDANSETRON 2MG/ML, 2ML IVPush ONE (19:30)
[2020-11-14] MEDS ORDERED: PANTOPRAZOLE 40 MG IV IVPush ONE (19:30)
[2020-11-14 19:34] LABS: MICROSCOPIC AUTO
[2020-11-14] MEDS ORDERED: PANTOPRAZOLE 40 MG IV ONE (19:42)
[2020-11-14] MEDS ORDERED: ONDANSETRON 2MG/ML, 2ML ONE (19:42)
--- NOTE | 2020-11-14 20:13 | NUR ---
PATIENT ASSISTED TO BSC. ACTIVE N/V AT THIS TIME. ZOFRAN AND PROTONIX ADMINISTERED. WILL CONTINUE TO MONITOR. PATIENT REQUESTING ATIVAN AND WATER. DR. JARAMILLO IN TO SEE PATIENT. WILL CONTINUE TO MONITOR. SHE HAS NO OTHER CIWA CRITERIA AT THIS TIME. WILL MONITOR FOR WORSENING WITHDRAWAL SYMPTOMS. SAFETY MAINTAINED. CALL CURRAN IN REACH
[2020-11-14] MEDS ORDERED: LORazepam 2 MG/ML, 1ML IVPush ONE (20:30)
[2020-11-14] MEDS ORDERED: POTASSIUM CHLORIDE 20 MEQ, MAGNESIUM SULFATE 1 GM, FOLIC ACID 1 MG, THIAMINE 200 MG in ... IV ONE (20:30)
[2020-11-14] MEDS ORDERED: LORazepam 2 MG/ML, 1ML ONE (20:49)
--- NOTE | 2020-11-14 21:08 | NUR ---
REPORT GIVEN TO BRENNEN MONTERO
--- NOTE | 2020-11-14 21:15 | NUR ---
PATIENT RESTING INBED WITH LIGHTS OFF PER PREFERENCE. CALL CURRAN IN REACH
[2020-11-14 21:33] VITALS: BP 120/84
[2020-11-14] MEDS ORDERED: LABETALOL 5MG/ML, 20ML IVPush PRN (22:00)
[2020-11-14] MEDS ORDERED: MAALOX/HYOSCYAMINE/LIDOCAINE 45 ML BTL PO ONE (22:00)
[2020-11-14] MEDS ORDERED: ONDANSETRON 2MG/ML, 2ML IVPush PRN (22:00)
[2020-11-14] MEDS ORDERED: POTASSIUM CHLORIDE 20 MEQ, MAGNESIUM SULFATE 2 GM, THIAMINE 200 MG, MVI ADULT 10 ML, FO... IV SCH (22:00)
[2020-11-14] MEDS ORDERED: PROMETHAZINE 25 MG/ML, 1ML IM PRN (22:00)
[2020-11-14] MEDS: ACETAMINOPHEN 325 MG TABLET PO PRN (22:19)
[2020-11-14] MEDS: PANTOPRAZOLE 40MG TABLET PO SCH (22:20)
[2020-11-15 00:33] VITALS: BP 110/74
[2020-11-15] MEDS: LORazepam 2 MG/ML, 1ML IV PRN ×7 (00:52→21:37)
[2020-11-15] MEDS ORDERED: LORazepam 2 MG/ML, 1ML IV PRN ×2 (01:00)
[2020-11-15] MEDS: ACETAMINOPHEN 325 MG TABLET PO PRN (02:34)
[2020-11-15 02:46] LABS: AMPHETAMINE SCREEN, URINE Negative (Negative); BARBITURATE SCREEN, URINE Negative (Negative); BENZODIAZEPINE SCREEN, URINE Positive (Negative); CANNABINOID SCREEN, URINE Positive (Negative); COCAINE SCREEN, URINE Negative (Negative); METHADONE SCREEN, URINE Negative (Negative); OPIATE SCREEN, URINE Negative (Negative)
[2020-11-15 05:38] LABS: BASOPHILS % (AUTO) 1 % (0-1); EOSINOPHILS % (AUTO) 2 % (1-7); LYMPHOCYTES % (AUTO) 35 % (22-44); MEAN CORPUSCULAR HGB CONC 30.8 g/dL (32.4-35.8); MEAN PLATELET VOLUME 8.3 fL (7.4-10.4); MONOCYTES % (AUTO) 10 % (2-9); NEUTROPHILS % (AUTO) 53 % (42-75); PLATELET COUNT 242 x10^3/uL (130-400); RED BLOOD COUNT 3.86 x10^6/uL (3.82-5.3); RED CELL DISTRIBUTION WIDTH 21.4 % (9.6-15.2)
[2020-11-15 05:46] LABS: ANION GAP 7 mmol/L (5-15); CALCIUM 7.9 mg/dL (8.5-10.1); CHLORIDE 108 mmol/L (98-107); CREATININE 0.48 mg/dL (0.55-1.02)
[2020-11-15 06:08] LABS: MD SCAN
[2020-11-15] MEDS ORDERED: DEXTROSE 4 GM TAB.CHEW PO PRN (06:30)
[2020-11-15] MEDS ORDERED: DEXTROSE 50%, 50ML SYRINGE IVPush PRN (06:30)
[2020-11-15] MEDS ORDERED: GLUCAGON 1 MG IM PRN (06:30)
[2020-11-15 07:12] VITALS: BP 115/79
[2020-11-15] MEDS: PANTOPRAZOLE 40 MG IV IVPush SCH (07:30)
[2020-11-15] MEDS: PANTOPRAZOLE 40MG TABLET PO SCH (07:58)
[2020-11-15] MEDS: SODIUM CHLORIDE FLUSH 10ML SYR IVF SCH ×2 (08:00→21:38)
[2020-11-15] MEDS: BUTALB/APAP/CAFFEINE 50MG/325MG/40MG PO PRN ×2 (12:51→21:29)
[2020-11-15 14:00] VITALS: BP 129/79
[2020-11-15] MEDS: MELATONIN 5 MG TABLET PO PRN (21:29)
[2020-11-15] MEDS: POTASSIUM CHLORIDE 20 MEQ, MAGNESIUM SULFATE 2 GM, THIAMINE 200 MG, FOLIC ACID 1 MG in ... IV SCH (21:37)
[2020-11-15 21:48] VITALS: BP 118/86
[2020-11-16 00:39] VITALS: BP 129/89
[2020-11-16] MEDS: DIAZEPAM 5 MG TABLET PO SCH ×4 (01:00→19:00)
[2020-11-16] MEDS: DIAZEPAM 10 MG TABLET PO SCH ×4 (01:05→18:38)
[2020-11-16] MEDS: LORazepam 2 MG/ML, 1ML IV PRN ×4 (04:32→22:44)
[2020-11-16 06:55] VITALS: BP 120/86
[2020-11-16] MEDS: PANTOPRAZOLE 40 MG IV IVPush SCH (07:30)
[2020-11-16] MEDS: SODIUM CHLORIDE FLUSH 10ML SYR IVF SCH ×2 (07:42→21:17)
[2020-11-16] MEDS: PANTOPRAZOLE 40MG TABLET PO SCH (07:42)
[2020-11-16 12:47] VITALS: BP 127/89
[2020-11-16] MEDS: NICOTINE 14MG/24 HR PATCH.TD24 TD SCH (14:01)
[2020-11-16 18:45] VITALS: BP 119/89
[2020-11-16] MEDS: MELATONIN 5 MG TABLET PO PRN (21:16)
[2020-11-16] MEDS: BUTALB/APAP/CAFFEINE 50MG/325MG/40MG PO PRN (21:16)
[2020-11-16] MEDS: POTASSIUM CHLORIDE 20 MEQ, MAGNESIUM SULFATE 2 GM, THIAMINE 200 MG, FOLIC ACID 1 MG in ... IV SCH (21:17)
[2020-11-17] MEDS: DIAZEPAM 5 MG TABLET PO SCH ×4 (00:53→20:28)
[2020-11-17 01:02] VITALS: BP 100/64
[2020-11-17 07:28] VITALS: BP 116/76
[2020-11-17] MEDS: PANTOPRAZOLE 40 MG IV IVPush SCH (07:30)
[2020-11-17] MEDS: PANTOPRAZOLE 40MG TABLET PO SCH (08:43)
[2020-11-17] MEDS: SODIUM CHLORIDE FLUSH 10ML SYR IVF SCH ×2 (09:00→20:28)
[2020-11-17] MEDS ORDERED: IRON SUCROSE COMPLEX 100MG/5ML IV SCH (11:00)
[2020-11-17] MEDS: METOPROLOL TARTRATE 25 MG TAB PO SCH ×2 (12:21→18:21)
[2020-11-17] MEDS: BUTALB/APAP/CAFFEINE 50MG/325MG/40MG PO PRN (12:21)
[2020-11-17] MEDS: NICOTINE 14MG/24 HR PATCH.TD24 TD SCH (13:00)
[2020-11-17 14:40] VITALS: BP 109/75
[2020-11-17] MEDS: LORazepam 2 MG/ML, 1ML IV PRN (18:22)
[2020-11-17 18:38] VITALS: BP 102/68
[2020-11-17] MEDS: POTASSIUM CHLORIDE 20 MEQ, MAGNESIUM SULFATE 2 GM, THIAMINE 200 MG, FOLIC ACID 1 MG in ... IV SCH (20:28)
== END 2020-11-17 23:04 | disposition left against medical advice (07) | DRG 638 ==
LOC: ED 17:20 → EDIP 20:37 → 4WST 21:26
PROVIDERS: ADMIT Family Medicine; ATTEND Hospitalist
DX: E11.649 Type 2 diabetes mellitus with hypoglycemia without coma (principal); E87.2 Acidosis; F10.239 Alcohol dependence with withdrawal, unspecified; E46 Unspecified protein-calorie malnutrition; Z53.29 Procedure and treatment not carried out because of patient's decision for other reasons; D50.9 Iron deficiency anemia, unspecified; E86.0 Dehydration; F17.210 Nicotine dependence, cigarettes, uncomplicated; G43.909 Migraine, unspecified, not intractable, without status migrainosus; F12.90 Cannabis use, unspecified, uncomplicated; F17.200 Nicotine dependence, unspecified, uncomplicated; F41.1 Generalized anxiety disorder; R00.0 Tachycardia, unspecified; Z82.49 Family history of ischemic heart disease and other diseases of the circulatory system; Z80.0 Family history of malignant neoplasm of digestive organs; Z82.3 Family history of stroke; Z82.5 Family history of asthma and other chronic lower respiratory diseases; Z80.3 Family history of malignant neoplasm of breast; Z87.19 Personal history of other diseases of the digestive system; Z71.6 Tobacco abuse counseling; Z68.28 Body mass index [BMI] 28.0-28.9, adult
CPT/HCPCS: 36415; 96361; 96374; 96375; 99291; J7042; 80048; 80053; 80307; 80320; 81001; 82010; 82728; 82962; 83690; 85025; 87086; G0378; J1756; J2405; J3411; J3475; J3480; J7070; C9113; G0480; J2060; J7030

== ENCOUNTER 2020-11-27 22:50 | Inpatient (IN) | payer MEDICAID ==
[~2020-11-27] VITALS: Ht 162.6 cm; Wt 90.8 kg
[2020-11-27] MEDS ORDERED: SODIUM CHLORIDE 0.9% 1,000ML IVBOLUS ONE (23:00)
[2020-11-27] MEDS ORDERED: ONDANSETRON 2MG/ML, 2ML IVPush ONE (23:00)
[2020-11-27] MEDS ORDERED: SODIUM CHLORIDE FLUSH 10ML SYR IVF ONE (23:00)
[2020-11-27 23:24] LABS: ALANINE AMINOTRANSFERASE 61 U/L (12-78); ALBUMIN 4.4 g/dL (3.4-5.0); ANION GAP 21 mmol/L (5-15); CALCIUM 10.2 mg/dL (8.5-10.1); CHLORIDE 104 mmol/L (98-107); CREATININE 0.54 mg/dL (0.55-1.02)
[2020-11-27 23:27] LABS: BASOPHILS % (AUTO) 2 % (0-1); EOSINOPHILS % (AUTO) 1 % (1-7); LYMPHOCYTES % (AUTO) 22 % (22-44); MEAN CORPUSCULAR HGB CONC 30.3 g/dL (32.4-35.8); MEAN PLATELET VOLUME 8.8 fL (7.4-10.4); MONOCYTES % (AUTO) 9 % (2-9); NEUTROPHILS % (AUTO) 66 % (42-75); PLATELET COUNT 379 x10^3/uL (130-400); RED BLOOD COUNT 4.65 x10^6/uL (3.82-5.3)
[2020-11-27 23:28] LABS: MD NO
[2020-11-27 23:29] LABS: ALKALINE PHOSPHATASE 109 U/L (45-117); BILIRUBIN,TOTAL 0.7 mg/dL (0.2-1.0); TOTAL PROTEIN 8.7 g/dL (6.4-8.2)
[2020-11-28] MEDS ORDERED: MAALOX/HYOSCYAMINE/LIDOCAINE 45 ML BTL ONE (00:22)
[2020-11-28] MEDS ORDERED: PROMETHAZINE 25 MG/ML, 1ML ONE (00:22)
[2020-11-28] MEDS ORDERED: PROMETHAZINE 25 MG/ML, 1ML IM ONE (00:30)
[2020-11-28] MEDS ORDERED: MAALOX/HYOSCYAMINE/LIDOCAINE 45 ML BTL PO ONE (00:30)
[2020-11-28] MEDS ORDERED: POTASSIUM CHLORIDE 10 MEQ in DEXTROSE 10% 1,000 ML IV SCH (00:30)
--- NOTE | 2020-11-28 00:44 | NUR ---
Pt to ER with c/o vomiting and having blood sugar issues. Pt states she drinks a lot and had to get admitted for acidosis. Pt to Room, on monitor. IV placed and pt medicated per order. Labs drawn and EKG done in triage. Pt medicated per order. Will monitor.
--- NOTE | 2020-11-28 01:09 | NUR ---
Pt calm in bed. States feeling better. Report called to Earline MONTERO
[2020-11-28] MEDS ORDERED: POTASSIUM CHLORIDE 20 MEQ, MAGNESIUM SULFATE 2 GM, THIAMINE 200 MG, FOLIC ACID 1 MG in ... IV SCH ×2 (02:00→12:00)
[2020-11-28] MEDS ORDERED: ONDANSETRON 2MG/ML, 2ML IVPush PRN (02:00)
[2020-11-28] MEDS ORDERED: ONDANSETRON ODT 4 MG PO PRN (02:00)
[2020-11-28] MEDS ORDERED: LORazepam 1MG TABLET PO PRN ×2 (02:00)
[2020-11-28] MEDS ORDERED: BISACODYL 10 MG SUPP PR PRN (02:00)
[2020-11-28] MEDS ORDERED: LORazepam 2 MG/ML, 1ML IV PRN ×5 (02:00)
[2020-11-28] MEDS ORDERED: PROMETHAZINE 25 MG/ML, 1ML IM PRN (02:00)
[2020-11-28] MEDS: ENOXAPARIN 40 MG/0.4 ML SQ SCH ×2 (02:00→02:10)
[2020-11-28] MEDS ORDERED: POLYETHYLENE GLYCOL 17 GM PACKET PO PRN (02:00)
[2020-11-28] MEDS ORDERED: hydrALAzine 20 MG/ML, 1ML IVPush PRN (02:00)
[2020-11-28] MEDS ORDERED: DOCUSATE 100 MG CAPSULE PO PRN (02:00)
[2020-11-28] MEDS: SUCRALFATE 1 GM/10 ML UDC PO SCH ×5 (02:10→21:12)
[2020-11-28] MEDS: PANTOPRAZOLE 40 MG IV IVPush SCH ×2 (02:10→14:05)
[2020-11-28] MEDS: CHLORDIAZEPOXIDE 10 MG CAPSULE PO SCH ×4 (02:10→21:12)
[2020-11-28] MEDS: LORazepam 1MG TABLET PO PRN ×2 (02:10→08:27)
[2020-11-28 02:29] LABS: FREE T4 (FREE THYROXINE) 0.85 ng/dL (0.76-1.46)
[2020-11-28 02:30] VITALS: BP 146/96
[2020-11-28 07:47] VITALS: BP 124/88
[2020-11-28] MEDS: OXYcodone IR 5MG TABLET PO PRN ×4 (08:27→21:12)
[2020-11-28 11:00] LABS: MICROSCOPIC AUTO
[2020-11-28 12:04] VITALS: BP 106/77
[2020-11-28] MEDS: LORazepam 0.5MG TABLET PO PRN ×3 (12:22→21:12)
[2020-11-28 20:10] VITALS: BP 101/67
[2020-11-29] MEDS: ENOXAPARIN 40 MG/0.4 ML SQ SCH (01:36)
[2020-11-29] MEDS: LORazepam 1MG TABLET PO PRN ×2 (01:44→14:50)
[2020-11-29] MEDS: PANTOPRAZOLE 40 MG IV IVPush SCH (01:44)
[2020-11-29 02:32] VITALS: BP 109/70
[2020-11-29] MEDS: POTASSIUM CHLORIDE 20 MEQ, MAGNESIUM SULFATE 2 GM, THIAMINE 200 MG, FOLIC ACID 1 MG in ... IV SCH (03:35)
[2020-11-29 05:31] LABS: BASOPHILS % (AUTO) 2 % (0-1); EOSINOPHILS % (AUTO) 9 % (1-7); LYMPHOCYTES % (AUTO) 35 % (22-44); MEAN CORPUSCULAR HGB CONC 30.4 g/dL (32.4-35.8); MEAN PLATELET VOLUME 8.6 fL (7.4-10.4); MONOCYTES % (AUTO) 8 % (2-9); NEUTROPHILS % (AUTO) 47 % (42-75); PLATELET COUNT 263 x10^3/uL (130-400)
[2020-11-29 05:35] LABS: MD NO
[2020-11-29 05:43] LABS: ALBUMIN 3.1 g/dL (3.4-5.0); ANION GAP 4 mmol/L (5-15); CALCIUM 8.3 mg/dL (8.5-10.1); CHLORIDE 109 mmol/L (98-107)
[2020-11-29 05:47] LABS: ALANINE AMINOTRANSFERASE 47 U/L (12-78); ALKALINE PHOSPHATASE 81 U/L (45-117); BILIRUBIN,TOTAL 0.2 mg/dL (0.2-1.0); CHOLESTEROL, TOTAL 184 mg/dL (140-239); CREATININE 0.51 mg/dL (0.55-1.02); HDL CHOL % 49 % (28-40); HDL CHOLESTEROL (DIRECT) 91 mg/dL (40-60); LDL CHOLESTEROL,CALCULATED 76 mg/dL (54-169); LDL/HDL RATIO 0.8 (0.5-3.0); TOTAL PROTEIN 6.3 g/dL (6.4-8.2); TRIGLYCERIDES 85 mg/dL (50-200); VLDL CHOLESTEROL 17 mg/dL (0-25)
[2020-11-29 07:56] VITALS: BP 117/79
[2020-11-29] MEDS: CHLORDIAZEPOXIDE 10 MG CAPSULE PO SCH (08:09)
[2020-11-29] MEDS: SUCRALFATE 1 GM/10 ML UDC PO SCH ×4 (08:09→20:38)
[2020-11-29] MEDS: OXYcodone IR 5MG TABLET PO PRN ×3 (08:18→22:06)
[2020-11-29] MEDS ORDERED: DIAZEPAM 10 MG TABLET ONE (11:08)
[2020-11-29] MEDS: DIAZEPAM 10 MG TABLET PO SCH ×2 (11:11→17:11)
[2020-11-29] MEDS ORDERED: POTASSIUM PHOSPHATE 44 MEQ in SODIUM CHLORIDE 0.9% 500 ML IV ONE (11:30)
[2020-11-29] MEDS ORDERED: MAALOX/HYOSCYAMINE/LIDOCAINE 45 ML BTL PO ONE (11:30)
[2020-11-29 14:55] VITALS: BP 136/72
[2020-11-29 18:46] VITALS: BP 98/62
[2020-11-29] MEDS: DIAZEPAM 5 MG TABLET PO SCH (21:57)
[2020-11-30] MEDS: ENOXAPARIN 40 MG/0.4 ML SQ SCH (01:37)
[2020-11-30 02:28] VITALS: BP 96/62
[2020-11-30] MEDS: POTASSIUM CHLORIDE 20 MEQ, MAGNESIUM SULFATE 2 GM, THIAMINE 200 MG, FOLIC ACID 1 MG in ... IV SCH (02:53)
[2020-11-30] MEDS: DIAZEPAM 5 MG TABLET PO SCH ×4 (05:41→23:29)
[2020-11-30] MEDS: PANTOPRAZOLE 40MG TABLET PO SCH (05:41)
[2020-11-30 06:22] LABS: BASOPHILS % (AUTO) 1 % (0-1); EOSINOPHILS % (AUTO) 8 % (1-7); LYMPHOCYTES % (AUTO) 38 % (22-44); MEAN CORPUSCULAR HEMOGLOBIN 24.3 pg (27.0-34.8); MEAN CORPUSCULAR HGB CONC 30.7 g/dL (32.4-35.8); MEAN PLATELET VOLUME 8.7 fL (7.4-10.4); MONOCYTES % (AUTO) 8 % (2-9); NEUTROPHILS % (AUTO) 44 % (42-75); PLATELET COUNT 253 x10^3/uL (130-400); RED BLOOD COUNT 3.79 x10^6/uL (3.82-5.3); RED CELL DISTRIBUTION WIDTH 20.9 % (9.6-15.2)
[2020-11-30 06:23] LABS: MD NO
[2020-11-30 06:29] LABS: ANION GAP 4 mmol/L (5-15); CALCIUM 8.6 mg/dL (8.5-10.1); CHLORIDE 107 mmol/L (98-107)
[2020-11-30 06:30] LABS: CREATININE 0.46 mg/dL (0.55-1.02)
[2020-11-30] MEDS: OXYcodone IR 5MG TABLET PO PRN ×2 (06:31→12:28)
[2020-11-30 07:51] VITALS: BP 101/65
[2020-11-30] MEDS: IRON SUCROSE COMPLEX 100MG/5ML IV SCH (08:30)
[2020-11-30] MEDS: SUCRALFATE 1 GM/10 ML UDC PO SCH ×4 (08:30→20:47)
[2020-11-30] MEDS: LORazepam 1MG TABLET PO PRN ×2 (08:43→12:31)
[2020-11-30] MEDS ORDERED: MAALOX/HYOSCYAMINE/LIDOCAINE 45 ML BTL PO PRN (09:00)
[2020-11-30] MEDS ORDERED: CEFTRIAXONE PMX 1GM/50ML 50 ML IV SCH (13:00)
[2020-11-30 14:20] VITALS: BP 115/76
[2020-11-30 18:25] VITALS: BP 149/84
[2020-12-01 02:00] VITALS: BP 116/78
[2020-12-01] MEDS: ENOXAPARIN 40 MG/0.4 ML SQ SCH (02:00)
[2020-12-01] MEDS: POTASSIUM CHLORIDE 20 MEQ, MAGNESIUM SULFATE 2 GM, THIAMINE 200 MG, FOLIC ACID 1 MG in ... IV SCH (02:32)
[2020-12-01] MEDS: OXYcodone IR 5MG TABLET PO PRN (03:20)
[2020-12-01] MEDS: PANTOPRAZOLE 40MG TABLET PO SCH (05:03)
[2020-12-01] MEDS: DIAZEPAM 5 MG TABLET PO SCH ×2 (05:03→10:09)
[2020-12-01] MEDS: IRON SUCROSE COMPLEX 100MG/5ML IV SCH (09:28)
[2020-12-01] MEDS: SUCRALFATE 1 GM/10 ML UDC PO SCH (09:28)
== END 2020-12-01 10:41 | disposition home or self-care (01) | DRG 392 ==
LOC: ED 11-28 00:22 → EDIP 11-28 00:31 → 4WST 11-28 01:37 → DCLOUNGE 12-01 10:38
PROVIDERS: ADMIT Internal Medicine; ATTEND Hospitalist
DX: K29.20 Alcoholic gastritis without bleeding (principal); E87.2 Acidosis; F10.239 Alcohol dependence with withdrawal, unspecified; D50.9 Iron deficiency anemia, unspecified; E11.649 Type 2 diabetes mellitus with hypoglycemia without coma; E83.39 Other disorders of phosphorus metabolism; E83.42 Hypomagnesemia; F12.90 Cannabis use, unspecified, uncomplicated; F17.210 Nicotine dependence, cigarettes, uncomplicated; E87.6 Hypokalemia; G43.909 Migraine, unspecified, not intractable, without status migrainosus; Z71.6 Tobacco abuse counseling; Z80.0 Family history of malignant neoplasm of digestive organs; Z82.49 Family history of ischemic heart disease and other diseases of the circulatory system; Z91.19 Patient's noncompliance with other medical treatment and regimen; K20.90 Esophagitis, unspecified without bleeding
CPT/HCPCS: 36415; 96372; 99285; J7042; 80048; 80053; 80061; 81001; 83036; 83690; 83735; 84100; 84439; 84443; 84703; 85025; 87086; 93005; G0378; J0696; J1650; J1756; J2550; J3411; J3475; J3480; C9113; J7040

== ENCOUNTER 2020-12-28 20:43 | Inpatient (IN) | payer MEDICAID ==
[~2020-12-28] VITALS: Ht 160 cm; Wt 80.5 kg
[2020-12-28] MEDS ORDERED: PROMETHAZINE 25 MG/ML, 1ML ONE (21:26)
[2020-12-28] MEDS ORDERED: MAALOX/HYOSCYAMINE/LIDOCAINE 45 ML BTL ONE (21:27)
[2020-12-28] MEDS ORDERED: MAALOX/HYOSCYAMINE/LIDOCAINE 45 ML BTL PO ONE (21:30)
[2020-12-28] MEDS ORDERED: SODIUM CHLORIDE 0.9% 1,000ML IVBOLUS ONE (21:30)
[2020-12-28] MEDS ORDERED: PROMETHAZINE 25 MG/ML, 1ML IM ONE (21:30)
[2020-12-28 21:52] LABS: BASOPHILS % (AUTO) 1 % (0-1); EOSINOPHILS % (AUTO) 0 % (1-7); LYMPHOCYTES % (AUTO) 25 % (22-44); MEAN CORPUSCULAR HGB CONC 30.7 g/dL (32.4-35.8); MEAN PLATELET VOLUME 8.9 fL (7.4-10.4); MONOCYTES % (AUTO) 5 % (2-9); NEUTROPHILS % (AUTO) 69 % (42-75); PLATELET COUNT 154 x10^3/uL (130-400); RED BLOOD COUNT 4.46 x10^6/uL (3.82-5.3); RED CELL DISTRIBUTION WIDTH 21.8 % (9.6-15.2)
[2020-12-28 21:54] LABS: MD NO
[2020-12-28 21:57] LABS: CALCIUM 8.4 mg/dL (8.5-10.1); CHLORIDE 107 mmol/L (98-107)
[2020-12-28] MEDS ORDERED: LACTATED RINGERS 1,000 ML IVBOLUS ONE (22:00)
[2020-12-28] MEDS: D5%-0.9% NACL 1,000 ML IV SCH (22:00)
[2020-12-28 22:05] LABS: ALANINE AMINOTRANSFERASE 137 U/L (12-78); ALKALINE PHOSPHATASE 98 U/L (45-117); ANION GAP 16 mmol/L (5-15); BILIRUBIN,TOTAL 0.3 mg/dL (0.2-1.0); CREATININE 0.45 mg/dL (0.55-1.02); TOTAL PROTEIN 7.8 g/dL (6.4-8.2); TROPONIN I < 0.015 ng/mL (0.000-0.045)
[2020-12-28 22:55] LABS: MICROSCOPIC NOT IND
[2020-12-28] MEDS ORDERED: ONDANSETRON 2MG/ML, 2ML IVPush PRN (23:30)
[2020-12-29] MEDS ORDERED: ONDANSETRON 2MG/ML, 2ML IVPush PRN
[2020-12-29] MEDS ORDERED: POLYETHYLENE GLYCOL 17 GM PACKET PO PRN
[2020-12-29] MEDS ORDERED: BISACODYL 10 MG SUPP PR PRN
[2020-12-29 00:17] VITALS: BP 118/78
[2020-12-29] MEDS: D5%-0.9% NACL 1,000 ML IV SCH ×2 (02:00→15:05)
[2020-12-29] MEDS: SODIUM BICARBONATE 8.4% 50 MEQ in SODIUM CHLORIDE 0.45% 1,000 ML IV SCH ×2 (02:52→12:13)
[2020-12-29 05:32] LABS: BASOPHILS % (AUTO) 1 % (0-1); EOSINOPHILS % (AUTO) 3 % (1-7); LYMPHOCYTES % (AUTO) 34 % (22-44); MEAN CORPUSCULAR HEMOGLOBIN 26.4 pg (27.0-34.8); MEAN PLATELET VOLUME 9.1 fL (7.4-10.4); MONOCYTES % (AUTO) 9 % (2-9); NEUTROPHILS % (AUTO) 53 % (42-75); PLATELET COUNT 138 x10^3/uL (130-400); RED BLOOD COUNT 3.99 x10^6/uL (3.82-5.3)
[2020-12-29 05:39] LABS: MD NO
[2020-12-29 05:44] LABS: CHLORIDE 106 mmol/L (98-107)
[2020-12-29 05:51] LABS: ALANINE AMINOTRANSFERASE 109 U/L (12-78); ALBUMIN 3.6 g/dL (3.4-5.0); ALKALINE PHOSPHATASE 85 U/L (45-117); ANION GAP 13 mmol/L (5-15); BILIRUBIN,TOTAL 0.3 mg/dL (0.2-1.0); CALCIUM 7.9 mg/dL (8.5-10.1); CREATININE 0.35 mg/dL (0.55-1.02); TOTAL PROTEIN 6.9 g/dL (6.4-8.2)
[2020-12-29] MEDS: CHLORDIAZEPOXIDE 25 MG CAPSULE PO PRN ×2 (06:01→12:13)
[2020-12-29] MEDS ORDERED: GLUCAGON 1 MG IM PRN (06:30)
[2020-12-29] MEDS ORDERED: DEXTROSE 4 GM TAB.CHEW PO PRN (06:30)
[2020-12-29] MEDS ORDERED: THIAMINE 200 MG in SODIUM CHLORIDE 0.9% 50 ML IV ONE (06:30)
[2020-12-29] MEDS ORDERED: DEXTROSE 50%, 50ML SYRINGE IVPush PRN (06:30)
[2020-12-29 07:07] VITALS: BP 122/74
[2020-12-29] MEDS: LORazepam 2 MG/ML, 1ML IVPush PRN ×3 (08:15→18:05)
[2020-12-29] MEDS: SERTRALINE 50MG TABLET PO SCH ×2 (08:17→08:19)
[2020-12-29] MEDS: OMEPRAZOLE 20 MG CAPSULE.DR PO SCH ×2 (08:18→20:00)
[2020-12-29] MEDS: THIAMINE 100MG TABLET PO SCH ×2 (08:18→20:00)
[2020-12-29] MEDS: MULTIVITAMIN 1 TABLET PO SCH (08:18)
[2020-12-29] MEDS: SENNA/DOCUSATE TABLET PO SCH (08:18)
[2020-12-29] MEDS: FOLIC ACID 1 MG TABLET PO SCH (08:18)
[2020-12-29] MEDS: SODIUM CHLORIDE FLUSH 10ML SYR IVF SCH ×2 (08:19→20:01)
[2020-12-29 13:42] LABS: ANION GAP 6 mmol/L (5-15); CALCIUM 8.6 mg/dL (8.5-10.1); CHLORIDE 104 mmol/L (98-107)
[2020-12-29 13:43] LABS: CREATININE 0.63 mg/dL (0.55-1.02)
[2020-12-29 14:13] VITALS: BP 118/80
[2020-12-29 19:52] VITALS: BP 116/79
[2020-12-29] MEDS: K-PHOS NEUTRAL 250MG TAB PO SCH (20:00)
[2020-12-30 01:36] VITALS: BP 118/81
[2020-12-30] MEDS: D5%-0.9% NACL 1,000 ML IV SCH (03:32)
[2020-12-30 05:13] LABS: BASOPHILS % (AUTO) 1 % (0-1); EOSINOPHILS % (AUTO) 3 % (1-7); LYMPHOCYTES % (AUTO) 40 % (22-44); MEAN CORPUSCULAR HEMOGLOBIN 26.3 pg (27.0-34.8); MEAN CORPUSCULAR HGB CONC 31.1 g/dL (32.4-35.8); MONOCYTES % (AUTO) 8 % (2-9); NEUTROPHILS % (AUTO) 48 % (42-75); PLATELET COUNT 130 x10^3/uL (130-400); RED BLOOD COUNT 3.99 x10^6/uL (3.82-5.3); RED CELL DISTRIBUTION WIDTH 22.3 % (9.6-15.2)
[2020-12-30 05:14] LABS: MD NO
[2020-12-30 05:18] LABS: ALBUMIN 3.1 g/dL (3.4-5.0); ANION GAP 6 mmol/L (5-15); CHLORIDE 108 mmol/L (98-107)
[2020-12-30 05:21] LABS: ALANINE AMINOTRANSFERASE 91 U/L (12-78); ALKALINE PHOSPHATASE 73 U/L (45-117); BILIRUBIN,TOTAL 0.4 mg/dL (0.2-1.0); CREATININE 0.44 mg/dL (0.55-1.02); TOTAL PROTEIN 6.1 g/dL (6.4-8.2)
[2020-12-30] MEDS ORDERED: MAGNESIUM SULFATE PMX 2GM/50ML 50 ML IV ONE (07:00)
[2020-12-30 07:44] VITALS: BP 122/83
[2020-12-30] MEDS: THIAMINE 100MG TABLET PO SCH (08:05)
[2020-12-30] MEDS: LORazepam 2 MG/ML, 1ML IVPush PRN (08:05)
[2020-12-30] MEDS: K-PHOS NEUTRAL 250MG TAB PO SCH (08:06)
[2020-12-30] MEDS: MULTIVITAMIN 1 TABLET PO SCH (08:06)
[2020-12-30] MEDS: FOLIC ACID 1 MG TABLET PO SCH (08:06)
[2020-12-30] MEDS: OMEPRAZOLE 20 MG CAPSULE.DR PO SCH (08:06)
[2020-12-30] MEDS: SENNA/DOCUSATE TABLET PO SCH (08:09)
[2020-12-30] MEDS: SODIUM CHLORIDE FLUSH 10ML SYR IVF SCH (08:09)
[2020-12-30] MEDS: SERTRALINE 50MG TABLET PO SCH (08:10)
[2020-12-30] MEDS ORDERED: LORazepam 1MG TABLET PO PRN (12:00)
[2020-12-30 13:21] VITALS: BP 124/87
== END 2020-12-30 18:35 | disposition home or self-care (01) | DRG 638 ==
LOC: ED 22:23 → EDIP 23:12 → 4EST 23:53
PROVIDERS: ADMIT Internal Medicine; ATTEND Internal Medicine
DX: E11.649 Type 2 diabetes mellitus with hypoglycemia without coma (principal); E87.2 Acidosis; K51.90 Ulcerative colitis, unspecified, without complications; E83.39 Other disorders of phosphorus metabolism; E83.42 Hypomagnesemia; E86.0 Dehydration; F10.220 Alcohol dependence with intoxication, uncomplicated; F12.90 Cannabis use, unspecified, uncomplicated; F17.210 Nicotine dependence, cigarettes, uncomplicated; G43.909 Migraine, unspecified, not intractable, without status migrainosus; K70.9 Alcoholic liver disease, unspecified; K76.0 Fatty (change of) liver, not elsewhere classified; Z63.8 Other specified problems related to primary support group; Z91.19 Patient's noncompliance with other medical treatment and regimen; G31.2 Degeneration of nervous system due to alcohol
CPT/HCPCS: 36415; 96372; 96374; 99291; J7042; 80048; 80053; 80320; 81003; 82962; 83690; 83735; 84100; 84443; 84484; 85025; 93005; G0378; J2405; J2550; J3411; G0480; J2060; J3475; J7030

== ENCOUNTER 2021-01-19 17:03 | Inpatient (IN) | payer MEDICAID ==
[~2021-01-19] VITALS: Ht 162.6 cm; Wt 66.2 kg
[2021-01-19] MEDS ORDERED: DEXTROSE 10%, 250ML IV ONE (17:30)
[2021-01-19] MEDS ORDERED: ACETAMINOPHEN 325 MG TABLET PO ONE (17:30)
[2021-01-19] MEDS ORDERED: SODIUM CHLORIDE 0.9% 1,000ML IVBOLUS ONE (17:30)
[2021-01-19] MEDS ORDERED: ONDANSETRON 2MG/ML, 2ML IVPush ONE (17:30)
[2021-01-19] MEDS ORDERED: PROMETHAZINE 25 MG/ML, 1ML IM ONE (17:30)
--- NOTE | 2021-01-19 17:30 | NUR ---
PT BIB EMS FOR HYPOGLYCEMIA AND WEAKNESS. PT CALLED 911 BECAUSE SHE "WASNT FEELING WELL". PT HAS HX OF ETOH ABUSE. PER EMS SHE WAS FOUND TO HAVE BLOOD GLUCOSE OF 34 AND WAS GIVEN 15G ORAL GLUCOSE AND 125 OF D10. HER SUGAR WAS THEN 59. BLOOD SUGAR ON ARRIVAL WAS 56. SEE MAR FOR INTERVENTIONS EKG COMPLETE. PT RESTING IN [facility]. CONNECTED TO ALL MONITORING EQUIPMENT
[2021-01-19] MEDS ORDERED: ONDANSETRON 2MG/ML, 2ML ONE (17:37)
[2021-01-19] MEDS ORDERED: ACETAMINOPHEN 325 MG TABLET ONE (17:37)
[2021-01-19 17:57] LABS: BASOPHILS % (AUTO) 1 % (0-1); EOSINOPHILS % (AUTO) 0 % (1-7); LYMPHOCYTES % (AUTO) 7 % (22-44); MEAN CORPUSCULAR HEMOGLOBIN 28.7 pg (27.0-34.8); MEAN CORPUSCULAR HGB CONC 30.6 g/dL (32.4-35.8); MEAN PLATELET VOLUME 9.1 fL (7.4-10.4); MONOCYTES % (AUTO) 4 % (2-9); NEUTROPHILS % (AUTO) 89 % (42-75); PLATELET COUNT 148 x10^3/uL (130-400); RED CELL DISTRIBUTION WIDTH 22.6 % (9.6-15.2)
[2021-01-19 18:00] LABS: PH, VENOUS 7.124 pH (7.320-7.420)
[2021-01-19 18:07] LABS: ALANINE AMINOTRANSFERASE 90 U/L (12-78); ANION GAP 21 mmol/L (5-15); CALCIUM 8.2 mg/dL (8.5-10.1); CHLORIDE 106 mmol/L (98-107)
[2021-01-19 18:10] LABS: ALKALINE PHOSPHATASE 75 U/L (45-117); BILIRUBIN,TOTAL 0.4 mg/dL (0.2-1.0); TOTAL PROTEIN 7.9 g/dL (6.4-8.2)
[2021-01-19 18:18] LABS: MD MORPH REVIEW ONLY
[2021-01-19 18:19] LABS: <PLATELET ESTIMATE> ADEQUATE; <PLT MORPHOLOGY> NORMAL PLT MORPH; ANISOCYTOSIS 1+; HYPOCHROMIA 1+; POLYCHROMASIA 1+
[2021-01-19] MEDS ORDERED: SODIUM BICARB 8.4%, 50ML SYRINGE ONE (18:24)
[2021-01-19] MEDS ORDERED: SODIUM BICARBONATE 1 MEQ/ML, 50ML VIAL IVPush ONE (18:30)
[2021-01-19 18:43] LABS: ACETONE, SERUM Large (80mg/dL) (Negative)
[2021-01-19] MEDS: D5%-0.45% NACL 1,000 ML IV SCH ×2 (18:59→21:51)
[2021-01-19] MEDS ORDERED: POTASSIUM CHLORIDE 40 MEQ in SODIUM CHLORIDE 0.9% 500 ML IV ONE (19:00)
--- NOTE | 2021-01-19 19:37 | NUR ---
BREAK RN: PT. PROVIDED WITH CRACKERS AND WATER AFTER OK FORM DR. PERERA. H IN TO EVAL PT. FOR ADMISSION AT THIS TIME. REPORT BACK TO WINSTON NUÑEZ TO RE-ASSUME CARE.
[2021-01-19] MEDS ORDERED: ALUMINUM/MAG/SIMETHICONE 30 ML UDC PO PRN (20:00)
[2021-01-19] MEDS ORDERED: LABETALOL 5MG/ML, 20ML IV PRN (20:00)
[2021-01-19] MEDS ORDERED: THIAMINE 200 MG in DEXTROSE 5% 50 ML IVPB ONE (20:00)
[2021-01-19] MEDS ORDERED: LORazepam 2 MG/ML, 1ML IV PRN ×4 (20:00)
[2021-01-19 20:35] VITALS: BP 123/78
[2021-01-19] MEDS: LORazepam 2 MG/ML, 1ML IV PRN (22:07)
[2021-01-20 00:58] LABS: ANION GAP 9 mmol/L (5-15); CALCIUM 7.2 mg/dL (8.5-10.1); CHLORIDE 107 mmol/L (98-107); CREATININE 0.45 mg/dL (0.55-1.02)
[2021-01-20] MEDS: POTASSIUM CHLORIDE 10 MEQ, MVI ADULT 10 ML, FOLIC ACID 1 MG, MAGNESIUM SULFATE 1 GM in ... IV SCH ×2 (01:24→20:49)
[2021-01-20 01:42] VITALS: BP 116/73
[2021-01-20] MEDS: D5%-0.45% NACL 1,000 ML IV SCH ×2 (03:55→10:29)
[2021-01-20 06:01] LABS: BASOPHILS % (AUTO) 1 % (0-1); EOSINOPHILS % (AUTO) 1 % (1-7); LYMPHOCYTES % (AUTO) 31 % (22-44); MEAN CORPUSCULAR HEMOGLOBIN 28.4 pg (27.0-34.8); MEAN CORPUSCULAR HGB CONC 32.1 g/dL (32.4-35.8); MEAN PLATELET VOLUME 8.9 fL (7.4-10.4); MONOCYTES % (AUTO) 13 % (2-9); NEUTROPHILS % (AUTO) 54 % (42-75); PLATELET COUNT 132 x10^3/uL (130-400)
[2021-01-20 06:06] LABS: ALBUMIN 2.9 g/dL (3.4-5.0); ANION GAP 8 mmol/L (5-15); CALCIUM 7.2 mg/dL (8.5-10.1); CHLORIDE 107 mmol/L (98-107)
[2021-01-20 06:10] LABS: ALANINE AMINOTRANSFERASE 54 U/L (12-78); ALKALINE PHOSPHATASE 57 U/L (45-117); BILIRUBIN,TOTAL 0.6 mg/dL (0.2-1.0); CREATININE 0.44 mg/dL (0.55-1.02); TOTAL PROTEIN 5.7 g/dL (6.4-8.2)
[2021-01-20 06:14] LABS: MD NO
[2021-01-20 06:21] VITALS: BP 126/77
[2021-01-20] MEDS: LORazepam 2 MG/ML, 1ML IV PRN ×3 (06:30→14:22)
[2021-01-20 13:35] VITALS: BP 124/83
[2021-01-20] MEDS ORDERED: LORazepam 1MG TABLET PO PRN ×3 (17:00)
[2021-01-20] MEDS ORDERED: LORazepam 0.5MG TABLET PO PRN (17:00)
[2021-01-20] MEDS: LORazepam 1MG TABLET PO PRN ×2 (18:30→20:50)
[2021-01-20 18:49] VITALS: BP 129/88
[2021-01-21 00:18] VITALS: BP 115/81
[2021-01-21 05:05] LABS: BASOPHILS % (AUTO) 1 % (0-1); EOSINOPHILS % (AUTO) 5 % (1-7); LYMPHOCYTES % (AUTO) 37 % (22-44); MEAN CORPUSCULAR HEMOGLOBIN 28.6 pg (27.0-34.8); MEAN CORPUSCULAR HGB CONC 31.7 g/dL (32.4-35.8); MEAN PLATELET VOLUME 9.1 fL (7.4-10.4); MONOCYTES % (AUTO) 12 % (2-9); NEUTROPHILS % (AUTO) 45 % (42-75); PLATELET COUNT 117 x10^3/uL (130-400); RED BLOOD COUNT 3.47 x10^6/uL (3.82-5.3); RED CELL DISTRIBUTION WIDTH 21.9 % (9.6-15.2)
[2021-01-21 05:06] LABS: MD NO
[2021-01-21 05:15] LABS: ALBUMIN 2.7 g/dL (3.4-5.0); ANION GAP 7 mmol/L (5-15); CALCIUM 7.5 mg/dL (8.5-10.1); CHLORIDE 113 mmol/L (98-107)
[2021-01-21 05:18] LABS: ALANINE AMINOTRANSFERASE 55 U/L (12-78); ALKALINE PHOSPHATASE 58 U/L (45-117); BILIRUBIN,TOTAL 0.3 mg/dL (0.2-1.0); CREATININE 0.35 mg/dL (0.55-1.02); TOTAL PROTEIN 5.5 g/dL (6.4-8.2)
[2021-01-21 06:50] VITALS: BP 128/88
== END 2021-01-21 13:20 | disposition home or self-care (01) | DRG 641 ==
LOC: ED 19:41 → EDIP 19:43 → 4EST 20:24
PROVIDERS: ADMIT Internal Medicine; ATTEND Internal Medicine
DX: E87.6 Hypokalemia (principal); F17.203 Nicotine dependence unspecified, with withdrawal; E11.649 Type 2 diabetes mellitus with hypoglycemia without coma; E87.2 Acidosis; F10.229 Alcohol dependence with intoxication, unspecified; F12.90 Cannabis use, unspecified, uncomplicated; G43.909 Migraine, unspecified, not intractable, without status migrainosus; Z82.49 Family history of ischemic heart disease and other diseases of the circulatory system; Z83.3 Family history of diabetes mellitus; Z80.3 Family history of malignant neoplasm of breast; Z80.8 Family history of malignant neoplasm of other organs or systems; Z82.5 Family history of asthma and other chronic lower respiratory diseases; Z71.41 Alcohol abuse counseling and surveillance of alcoholic
CPT/HCPCS: 36415; 80048; 80053; 82010; 82803; 82962; 83735; 83930; 84100; 85025; 93005; 96374; 96375; G0378; J2405; J3411; J3475; J3480; J2060; J7030; J7040

== ENCOUNTER 2021-02-10 18:03 | Emergency (ER) | payer MEDICAID ==
[~2021-02-10] VITALS: Ht 162.6 cm; Wt 68.0 kg
[~2021-02-10 18:03] MED LIST changes: -MICO14CR TP; +MICO14CR3 TP
--- NOTE | 2021-02-10 18:40 | NUR ---
PT BIB [facility] FROM HOME. PT C/C LOW ABD PAIN, BROWN URINE AND RT LE PAIN. PT PLACED ON MONITORS. PT LETHARGIC, BUT ABLE TO ANSWER QUESTIONS APPROPRIATELY. FSBS 77. PT AWAITING ERMD ASSESSMENT. WILL FOLLOW ORDERS.
--- NOTE | 2021-02-10 18:49 | NUR ---
REPORT TO JILLIAN MONTERO.
[2021-02-10] MEDS ORDERED: ONDANSETRON 2MG/ML, 2ML ONE (19:14)
[2021-02-10 19:28] LABS: BASOPHILS % (AUTO) 1 % (0-1); EOSINOPHILS % (AUTO) 1 % (1-7); LYMPHOCYTES % (AUTO) 23 % (22-44); MEAN CORPUSCULAR HEMOGLOBIN 28.3 pg (27.0-34.8); MEAN CORPUSCULAR HGB CONC 32.3 g/dL (32.4-35.8); MEAN PLATELET VOLUME 8.8 fL (7.4-10.4); MONOCYTES % (AUTO) 5 % (2-9); NEUTROPHILS % (AUTO) 70 % (42-75); PLATELET COUNT 141 x10^3/uL (130-400); RED BLOOD COUNT 4.33 x10^6/uL (3.82-5.3); RED CELL DISTRIBUTION WIDTH 20.6 % (9.6-15.2)
[2021-02-10] MEDS ORDERED: ONDANSETRON 2MG/ML, 2ML IVPush ONE (19:30)
[2021-02-10] MEDS ORDERED: SODIUM CHLORIDE 0.9% 1,000ML IVBOLUS ONE (19:30)
[2021-02-10] MEDS ORDERED: SODIUM CHLORIDE FLUSH 10ML SYR IVF ONE (19:30)
--- NOTE | 2021-02-10 19:37 | NUR ---
REPORT FROM YOU Morris RN. PT A&OX4 GCS 15, ADMITS TO 1/2 PINT TODAY, RECENT METH USE.
--- NOTE | 2021-02-10 19:40 | NUR ---
PT BGL 77, AWARE, BOLUS INFUSING. EJ INSERTED PT V HARD STICK, MULT IV ATTEMPTS, PLAN CT W CONTRAST. REFUSED ZOFRAN. PT STS CANNOT MOVE R ARM BUT WHEN IT IS HELD IN THE ARM SHE KEEPS IT FROM HITTING THE BED. PT YELLS LOUDLY WHEN THIS RN MOTIONED TO HER R LEG BUT DID NOT ACTUALLY TOUCH IT. VSS. AWAITING CT. FALL PRECS IN PLACE.
[2021-02-10 19:41] LABS: ALANINE AMINOTRANSFERASE 179 U/L (12-78); ALBUMIN 3.9 g/dL (3.4-5.0); ANION GAP 13 mmol/L (5-15); CALCIUM 8.9 mg/dL (8.5-10.1); CHLORIDE 105 mmol/L (98-107); CREATININE 0.55 mg/dL (0.55-1.02)
[2021-02-10 19:42] LABS: ALKALINE PHOSPHATASE 89 U/L (45-117); BILIRUBIN,TOTAL 0.5 mg/dL (0.2-1.0); TOTAL PROTEIN 7.5 g/dL (6.4-8.2)
[2021-02-10 19:47] LABS: ACETONE, SERUM Moderate(40mg/dL) (Negative)
--- NOTE | 2021-02-10 21:05 | NUR ---
PT PULLED HER IV OUT. VERBALLY ABUSIVE TO STAFF. TO CT W/ RN.
--- NOTE | 2021-02-10 22:00 | NUR ---
PT VOMITING. ZOFRAN PER MAR (PT REFUSED EARLIER). IVF STILL INFUSING PT KEEPS TURNING NECK AND OCCLUDING IV.
--- NOTE | 2021-02-10 23:02 | NUR ---
NO VOMITING, PT ASKING FOR FOOD AND JUICE. AWAITING HEAD CT. ON 2LNC BC DESATS WHEN SLEEPING. VSS.
--- NOTE | 2021-02-10 23:30 | NUR ---
PT GIVEN APPLE JUICE X2.
[2021-02-11 00:10] VITALS: BP 135/80
== END 2021-02-11 00:12 | disposition home or self-care (01) ==
LOC: ED 18:30
DX: R10.84 Generalized abdominal pain (principal); N83.292 Other ovarian cyst, left side; F10.220 Alcohol dependence with intoxication, uncomplicated; R51.9 Headache, unspecified; R07.89 Other chest pain; E11.649 Type 2 diabetes mellitus with hypoglycemia without coma; Y90.0 Blood alcohol level of less than 20 mg/100 ml
CPT/HCPCS: 36415; 70450; 71045; 74177; 80053; 80320; 82010; 82800; 82962; 83690; 83930; 85025; 96361; 96374; 99285; J2405; J7030; G0480

== ENCOUNTER 2021-02-14 20:34 | Emergency (ER) | payer MEDICAID ==
[~2021-02-14] VITALS: Ht 160 cm; Wt 68.0 kg
[2021-02-14] MEDS ORDERED: DEXTROSE 5% 1,000 ML IV ONE (21:00)
[2021-02-14] MEDS ORDERED: ONDANSETRON 2MG/ML, 2ML IVPush ONE (21:00)
[2021-02-14] MEDS ORDERED: ONDANSETRON 2MG/ML, 2ML ONE (21:05)
[2021-02-14 21:09] LABS: BASOPHILS % (AUTO) 1 % (0-1); EOSINOPHILS % (AUTO) 0 % (1-7); LYMPHOCYTES % (AUTO) 23 % (22-44); MEAN CORPUSCULAR HEMOGLOBIN 29.1 pg (27.0-34.8); MEAN CORPUSCULAR HGB CONC 31.9 g/dL (32.4-35.8); MEAN PLATELET VOLUME 9.1 fL (7.4-10.4); MONOCYTES % (AUTO) 6 % (2-9); NEUTROPHILS % (AUTO) 70 % (42-75); PLATELET COUNT 125 x10^3/uL (130-400); RED BLOOD COUNT 4.71 x10^6/uL (3.82-5.3); RED CELL DISTRIBUTION WIDTH 20.3 % (9.6-15.2)
[2021-02-14 21:20] LABS: ALBUMIN 4.3 g/dL (3.4-5.0); ANION GAP 24 mmol/L (5-15); CALCIUM 8.7 mg/dL (8.5-10.1); CHLORIDE 102 mmol/L (98-107)
--- NOTE | 2021-02-14 21:21 | NUR ---
Orestes sprague in ED - 02/14/21 at 2122 by [email or web address] DIFFICULTY PLACING PIV. PARKER MADE 3 ATTEMPTS, ZHANE MADE 1 ATTEMPT AND I MADE 2 SO FAR. ALL UNSUCCESSFUL.
--- NOTE | 2021-02-14 21:22 | NUR ---
DIFFICULTY PLACING PIV. PARKER MADE 3 ATTEMPTS, ZHANE MADE 1 ATTEMPT AND I MADE 2 SO FAR. ALL UNSUCCESSFUL.
[2021-02-14 21:24] LABS: ALANINE AMINOTRANSFERASE 149 U/L (12-78); ALKALINE PHOSPHATASE 96 U/L (45-117); BILIRUBIN,TOTAL 0.6 mg/dL (0.2-1.0); CREATININE 0.64 mg/dL (0.55-1.02); TOTAL PROTEIN 8.4 g/dL (6.4-8.2)
[2021-02-14] MEDS ORDERED: ACETAMINOPHEN 500 MG TABLET ONE (21:56)
[2021-02-14] MEDS ORDERED: PROMETHAZINE 25 MG/ML, 1ML ONE (21:56)
--- NOTE | 2021-02-14 22:03 | NUR ---
JQ at bedside side for IV attempt.
--- NOTE | 2021-02-14 22:50 | NUR ---
JQ GOT AN US IV, BUT INFILTRATED APPROX 30 MIN LATER
--- NOTE | 2021-02-14 22:54 | NUR ---
DR DIAZ STATES GIVE PO FLUIDS AND FOOD SINCE IV ACCESS IS NOT SUCCESSFUL
--- NOTE | 2021-02-14 23:20 | NUR ---
PT TOLERATING PO APPLE JUICE WELL.
[2021-02-15] MEDS ORDERED: PROMETHAZINE 25 MG/ML, 1ML IM ONE (00:30)
[2021-02-15] MEDS ORDERED: SODIUM CHLORIDE 0.9% 1,000ML IVBOLUS ONE (01:00)
--- NOTE | 2021-02-15 01:51 | NUR ---
REPORT TO WINSTON PAREDES
[2021-02-15] MEDS ORDERED: ONDANSETRON 2MG/ML, 2ML IVPush ONE (02:30)
[2021-02-15] MEDS ORDERED: ONDANSETRON 2MG/ML, 2ML ONE (02:30)
--- NOTE | 2021-02-15 05:30 | NUR ---
PT AMBULATORY WITH STEADY GAIT TO BATHROOM. PT REQUESTING ICE WATER
[2021-02-15 06:02] VITALS: BP 114/79
== END 2021-02-15 06:05 | disposition home or self-care (01) ==
LOC: ED 21:15
DX: E11.649 Type 2 diabetes mellitus with hypoglycemia without coma (principal); R11.2 Nausea with vomiting, unspecified; F10.120 Alcohol abuse with intoxication, uncomplicated; E87.2 Acidosis; F17.200 Nicotine dependence, unspecified, uncomplicated; Y90.0 Blood alcohol level of less than 20 mg/100 ml
CPT/HCPCS: 80053; 80320; 82962; 85025; 96361; 96372; 96374; 99285; J2405; J2550; J7030; J7070; G0480

== ENCOUNTER 2021-04-05 18:38 | Emergency (ER) | payer MEDICAID ==
[~2021-04-05] VITALS: Ht 162.6 cm; Wt 68.7 kg
--- NOTE | 2021-04-05 19:07 | NUR ---
CLOTH SHEARING SUPERVISOR: PT. TO ROOM FROM LOBBY AT THIS TIME.
--- NOTE | 2021-04-05 19:16 | NUR ---
pt presents to the ed with abd pain and shortness of breath. pt states she was tachy at home, up to the 110s. pt is in gown, resting on gurney, and placed on continuous monitoring. erp at bedside.
[2021-04-05] MEDS ORDERED: LORazepam 2 MG/ML, 1ML IVPush ONE (19:30)
[2021-04-05] MEDS ORDERED: ONDANSETRON 2MG/ML, 2ML IVPush ONE (19:30)
[2021-04-05] MEDS ORDERED: SODIUM CHLORIDE 0.9% 1,000ML IVBOLUS ONE (19:30)
[2021-04-05] MEDS ORDERED: SODIUM CHLORIDE FLUSH 10ML SYR IVF ONE (19:30)
[2021-04-05 19:44] LABS: BASOPHILS % (AUTO) 3 % (0-1); EOSINOPHILS % (AUTO) 3 % (1-7); LYMPHOCYTES % (AUTO) 31 % (22-44); MEAN CORPUSCULAR HEMOGLOBIN 28.8 pg (27.0-34.8); MEAN CORPUSCULAR HGB CONC 32.3 g/dL (32.4-35.8); MEAN PLATELET VOLUME 8.7 fL (7.4-10.4); MONOCYTES % (AUTO) 7 % (2-9); NEUTROPHILS % (AUTO) 57 % (42-75); PLATELET COUNT 403 x10^3/uL (130-400); RED BLOOD COUNT 3.64 x10^6/uL (3.82-5.3); RED CELL DISTRIBUTION WIDTH 18.6 % (9.6-15.2)
[2021-04-05 19:46] LABS: ALANINE AMINOTRANSFERASE 39 U/L (12-78); ALBUMIN 3.5 g/dL (3.4-5.0); ANION GAP 8 mmol/L (5-15); CALCIUM 8.5 mg/dL (8.5-10.1); CHLORIDE 110 mmol/L (98-107); CREATININE 0.89 mg/dL (0.55-1.02)
[2021-04-05 19:50] LABS: ALKALINE PHOSPHATASE 75 U/L (45-117); BILIRUBIN,TOTAL 0.2 mg/dL (0.2-1.0); TOTAL PROTEIN 7.3 g/dL (6.4-8.2)
[2021-04-05] MEDS ORDERED: MORPHINE SULFATE 4 MG/ML, 1ML ONE ×2 (19:57→22:22)
[2021-04-05] MEDS ORDERED: ONDANSETRON 2MG/ML, 2ML ONE (19:57)
[2021-04-05] MEDS ORDERED: LORazepam 2 MG/ML, 1ML ONE (19:58)
[2021-04-05] MEDS: MORPHINE SULFATE 4 MG/ML, 1ML IVPush PRN ×2 (20:00→22:29)
[2021-04-05 20:24] LABS: MICROSCOPIC NOT IND
--- NOTE | 2021-04-05 20:27 | NUR ---
pt resting on juan, denies needs at this time, awaiting for a ct.
[2021-04-05 21:00] VITALS: BP 113/64
--- NOTE | 2021-04-05 21:15 | NUR ---
pt requesting more pain medication, WHEEL ADJUSTER Clarisa ordered 30 mg toradol IV. pt up to bathroom with steady gait.
[2021-04-05] MEDS ORDERED: KETOROLAC 30 MG/1 ML ONE (21:17)
--- NOTE | 2021-04-05 21:24 | NUR ---
pt to ct
--- NOTE | 2021-04-05 21:30 | NUR ---
pt back in room, resting on juan
[2021-04-05] MEDS ORDERED: OMNIPAQUE 350 MG/ML, 100ML BOTTLE ONE (21:50)
[2021-04-05] MEDS ORDERED: KETOROLAC 30 MG/1 ML IVPush ONE (22:00)
--- NOTE | 2021-04-05 23:36 | NUR ---
Patient given discharge instructions and they have confirmed that they understand the instructions. Patient ambulatory with steady gait.
== END 2021-04-05 23:38 | disposition home or self-care (01) ==
LOC: ED 18:47
DX: R10.12 Left upper quadrant pain (principal); K57.90 Diverticulosis of intestine, part unspecified, without perforation or abscess without bleeding; R11.2 Nausea with vomiting, unspecified; F41.1 Generalized anxiety disorder; R19.7 Diarrhea, unspecified; F17.210 Nicotine dependence, cigarettes, uncomplicated; E11.9 Type 2 diabetes mellitus without complications
CPT/HCPCS: 36415; 74177; 80053; 80320; 81003; 83690; 84703; 85025; 85379; 93005; 96361; 96374; 96375; 96376; 99285; 99406; J1885; J2060; J2270; J2405; J7030; Q9967; G0480

== ENCOUNTER 2021-05-23 14:36 | Emergency (ER) | payer MEDICAID ==
[~2021-05-23] VITALS: Ht 162.6 cm; Wt 69.9 kg
--- NOTE | 2021-05-23 15:11 | NUR ---
boat buffer plastic: Pt to room via WC from lobby at this time.
--- NOTE | 2021-05-23 15:32 | NUR ---
BREAK RN- FAB SAHM AT BEDSIDE FOR EVAL.
[2021-05-23] MEDS ORDERED: HYDROcodone/APAP 5/325 TABLET ONE (15:39)
[2021-05-23] MEDS ORDERED: ONDANSETRON ODT 4 MG ONE (15:39)
[2021-05-23] MEDS ORDERED: HYDROcodone/APAP 5/325 TABLET PO ONE (16:00)
[2021-05-23] MEDS ORDERED: ONDANSETRON ODT 4 MG PO ONE (16:00)
[2021-05-23 16:45] VITALS: BP 121/98
--- NOTE | 2021-05-23 16:45 | NUR ---
REPORT GIVEN FROM WINSTON HERNANDEZ
--- NOTE | 2021-05-23 16:55 | NUR ---
PT REQUESTING MORE PAIN MEDS. DR GIORDANO AWARE. PT DISCHARGED BY DR GIORDANO. PT DOES HAVE A RIDE HOME. PT IS ABLE TO SAFELY AMBUALTE AROUND ROOM. PT TO FOLLOW UP IF NOT BETTER PER DR GIORDANO. VS STABLE.
== END 2021-05-23 17:07 | disposition home or self-care (01) ==
LOC: ED 14:41
DX: S33.5XXA Sprain of ligaments of lumbar spine, initial encounter (principal); S23.3XXA Sprain of ligaments of thoracic spine, initial encounter; E11.9 Type 2 diabetes mellitus without complications; X58.XXXA Exposure to other specified factors, initial encounter; Y93.89 Activity, other specified; Y92.89 Other specified places as the place of occurrence of the external cause; Y99.8 Other external cause status
CPT/HCPCS: 72072; 72110; 99284; Q0162